=== PATIENT | male | born 1935 | race Caucasian/White ===

== ENCOUNTER 2018-05-11 07:59 | Day surgery (SDC) | payer MEDICARE, OTHER ==
[~2018-05-11 07:59] MED LIST: Lactated Ringers 1,000 ML IV SCH; Lidocaine 1%/Sod Bicarbonate in NS 8.4% 1 ML Syringe IDERM PRN; Propofol 200 MG/20 ML SDV ONE; Sodium Chloride 0.9% 10 ML Syringe FLUSH PRN
--- NOTE | 2018-05-11 08:25 | PCM.PREANE ---
Preanesthetic Assessment - Anesthesia/Transfusion/Family Hx Anesthesia History: Prior Anesthesia Without Reaction Family History of Anesthesia Reaction: No Transfusion History: No Prior Transfusion(s) - Review of Systems General: No Symptoms Pulmonary: No Symptoms Cardiovascular: No Symptoms Gastrointestinal: No Symptoms Neurological: No Symptoms Other: Reports: None - Physical Assessment NPO Status Date: 05/10/18 NPO Status Time: 00:00 Pulse: 88 O2 Sat by Pulse Oximetry: 97 Respiratory Rate: 18 Blood Pressure: 162/89 Temperature: 36.8 C Height: 1.68 m Weight: 85 kg ASA Class: 2 Mental Status: Alert & Oriented x3 Dentition: Reports: [place](s), Broken Tooth/Teeth Thyro-Mental Finger Breadths: 3 Mouth Opening Finger Breadths: 3 ROM/Head Extension: Limited/Partial Lungs: Clear to Auscultation, Normal Respiratory Effort Cardiovascular: Regular Rate, Regular Rhythm - Allergies Allergies/Adverse Reactions: Allergies Allergy/AdvReac Type Severity Reaction Status Date / Time No Known Allergies Allergy Verified 05/10/18 11:25 - Blood Blood Available: No Product(s) Available: None - Anesthesia Plan Pre-Op Medication Ordered: Beta Samra Beta Samra: Metoprolol Med Last Dose Date: 05/11/18 Med Last Dose Time: 08:40 - Acknowledgements Anesthesia Type Planned: MAC Pt an Appropriate Candidate for the Planned Anesthesia: Yes Alternatives and Risks of Anesthesia Discussed w Pt/Guardian: Yes Pt/Guardian Understands and Agrees with Anesthesia Plan: Yes PreAnesthesia Questionnaire HEENT History: Reports: Cataract, Glaucoma, Hard of Hearing, Impaired Vision, Other (See Below) Other HEENT History: cerumen impaction, wears glasses Cardiovascular History: Reports: CAD, Heart Failure, High Cholesterol, Hypertension Respiratory History: Reports: Asthma Gastrointestinal History: Reports: Celiac Disease, GERD Genitourinary History: Reports: None 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: 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: None Musculoskeletal History: Reports: None Neurological History: Reports: None Psychiatric History: Reports: None Endocrine/Metabolic History: Reports: None Hematologic History: Reports: None Immunologic History: Reports: None Oncologic (Cancer) History: Reports: None - Past Surgical History HEENT Surgical History: Reports: Cataract Surgery Cardiovascular Surgical History: Reports: Coronary Artery Bypass, Valve Replacement Respiratory Surgical History: Reports: None GI Surgical History: Reports: Colonoscopy Female Surgical History: Reports: None Male Surgical History: Reports: None Endocrine Surgical History: Reports: None Neurological Surgical History: Reports: None Musculoskeletal Surgical History: Reports: None Oncologic Surgical History: Reports: None Dermatological Surgical History: Reports: None - SUBSTANCE USE Smoking Status *Q: Former Smoker Tobacco Use Within Last Twelve Months: No Second Hand Smoke Exposure: No Days Per Week of Alcohol Use: 1 Number of Drinks Per Day: 7 Total Drinks Per Week: 7 Recreational Drug Use History: No - HOME MEDS Home Medications: Home Meds Aspirin [Ecotrin] 81 mg PO DAILY 05/10/18 [History] Betamethasone Valerate [Valisone 0.1% Crm] 1 dose TOP TID PRN 05/10/18 [History] Carbamide Peroxide [Debrox 6.5% Otic Soln] 1 dose EARBOTH ASDIRECTED PRN [History] Furosemide [Lasix] 20 mg PO DAILY 05/10/18 [History] Iron 18 mg PO DAILY 05/10/18 [History] Isosorbide Mononitrate [Imdur] 30 mg PO DAILY 05/10/18 [History] Metoprolol Tartrate 50 mg PO BID 05/10/18 [History] Multivitamin [Poly-Vitamin] 1 tab PO DAILY 05/10/18 [History] Mupirocin Oint [Bactroban Oint] 1 dose TOP BID PRN 05/10/18 [History] Omeprazole 20 mg PO DAILY 05/10/18 [History] Potassium Chloride 20 meq PO DAILY 05/10/18 [History] Ubidecarenone [Coq-10] 100 mg PO DAILY 05/10/18 [History] atorvaSTATin [Lipitor] 10 mg PO BEDTIME 05/10/18 [History] guaiFENesin [Mucinex] 600 mg PO BID PRN 05/10/18 [History] - CURRENT (IN HOUSE) MEDS Current Meds: Current Medications Lactated Ringer's (Ringers, Lactated) 1,000 mls @ 125 mls/hr IV ASDIRECTED KENDALL Stop: 05/11/18 23:00 Lidocaine/Sodium Bicarbonate (Buffered Lidocaine 1% In Ns 8.4%) 0.25 ml IDERM ONETIME PRN PRN Reason: Prior to IV Start Stop: 05/11/18 18:00 Sodium Chloride (Saline Flush) 10 ml FLUSH ASDIRECTED PRN PRN Reason: Keep Vein Open Stop: 02/28/19 18:00 Discontinued Medications Lactated Ringer's (Ringers, Lactated) 1,000 mls @ 125 mls/hr IV ASDIRECTED KENDALL Stop: 05/01/18 23:00 Lidocaine/Sodium Bicarbonate (Buffered Lidocaine 1% In Ns 8.4%) 0.25 ml IDERM ONETIME PRN PRN Reason: Prior to IV Start Stop: 05/01/18 18:00 Propofol (Diprivan 20 Ml) Confirm Administered Dose 200 mg .ROUTE .STK-MED ONE Stop: 05/11/18 07:46 Sodium Chloride (Saline Flush) 10 ml FLUSH ASDIRECTED PRN PRN Reason: Keep Vein Open Stop: 05/01/18 18:00
[2018-05-11] MEDS ORDERED: Propofol 200 MG/20 ML SDV ONE (09:21)
--- NOTE | 2018-05-11 09:42 | PCM.OPNOTE ---
- General Post-Op/Procedure Note Date of Surgery/Procedure: 05/11/18 Operative Procedure(s): EGD with bx and polypectomy Pre Op Diagnosis: HUONG anemia with positive celiac panel Post-Op Diagnosis: Same Anesthesia Technique: MAC Primary Surgeon: Cheko Luis EBL in mLs: 0 Complications: None Condition: Good
--- NOTE | 2018-05-12 07:37 | OR ---
DATE OF OPERATION: 05/11/2018 SURGEON: Cheko Luis MD PREOPERATIVE DIAGNOSIS: Iron deficiency anemia with positive celiac panel. 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 OPERATION PERFORMED: Esophagogastroduodenoscopy with biopsy of the 3rd portion of the duodenum, removal of a small subcentimeter polyp in the body of the stomach with retrieval of the polyp and securing the surgical site with clips, and biopsy of the GE junction. FINDINGS: Duodenum, 2nd portion of the duodenum, duodenal bulb, and pyloric channel were unremarkable. Antrum was unremarkable. A small polyp was noted in the body and this was first biopsied and then removed with cautery snare and retrieved and the surgical site secured with clips. A large hiatal hernia was noted with GE junction at about 32 cm and some irregularity in the Z-line, which led to a biopsy of the GE junction. Rest of the esophagus was unremarkable. ANESTHESIA: Procedure done under IV sedation. DESCRIPTION OF PROCEDURE: The patient was taken to the treatment room, placed in supine position, connected to monitoring equipment, given IV sedation, placed in the left lateral position. Bite block was inserted and video Olympus gastroscope was placed in the posterior oropharynx. Under direct vision, this was threaded past the cricopharyngeus, down the esophagus, into the stomach. The stomach was insufflated. Then, the scope passed through the pylorus and the 2nd portion of the duodenum. It was then advanced into the 3rd portion of the duodenum and a duodenal biopsy was performed. Slowly withdrawn showing normal anatomy in the duodenum, duodenal bulb, and pyloric channel. Antrum was unremarkable. A polyp was noted at the body of the stomach, which appeared irritated. This was biopsied and then cautery snare placed around the polyp. It was removed and retrieved and sent to pathology. Two clips were used to secure the surgical site. J-maneuver showed an incompetent hiatus with a large hiatal hernia and the GE junction was located at 32 cm, some irregularity and this was biopsied. The rest of the esophagus was viewed as the scope withdrawn and normal. The patient tolerated the procedure and sent to recovery room in a stable condition, will be followed up in the clinic. ESTIMATED BLOOD LOSS: MMODAL /[id number]
== END 2018-05-11 10:17 | disposition home or self-care (01) ==
LOC: JD.SDS 07:59
PROVIDERS: ATTEND Surgery
DX: D50.9 Iron deficiency anemia, unspecified (principal); R76.8 Other specified abnormal immunological findings in serum; K31.7 Polyp of stomach and duodenum; K44.9 Diaphragmatic hernia without obstruction or gangrene; J45.909 Unspecified asthma, uncomplicated; I25.10 Atherosclerotic heart disease of native coronary artery without angina pectoris; I11.0 Hypertensive heart disease with heart failure; I50.9 Heart failure, unspecified; E78.00 Pure hypercholesterolemia, unspecified; Z79.82 Long term (current) use of aspirin; Z79.899 Other long term (current) drug therapy; Z87.891 Personal history of nicotine dependence
CPT/HCPCS: 36415; 43239; 80048; J2704; J7120; 00731

== ENCOUNTER 2020-01-14 10:18 | Inpatient (IN) | payer MEDICARE, OTHER ==
[2020-01-14] MEDS ORDERED: Sodium Chloride 0.9% 1,000 ML IV SCH (10:30)
--- NOTE | 2020-01-14 11:24 | EDM.PDOC ---
ED HPI GENERAL MEDICAL PROBLEM - General Chief Complaint: General Stated Complaint: [facility] Time Seen by Provider: 01/14/20 10:22 Source of Information: Reports: Patient, EMS History Limitations: Reports: No Limitations - History of Present Illness INITIAL COMMENTS - FREE TEXT/NARRATIVE: The patient presets by [facility] for generalized weakness. He said thi s all started last Tuesday. He normally can walk without assistance but on Tuesday his legs would not work. He can walk with a walker. He has no headache, fever, chills, cough, congestion, runny nose, chest pain, shortness of breath, abdominal pain, nausea, vomiting or diarrhea. He said he did have some lower and upper back pain but that was mild and nothing now. He did fall today because of the weakness but he has no injuries. He has no medical problems other then a heart valve replaced years ago. Onset: Gradual Duration: Day(s): (6) Location: Reports: Back Quality: Reports: Ache Severity: Mild Improves with: Reports: None Worsens with: Reports: None Associated Symptoms: Reports: No Other Symptoms - Related Data Allergies Allergy/AdvReac Type Severity Reaction Status Date / Time No Known Allergies Allergy Verified 01/14/20 10:32 Home Meds: Home Meds Aspirin [Ecotrin EC] 81 mg PO DAILY 05/10/18 [History] Betamethasone Valerate [Valisone 0.1% Crm] 1 dose TOP TID PRN 05/10/18 [History] Carbamide Peroxide [Debrox 6.5% Otic Soln] 1 dose EARBOTH ASDIRECTED PRN 05/10/18 [History] Furosemide [Lasix] 20 mg PO DAILY 05/10/18 [History] Iron 18 mg PO DAILY 05/10/18 [History] Isosorbide Mononitrate [Imdur] 30 mg PO DAILY 05/10/18 [History] Metoprolol Tartrate 50 mg PO BID 05/10/18 [History] Multivitamin [Poly-Vitamin] 1 tab PO DAILY 05/10/18 [History] Mupirocin Oint [Bactroban Oint] 1 dose TOP BID PRN 05/10/18 [History] Omeprazole 20 mg PO DAILY 05/10/18 [History] Potassium Chloride 20 meq PO DAILY 05/10/18 [History] Ubidecarenone [Coq-10] 100 mg PO DAILY 05/10/18 [History] atorvaSTATin [Lipitor] 10 mg PO BEDTIME 05/10/18 [History] guaiFENesin [Mucinex] 600 mg PO BID PRN 05/10/18 [History] Past Medical History HEENT History: Reports: Cataract, Glaucoma, Hard of Hearing, Impaired Vision, Other (See Below) Other HEENT History: cerumen impaction, wears glasses Cardiovascular History: Reports: CAD, Heart Failure, High Cholesterol, Hypertension Respiratory History: Reports: Asthma Gastrointestinal History: Reports: Celiac Disease, GERD Genitourinary History: Reports: None 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: 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: None Musculoskeletal History: Reports: None Neurological History: Reports: None Psychiatric History: Reports: None Endocrine/Metabolic History: Reports: None Hematologic History: Reports: None Immunologic History: Reports: None Oncologic (Cancer) History: Reports: None - Past Surgical History HEENT Surgical History: Reports: Cataract Surgery Cardiovascular Surgical History: Reports: Coronary Artery Bypass, Valve Replacement Respiratory Surgical History: Reports: None GI Surgical History: Reports: Colonoscopy Female Surgical History: Reports: None Male Surgical History: Reports: None Endocrine Surgical History: Reports: None Neurological Surgical History: Reports: None Musculoskeletal Surgical History: Reports: None Oncologic Surgical History: Reports: None Dermatological Surgical History: Reports: None Social & Family History - Caffeine Use Caffeine Use: Reports: Coffee ED ROS GENERAL - Review of Systems Review Of Systems: See Below Constitutional: Reports: No Symptoms HEENT: Reports: No Symptoms Respiratory: Reports: No Symptoms Cardiovascular: Reports: No Symptoms Endocrine: Reports: No Symptoms GI/Abdominal: Reports: No Symptoms : Reports: No Symptoms Musculoskeletal: Reports: Back Pain (Mild back pain) Neurological: Reports: Weakness (bilateral leg weakness) ED EXAM, GENERAL - Physical Exam Exam: See Below Exam Limited By: No Limitations General Appearance: Alert, No Apparent Distress Ears: Normal External Exam Nose: Normal Inspection Head: Atraumatic, Normocephalic Neck: Normal Inspection Respiratory/Chest: No Respiratory Distress, Lungs Clear, Normal Breath Sounds Cardiovascular: Regular Rate, Rhythm, No Edema, No Murmur GI/Abdominal: Soft, Non-Tender, No Organomegaly, No Mass Back Exam: Normal Inspection Extremities: Normal Inspection Neurological: Alert, Oriented, Other (Bilateral leg weakness) #1 Interpretation EKG Date: 01/14/20 Time: 10:45 Rhythm: NSR Rate (Beats/Min): 98 [place]: LAD-Left [place] Deviation P-Wave: Present QRS: Normal ST-T: Normal QT: Normal EKG Interpretation Comments: Q waves in the inferior and anterior leads Course - Vital Signs Last Recorded V/S: Last Vital Signs Temp 96.9 F 01/14/20 10:25 Pulse 96 01/14/20 10:25 Resp 18 01/14/20 10:25 BP 116/81 01/14/20 10:25 Pulse Ox 96 01/14/20 10:25 - Orders/Labs/Meds Orders: Active Orders 24 hr Category Date Time Status Cardiac Monitoring [RC] . DIRECTED Care 01/14/20 10:29 Active EKG Documentation Completion [RC] STAT Care 01/14/20 10:30 Active Oxygen Therapy [RC] PRN Care 01/14/20 10:29 Active Peripheral IV Care [RC] . DIRECTED Care 01/14/20 10:30 Active LACTIC ACID [CHEM] Stat Lab 01/14/20 14:06 Received Sodium Chloride 0.9% [Normal Saline] 1,000 ml Med 01/14/20 10:30 Active IV ASDIRECTED Sodium Chloride 0.9% [Saline Flush] Med 01/14/20 10:29 Active 10 ml FLUSH ASDIRECTED PRN cefTRIAXone [Rocephin] 2 gm Med 01/14/20 12:15 Active Sodium Chloride 0.9% [Normal Saline] 100 ml IV Q24H Peripheral IV Insertion Adult [OM.PC] Stat Oth 01/14/20 10:29 Ordered Medication Orders Sodium Chloride (Normal Saline) 1,000 mls @ 125 mls/hr IV ASDIRECTED KENDALL Last Admin: 01/14/20 12:00 Dose: 999 mls/hr Documented by: JHOAN Ceftriaxone Sodium 2 gm/ (Sodium Chloride) 100 mls @ 200 mls/hr IV Q24H KENDALL Last Admin: 01/14/20 13:05 Dose: 200 mls/hr Documented by: JHOAN Sodium Chloride (Saline Flush) 10 ml FLUSH ASDIRECTED PRN PRN Reason: Keep Vein Open Last Admin: 01/14/20 13:07 Dose: 10 ml Documented by: JHOAN Labs: Laboratory Tests 01/14/20 01/14/20 01/14/20 Range/Units 11:00 11:00 11:00 WBC 9.28 H (4.23-9.07) K/mm3 RBC 5.22 (4.63-6.08) M/mm3 Hgb 15.7 D (13.7-17.5) gm/dl Hct 47.5 (40.1-51.0) % MCV 91.0 D (79.0-92.2) fl MCH 30.1 (25.7-32.2) pg MCHC 33.1 (32.2-35.5) g/dl RDW Std Deviation 51.2 H (35.1-43.9) fL Plt Count 488 H (163-337) K/mm3 MPV 9.5 (9.4-12.3) fl Neut % (Auto) 77.0 H (34.0-67.9) % Lymph % (Auto) 8.8 L (21.8-53.1) % [place]igs % (Auto) 12.9 H (5.3-12.2) % Eos % (Auto) 0.4 L (0.8-7.0) Baso % (Auto) 0.6 (0.1-1.2) % Neut # (Auto) 7.13 H (1.78-5.38) K/mm3 Lymph # (Auto) 0.82 L (1.32-3.57) K/mm3 [place] # (Auto) 1.20 H (0.30-0.82) K/mm3 Eos # (Auto) 0.04 (0.04-0.54) K/mm3 Baso # (Auto) 0.06 (0.01-0.08) K/mm3 Manual Slide Review Normal smear ESR (0-15) mm/hr D-Dimer, Quantitative 3.01 H (0.19-0.50) mg/L Sodium 138 (136-145) mEq/L Potassium 4.2 (3.5-5.1) mEq/L Chloride 100 (98-107) mEq/L Carbon Dioxide 26 (21-32) mEq/L Anion Gap 16.2 H (5-15) BUN 19 H (7-18) mg/dL Creatinine 1.7 H (0.7-1.3) mg/dL Est Cr Clr Drug Dosing 33.40 mL/min Estimated GFR (MDRD) 39 (>60) mL/min BUN/Creatinine Ratio 11.2 L (14-18) Glucose 120 H (83-115) mg/dL Lactic Acid (0.4-2.0) mmol/L Calcium 13.6 H* D (8.5-10.1) mg/dL Magnesium 1.7 L (1.8-2.4) mg/dl Ferritin (26-388) ng/ml Total Bilirubin 0.5 (0.2-1.0) mg/dL AST 62 H (15-37) U/L ALT 21 (16-63) U/L Alkaline Phosphatase 119 H (46-116) U/L Lactate Dehydrogenase 1422 H (85-227) U/L Troponin I < 0.017 (0.00-0.056) ng/mL C-Reactive Protein 6.3 H* (<1.0) mg/dL Total Protein 7.4 (6.4-8.2) g/dl Albumin 3.2 L (3.4-5.0) g/dl Globulin 4.2 gm/dL Albumin/Globulin Ratio 0.8 L (1-2) Urine Color (Yellow) Urine Appearance (Clear) Urine pH (5.0-8.0) Ur Specific Tyro (1.005-1.030) Urine Protein (Negative) Urine Glucose (UA) (Negative) Urine Ketones (Negative) Urine Occult Blood (Negative) Urine Nitrite (Negative) Urine Bilirubin (Negative) Urine Urobilinogen (0.2-1.0) Ur Leukocyte Esterase (Negative) Urine RBC (0-5) /hpf Urine WBC (0-5) /hpf Ur Squamous Epith Cells (0-5) /hpf Urine Bacteria (FEW) /hpf Urine Mucus (FEW) /hpf SARS-CoV-2 RNA (GRACE) (NEGATIVE) 01/14/20 01/14/20 01/14/20 Range/Units 11:00 11:00 11:00 WBC (4.23-9.07) K/mm3 RBC (4.63-6.08) M/mm3 Hgb (13.7-17.5) gm/dl Hct (40.1-51.0) % MCV (79.0-92.2) fl MCH (25.7-32.2) pg MCHC (32.2-35.5) g/dl RDW Std Deviation (35.1-43.9) fL Plt Count (163-337) K/mm3 MPV (9.4-12.3) fl Neut % (Auto) (34.0-67.9) % Lymph % (Auto) (21.8-53.1) % [place] % (Auto) (5.3-12.2) % Eos % (Auto) (0.8-7.0) Baso % (Auto) (0.1-1.2) % Neut # (Auto) (1.78-5.38) K/mm3 Lymph # (Auto) (1.32-3.57) K/mm3 [place] # (Auto) (0.30-0.82) K/mm3 Eos # (Auto) (0.04-0.54) K/mm3 Baso # (Auto) (0.01-0.08) K/mm3 Manual Slide Review ESR 8 (0-15) mm/hr D-Dimer, Quantitative (0.19-0.50) mg/L Sodium (136-145) mEq/L Potassium (3.5-5.1) mEq/L Chloride (98-107) mEq/L Carbon Dioxide (21-32) mEq/L Anion Gap (5-15) BUN (7-18) mg/dL Creatinine (0.7-1.3) mg/dL Est Cr Clr Drug Dosing mL/min Estimated GFR (MDRD) (>60) mL/min BUN/Creatinine Ratio (14-18) Glucose (83-115) mg/dL Lactic Acid 4.4 H* (0.4-2.0) mmol/L Calcium (8.5-10.1) mg/dL Magnesium (1.8-2.4) mg/dl Ferritin 129 (26-388) ng/ml Total Bilirubin (0.2-1.0) mg/dL AST (15-37) U/L ALT (16-63) U/L Alkaline Phosphatase (46-116) U/L Lactate Dehydrogenase (85-227) U/L Troponin I (0.00-0.056) ng/mL C-Reactive Protein (<1.0) mg/dL Total Protein (6.4-8.2) g/dl Albumin (3.4-5.0) g/dl Globulin gm/dL Albumin/Globulin Ratio (1-2) Urine Color (Yellow) Urine Appearance (Clear) Urine pH (5.0-8.0) Ur Specific Tyro (1.005-1.030) Urine Protein (Negative) Urine Glucose (UA) (Negative) Urine Ketones (Negative) Urine Occult Blood (Negative) Urine Nitrite (Negative) Urine Bilirubin (Negative) Urine Urobilinogen (0.2-1.0) Ur Leukocyte Esterase (Negative) Urine RBC (0-5) /hpf Urine WBC (0-5) /hpf Ur Squamous Epith Cells (0-5) /hpf Urine Bacteria (FEW) /hpf Urine Mucus (FEW) /hpf SARS-CoV-2 RNA (GRACE) (NEGATIVE) 01/14/20 01/14/20 Range/Units 12:02 12:02 WBC (4.23-9.07) K/mm3 RBC (4.63-6.08) M/mm3 Hgb (13.7-17.5) gm/dl Hct (40.1-51.0) % MCV (79.0-92.2) fl MCH (25.7-32.2) pg MCHC (32.2-35.5) g/dl RDW Std Deviation (35.1-43.9) fL Plt Count (163-337) K/mm3 MPV (9.4-12.3) fl Neut % (Auto) (34.0-67.9) % Lymph % (Auto) (21.8-53.1) % [place]igs % (Auto) (5.3-12.2) % Eos % (Auto) (0.8-7.0) Baso % (Auto) (0.1-1.2) % Neut # (Auto) (1.78-5.38) K/mm3 Lymph # (Auto) (1.32-3.57) K/mm3 [place] # (Auto) (0.30-0.82) K/mm3 Eos # (Auto) (0.04-0.54) K/mm3 Baso # (Auto) (0.01-0.08) K/mm3 Manual Slide Review ESR (0-15) mm/hr D-Dimer, Quantitative (0.19-0.50) mg/L Sodium (136-145) mEq/L Potassium (3.5-5.1) mEq/L Chloride (98-107) mEq/L Carbon Dioxide (21-32) mEq/L Anion Gap (5-15) BUN (7-18) mg/dL Creatinine (0.7-1.3) mg/dL Est Cr Clr Drug Dosing mL/min Estimated GFR (MDRD) (>60) mL/min BUN/Creatinine Ratio (14-18) Glucose (83-115) mg/dL Lactic Acid (0.4-2.0) mmol/L Calcium (8.5-10.1) mg/dL Magnesium (1.8-2.4) mg/dl Ferritin (26-388) ng/ml Total Bilirubin (0.2-1.0) mg/dL AST (15-37) U/L ALT (16-63) U/L Alkaline Phosphatase (46-116) U/L Lactate Dehydrogenase (85-227) U/L Troponin I (0.00-0.056) ng/mL C-Reactive Protein (<1.0) mg/dL Total Protein (6.4-8.2) g/dl Albumin (3.4-5.0) g/dl Globulin gm/dL Albumin/Globulin Ratio (1-2) Urine Color Yellow (Yellow) Urine Appearance Clear (Clear) Urine pH 5.5 (5.0-8.0) Ur Specific Tyro > or = 1.030 (1.005-1.030) Urine Protein 1+ H (Negative) Urine Glucose (UA) Negative (Negative) Urine Ketones Negative (Negative) Urine Occult Blood Negative (Negative) Urine Nitrite Negative (Negative) Urine Bilirubin 1+ H (Negative) Urine Urobilinogen 0.2 (0.2-1.0) Ur Leukocyte Esterase Negative (Negative) Urine RBC Not seen (0-5) /hpf Urine WBC 0-5 (0-5) /hpf Ur Squamous Epith Cells 0-5 (0-5) /hpf Urine Bacteria Not seen (FEW) /hpf Urine Mucus Few (FEW) /hpf SARS-CoV-2 RNA (GRACE) Negative (NEGATIVE) Meds: Medications Generic Name Dose Route Start Last Admin Trade Name Freq PRN Reason Stop Dose Admin Sodium Chloride 1,000 mls @ 125 mls/hr 01/14/20 10:30 11/02/20 12:00 Normal Saline IV 999 mls/hr ASDIRECTED KENDALL Administration Ceftriaxone Sodium 2 gm/ 100 mls @ 200 mls/hr 01/14/20 12:15 01/14/20 13:05 Sodium Chloride IV 200 mls/hr Q24H KENDALL Administration Sodium Chloride 10 ml 01/14/20 10:29 01/14/20 13:07 Saline Flush FLUSH 10 ml ASDIRECTED PRN Administration Keep Vein Open Discontinued Medications Generic Name Dose Route Start Last Admin Trade Name Ozzie PRN Reason Stop Dose Admin Lactated Ringer's 1,000 mls @ 1,000 mls/hr 01/14/20 11:48 01/14/20 13:37 Ringers, Lactated IV 01/14/20 12:47 1,000 mls/hr .BOLUS ONE Administration - Re-Assessments/Exams Free Text/Narrative Re-Assessment/Exam: 01/14/20 11:28 I ordered an IV saline lock, CT of his head, EKG, CXR, labs, UA, lactic acid and COVID 19 test. 01/14/20 14:[address] of his head shows no evidence of acute intracranial abnormality. No evidence of acute infarction, hemorrhage, or mass. Atrophy and microvascular di sease. His EKG shows a NSR with no acute changes. His CXR shows basilar pulmonary opacities and probable small pleural effusions. His WBC was elevated at 9.28. His D-dimer was elevated at 3.01. His anion gap was elevated at 16.2. His creatinine was elevated at 1.7. His glucose is elevated at 120. his lactic acid is elevated at 4.4. I ordered 2,430mls of fluid for a 30ml/kg bolus. His calcium was elevated at 13.6. His magnesium was a little low at 1.7. His AST was elevated at 62. His Alk Phos is elevated at 119. His LDH was elevated at 1422. His troponin is negative. His CRP is elevated at 6.3. His UA shows no UTI. I did get blood cultures and started rocephin. He has pneumonia and sepsis. He is COVID [address] Scott and he agreed to the admission. Departure - Departure Time of Disposition: 14:25 Disposition: Admitted As Inpatient 66 Condition: Serious Clinical Impression: Renal insufficiency, Generalized weakness Pneumonia Qualifiers: Pneumonia type: due to unspecified organism Laterality: bilateral Lung location: lower lobe of lung Qualified Code(s): J18.9 - Pneumonia, unspecified organism Sepsis Qualifiers: Sepsis type: sepsis due to unspecified organism Sepsis acute organ dysfunction status: unspecified Qualified Code(s): A41.9 - Sepsis, unspecified organism - Discharge Information Referrals: PCP,None [Ordering Only Provider] - Forms: ED Department Discharge Sepsis Event Note (ED) - Evaluation Sepsis Screening Result: No Definite Risk - Focused Exam Vital Signs: Vital Signs Temp Pulse Resp BP Pulse Ox 01/14/20 10:25 96.9 F 96 18 116/81 96 - My Orders Last 24 Hours: My Active Orders 01/14/20 10:29 Cardiac Monitoring [RC] . DIRECTED Oxygen Therapy [RC] PRN Sodium Chloride 0.9% [Saline Flush] 10 ml FLUSH ASDIRECTED PRN Peripheral IV Insertion Adult [OM.PC] Stat 01/14/20 10:30 EKG Documentation Completion [RC] STAT Peripheral IV Care [RC] . DIRECTED Sodium Chloride 0.9% [Normal Saline] 1,000 ml IV ASDIRECTED 01/14/20 12:15 cefTRIAXone [Rocephin] 2 gm Sodium Chloride 0.9% [Normal Saline] 100 ml IV Q24H 01/14/20 14:06 LACTIC ACID [CHEM] Stat - Assessment/Plan Last 24 Hours: My Active Orders 01/14/20 10:29 Cardiac Monitoring [RC] . DIRECTED Oxygen Therapy [RC] PRN Sodium Chloride 0.9% [Saline Flush] 10 ml FLUSH ASDIRECTED PRN Peripheral IV Insertion Adult [OM.PC] Stat 01/14/20 10:30 EKG Documentation Completion [RC] STAT Peripheral IV Care [RC] . DIRECTED Sodium Chloride 0.9% [Normal Saline] 1,000 ml IV ASDIRECTED 01/14/20 12:15 cefTRIAXone [Rocephin] 2 gm Sodium Chloride 0.9% [Normal Saline] 100 ml IV Q24H 01/14/20 14:06 LACTIC ACID [CHEM] Stat
[2020-01-14] MEDS ORDERED: Lactated Ringers 1,000 ML IV ONE (11:48)
[2020-01-14] MEDS ORDERED: cefTRIAXone 2 GM in Sodium Chloride 0.9% 100 ML IV SCH (12:15)
[2020-01-14] MEDS: Sodium Chloride 0.9% 10 ML Syringe FLUSH PRN (13:07)
--- NOTE | 2020-01-14 13:58 | CT ---
"PROCEDURE INFORMATION: Exam: CT Head Without Contrast Exam date and time: 01/14/2020 11:36 AM Age: 84 years old Clinical indication: Weakness, extremity; Bilateral; Additional info: Generalized weakness; Worse in both legs TECHNIQUE: Imaging protocol: Computed tomography of the head without contrast. Radiation optimization: All CT scans at this facility use at least one of these dose optimization techniques: automated exposure control; mA and/or kV adjustment per patient size (includes targeted exams where dose is matched to clinical indication); or iterative reconstruction. COMPARISON: No relevant prior studies available. FINDINGS: Brain: There is small chronic lacunar infarct along lateral aspect of body of right lateral ventricle. There is no acute intracranial hemorrhage. There is lucency in the cerebral white matter, likely microvascular disease although non-specific. Reeves white differentiation is intact. There are no extraaxial fluid collections. No evidence of mass. There is no mass effect or midline shift. Cerebral ventricles: The ventricles and sulci are enlarged, consistent with volume loss / atrophy. No hydrocephalus. Bones/joints: No acute skull fracture. Approximately 5 mm nonspecific rounded lucency in left parietal skull. Paranasal sinuses: There is minimal mucosal thickening scattered in maxillary, ethmoid, and frontal sinuses. Mastoid air cells: No significant mastoid effusion. Orbital cavity: There have been bilateral intraocular lens replacements likely related to cataract surgery. Vasculature: There is vascular calcification. Soft tissues: Unremarkable as visualized. IMPRESSION: [facility] | Final Radiology Report CONFIDENTIALITY STATEMENT This report is intended only for use by the referring physician, and only in accordance with law. If you received this in error, call [phone]. Page 2 of 2 1. No evidence of acute intracranial abnormality. No evidence of acute infarction, hemorrhage, or mass. 2. Atrophy and microvascular disease. Thank you for allowing us to participate in the care of your patient. Dictated and Authenticated by: Rose Mary Mayo MD 01/14/2020 12:48 PM Central Time ([place] & [place]) [facility]"
--- NOTE | 2020-01-14 14:00 | CR ---
PROCEDURE INFORMATION: Exam: XR Chest, 1 View Exam date and time: 01/14/2020 11:13 AM Age: 84 years old Clinical indication: Chest pain; Type not specified; Additional info: Generalized weakness; Worse in both legs TECHNIQUE: Imaging protocol: XR of the chest Views: 1 view. COMPARISON: No relevant prior studies available. FINDINGS: Lungs: Rounded opacity retrocardiac region could be a hiatal hernia but is nonspecific without localizing with lateral view. There are mild basilar airspace opacities which could be pneumonia and/or edema. Costophrenic angles appear slightly blunted suggesting small pleural effusions. Pleural space: See "Lungs" finding. No pneumothorax. Heart/Mediastinum: No significant cardiomegaly. Bones/joints: There is prior median sternotomy. Old right posterior 4th and 5th rib fractures. IMPRESSION: Basilar pulmonary opacities and probable small pleural effusions. Thank you for allowing us to participate in the care of your patient. Dictated and Authenticated by: Rose Mary Mayo MD 01/14/2020 12:50 PM Central Time ([place] & [place]) [facility]
[2020-01-14] MEDS ORDERED: LACTATED RINGERS IV ONE (14:37)
[2020-01-14] MEDS ORDERED: Lactated Ringers 1,000 ML ONE (14:54)
[2020-01-14] MEDS ORDERED: Bisacodyl 5 MG Tab PO PRN (15:08)
[2020-01-14] MEDS ORDERED: Sodium Chloride 0.9% 10 ML Syringe FLUSH PRN (15:08)
[2020-01-14] MEDS ORDERED: Ondansetron 4 MG/2 ML SDV IV PRN (15:08)
[2020-01-14] MEDS ORDERED: Magnesium Sulfate/Water 2 GM/50 ML BAG IV ONE (15:56)
--- NOTE | 2020-01-14 15:56 | PCM.HP.2 ---
H&P History of Present Illness - General Date of Service: 01/14/20 Admit Problem/Dx: Admission Diagnosis/Problem Admission Diagnosis/Problem Sepsis due to pneumonia Source of Information: Provider, RN History Limitations: Reports: Other (Patient is confused. Oriented to person and place however he thinks the year is 1819.) - History of Present Illness Initial Comments - Free Text/Narative: The patient presets by [facility] for generalized weakness. He said this all started last Tuesday. He normally can walk without assistance but on Tuesday his legs would not work. He can walk with a walker. He has no headache, fever, chills, cough, congestion, runny nose, chest pain, shortness of breath, abdominal pain, nausea, vomiting or diarrhea. He said he did have some lower and upper back pain but that was mild and nothing now. He did fall today because of the weakness but he has no injuries. He has no medical problems other then a heart valve replaced years ago. - Related Data Allergies/Adverse Reactions: Allergies Allergy/AdvReac Type Severity Reaction Status Date / Time No Known Allergies Allergy Verified 01/14/20 17:25 Home Medications: Home Meds Furosemide [Lasix] 20 mg PO DAILY 05/10/18 [History] Metoprolol Tartrate 50 mg PO BID 05/10/18 [History] Multivitamin [Poly-Vitamin] 1 tab PO DAILY 05/10/18 [History] Omeprazole 20 mg PO DAILY 05/10/18 [History] Potassium Chloride 20 meq PO DAILY 05/10/18 [History] atorvaSTATin [Lipitor] 10 mg PO BEDTIME 05/10/18 [History] Aspirin [Halfprin] 81 mg PO DAILY 01/14/20 [History] Past Medical History HEENT History: Reports: Cataract, Glaucoma, Hard of Hearing, Impaired Vision, Other (See Below) Other HEENT History: cerumen impaction, wears glasses Cardiovascular History: Reports: CAD, Heart Failure, High Cholesterol, Hypert ension Respiratory History: Reports: Asthma Gastrointestinal History: Reports: Celiac Disease, GERD Genitourinary History: Reports: None NURSE CHEMICAL DEPENDENCY History: Reports: None Musculoskeletal History: Reports: None Neurological History: Reports: None Psychiatric History: Reports: None Endocrine/Metabolic History: Reports: None Hematologic History: Reports: None Immunologic History: Reports: None Oncologic (Cancer) History: Reports: None - Past Surgical History HEENT Surgical History: Reports: Cataract Surgery Cardiovascular Surgical History: Reports: Coronary Artery Bypass, Valve Replacement Respiratory Surgical History: Reports: None GI Surgical History: Reports: Colonoscopy Female Surgical History: Reports: None Male Surgical History: Reports: None Endocrine Surgical History: Reports: None Neurological Surgical History: Reports: None Musculoskeletal Surgical History: Reports: None Oncologic Surgical History: Reports: None Dermatological Surgical History: Reports: None Social & Family History - Caffeine Use Caffeine Use: Reports: Coffee H&P Review of Systems - Review of Systems: Review Of Systems: See Below General: Reports: Weakness HEENT: Reports: Glasses Pulmonary: Reports: No Symptoms Cardiovascular: Reports: No Symptoms Gastrointestinal: Reports: No Symptoms Genitourinary: Reports: No Symptoms Musculoskeletal: Reports: No Symptoms Skin: Reports: No Symptoms Psychiatric: Reports: Confusion Neurological: Reports: Confusion Hematologic/Lymphatic: Reports: No Symptoms Immunologic: Reports: No Symptoms Exam - Exam Exam: See Below - Vital Signs Vital Signs: Last Vital Signs Temp 96.9 F 01/14/20 10:25 Pulse 96 01/14/20 10:25 Resp 18 01/14/20 10:25 BP 116/81 01/14/20 10:25 Pulse Ox 96 01/14/20 10:25 Weight: 180 lb - Exam Quality Assessment: DVT Prophylaxis (Lovenox). No: Supplemental Oxygen General: Alert, Cooperative, Other (Confused he believes that it is 1820.) HEENT: Conjunctiva Clear, EACs Clear, Pupils Equal, Pupils Reactive. No: Hearing Intact (Hard of hearing), Mucosa Moist & [place] (Dry) Neck: Supple, Trachea Midline. No: Lymphadenopathy Lungs: Clear to Auscultation, Normal Respiratory Effort Cardiovascular: Regular Rate, Regular Rhythm, Systolic Murmur GI/Abdominal Exam: Normal Bowel Sounds, Soft, Non-Tender, No Distention (Male) Exam: Deferred Rectal (Males) Exam: Deferred Back Exam: Normal Inspection, Full Range of Motion Extremities: Normal Inspection, Normal Range of Motion, Non-Tender, No Pedal Ed jazzy, Normal Capillary Refill Peripheral Pulses: 2+: Radial (L), Radial (R), Dorsalis Pedis (L), Dorsalis Pedis (R) Skin: Warm, Dry, Intact Neuro Extensive - Mental Status: Alert, Normal Mood/Affect, Normal Cognition, Disorientation to Time Psychiatric: Alert, Normal Affect, Normal Mood - Patient Data Lab Results Last 24 hrs: Laboratory Results - last 24 hr 01/14/20 01/14/20 01/14/20 Range/Units 11:00 11:00 11:00 WBC 9.28 H (4.23-9.07) K/mm3 RBC 5.22 (4.63-6.08) M/mm3 Hgb 15.7 D (13.7-17.5) gm/dl Hct 47.5 (40.1-51.0) % MCV 91.0 D (79.0-92.2) fl MCH 30.1 (25.7-32.2) pg MCHC 33.1 (32.2-35.5) g/dl RDW Std Deviation 51.2 H (35.1-43.9) fL Plt Count 488 H (163-337) K/mm3 MPV 9.5 (9.4-12.3) fl Neut % (Auto) 77.0 H (34.0-67.9) % Lymph % (Auto) 8.8 L (21.8-53.1) % [place] % (Auto) 12.9 H (5.3-12.2) % Eos % (Auto) 0.4 L (0.8-7.0) Baso % (Auto) 0.6 (0.1-1.2) % Neut # (Auto) 7.13 H (1.78-5.38) K/mm3 Lymph # (Auto) 0.82 L (1.32-3.57) K/mm3 [place] # (Auto) 1.20 H (0.30-0.82) K/mm3 Eos # (Auto) 0.04 (0.04-0.54) K/mm3 Baso # (Auto) 0.06 (0.01-0.08) K/mm3 Manual Slide Review Normal smear ESR (0-15) mm/hr D-Dimer, Quantitative 3.01 H (0.19-0.50) mg/L Sodium 138 (136-145) mEq/L Potassium 4.2 (3.5-5.1) mEq/L Chloride 100 (98-107) mEq/L Carbon Dioxide 26 (21-32) mEq/L Anion Gap 16.2 H (5-15) BUN 19 H (7-18) mg/dL Creatinine 1.7 H (0.7-1.3) mg/dL Est Cr Clr Drug Dosing 33.40 mL/min Estimated GFR (MDRD) 39 (>60) mL/min BUN/Creatinine Ratio 11.2 L (14-18) Glucose 120 H (83-115) mg/dL Lactic Acid (0.4-2.0) mmol/L Calcium 13.6 H* D (8.5-10.1) mg/dL Magnesium 1.7 L (1.8-2.4) mg/dl Ferritin (26-388) ng/ml Total Bilirubin 0.5 (0.2-1.0) mg/dL AST 62 H (15-37) U/L ALT 21 (16-63) U/L Alkaline Phosphatase 119 H (46-116) U/L Lactate Dehydrogenase 1422 H (85-227) U/L Troponin I < 0.017 (0.00-0.056) ng/mL C-Reactive Protein 6.3 H* (<1.0) mg/dL Total Protein 7.4 (6.4-8.2) g/dl Albumin 3.2 L (3.4-5.0) g/dl Globulin 4.2 gm/dL Albumin/Globulin Ratio 0.8 L (1-2) Urine Color (Yellow) Urine Appearance (Clear) Urine pH (5.0-8.0) Ur Specific [place] (1.005-1.030) Urine Protein (Negative) Urine Glucose (UA) (Negative) Urine Ketones (Negative) Urine Occult Blood (Negative) Urine Nitrite (Negative) Urine Bilirubin (Negative) Urine Urobilinogen (0.2-1.0) Ur Leukocyte Esterase (Negative) Urine RBC (0-5) /hpf Urine WBC (0-5) /hpf Ur Squamous Epith Cells (0-5) /hpf Urine Bacteria (FEW) /hpf Urine Mucus (FEW) /hpf SARS-CoV-2 RNA (GRACE) (NEGATIVE) 01/14/20 01/14/20 01/14/20 Range/Units 11:00 11:00 11:00 WBC (4.23-9.07) K/mm3 RBC (4.63-6.08) M/mm3 Hgb (13.7-17.5) gm/dl Hct (40.1-51.0) % MCV (79.0-92.2) fl MCH (25.7-32.2) pg MCHC (32.2-35.5) g/dl RDW Std Deviation (35.1-43.9) fL Plt Count (163-337) K/mm3 MPV (9.4-12.3) fl Neut % (Auto) (34.0-67.9) % Lymph % (Auto) (21.8-53.1) % [place] % (Auto) (5.3-12.2) % Eos % (Auto) (0.8-7.0) Baso % (Auto) (0.1-1.2) % Neut # (Auto) (1.78-5.38) K/mm3 Lymph # (Auto) (1.32-3.57) K/mm3 [place] # (Auto) (0.30-0.82) K/mm3 Eos # (Auto) (0.04-0.54) K/mm3 Baso # (Auto) (0.01-0.08) K/mm3 Manual Slide Review ESR 8 (0-15) mm/hr D-Dimer, Quantitative (0.19-0.50) mg/L Sodium (136-145) mEq/L Potassium (3.5-5.1) mEq/L Chloride (98-107) mEq/L Carbon Dioxide (21-32) mEq/L Anion Gap (5-15) BUN (7-18) mg/dL Creatinine (0.7-1.3) mg/dL Est Cr Clr Drug Dosing mL/min Estimated GFR (MDRD) (>60) mL/min BUN/Creatinine Ratio (14-18) Glucose (83-115) mg/dL Lactic Acid 4.4 H* (0.4-2.0) mmol/L Calcium (8.5-10.1) mg/dL Magnesium (1.8-2.4) mg/dl Ferritin 129 (26-388) ng/ml Total Bilirubin (0.2-1.0) mg/dL AST (15-37) U/L ALT (16-63) U/L Alkaline Phosphatase (46-116) U/L Lactate Dehydrogenase (85-227) U/L Troponin I (0.00-0.056) ng/mL C-Reactive Protein (<1.0) mg/dL Total Protein (6.4-8.2) g/dl Albumin (3.4-5.0) g/dl Globulin gm/dL Albumin/Globulin Ratio (1-2) Urine Color (Yellow) Urine Appearance (Clear) Urine pH (5.0-8.0) Ur Specific [place] (1.005-1.030) Urine Protein (Negative) Urine Glucose (UA) (Negative) Urine Ketones (Negative) Urine Occult Blood (Negative) Urine Nitrite (Negative) Urine Bilirubin (Negative) Urine Urobilinogen (0.2-1.0) Ur Leukocyte Esterase (Negative) Urine RBC (0-5) /hpf Urine WBC (0-5) /hpf Ur Squamous Epith Cells (0-5) /hpf Urine Bacteria (FEW) /hpf Urine Mucus (FEW) /hpf SARS-CoV-2 RNA (GRACE) (NEGATIVE) 01/14/20 01/14/20 01/14/20 Range/Units 12:02 12:02 14:06 WBC (4.23-9.07) K/mm3 RBC (4.63-6.08) M/mm3 Hgb (13.7-17.5) gm/dl Hct (40.1-51.0) % MCV (79.0-92.2) fl MCH (25.7-32.2) pg MCHC (32.2-35.5) g/dl RDW Std Deviation (35.1-43.9) fL Plt Count (163-337) K/mm3 MPV (9.4-12.3) fl Neut % (Auto) (34.0-67.9) % Lymph % (Auto) (21.8-53.1) % [place] % (Auto) (5.3-12.2) % Eos % (Auto) (0.8-7.0) Baso % (Auto) (0.1-1.2) % Neut # (Auto) (1.78-5.38) K/mm3 Lymph # (Auto) (1.32-3.57) K/mm3 [place] # (Auto) (0.30-0.82) K/mm3 Eos # (Auto) (0.04-0.54) K/mm3 Baso # (Auto) (0.01-0.08) K/mm3 Manual Slide Review ESR (0-15) mm/hr D-Dimer, Quantitative (0.19-0.50) mg/L Sodium (136-145) mEq/L Potassium (3.5-5.1) mEq/L Chloride (98-107) mEq/L Carbon Dioxide (21-32) mEq/L Anion Gap (5-15) BUN (7-18) mg/dL Creatinine (0.7-1.3) mg/dL Est Cr Clr Drug Dosing mL/min Estimated GFR (MDRD) (>60) mL/min BUN/Creatinine Ratio (14-18) Glucose (83-115) mg/dL Lactic Acid 2.8 H* (0.4-2.0) mmol/L Calcium (8.5-10.1) mg/dL Magnesium (1.8-2.4) mg/dl Ferritin (26-388) ng/ml Total Bilirubin (0.2-1.0) mg/dL AST (15-37) U/L ALT (16-63) U/L Alkaline Phosphatase (46-116) U/L Lactate Dehydrogenase (85-227) U/L Troponin I (0.00-0.056) ng/mL C-Reactive Protein (<1.0) mg/dL Total Protein (6.4-8.2) g/dl Albumin (3.4-5.0) g/dl Globulin gm/dL Albumin/Globulin Ratio (1-2) Urine Color Yellow (Yellow) Urine Appearance Clear (Clear) Urine pH 5.5 (5.0-8.0) Ur Specific [place] > or = 1.030 (1.005-1.030) Urine Protein 1+ H (Negative) Urine Glucose (UA) Negative (Negative) Urine Ketones Negative (Negative) Urine Occult Blood Negative (Negative) Urine Nitrite Negative (Negative) Urine Bilirubin 1+ H (Negative) Urine Urobilinogen 0.2 (0.2-1.0) Ur Leukocyte Esterase Negative (Negative) Urine RBC Not seen (0-5) /hpf Urine WBC 0-5 (0-5) /hpf Ur Squamous Epith Cells 0-5 (0-5) /hpf Urine Bacteria Not seen (FEW) /hpf Urine Mucus Few (FEW) /hpf SARS-CoV-2 RNA (GRACE) Negative (NEGATIVE) Result Diagrams: 01/14/20 11:00 01/14/20 11:00 Sepsis Event Note - Evaluation Sepsis Screening Result: No Definite Risk - Focused Exam Vital Signs: Vital Signs Temp Pulse Resp BP Pulse Ox 01/14/20 10:25 96.9 F 96 18 116/81 96 - Problem List (1) Pneumonia SNOMED Code(s): 538947648 ICD Code: J18.9 - PNEUMONIA, UNSPECIFIED ORGANISM Status: Acute Priority: High Current Visit: Yes Qualifiers: Pneumonia type: due to unspecified organism Laterality: bilateral Lung location: lower lobe of lung Qualified Code(s): J18.9 - Pneumonia, unspecified organism (2) Renal insufficiency SNOMED Code(s): 306809568, 611569646 ICD Code: N28.9 - DISORDER OF KIDNEY AND URETER, UNSPECIFIED Status: Acute Priority: High Current Visit: Yes (3) Sepsis SNOMED Code(s): 05025117 ICD Code: A41.9 - SEPSIS, UNSPECIFIED ORGANISM Status: Acute Priority: High Current Visit: Yes Qualifiers: Sepsis type: sepsis due to unspecified organism Sepsis acute organ dysfunction status: unspecified Qualified Code(s): A41.9 - Sepsis, unspecified organism (4) Generalized weakness SNOMED Code(s): 59154478 ICD Code: R53.1 - WEAKNESS Status: Acute Priority: High Current Visit: Yes (5) Sepsis due to pneumonia SNOMED Code(s): 19411874 ICD Code: J18.9 - PNEUMONIA, UNSPECIFIED ORGANISM; A41.9 - SEPSIS, UNSPECIFIED ORGANISM Status: Acute Priority: High Current Visit: Yes Problem List Initiated/Reviewed/Updated: Yes Orders Last 24hrs: Active Orders 24 hr Category Date Time Status Patient Status [ADT] Routine ADT 01/14/20 15:08 Active Cardiac Monitoring [RC] . DIRECTED Care 01/14/20 10:29 Active EKG Documentation Completion [RC] STAT Care 01/14/20 10:30 Active Height and Weight [RC] DAILY Care 01/14/20 15:08 Active Intake and Output [RC] QSHIFT Care 01/14/20 15:10 Active Oxygen Therapy [RC] PRN Care 01/14/20 10:29 Active Oxygen Therapy [RC] PRN Care 01/14/20 15:08 Active Peripheral IV Care [RC] . DIRECTED Care 01/14/20 10:30 Active VTE/DVT Education [RC] PER UNIT ROUTINE Care 01/14/20 15:08 Active Vital Signs [RC] Q4H Care 01/14/20 15:08 Active Consult to Case Management/Linotype Mechanic [CONS] Cons 01/14/20 15:08 Active Routine Consult to Instructional Technology Teacher [CONS] Routine Cons 01/14/20 15:08 Active Consult to Spiritual Care [CONS] Routine Cons 01/14/20 15:08 Active OT Evaluation and Treatment [CONS] Routine Cons 01/14/20 15:08 Active PT Evaluation and Treatment [CONS] Routine Cons 01/14/20 15:08 Active Regular Diet [DIET] Diet 01/14/20 Dinner Active CBC WITH AUTO DIFF [HEME] DAILY Lab 01/15/20 05:11 Ordered CBC WITH AUTO DIFF [HEME] DAILY Lab 01/16/20 05:11 Ordered CBC WITH AUTO DIFF [HEME] DAILY Lab 01/17/20 05:11 Ordered CBC WITH AUTO DIFF [HEME] DAILY Lab 01/18/20 05:11 Ordered CBC WITH AUTO DIFF [HEME] DAILY Lab 01/19/20 05:11 Ordered COMPREHENSIVE METABOLIC PN,CMP [CHEM] DAILY Lab 01/15/20 05:11 Ordered COMPREHENSIVE METABOLIC PN,CMP [CHEM] DAILY Lab 01/16/20 05:11 Ordered COMPREHENSIVE METABOLIC PN,CMP [CHEM] DAILY Lab 01/17/20 05:11 Ordered COMPREHENSIVE METABOLIC PN,CMP [CHEM] DAILY Lab 01/18/20 05:11 Ordered COMPREHENSIVE METABOLIC PN,CMP [CHEM] DAILY Lab 01/19/20 05:11 Ordered CULTURE BLOOD [BC] Stat Lab 01/14/20 15:32 Ordered CULTURE BLOOD [BC] Stat Lab 01/14/20 15:32 Ordered LACTIC ACID W/ REFLEX [LACTATE SEPSIS W/ REFLEX] [CHEM] Lab 01/14/20 17:00 Ordered Routine LACTIC ACID [CHEM] DAILY Lab 01/15/20 05:11 Ordered LACTIC ACID [CHEM] DAILY Lab 01/16/20 05:11 Ordered LACTIC ACID [CHEM] DAILY Lab 01/17/20 05:11 Ordered MAGNESIUM [CHEM] DAILY Lab 01/15/20 05:11 Ordered MAGNESIUM [CHEM] DAILY Lab 01/16/20 05:11 Ordered MAGNESIUM [CHEM] DAILY Lab 01/17/20 05:11 Ordered MAGNESIUM [CHEM] DAILY Lab 01/18/20 05:11 Ordered MAGNESIUM [CHEM] DAILY Lab 01/19/20 05:11 Ordered PHOSPHORUS [CHEM] DAILY Lab 01/15/20 05:11 Ordered PHOSPHORUS [CHEM] DAILY Lab 01/16/20 05:11 Ordered PHOSPHORUS [CHEM] DAILY Lab 01/17/20 05:11 Ordered PHOSPHORUS [CHEM] DAILY Lab 01/18/20 05:11 Ordered PHOSPHORUS [CHEM] DAILY Lab 01/19/20 05:11 Ordered Acetaminophen [TylenoL] Med 01/14/20 15:08 Active 650 mg PO Q4H PRN Docusate Sodium [Colace] Med 01/14/20 15:08 Active 100 mg PO BID PRN Docusate Sodium/Sennosides [Senna Plus] Med 01/14/20 15:08 Active 1 tab PO BID PRN Enoxaparin [Lovenox] Med 01/14/20 15:30 Active 40 mg SUBCUT Q24H Ondansetron [Zofran] Med 01/14/20 15:08 Active 4 mg IV Q4H PRN Sodium Chloride 0.9% [Normal Saline] 1,000 ml Med 01/14/20 10:30 Active IV ASDIRECTED Sodium Chloride 0.9% [Saline Flush] Med 01/14/20 10:29 Active 10 ml FLUSH ASDIRECTED PRN Sodium Chloride 0.9% [Saline Flush] Med 01/14/20 15:08 Active 10 ml FLUSH ASDIRECTED PRN bisacodyL [Dulcolax] Med 01/14/20 15:08 Active 5 mg PO DAILY PRN cefTRIAXone [Rocephin] 2 gm Med 01/14/20 12:15 Active Sodium Chloride 0.9% [Normal Saline] 100 ml IV Q24H cefTRIAXone [Rocephin] 2 gm Med 01/14/20 15:15 Active Sodium Chloride 0.9% [Normal Saline] 100 ml IV Q24H Blood Culture x2 Reflex Set [OM.PC] Stat Oth 01/14/20 15:32 Ordered Peripheral IV Insertion Adult [OM.PC] Stat Oth 01/14/20 10:29 Ordered Saline Lock Insert [OM.PC] Routine Oth 01/14/20 15:08 Ordered Resuscitation Status Routine Resus Stat 01/14/20 15:08 Ordered Medication Orders Acetaminophen (Tylenol) 650 mg PO Q4H PRN PRN Reason: Pain (Mild 1-3)/fever Bisacodyl (Dulcolax) 5 mg PO DAILY PRN PRN Reason: Constipation Docusate Sodium (Colace) 100 mg PO BID PRN PRN Reason: Constipation Enoxaparin Sodium (Lovenox) 40 mg SUBCUT Q24H [place] Sodium Chloride (Normal Saline) 1,000 mls @ 125 mls/hr IV ASDIRECTED [place] Last Admin: 01/14/20 12:00 Dose: 999 mls/hr Documented by: JHOAN Ceftriaxone Sodium 2 gm/ (Sodium Chloride) 100 mls @ 200 mls/hr IV Q24H [facility] Last Admin: 01/14/20 13:05 Dose: 200 mls/hr Documented by: JHOAN Ceftriaxone Sodium 2 gm/ (Sodium Chloride) 100 mls @ 200 mls/hr IV Q24H [facility] Ondansetron HCl (Zofran) 4 mg IV Q4H PRN PRN Reason: Nausea/Vomiting Senna/Docusate Sodium (Senna Plus) 1 tab PO BID PRN PRN Reason: Constipation Sodium Chloride (Saline Flush) 10 ml FLUSH ASDIRECTED PRN PRN Reason: Keep Vein Open Last Admin: 01/14/20 13:07 Dose: 10 ml Documented by: JHOAN Sodium Chloride (Saline Flush) 10 ml FLUSH ASDIRECTED PRN PRN Reason: Keep Vein Open Assessment/Plan Comment:: 01/14/20 * 84-year-old male with a 5-day history of increased weakness and fatigue. * With symptoms gradually worsening. * Chest x-ray obtained in the ER reports basilar pulmonary opacities and pro bable small pleural effusions. * CT of the head obtained in the ER reports no evidence of acute intracranial abnormality. No evidence of acute infarction, hemorrhage or mass. Atrophy and microvascular disease. * Lab work reveals WBC 9.28, hemoglobin 15.7, hematocrit 47.5, platelet count 488, neutrophil count 7.13 without bands, D-dimer 3.01, BUN 19, creatinine 1.7, GFR 39, calcium 13.6, magnesium 1.7, LDH 1422, troponin less than 0.017, C-reactive protein 6.3, lactic acid 4.4 repeat lactic acid was 2.8, urinalysis was negative for infection * Sepsis protocol was implemented in the emergency department. * Patient was started on 2 g of Rocephin IV. * Patient was given 2400 mL of IV fluids per sepsis protocol. * Initial vital signs in the emergency department are temp 96.9, heart rate 96, respiratory rate 18, blood pressure 116/81, and pulse oximeter is 96% on room air. * CT angiogram was not performed in the ER due to the patient being in renal failure. PLAN: * Await blood culture report * Rocephin 2 g IV daily * We will not give further IV fluids at this point due to patient having a history of congestive heart failure and we do not want to overload him. * Obtain most recent echocardiogram. * Vital signs every 4 hours. * Intake and output every 8 hours with weights daily. * Will recheck labs in the morning and correct any electrolyte abnormalities. * Give magnesium 2 g IV * PT/OT to eval and treat * medical services coordinator for discharge planning * Lovenox for DVT prophylaxis * Renally dose all medications. * Dietitian to consult * Spiritual care * Patient is a DNR/DNI Patient will likely be here 3 to 4 days due to the treatment of septic pneumonia. medical services coordinator and case management to assist with discharge planning. - Mortality Measure Prognosis:: Good
[2020-01-14] MEDS: cefTRIAXone 2 GM in Sodium Chloride 0.9% 100 ML IV SCH (18:00)
[2020-01-14] MEDS: Enoxaparin 40 MG/0.4 ML Syringe SUBCUT SCH (19:16)
[2020-01-14] MEDS: Metoprolol Tartrate 50 MG Tab PO SCH (20:46)
[2020-01-14] MEDS: Simvastatin 10 MG Tab PO SCH (20:48)
[2020-01-15] MEDS: Pantoprazole 40 MG Tab.CR PO SCH ×2 (05:42→06:02)
[2020-01-15] MEDS: Aspirin 81 MG Tab.EC PO SCH (09:17)
[2020-01-15] MEDS: Furosemide 20 MG Tab PO SCH (09:17)
[2020-01-15] MEDS: Potassium Chloride 20 MEQ Tab.ER PO SCH (09:17)
[2020-01-15] MEDS: Metoprolol Tartrate 50 MG Tab PO SCH ×2 (09:18→20:11)
[2020-01-15] MEDS: Multivitamins,Therapeutic Tab PO SCH (09:18)
--- NOTE | 2020-01-15 13:34 | PCM.PN ---
- General Info Date of Service: 01/15/20 Admission Dx/Problem (Free Text): Admission Diagnosis/Problem Admission Diagnosis/Problem Sepsis due to pneumonia Subjective Update: Doing about the same today. Remains confused, he thought the year was 1686. Continues to be on room air. Functional Status: Reports: Pain Controlled, Tolerating Diet, Ambulating, Urinating - Review of Systems General: Reports: Weakness, Fatigue HEENT: Reports: No Symptoms Pulmonary: Reports: No Symptoms Cardiovascular: Reports: No Symptoms Gastrointestinal: Reports: No Symptoms Genitourinary: Reports: No Symptoms Musculoskeletal: Reports: No Symptoms Skin: Reports: No Symptoms Neurological: Reports: No Symptoms Psychiatric: Reports: No Symptoms - Patient Data Vitals - Most Recent: Last Vital Signs Temp 96.4 F L 01/15/20 11:41 Pulse 97 01/15/20 11:41 Resp 26 H 01/15/20 11:41 BP 131/87 01/15/20 11:41 Pulse Ox 95 01/15/20 11:41 Weight - Most Recent: 180 lb I&O - Last 24 Hours: Intake & Output 01/14/20 01/15/20 01/15/20 22:59 06:59 14:59 Intake Total 300 348 240 Output Total 350 Balance 300 -2 240 Lab Results Last 24 Hours: Laboratory Results - last 24 hr 01/14/20 01/14/20 01/14/20 Range/Units 11:00 12:02 12:02 WBC (4.23-9.07) K/mm3 RBC (4.63-6.08) M/mm3 Hgb (13.7-17.5) gm/dl Hct (40.1-51.0) % MCV (79.0-92.2) fl MCH (25.7-32.2) pg MCHC (32.2-35.5) g/dl RDW Std Deviation (35.1-43.9) fL Plt Count (163-337) K/mm3 MPV (9.4-12.3) fl Neut % (Auto) (34.0-67.9) % Lymph % (Auto) (21.8-53.1) % [place] % (Auto) (5.3-12.2) % Eos % (Auto) (0.8-7.0) Baso % (Auto) (0.1-1.2) % Neut # (Auto) (1.78-5.38) K/mm3 Lymph # (Auto) (1.32-3.57) K/mm3 [place] # (Auto) (0.30-0.82) K/mm3 Eos # (Auto) (0.04-0.54) K/mm3 Baso # (Auto) (0.01-0.08) K/mm3 Manual Slide Review ESR 8 (0-15) mm/hr Sodium (136-145) mEq/L Potassium (3.5-5.1) mEq/L Chloride (98-107) mEq/L Carbon Dioxide (21-32) mEq/L Anion Gap (5-15) BUN (7-18) mg/dL Creatinine (0.7-1.3) mg/dL Est Cr Clr Drug Dosing mL/min Estimated GFR (MDRD) (>60) mL/min BUN/Creatinine Ratio (14-18) Glucose (83-115) mg/dL Lactic Acid (0.4-2.0) mmol/L Calcium (8.5-10.1) mg/dL Phosphorus (2.6-4.7) mg/dL Magnesium (1.8-2.4) mg/dl Total Bilirubin (0.2-1.0) mg/dL AST (15-37) U/L ALT (16-63) U/L Alkaline Phosphatase (46-116) U/L Total Protein (6.4-8.2) g/dl Albumin (3.4-5.0) g/dl Globulin gm/dL Albumin/Globulin Ratio (1-2) Urine Color Yellow (Yellow) Urine Appearance Clear (Clear) Urine pH 5.5 (5.0-8.0) Ur Specific [place] > or = 1.030 (1.005-1.030) Urine Protein 1+ H (Negative) Urine Glucose (UA) Negative (Negative) Urine Ketones Negative (Negative) Urine Occult Blood Negative (Negative) Urine Nitrite Negative (Negative) Urine Bilirubin 1+ H (Negative) Urine Urobilinogen 0.2 (0.2-1.0) Ur Leukocyte Esterase Negative (Negative) Urine RBC Not seen (0-5) /hpf Urine WBC 0-5 (0-5) /hpf Ur Squamous Epith Cells 0-5 (0-5) /hpf Urine Bacteria Not seen (FEW) /hpf Urine Mucus Few (FEW) /hpf SARS-CoV-2 RNA (GRACE) Negative (NEGATIVE) 01/14/20 01/14/20 01/15/20 Range/Units 14:06 17:02 06:57 WBC 8.85 (4.23-9.07) K/mm3 RBC 4.73 (4.63-6.08) M/mm3 Hgb 14.3 (13.7-17.5) gm/dl Hct 43.1 (40.1-51.0) % MCV 91.1 (79.0-92.2) fl MCH 30.2 (25.7-32.2) pg MCHC 33.2 (32.2-35.5) g/dl RDW Std Deviation 51.1 H (35.1-43.9) fL Plt Count 451 H (163-337) K/mm3 MPV 9.7 (9.4-12.3) fl Neut % (Auto) 71.1 H (34.0-67.9) % Lymph % (Auto) 10.3 L (21.8-53.1) % [place] % (Auto) 16.7 H (5.3-12.2) % Eos % (Auto) 1.0 (0.8-7.0) Baso % (Auto) 0.7 (0.1-1.2) % Neut # (Auto) 6.29 H (1.78-5.38) K/mm3 Lymph # (Auto) 0.91 L (1.32-3.57) K/mm3 [place] # (Auto) 1.48 H (0.30-0.82) K/mm3 Eos # (Auto) 0.09 (0.04-0.54) K/mm3 Baso # (Auto) 0.06 (0.01-0.08) K/mm3 Manual Slide Review Abnormal smear ESR (0-15) mm/hr Sodium (136-145) mEq/L Potassium (3.5-5.1) mEq/L Chloride (98-107) mEq/L Carbon Dioxide (21-32) mEq/L Anion Gap (5-15) BUN (7-18) mg/dL Creatinine (0.7-1.3) mg/dL Est Cr Clr Drug Dosing mL/min Estimated GFR (MDRD) (>60) mL/min BUN/Creatinine Ratio (14-18) Glucose (83-115) mg/dL Lactic Acid 2.8 H* 2.0 (0.4-2.0) mmol/L Calcium (8.5-10.1) mg/dL Phosphorus (2.6-4.7) mg/dL Magnesium (1.8-2.4) mg/dl Total Bilirubin (0.2-1.0) mg/dL AST (15-37) U/L ALT (16-63) U/L Alkaline Phosphatase (46-116) U/L Total Protein (6.4-8.2) g/dl Albumin (3.4-5.0) g/dl Globulin gm/dL Albumin/Globulin Ratio (1-2) Urine Color (Yellow) Urine Appearance (Clear) Urine pH (5.0-8.0) Ur Specific [place] (1.005-1.030) Urine Protein (Negative) Urine Glucose (UA) (Negative) Urine Ketones (Negative) Urine Occult Blood (Negative) Urine Nitrite (Negative) Urine Bilirubin (Negative) Urine Urobilinogen (0.2-1.0) Ur Leukocyte Esterase (Negative) Urine RBC (0-5) /hpf Urine WBC (0-5) /hpf Ur Squamous Epith Cells (0-5) /hpf Urine Bacteria (FEW) /hpf Urine Mucus (FEW) /hpf SARS-CoV-2 RNA (GRACE) (NEGATIVE) 01/15/20 01/15/20 Range/Units 06:57 06:57 WBC (4.23-9.07) K/mm3 RBC (4.63-6.08) M/mm3 Hgb (13.7-17.5) gm/dl Hct (40.1-51.0) % MCV (79.0-92.2) fl MCH (25.7-32.2) pg MCHC (32.2-35.5) g/dl RDW Std Deviation (35.1-43.9) fL Plt Count (163-337) K/mm3 MPV (9.4-12.3) fl Neut % (Auto) (34.0-67.9) % Lymph % (Auto) (21.8-53.1) % [place] % (Auto) (5.3-12.2) % Eos % (Auto) (0.8-7.0) Baso % (Auto) (0.1-1.2) % Neut # (Auto) (1.78-5.38) K/mm3 Lymph # (Auto) (1.32-3.57) K/mm3 [place] # (Auto) (0.30-0.82) K/mm3 Eos # (Auto) (0.04-0.54) K/mm3 Baso # (Auto) (0.01-0.08) K/mm3 Manual Slide Review ESR (0-15) mm/hr Sodium 139 (136-145) mEq/L Potassium 4.3 (3.5-5.1) mEq/L Chloride 104 (98-107) mEq/L Carbon Dioxide 29 (21-32) mEq/L Anion Gap 10.3 (5-15) BUN 14 (7-18) mg/dL Creatinine 1.3 (0.7-1.3) mg/dL Est Cr Clr Drug Dosing 43.68 mL/min Estimated GFR (MDRD) 53 (>60) mL/min BUN/Creatinine Ratio 10.8 L (14-18) Glucose 103 (83-115) mg/dL Lactic Acid 2.0 (0.4-2.0) mmol/L Calcium 12.5 H (8.5-10.1) mg/dL Phosphorus 3.0 (2.6-4.7) mg/dL Magnesium 1.7 L (1.8-2.4) mg/dl Total Bilirubin 0.4 (0.2-1.0) mg/dL AST 55 H (15-37) U/L ALT 27 (16-63) U/L Alkaline Phosphatase 98 (46-116) U/L Total Protein 6.1 L (6.4-8.2) g/dl Albumin 2.6 L (3.4-5.0) g/dl Globulin 3.5 gm/dL Albumin/Globulin Ratio 0.7 L (1-2) Urine Color (Yellow) Urine Appearance (Clear) Urine pH (5.0-8.0) Ur Specific [place] (1.005-1.030) Urine Protein (Negative) Urine Glucose (UA) (Negative) Urine Ketones (Negative) Urine Occult Blood (Negative) Urine Nitrite (Negative) Urine Bilirubin (Negative) Urine Urobilinogen (0.2-1.0) Ur Leukocyte Esterase (Negative) Urine RBC (0-5) /hpf Urine WBC (0-5) /hpf Ur Squamous Epith Cells (0-5) /hpf Urine Bacteria (FEW) /hpf Urine Mucus (FEW) /hpf SARS-CoV-2 RNA (GRACE) (NEGATIVE) Med Orders - Current: Current Medications Acetaminophen (Tylenol) 650 mg PO Q4H PRN PRN Reason: Pain (Mild 1-3)/fever Aspirin (Halfprin) 81 mg PO DAILY [facility] Last Admin: 01/15/20 09:17 Dose: 81 mg Documented by: Bisacodyl (Dulcolax) 5 mg PO DAILY PRN PRN Reason: Constipation Docusate Sodium (Colace) 100 mg PO BID PRN PRN Reason: Constipation Enoxaparin Sodium (Lovenox) 40 mg SUBCUT Q24H [facility] Last Admin: 01/14/20 19:16 Dose: 40 mg Documented by: Furosemide (Lasix) 20 mg PO DAILY [facility] Last Admin: 01/15/20 09:17 Dose: 20 mg Documented by: Ceftriaxone Sodium 2 gm/ (Sodium Chloride) 100 mls @ 200 mls/hr IV Q24H [facility] Last Admin: 01/14/20 18:00 Dose: Not Given Documented by: Metoprolol Tartrate (Lopressor) 50 mg PO BID [facility] Last Admin: 01/15/20 09:18 Dose: 50 mg Documented by: Multivitamins (Thera) 1 each PO DAILY [facility] Last Admin: 01/15/20 09:18 Dose: 1 each Documented by: Ondansetron HCl (Zofran) 4 mg IV Q4H PRN PRN Reason: Nausea/Vomiting Pantoprazole Sodium (Protonix) 40 mg PO DAILY@0700 [facility] Last Admin: 01/15/20 06:02 Dose: Not Given Documented by: Potassium Chloride (Klor-Con M20) 20 meq PO DAILY [facility] Last Admin: 01/15/20 09:17 Dose: 20 meq Documented by: Senna/Docusate Sodium (Senna Plus) 1 tab PO BID PRN PRN Reason: Constipation Simvastatin (Zocor) 10 mg PO BEDTIME [facility] Last Admin: 01/14/20 20:48 Dose: 10 mg Documented by: Sodium Chloride (Saline Flush) 10 ml FLUSH ASDIRECTED PRN PRN Reason: Keep Vein Open Last Admin: 01/14/20 13:07 Dose: 10 ml Documented by: Sodium Chloride (Saline Flush) 10 ml FLUSH ASDIRECTED PRN PRN Reason: Keep Vein Open Discontinued Medications Sodium Chloride (Normal Saline) 1,000 mls @ 125 mls/hr IV ASDIRECTED [facility] Last Admin: 01/14/20 12:00 Dose: 999 mls/hr Documented by: Lactated Ringer's (Ringers, Lactated) 1,000 mls @ 1,000 mls/hr IV .BOLUS ONE Stop: 01/14/20 12:47 Last Admin: 01/14/20 13:37 Dose: 1,000 mls/hr Documented by: Ceftriaxone Sodium 2 gm/ (Sodium Chloride) 100 mls @ 200 mls/hr IV Q24H [facility] Last Admin: 01/14/20 13:05 Dose: 200 mls/hr Documented by: Lactated Ringer's (Ringers, Lactated) Confirm Administered Dose 1,000 mls @ as directed .ROUTE .STK-MED ONE Stop: 01/14/20 14:55 Last Admin: 01/14/20 17:59 Dose: Not Given Documented by: Magnesium Sulfate (Magnesium Sulfate In Water Premix) 2 gm in 50 mls @ 25 mls/hr IV ONETIME ONE Stop: 01/14/20 17:55 Last Admin: 01/14/20 18:39 Dose: 25 mls/hr Documented by: Lactated Ringer's (Ringers, Lactated) 430 mls @ 999 mls/hr IV .BOLUS ONE Stop: 01/14/20 15:02 Last Admin: 01/14/20 14:37 Dose: 999 mls/hr Documented by: - Exam Quality Assessment: DVT Prophylaxis (Lovenox). No: Supplemental Oxygen General: Alert, Cooperative, No Acute Distress HEENT: Pupils Equal, Pupils Reactive, Mucous Membr. Moist/[place] Neck: Supple, Trachea Midline. No: Lymphadenopathy Lungs: Clear to Auscultation, Normal Respiratory Effort Cardiovascular: Regular Rate, Regular Rhythm, Murmurs GI/Abdominal Exam: Normal Bowel Sounds, Soft, Non-Tender, No Distention (Male) Exam: Deferred Back Exam: Normal Inspection, Full Range of Motion Extremities: Normal Inspection, Normal Range of Motion, Non-Tender, No Pedal Edema, Normal Capillary Refill Peripheral Pulses: 2+: Radial (L), Radial (R), Dorsalis Pedis (L), Dorsalis Pedis (R) Skin: Warm, Dry, Intact Neurological: No New Focal Deficit Psy/Mental Status: Alert, Normal Affect, Normal Mood Sepsis Event Note - Evaluation Sepsis Screening Result: Sepsis Risk - Focused Exam Vital Signs: Vital Signs Temp Pulse Resp BP Pulse Ox 01/15/20 11:41 96.4 F L 97 26 H 131/87 95 01/15/20 09:18 104 H 123/80 01/15/20 08:32 104 H 22 H 123/80 93 L 01/15/20 07:27 97.5 F 100 18 115/69 93 L 01/15/20 03:40 97.5 F 102 H 20 126/93 H 92 L - Problem List & Annotations (1) Pneumonia SNOMED Code(s): 099925666 Code(s): J18.9 - PNEUMONIA, UNSPECIFIED ORGANISM Status: Acute Priority: High Current Visit: Yes Qualifiers: Pneumonia type: due to unspecified organism Laterality: bilateral Lung location: lower lobe of lung Qualified Code(s): J18.9 - Pneumonia, unspecified organism (2) Renal insufficiency SNOMED Code(s): 263533111, 246490089 Code(s): N28.9 - DISORDER OF KIDNEY AND URETER, UNSPECIFIED Status: Acute Priority: High Current Visit: Yes (3) Sepsis SNOMED Code(s): 61588608 Code(s): A41.9 - SEPSIS, UNSPECIFIED ORGANISM Status: Acute Priority: High Current Visit: Yes Qualifiers: Sepsis type: sepsis due to unspecified organism Sepsis acute organ dysfunction status: unspecified Qualified Code(s): A41.9 - Sepsis, unspecified organism (4) Generalized weakness SNOMED Code(s): 56960916 Code(s): R53.1 - WEAKNESS Status: Acute Priority: High Current Visit: Yes (5) Sepsis due to pneumonia SNOMED Code(s): 85000785 Code(s): J18.9 - PNEUMONIA, UNSPECIFIED ORGANISM; A41.9 - SEPSIS, UNSPECIFIED ORGANISM Status: Acute Priority: High Current Visit: Yes - Problem List Review Problem List Initiated/Reviewed/Updated: Yes - My Orders Last 24 Hours: My Active Orders 01/14/20 15:08 Patient Status [ADT] Routine Height and Weight [RC] 04 Oxygen Therapy [RC] PRN VTE/DVT Education [RC] PER UNIT ROUTINE Vital Signs [RC] Q4HR Consult to Case Management/Commercial Loan Coordinator [CONS] Routine Consult to Well Puller [CONS] Routine Consult to Spiritual Care [CONS] Routine OT Evaluation and Treatment [CONS] Routine PT Evaluation and Treatment [CONS] Routine Acetaminophen [TylenoL] 650 mg PO Q4H PRN Docusate Sodium [Colace] 100 mg PO BID PRN Docusate Sodium/Sennosides [Senna Plus] 1 tab PO BID PRN Ondansetron [Zofran] 4 mg IV Q4H PRN Sodium Chloride 0.9% [Saline Flush] 10 ml FLUSH ASDIRECTED PRN bisacodyL [Dulcolax] 5 mg PO DAILY PRN Saline Lock Insert [OM.PC] Routine Resuscitation Status Routine 01/14/20 15:10 Intake and Output [RC] 04,16 01/14/20 15:15 cefTRIAXone [Rocephin] 2 gm Sodium Chloride 0.9% [Normal Saline] 100 ml IV Q24H 01/14/20 15:30 Enoxaparin [Lovenox] 40 mg SUBCUT Q24H 01/14/20 15:32 Blood Culture x2 Reflex Set [OM.PC] Stat 01/14/20 16:02 CULTURE BLOOD [BC] Stat 01/14/20 16:07 CULTURE BLOOD [BC] Stat 01/14/20 Dinner Regular Diet [DIET] 01/15/20 09:00 Aspirin [Halfprin] 81 mg PO DAILY Furosemide [Lasix] 20 mg PO DAILY Multivitamins,Therapeutic [Thera] 1 each PO DAILY Potassium Chloride [Klor-Con M20] 20 meq PO DAILY 01/15/20 13:23 CALCIUM, IONIZED, SERUM [REF] Stat PTH, INTACT [REF] Stat 01/16/20 05:11 CBC WITH AUTO DIFF [HEME] DAILY COMPREHENSIVE METABOLIC PN,CMP [CHEM] DAILY LACTIC ACID [CHEM] DAILY MAGNESIUM [CHEM] DAILY PHOSPHORUS [CHEM] DAILY 01/17/20 05:11 CBC WITH AUTO DIFF [HEME] DAILY COMPREHENSIVE METABOLIC PN,CMP [CHEM] DAILY LACTIC ACID [CHEM] DAILY MAGNESIUM [CHEM] DAILY PHOSPHORUS [CHEM] DAILY 01/18/20 05:11 CBC WITH AUTO DIFF [HEME] DAILY COMPREHENSIVE METABOLIC PN,CMP [CHEM] DAILY MAGNESIUM [CHEM] DAILY PHOSPHORUS [CHEM] DAILY 01/19/20 05:11 CBC WITH AUTO DIFF [HEME] DAILY COMPREHENSIVE METABOLIC PN,CMP [CHEM] DAILY MAGNESIUM [CHEM] DAILY PHOSPHORUS [CHEM] DAILY - Assessment Assessment:: 01/15/20 * Remains on room air. * Day 2 of Rocephin IV. * Waiting for blood culture report. * PT OT to eval and treat. * Vital signs remained stable. And patient has been afebrile. * Lab work reveals: BUN 14, creatinine 1.3, GFR 53, lactic acid 2.0, magnesium 1.7, calcium 12.5 down from 13.6. * Lovenox for DVT prophylaxis. * Echocardiogram from 10/05/2016: #1 left ventricular ejection fraction, by visual estimation, is 55 to 60%. #2 normal right ventricular systolic function. #3 mitral valve regurgitation. #4 mild tricuspid valve regurgitation. #5 abnormal septal motion consistent with postoperative status. #6 no regional wall motion abnormalities. 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 MG 16 mmHg, no AI. #8 findings similar to 318 of 16. - Plan Plan:: 01/14/20 * 84-year-old male with a 5-day history of increased weakness and fatigue. * With symptoms gradually worsening. * Chest x-ray obtained in the ER reports basilar pulmonary opacities and probable small pleural effusions. * CT of the head obtained in the ER reports no evidence of acute intracranial abnormality. No evidence of acute infarction, hemorrhage or mass. Atrophy and microvascular disease. * Lab work reveals WBC 9.28, hemoglobin 15.7, hematocrit 47.5, platelet count 488, neutrophil count 7.13 without bands, D-dimer 3.01, BUN 19, creatinine 1.7, GFR 39, calcium 13.6, magnesium 1.7, LDH 1422, troponin less than 0.017, C-reactive protein 6.3, lactic acid 4.4 repeat lactic acid was 2.8, urinalysis was negative for infection * Sepsis protocol was implemented in the emergency department. * Patient was started on 2 g of Rocephin IV. * Patient was given 2400 mL of IV fluids per sepsis protocol. * Initial vital signs in the emergency department are temp 96.9, heart rate 96, respiratory rate 18, blood pressure 116/81, and pulse oximeter is 96% on room air. * CT angiogram was not performed in the ER due to the patient being in renal failure. PLAN: * Await blood culture report * Rocephin 2 g IV daily * We will not give further IV fluids at this point due to patient having a history of congestive heart failure and we do not want to overload him. * Obtain most recent echocardiogram. * Vital signs every 4 hours. * Intake and output every 8 hours with weights daily. * Will recheck labs in the morning and correct any electrolyte abnormalities. * Give magnesium 2 g IV * PT/OT to eval and treat * hotel services sales representative for discharge planning * Lovenox for DVT prophylaxis * Renally dose all medications. * Dietitian to consult * Spiritual care * Patient is a DNR/DNI Patient will likely be here 3 to 4 days due to the treatment of septic pneumonia. hotel services sales representative and case management to assist with discharge planning. 01/15/20 * Waiting for blood culture report. * Continue Rocephin 2 g IV daily * Vital signs every 4 hours * Intake and output every 8 hours. * Will add a parathyroid hormone and ionized calcium onto today's lab work * Repeat labs in the a.m. * hotel services sales representative for discharge planning * Renally dose all medications * Continue Lovenox for DVT prophylaxis.
[2020-01-15] MEDS: cefTRIAXone 2 GM in Sodium Chloride 0.9% 100 ML IV SCH (15:52)
[2020-01-15] MEDS: Enoxaparin 40 MG/0.4 ML Syringe SUBCUT SCH (15:53)
[2020-01-15] MEDS: Simvastatin 10 MG Tab PO SCH (20:11)
[2020-01-15] MEDS: Acetaminophen 325 MG Tab PO PRN (20:18)
[2020-01-16] MEDS: Pantoprazole 40 MG Tab.CR PO SCH (06:14)
[2020-01-16] MEDS: Potassium Chloride 20 MEQ Tab.ER PO SCH (08:13)
[2020-01-16] MEDS: Aspirin 81 MG Tab.EC PO SCH (08:14)
[2020-01-16] MEDS: Multivitamins,Therapeutic Tab PO SCH (08:14)
[2020-01-16] MEDS: Docusate Sodium 100 MG Cap PO PRN (08:14)
[2020-01-16] MEDS: Furosemide 20 MG Tab PO SCH (08:14)
[2020-01-16] MEDS: Metoprolol Tartrate 50 MG Tab PO SCH ×2 (08:14→21:30)
[2020-01-16] MEDS ORDERED: Bisacodyl 10 MG Supp RECTAL PRN (09:43)
--- NOTE | 2020-01-16 12:51 | PCM.PN ---
<TyeFco M - Last Filed: 01/16/20 12:59> - General Info Date of Service: 01/16/20 Admission Dx/Problem (Free Text): Admission Diagnosis/Problem Admission Diagnosis/Problem Sepsis due to pneumonia Subjective Update: Patient is doing well. He is very confused today. Oriented to himself only. His is at the bedside and does state that he is just slightly confused compared to his normal at home. I did address whether or not she has safety concerns with him at home regarding his confusion and she denied having any concerns. Functional Status: Reports: Pain Controlled, Tolerating Diet, Ambulating, Ur inating - Review of Systems General: Reports: No Symptoms HEENT: Reports: No Symptoms Pulmonary: Denies: Shortness of Breath, Pleuritic Chest Pain, Cough, Wheezing Cardiovascular: Reports: No Symptoms. Denies: Chest Pain, Edema Gastrointestinal: Reports: No Symptoms Genitourinary: Reports: No Symptoms Musculoskeletal: Reports: No Symptoms Skin: Reports: No Symptoms Neurological: Reports: Confusion (Oriented to name only) Psychiatric: Reports: Confusion - Patient Data Vitals - Most Recent: Last Vital Signs Temp 97.0 F 01/16/20 11:44 Pulse 97 01/16/20 11:44 Resp 18 01/16/20 11:44 BP 122/74 01/16/20 11:44 Pulse Ox 94 L 01/16/20 11:44 Weight - Most Recent: 79.424 kg I&O - Last 24 Hours: Intake & Output 01/15/20 01/16/20 01/16/20 22:59 06:59 14:59 Intake Total 1000 775 Balance 1000 775 Lab Results Last 24 Hours: Laboratory Results - last 24 hr 01/16/20 01/16/20 01/16/20 Range/Units 06:19 06:19 06:19 WBC 8.44 (4.23-9.07) K/mm3 RBC 4.64 (4.63-6.08) M/mm3 Hgb 14.0 (13.7-17.5) gm/dl Hct 42.1 (40.1-51.0) % MCV 90.7 (79.0-92.2) fl MCH 30.2 (25.7-32.2) pg MCHC 33.3 (32.2-35.5) g/dl RDW Std Deviation 50.1 H (35.1-43.9) fL Plt Count 439 H (163-337) K/mm3 MPV 9.5 (9.4-12.3) fl Neut % (Auto) 69.4 H (34.0-67.9) % Lymph % (Auto) 13.4 L (21.8-53.1) % [place] % (Auto) 14.1 H (5.3-12.2) % Eos % (Auto) 2.4 (0.8-7.0) Baso % (Auto) 0.5 (0.1-1.2) % Neut # (Auto) 5.86 H (1.78-5.38) K/mm3 Lymph # (Auto) 1.13 L (1.32-3.57) K/mm3 [place] # (Auto) 1.19 H (0.30-0.82) K/mm3 Eos # (Auto) 0.20 (0.04-0.54) K/mm3 Baso # (Auto) 0.04 (0.01-0.08) K/mm3 Sodium 138 (136-145) mEq/L Potassium 3.8 (3.5-5.1) mEq/L Chloride 102 (98-107) mEq/L Carbon Dioxide 29 (21-32) mEq/L Anion Gap 10.8 (5-15) BUN 17 (7-18) mg/dL Creatinine 1.3 (0.7-1.3) mg/dL Est Cr Clr Drug Dosing 43.78 mL/min Estimated GFR (MDRD) 53 (>60) mL/min BUN/Creatinine Ratio 13.1 L (14-18) Glucose 90 (83-115) mg/dL Lactic Acid 2.0 (0.4-2.0) mmol/L Calcium 12.1 H (8.5-10.1) mg/dL Phosphorus 3.5 (2.6-4.7) mg/dL Magnesium 1.5 L (1.8-2.4) mg/dl Total Bilirubin 0.4 (0.2-1.0) mg/dL AST 57 H (15-37) U/L ALT 30 (16-63) U/L Alkaline Phosphatase 89 (46-116) U/L Total Protein 6.1 L (6.4-8.2) g/dl Albumin 2.5 L (3.4-5.0) g/dl Globulin 3.6 gm/dL Albumin/Globulin Ratio 0.7 L (1-2) Henry Results Last 24 Hours: Microbiology 01/14/20 16:07 Aerobic Blood Culture - Preliminary Blood - Venous - Lab Draw NO GROWTH AFTER 1 DAY Anaerobic Blood Culture - Preliminary NO GROWTH AFTER 1 DAY 01/14/20 16:02 Aerobic Blood Culture - Preliminary Blood - Venous NO GROWTH AFTER 1 DAY Anaerobic Blood Culture - Preliminary NO GROWTH AFTER 1 DAY Med Orders - Current: Current Medications Acetaminophen (Tylenol) 650 mg PO Q4H PRN PRN Reason: Pain (Mild 1-3)/fever Last Admin: 01/15/20 20:18 Dose: 650 mg Documented by: Aspirin (Halfprin) 81 mg PO DAILY [facility] Last Admin: 01/16/20 08:14 Dose: 81 mg Documented by: Bisacodyl (Dulcolax) 5 mg PO DAILY PRN PRN Reason: Constipation Bisacodyl (Dulcolax) 10 mg RECTAL DAILY PRN PRN Reason: Constipation Docusate Sodium (Colace) 100 mg PO BID PRN PRN Reason: Constipation Last Admin: 01/16/20 08:14 Dose: 100 mg Documented by: Enoxaparin Sodium (Lovenox) 40 mg SUBCUT Q24H [facility] Last Admin: 01/15/20 15:53 Dose: 40 mg Documented by: Furosemide (Lasix) 20 mg PO DAILY [facility] Last Admin: 01/16/20 08:14 Dose: 20 mg Documented by: Ceftriaxone Sodium 2 gm/ (Sodium Chloride) 100 mls @ 200 mls/hr IV Q24H [facility] Last Admin: 01/15/20 15:52 Dose: 200 mls/hr Documented by: Metoprolol Tartrate (Lopressor) 50 mg PO BID [facility] Last Admin: 01/16/20 08:14 Dose: 50 mg Documented by: Multivitamins (Thera) 1 each PO DAILY [facility] Last Admin: 01/16/20 08:14 Dose: 1 each Documented by: Ondansetron HCl (Zofran) 4 mg IV Q4H PRN PRN Reason: Nausea/Vomiting Pantoprazole Sodium (Protonix) 40 mg PO DAILY@0700 [facility] Last Admin: 01/16/20 06:14 Dose: 40 mg Documented by: Potassium Chloride (Klor-Con M20) 20 meq PO DAILY [facility] Last Admin: 01/16/20 08:13 Dose: 20 meq Documented by: Senna/Docusate Sodium (Senna Plus) 1 tab PO BID PRN PRN Reason: Constipation Last Admin: 01/16/20 06:14 Dose: 1 tab Documented by: Simvastatin (Zocor) 10 mg PO BEDTIME [facility] Last Admin: 01/15/20 20:11 Dose: 10 mg Documented by: Sodium Chloride (Saline Flush) 10 ml FLUSH ASDIRECTED PRN PRN Reason: Keep Vein Open Last Admin: 01/14/20 13:07 Dose: 10 ml Documented by: Sodium Chloride (Saline Flush) 10 ml FLUSH ASDIRECTED PRN PRN Reason: Keep Vein Open Discontinued Medications Sodium Chloride (Normal Saline) 1,000 mls @ 125 mls/hr IV ASDIRECTED [facility] Last Admin: 01/14/20 12:00 Dose: 999 mls/hr Documented by: Lactated Ringer's (Ringers, Lactated) 1,000 mls @ 1,000 mls/hr IV .BOLUS ONE Stop: 01/14/20 12:47 Last Admin: 01/14/20 13:37 Dose: 1,000 mls/hr Documented by: Ceftriaxone Sodium 2 gm/ (Sodium Chloride) 100 mls @ 200 mls/hr IV Q24H [facility] Last Admin: 01/14/20 13:05 Dose: 200 mls/hr Documented by: Lactated Ringer's (Ringers, Lactated) Confirm Administered Dose 1,000 mls @ as directed .ROUTE .STK-MED ONE Stop: 01/14/20 14:55 Last Admin: 01/14/20 17:59 Dose: Not Given Documented by: Magnesium Sulfate (Magnesium Sulfate In Water Premix) 2 gm in 50 mls @ 25 mls/hr IV ONETIME ONE Stop: 01/14/20 17:55 Last Admin: 01/14/20 18:39 Dose: 25 mls/hr Documented by: Lactated Ringer's (Ringers, Lactated) 430 mls @ 999 mls/hr IV .BOLUS ONE Stop: 01/14/20 15:02 Last Admin: 01/14/20 14:37 Dose: 999 mls/hr Documented by: - Exam Quality Assessment: DVT Prophylaxis (Lovenox). No: Supplemental Oxygen General: Alert, Cooperative, No Acute Distress. No: Oriented (Oriented to self only) HEENT: Pupils Equal, Pupils Reactive, Mucous Membr. Moist/[place] Neck: Supple, Trachea Midline. No: Lymphadenopathy Lungs: Clear to Auscultation, Normal Respiratory Effort Cardiovascular: Regular Rate, Regular Rhythm, No Murmurs GI/Abdominal Exam: Normal Bowel Sounds, Soft, Non-Tender, No Distention (Male) Exam: Deferred Back Exam: Normal Inspection, Full Range of Motion Extremities: Normal Inspection, Normal Range of Motion, Non-Tender, No Pedal Edema, Normal Capillary Refill Peripheral Pulses: 2+: Radial (L), Radial (R), Dorsalis Pedis (L), Dorsalis Pedis (R) Skin: Warm, Dry, Intact Neurological: No New Focal Deficit Psy/Mental Status: Alert, Normal Affect, Normal Mood Sepsis Event Note - Evaluation Sepsis Screening Result: No Definite Risk - Focused Exam Vital Signs: Vital Signs Temp Pulse Resp BP Pulse Ox 01/16/20 11:44 97.0 F 97 18 122/74 94 L 01/16/20 08:14 114 H 130/85 01/16/20 07:42 97.2 F 114 H 16 130/85 93 L 01/16/20 03:12 97.2 F 99 24 H 132/74 95 - Problem List & Annotations (1) Pneumonia SNOMED Code(s): 589616688 Code(s): J18.9 - PNEUMONIA, UNSPECIFIED ORGANISM Status: Acute Priority: High Current Visit: Yes Qualifiers: Pneumonia type: due to unspecified organism Laterality: bilateral Lung location: lower lobe of lung Qualified Code(s): J18.9 - Pneumonia, unspecified organism (2) Renal insufficiency SNOMED Code(s): 025837799, 527882093 Code(s): N28.9 - DISORDER OF KIDNEY AND URETER, UNSPECIFIED Status: Acute Priority: High Current Visit: Yes (3) Sepsis SNOMED Code(s): 84492585 Code(s): A41.9 - SEPSIS, UNSPECIFIED ORGANISM Status: Acute Priority: High Current Visit: Yes Qualifiers: Sepsis type: sepsis due to unspecified organism Sepsis acute organ dysfunction status: unspecified Qualified Code(s): A41.9 - Sepsis, unspecified organism (4) Generalized weakness SNOMED Code(s): 80435416 Code(s): R53.1 - WEAKNESS Status: Acute Priority: High Current Visit: Yes (5) Sepsis due to pneumonia SNOMED Code(s): 75269650 Code(s): J18.9 - PNEUMONIA, UNSPECIFIED ORGANISM; A41.9 - SEPSIS, UNSPECIFIED ORGANISM Status: Acute Priority: High Current Visit: Yes (6) Hypercalcemia SNOMED Code(s): 53331102 Code(s): E83.52 - HYPERCALCEMIA Status: Acute Priority: High Current Visit: Yes - Problem List Review Problem List Initiated/Reviewed/Updated: Yes - My Orders Last 24 Hours: My Active Orders 01/16/20 09:43 bisacodyL [Dulcolax] 10 mg RECTAL DAILY PRN 01/17/20 05:11 CBC WITH AUTO DIFF [HEME] DAILY COMPREHENSIVE METABOLIC PN,CMP [CHEM] DAILY LACTIC ACID [CHEM] DAILY MAGNESIUM [CHEM] DAILY PHOSPHORUS [CHEM] DAILY 01/18/20 05:11 CBC WITH AUTO DIFF [HEME] DAILY COMPREHENSIVE METABOLIC PN,CMP [CHEM] DAILY MAGNESIUM [CHEM] DAILY PHOSPHORUS [CHEM] DAILY 01/19/20 05:11 CBC WITH AUTO DIFF [HEME] DAILY COMPREHENSIVE METABOLIC PN,CMP [CHEM] DAILY MAGNESIUM [CHEM] DAILY PHOSPHORUS [CHEM] DAILY - Assessment Assessment:: 01/15/20 * Remains on room air. * Day 2 of Rocephin IV. * Waiting for blood culture report. * PT OT to eval and treat. * Vital signs remained stable. And patient has been afebrile. * Lab work reveals: BUN 14, creatinine 1.3, GFR 53, lactic acid 2.0, magnesium 1.7, calcium 12.5 down from 13.6. * Lovenox for DVT prophylaxis. * Echocardiogram from 10/05/2016: #1 left ventricular ejection fraction, by visual estimation, is 55 to 60%. #2 normal right ventricular systolic function. #3 mitral valve regurgitation. #4 mild tricuspid valve regurgitation. #5 abnormal septal motion consistent with postoperative status. #6 no regional wall motion abnormalities. 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 MG 16 mmHg, no AI. #8 findings similar to 318 of 16. 01/16/20 * He is on room air * Day 3 of Rocephin IV * Blood cultures are showing no growth. * Vital signs have been stable and patient has been afebrile. * Discharge recommendations are for home health care/physical therapy/Occupational Therapy * WBC 8.44, BUN 17, creatinine 1.3, GFR 53, calcium 12.1, magnesium 1.5 * Calcium level is slowly coming down. The patient's reports that he does consume a significant amount of extra strength Tums at home. I am still awaiting the results of the PTH and ionized calcium levels to return however I do believe the reason for his elevated calcium is due to the Tums. * Lovenox for DVT prophylaxis. - Plan Plan:: 01/14/20 * 84-year-old male with a 5-day history of increased weakness and fatigue. * With symptoms gradually worsening. * Chest x-ray obtained in the ER reports basilar pulmonary opacities and probable small pleural effusions. * CT of the head obtained in the ER reports no evidence of acute intracranial abnormality. No evidence of acute infarction, hemorrhage or mass. Atrophy and microvascular disease. * Lab work reveals WBC 9.28, hemoglobin 15.7, hematocrit 47.5, platelet count 488, neutrophil count 7.13 without bands, D-dimer 3.01, BUN 19, creatinine 1.7, GFR 39, calcium 13.6, magnesium 1.7, LDH 1422, troponin less than 0.017, C-reactive protein 6.3, lactic acid 4.4 repeat lactic acid was 2.8, urinalysis was negative for infection * Sepsis protocol was implemented in the emergency department. * Patient was started on 2 g of Rocephin IV. * Patient was given 2400 mL of IV fluids per sepsis protocol. * Initial vital signs in the emergency department are temp 96.9, heart rate 96, respiratory rate 18, blood pressure 116/81, and pulse oximeter is 96% on room air. * CT angiogram was not performed in the ER due to the patient being in renal failure. PLAN: * Await blood culture report * Rocephin 2 g IV daily * We will not give further IV fluids at this point due to patient having a history of congestive heart failure and we do not want to overload him. * Obtain most recent echocardiogram. * Vital signs every 4 hours. * Intake and output every 8 hours with weights daily. * Will recheck labs in the morning and correct any electrolyte abnormalities. * Give magnesium 2 g IV * PT/OT to eval and treat * health services administrator for discharge planning * Lovenox for DVT prophylaxis * Renally dose all medications. * Dietitian to consult * Spiritual care * Patient is a DNR/DNI Patient will likely be here 3 to 4 days due to the treatment of septic pneumonia. health services administrator and case management to assist with discharge planning. 01/15/20 * Waiting for blood culture report. * Continue Rocephin 2 g IV daily * Vital signs every 4 hours * Intake and output every 8 hours. * Will add a parathyroid hormone and ionized calcium onto today's lab work * Repeat labs in the a.m. * health services administrator for discharge planning * Renally dose all medications * Continue Lovenox for DVT prophylaxis. 01/16/20 * Continue Rocephin 2 g IV daily * Magnesium 2 g IV today * Potassium 20 mEq p.o. today * Renally dose all medications * Continue Lovenox for DVT prophylaxis * Vital signs every 4 hours * Monitor intake and output every 8 hours. * Awaiting PTH and ionized calcium results. * health services administrator for discharge planning. * Repeat labs in the a.m. * Plan for discharge to home tomorrow. <Clementine Moe M - Last Filed: 01/17/20 16:04> - Patient Data Vitals - Most Recent: Last Vital Signs Temp 36.6 C 01/17/20 15:33 Pulse 102 H 01/17/20 15:33 Resp 24 H 01/17/20 15:33 BP 126/80 01/17/20 15:33 Pulse Ox 95 01/17/20 15:33 I&O - Last 24 Hours: Intake & Output 01/17/20 01/17/20 01/17/20 06:59 14:59 22:59 Intake Total 0 200 Output Total 500 650 Balance -500 0 -450 Lab Results Last 24 Hours: Laboratory Results - last 24 hr 01/17/20 01/17/20 01/17/20 Range/Units 06:35 06:35 06:35 WBC 8.42 (4.23-9.07) K/mm3 RBC 4.97 (4.63-6.08) M/mm3 Hgb 14.7 (13.7-17.5) gm/dl Hct 44.8 (40.1-51.0) % MCV 90.1 (79.0-92.2) fl MCH 29.6 (25.7-32.2) pg MCHC 32.8 (32.2-35.5) g/dl RDW Std Deviation 50.6 H (35.1-43.9) fL Plt Count 501 H (163-337) K/mm3 MPV 9.7 (9.4-12.3) fl Neut % (Auto) 65.2 (34.0-67.9) % Lymph % (Auto) 13.1 L (21.8-53.1) % [place] % (Auto) 18.6 H (5.3-12.2) % Eos % (Auto) 2.1 (0.8-7.0) Baso % (Auto) 0.8 (0.1-1.2) % Neut # (Auto) 5.48 H (1.78-5.38) K/mm3 Lymph # (Auto) 1.10 L (1.32-3.57) K/mm3 [place] # (Auto) 1.57 H (0.30-0.82) K/mm3 Eos # (Auto) 0.18 (0.04-0.54) K/mm3 Baso # (Auto) 0.07 (0.01-0.08) K/mm3 Manual Slide Review Abnormal smear Sodium 139 (136-145) mEq/L Potassium 4.7 (3.5-5.1) mEq/L Chloride 103 (98-107) mEq/L Carbon Dioxide 29 (21-32) mEq/L Anion Gap 11.7 (5-15) BUN 24 H (7-18) mg/dL Creatinine 1.4 H (0.7-1.3) mg/dL Est Cr Clr Drug Dosing 40.66 mL/min Estimated GFR (MDRD) 48 (>60) mL/min BUN/Creatinine Ratio 17.1 (14-18) Glucose 89 (83-115) mg/dL Lactic Acid 2.3 H* (0.4-2.0) mmol/L Calcium 13.3 H* (8.5-10.1) mg/dL Phosphorus 4.1 (2.6-4.7) mg/dL Magnesium 1.9 (1.8-2.4) mg/dl Total Bilirubin 0.5 (0.2-1.0) mg/dL AST 81 H (15-37) U/L ALT 40 (16-63) U/L Alkaline Phosphatase 106 (46-116) U/L Total Protein 6.1 L (6.4-8.2) g/dl Albumin 2.7 L (3.4-5.0) g/dl Globulin 3.4 gm/dL Albumin/Globulin Ratio 0.8 L (1-2) 01/17/20 01/17/20 Range/Units 09:45 12:50 WBC (4.23-9.07) K/mm3 RBC (4.63-6.08) M/mm3 Hgb (13.7-17.5) gm/dl Hct (40.1-51.0) % MCV (79.0-92.2) fl MCH (25.7-32.2) pg MCHC (32.2-35.5) g/dl RDW Std Deviation (35.1-43.9) fL Plt Count (163-337) K/mm3 MPV (9.4-12.3) fl Neut % (Auto) (34.0-67.9) % Lymph % (Auto) (21.8-53.1) % [place] % (Auto) (5.3-12.2) % Eos % (Auto) (0.8-7.0) Baso % (Auto) (0.1-1.2) % Neut # (Auto) (1.78-5.38) K/mm3 Lymph # (Auto) (1.32-3.57) K/mm3 [place] # (Auto) (0.30-0.82) K/mm3 Eos # (Auto) (0.04-0.54) K/mm3 Baso # (Auto) (0.01-0.08) K/mm3 Manual Slide Review Sodium (136-145) mEq/L Potassium (3.5-5.1) mEq/L Chloride (98-107) mEq/L Carbon Dioxide (21-32) mEq/L Anion Gap (5-15) BUN (7-18) mg/dL Creatinine (0.7-1.3) mg/dL Est Cr Clr Drug Dosing mL/min Estimated GFR (MDRD) (>60) mL/min BUN/Creatinine Ratio (14-18) Glucose (83-115) mg/dL Lactic Acid 3.1 H* 2.6 H* (0.4-2.0) mmol/L Calcium (8.5-10.1) mg/dL Phosphorus (2.6-4.7) mg/dL Magnesium (1.8-2.4) mg/dl Total Bilirubin (0.2-1.0) mg/dL AST (15-37) U/L ALT (16-63) U/L Alkaline Phosphatase (46-116) U/L Total Protein (6.4-8.2) g/dl Albumin (3.4-5.0) g/dl Globulin gm/dL Albumin/Globulin Ratio (1-2) Henry Results Last 24 Hours: Microbiology 01/14/20 16:07 Aerobic Blood Culture - Preliminary Blood - Venous - Lab Draw NO GROWTH AFTER 2 DAYS Anaerobic Blood Culture - Preliminary NO GROWTH AFTER 2 DAYS 01/14/20 16:02 Aerobic Blood Culture - Preliminary Blood - Venous NO GROWTH AFTER 2 DAYS Anaerobic Blood Culture - Preliminary NO GROWTH AFTER 2 DAYS Med Orders - Current: Current Medications Acetaminophen (Tylenol) 650 mg PO Q4H PRN PRN Reason: Pain (Mild 1-3)/fever Last Admin: 01/15/20 20:18 Dose: 650 mg Documented by: Aspirin (Halfprin) 81 mg PO DAILY [facility] Last Admin: 01/17/20 09:28 Dose: 81 mg Documented by: Bisacodyl (Dulcolax) 5 mg PO DAILY PRN PRN Reason: Constipation Bisacodyl (Dulcolax) 10 mg RECTAL DAILY PRN PRN Reason: Constipation Last Admin: 01/16/20 16:13 Dose: 10 mg Documented by: Docusate Sodium (Colace) 100 mg PO BID PRN PRN Reason: Constipation Last Admin: 01/16/20 08:14 Dose: 100 mg Documented by: Enoxaparin Sodium (Lovenox) 40 mg SUBCUT Q24H [facility] Last Admin: 01/16/20 15:15 Dose: 40 mg Documented by: Furosemide (Lasix) 20 mg PO DAILY [facility] Last Admin: 01/17/20 09:29 Dose: 20 mg Documented by: Levofloxacin/Dextrose 750 mg/ (Premix) 150 mls @ 100 mls/hr IV Q48H [facility] Last Admin: 01/17/20 09:29 Dose: 100 mls/hr Documented by: Sodium Chloride (Normal Saline) 394 mls @ 250 mls/hr IV .BOLUS ONE Stop: 01/17/20 17:49 Metoprolol Tartrate (Lopressor) 50 mg PO BID [facility] Last Admin: 01/17/20 09:29 Dose: 50 mg Documented by: Multivitamins (Thera) 1 each PO DAILY [facility] Last Admin: 01/17/20 09:28 Dose: 1 each Documented by: Ondansetron HCl (Zofran) 4 mg IV Q4H PRN PRN Reason: Nausea/Vomiting Pantoprazole Sodium (Protonix) 40 mg PO DAILY@0700 [facility] Last Admin: 01/17/20 09:28 Dose: 40 mg Documented by: Potassium Chloride (Klor-Con M20) 20 meq PO DAILY [facility] Last Admin: 01/17/20 09:29 Dose: 20 meq Documented by: Senna/Docusate Sodium (Senna Plus) 1 tab PO BID PRN PRN Reason: Constipation Last Admin: 01/16/20 06:14 Dose: 1 tab Documented by: Simvastatin (Zocor) 10 mg PO BEDTIME [facility] Last Admin: 01/16/20 21:33 Dose: 10 mg Documented by: Sodium Chloride (Saline Flush) 10 ml FLUSH ASDIRECTED PRN PRN Reason: Keep Vein Open Last Admin: 01/14/20 13:07 Dose: 10 ml Documented by: Sodium Chloride (Saline Flush) 10 ml FLUSH ASDIRECTED PRN PRN Reason: Keep Vein Open Discontinued Medications Sodium Chloride (Normal Saline) 1,000 mls @ 125 mls/hr IV ASDIRECTED [facility] Last Admin: 01/14/20 12:00 Dose: 999 mls/hr Documented by: Lactated Ringer's (Ringers, Lactated) 1,000 mls @ 1,000 mls/hr IV .BOLUS ONE Stop: 01/14/20 12:47 Last Admin: 01/14/20 13:37 Dose: 1,000 mls/hr Documented by: Ceftriaxone Sodium 2 gm/ (Sodium Chloride) 100 mls @ 200 mls/hr IV Q24H [facility] Last Admin: 01/14/20 13:05 Dose: 200 mls/hr Documented by: Lactated Ringer's (Ringers, Lactated) Confirm Administered Dose 1,000 mls @ as directed .ROUTE .STK-MED ONE Stop: 01/14/20 14:55 Last Admin: 01/14/20 17:59 Dose: Not Given Documented by: Ceftriaxone Sodium 2 gm/ (Sodium Chloride) 100 mls @ 200 mls/hr IV Q24H [facility] Last Admin: 01/16/20 15:14 Dose: 200 mls/hr Documented by: Magnesium Sulfate (Magnesium Sulfate In Water Premix) 2 gm in 50 mls @ 25 mls/hr IV ONETIME ONE Stop: 01/14/20 17:55 Last Admin: 01/14/20 18:39 Dose: 25 mls/hr Documented by: Lactated Ringer's (Ringers, Lactated) 430 mls @ 999 mls/hr IV .BOLUS ONE Stop: 01/14/20 15:02 Last Admin: 01/14/20 14:37 Dose: 999 mls/hr Documented by: Magnesium Sulfate (Magnesium Sulfate In Water Premix) 2 gm in 50 mls @ 25 mls/hr IV ONETIME ONE Stop: 01/16/20 15:59 Last Admin: 01/16/20 13:11 Dose: 25 mls/hr Documented by: Sodium Chloride (Normal Saline) 1,000 mls @ 250 mls/hr IV ONETIME ONE Stop: 01/17/20 12:14 Last Admin: 01/17/20 09:30 Dose: 250 mls/hr Documented by: Sodium Chloride (Normal Saline) 1,000 mls @ 250 mls/hr IV ONETIME ONE Stop: 01/17/20 12:29 Last Admin: 01/17/20 13:35 Dose: 250 mls/hr Documented by: Potassium Chloride (Klor-Con M20) 20 meq PO ONETIME ONE Stop: 01/16/20 14:01 Last Admin: 01/16/20 13:11 Dose: 20 meq Documented by: Sepsis Event Note - Focused Exam Vital Signs: Vital Signs Temp Pulse Resp BP Pulse Ox 01/17/20 15:33 36.6 C 102 H 24 H 126/80 95 01/17/20 12:03 36.4 C 100 26 H 115/76 93 L 01/17/20 09:29 109 H 107/59 L 01/17/20 08:38 36.6 C 109 H 30 H 107/59 L 92 L 01/17/20 06:01 36.7 C 107 H 24 H 128/80 93 L - My Orders Last 24 Hours: My Active Orders 01/17/20 15:50 LACTIC ACID W/ REFLEX [LACTATE SEPSIS W/ REFLEX] [CHEM] Stat - Plan Plan:: Agree with assessment and plan except as amended.
[2020-01-16] MEDS ORDERED: Magnesium Sulfate/Water 2 GM/50 ML BAG IV ONE (14:00)
[2020-01-16] MEDS ORDERED: Potassium Chloride 20 MEQ Tab.ER PO ONE (14:00)
[2020-01-16] MEDS: cefTRIAXone 2 GM in Sodium Chloride 0.9% 100 ML IV SCH (15:14)
[2020-01-16] MEDS: Enoxaparin 40 MG/0.4 ML Syringe SUBCUT SCH (15:15)
[2020-01-16] MEDS: Simvastatin 10 MG Tab PO SCH (21:33)
[2020-01-17] MEDS ORDERED: Sodium Chloride 0.9% 1,000 ML IV ONE ×3 (08:15→12:15)
[2020-01-17] MEDS: Pantoprazole 40 MG Tab.CR PO SCH (09:28)
[2020-01-17] MEDS: Multivitamins,Therapeutic Tab PO SCH (09:28)
[2020-01-17] MEDS: Aspirin 81 MG Tab.EC PO SCH (09:28)
[2020-01-17] MEDS: Levofloxacin/Dextrose 5%-Water 750 MG in Premix Bag 1 BAG IV SCH (09:29)
[2020-01-17] MEDS: Furosemide 20 MG Tab PO SCH (09:29)
[2020-01-17] MEDS: Metoprolol Tartrate 50 MG Tab PO SCH ×2 (09:29→20:42)
[2020-01-17] MEDS: Potassium Chloride 20 MEQ Tab.ER PO SCH (09:29)
--- NOTE | 2020-01-17 12:02 | PCM.PN ---
<Gamble,DeAnn M - Last Filed: 01/17/20 12:18> - General Info Date of Service: 01/17/20 Admission Dx/Problem (Free Text): Admission Diagnosis/Problem Admission Diagnosis/Problem Sepsis due to pneumonia Subjective Update: Patient remains confused as he is oriented to self only. Lactic acid came back at 2.3 so he will be worked up for sepsis today. Functional Status: Reports: Pain Controlled, Tolerating Diet, Ambulating, Urinating - Review of Systems General: Denies: Appetite (Appetite is fair) HEENT: Reports: No Symptoms Pulmonary: Reports: No Symptoms. Denies: Cough, Sputum Cardiovascular: Reports: No Symptoms Gastrointestinal: Reports: No Symptoms Genitourinary: Reports: No Symptoms, Incontinence Musculoskeletal: Reports: No Symptoms Skin: Reports: No Symptoms Neurological: Reports: Confusion Psychiatric: Reports: Confusion - Patient Data Vitals - Most Recent: Last Vital Signs Temp 97.9 F 01/17/20 08:38 Pulse 109 H 01/17/20 09:29 Resp 30 H 01/17/20 08:38 BP 107/59 L 01/17/20 09:29 Pulse Ox 92 L 01/17/20 08:38 Weight - Most Recent: 79.787 kg I&O - Last 24 Hours: Intake & Output 01/16/20 01/17/20 01/17/20 22:59 06:59 14:59 Intake Total 750 Output Total 600 500 Balance 150 -500 Lab Results Last 24 Hours: Laboratory Results - last 24 hr 01/17/20 01/17/20 01/17/20 Range/Units 06:35 06:35 06:35 WBC 8.42 (4.23-9.07) K/mm3 RBC 4.97 (4.63-6.08) M/mm3 Hgb 14.7 (13.7-17.5) gm/dl Hct 44.8 (40.1-51.0) % MCV 90.1 (79.0-92.2) fl MCH 29.6 (25.7-32.2) pg MCHC 32.8 (32.2-35.5) g/dl RDW Std Deviation 50.6 H (35.1-43.9) fL Plt Count 501 H (163-337) K/mm3 MPV 9.7 (9.4-12.3) fl Neut % (Auto) 65.2 (34.0-67.9) % Lymph % (Auto) 13.1 L (21.8-53.1) % [place] % (Auto) 18.6 H (5.3-12.2) % Eos % (Auto) 2.1 (0.8-7.0) Baso % (Auto) 0.8 (0.1-1.2) % Neut # (Auto) 5.48 H (1.78-5.38) K/mm3 Lymph # (Auto) 1.10 L (1.32-3.57) K/mm3 [place] # (Auto) 1.57 H (0.30-0.82) K/mm3 Eos # (Auto) 0.18 (0.04-0.54) K/mm3 Baso # (Auto) 0.07 (0.01-0.08) K/mm3 Manual Slide Review Abnormal smear Sodium 139 (136-145) mEq/L Potassium 4.7 (3.5-5.1) mEq/L Chloride 103 (98-107) mEq/L Carbon Dioxide 29 (21-32) mEq/L Anion Gap 11.7 (5-15) BUN 24 H (7-18) mg/dL Creatinine 1.4 H (0.7-1.3) mg/dL Est Cr Clr Drug Dosing 40.66 mL/min Estimated GFR (MDRD) 48 (>60) mL/min BUN/Creatinine Ratio 17.1 (14-18) Glucose 89 (83-115) mg/dL Lactic Acid 2.3 H* (0.4-2.0) mmol/L Calcium 13.3 H* (8.5-10.1) mg/dL Phosphorus 4.1 (2.6-4.7) mg/dL Magnesium 1.9 (1.8-2.4) mg/dl Total Bilirubin 0.5 (0.2-1.0) mg/dL AST 81 H (15-37) U/L ALT 40 (16-63) U/L Alkaline Phosphatase 106 (46-116) U/L Total Protein 6.1 L (6.4-8.2) g/dl Albumin 2.7 L (3.4-5.0) g/dl Globulin 3.4 gm/dL Albumin/Globulin Ratio 0.8 L (1-2) 01/17/20 Range/Units 09:45 WBC (4.23-9.07) K/mm3 RBC (4.63-6.08) M/mm3 Hgb (13.7-17.5) gm/dl Hct (40.1-51.0) % MCV (79.0-92.2) fl MCH (25.7-32.2) pg MCHC (32.2-35.5) g/dl RDW Std Deviation (35.1-43.9) fL Plt Count (163-337) K/mm3 MPV (9.4-12.3) fl Neut % (Auto) (34.0-67.9) % Lymph % (Auto) (21.8-53.1) % [place] % (Auto) (5.3-12.2) % Eos % (Auto) (0.8-7.0) Baso % (Auto) (0.1-1.2) % Neut # (Auto) (1.78-5.38) K/mm3 Lymph # (Auto) (1.32-3.57) K/mm3 [place] # (Auto) (0.30-0.82) K/mm3 Eos # (Auto) (0.04-0.54) K/mm3 Baso # (Auto) (0.01-0.08) K/mm3 Manual Slide Review Sodium (136-145) mEq/L Potassium (3.5-5.1) mEq/L Chloride (98-107) mEq/L Carbon Dioxide (21-32) mEq/L Anion Gap (5-15) BUN (7-18) mg/dL Creatinine (0.7-1.3) mg/dL Est Cr Clr Drug Dosing mL/min Estimated GFR (MDRD) (>60) mL/min BUN/Creatinine Ratio (14-18) Glucose (83-115) mg/dL Lactic Acid 3.1 H* (0.4-2.0) mmol/L Calcium (8.5-10.1) mg/dL Phosphorus (2.6-4.7) mg/dL Magnesium (1.8-2.4) mg/dl Total Bilirubin (0.2-1.0) mg/dL AST (15-37) U/L ALT (16-63) U/L Alkaline Phosphatase (46-116) U/L Total Protein (6.4-8.2) g/dl Albumin (3.4-5.0) g/dl Globulin gm/dL Albumin/Globulin Ratio (1-2) Henry Results Last 24 Hours: Microbiology 01/14/20 16:07 Aerobic Blood Culture - Preliminary Blood - Venous - Lab Draw NO GROWTH AFTER 2 DAYS Anaerobic Blood Culture - Preliminary NO GROWTH AFTER 2 DAYS 01/14/20 16:02 Aerobic Blood Culture - Preliminary Blood - Venous NO GROWTH AFTER 2 DAYS Anaerobic Blood Culture - Preliminary NO GROWTH AFTER 2 DAYS Med Orders - Current: Current Medications Acetaminophen (Tylenol) 650 mg PO Q4H PRN PRN Reason: Pain (Mild 1-3)/fever Last Admin: 01/15/20 20:18 Dose: 650 mg Documented by: Aspirin (Halfprin) 81 mg PO DAILY [facility] Last Admin: 01/17/20 09:28 Dose: 81 mg Documented by: Bisacodyl (Dulcolax) 5 mg PO DAILY PRN PRN Reason: Constipation Bisacodyl (Dulcolax) 10 mg RECTAL DAILY PRN PRN Reason: Constipation Last Admin: 01/16/20 16:13 Dose: 10 mg Documented by: Docusate Sodium (Colace) 100 mg PO BID PRN PRN Reason: Constipation Last Admin: 01/16/20 08:14 Dose: 100 mg Documented by: Enoxaparin Sodium (Lovenox) 40 mg SUBCUT Q24H [facility] Last Admin: 01/16/20 15:15 Dose: 40 mg Documented by: Furosemide (Lasix) 20 mg PO DAILY [facility] Last Admin: 01/17/20 09:29 Dose: 20 mg Documented by: Levofloxacin/Dextrose 750 mg/ (Premix) 150 mls @ 100 mls/hr IV Q48H [facility] Last Admin: 01/17/20 09:29 Dose: 100 mls/hr Documented by: Sodium Chloride (Normal Saline) 1,000 mls @ 250 mls/hr IV ONETIME ONE Stop: 01/17/20 12:14 Last Admin: 01/17/20 09:30 Dose: 250 mls/hr Documented by: Sodium Chloride (Normal Saline) 394 mls @ 250 mls/hr IV .BOLUS ONE Stop: 01/17/20 17:49 Sodium Chloride (Normal Saline) 1,000 mls @ 250 mls/hr IV ONETIME ONE Stop: 01/17/20 12:29 Metoprolol Tartrate (Lopressor) 50 mg PO BID [facility] Last Admin: 01/17/20 09:29 Dose: 50 mg Documented by: Multivitamins (Thera) 1 each PO DAILY [facility] Last Admin: 01/17/20 09:28 Dose: 1 each Documented by: Ondansetron HCl (Zofran) 4 mg IV Q4H PRN PRN Reason: Nausea/Vomiting Pantoprazole Sodium (Protonix) 40 mg PO DAILY@0700 [facility] Last Admin: 01/17/20 09:28 Dose: 40 mg Documented by: Potassium Chloride (Klor-Con M20) 20 meq PO DAILY [facility] Last Admin: 01/17/20 09:29 Dose: 20 meq Documented by: Senna/Docusate Sodium (Senna Plus) 1 tab PO BID PRN PRN Reason: Constipation Last Admin: 01/16/20 06:14 Dose: 1 tab Documented by: Simvastatin (Zocor) 10 mg PO BEDTIME [facility] Last Admin: 01/16/20 21:33 Dose: 10 mg Documented by: Sodium Chloride (Saline Flush) 10 ml FLUSH ASDIRECTED PRN PRN Reason: Keep Vein Open Last Admin: 01/14/20 13:07 Dose: 10 ml Documented by: Sodium Chloride (Saline Flush) 10 ml FLUSH ASDIRECTED PRN PRN Reason: Keep Vein Open Discontinued Medications Sodium Chloride (Normal Saline) 1,000 mls @ 125 mls/hr IV ASDIRECTED [facility] Last Admin: 01/14/20 12:00 Dose: 999 mls/hr Documented by: Lactated Ringer's (Ringers, Lactated) 1,000 mls @ 1,000 mls/hr IV .BOLUS ONE Stop: 01/14/20 12:47 Last Admin: 01/14/20 13:37 Dose: 1,000 mls/hr Documented by: Ceftriaxone Sodium 2 gm/ (Sodium Chloride) 100 mls @ 200 mls/hr IV Q24H [facility] Last Admin: 01/14/20 13:05 Dose: 200 mls/hr Documented by: Lactated Ringer's (Ringers, Lactated) Confirm Administered Dose 1,000 mls @ as directed .ROUTE .STK-MED ONE Stop: 01/14/20 14:55 Last Admin: 01/14/20 17:59 Dose: Not Given Documented by: Ceftriaxone Sodium 2 gm/ (Sodium Chloride) 100 mls @ 200 mls/hr IV Q24H [facility] Last Admin: 01/16/20 15:14 Dose: 200 mls/hr Documented by: Magnesium Sulfate (Magnesium Sulfate In Water Premix) 2 gm in 50 mls @ 25 mls/hr IV ONETIME ONE Stop: 01/14/20 17:55 Last Admin: 01/14/20 18:39 Dose: 25 mls/hr Documented by: Lactated Ringer's (Ringers, Lactated) 430 mls @ 999 mls/hr IV .BOLUS ONE Stop: 01/14/20 15:02 Last Admin: 01/14/20 14:37 Dose: 999 mls/hr Documented by: Magnesium Sulfate (Magnesium Sulfate In Water Premix) 2 gm in 50 mls @ 25 mls/hr IV ONETIME ONE Stop: 01/16/20 15:59 Last Admin: 01/16/20 13:11 Dose: 25 mls/hr Documented by: Potassium Chloride (Klor-Con M20) 20 meq PO ONETIME ONE Stop: 01/16/20 14:01 Last Admin: 01/16/20 13:11 Dose: 20 meq Documented by: - Exam Quality Assessment: DVT Prophylaxis (Lovenox). No: Supplemental Oxygen General: Alert, Cooperative, No Acute Distress. No: Oriented (Oriented to self only.) HEENT: Pupils Equal, Pupils Reactive, Mucous Membr. Moist/[place] Neck: Supple, Trachea Midline. No: Lymphadenopathy Lungs: Clear to Auscultation, Normal Respiratory Effort Cardiovascular: Regular Rate, Regular Rhythm. No: No Murmurs GI/Abdominal Exam: Normal Bowel Sounds, Soft, Non-Tender, No Distention (Male) Exam: Deferred Back Exam: Normal Inspection, Full Range of Motion Extremities: Normal Inspection, Normal Range of Motion, Non-Tender, No Pedal Edema, Normal Capillary Refill Peripheral Pulses: 2+: Radial (L), Radial (R), Dorsalis Pedis (L), Dorsalis Pedis (R) Skin: Warm, Dry, Intact Neurological: No New Focal Deficit Psy/Mental Status: Alert, Normal Affect, Normal Mood (Patient is pleasantly confused. He is oriented to name only. He thought the year was 2024.) Sepsis Event Note - Evaluation Sepsis Screening Result: Severe Sepsis Risk - Focused Exam Vital Signs: Vital Signs Temp Pulse Resp BP Pulse Ox 01/17/20 09:29 109 H 107/59 L 01/17/20 08:38 97.9 F 109 H 30 H 107/59 L 92 L 01/17/20 06:01 98.1 F 107 H 24 H 128/80 93 L 01/17/20 00:19 98.8 F 102 H 20 113/67 93 L - Problem List & Annotations (1) Pneumonia SNOMED Code(s): 234141250 Code(s): J18.9 - PNEUMONIA, UNSPECIFIED ORGANISM Status: Acute Priority: High Current Visit: Yes Qualifiers: Pneumonia type: due to unspecified organism Laterality: bilateral Lung location: lower lobe of lung Qualified Code(s): J18.9 - Pneumonia, unspecified organism (2) Renal insufficiency SNOMED Code(s): 890000453, 562194894 Code(s): N28.9 - DISORDER OF KIDNEY AND URETER, UNSPECIFIED Status: Acute Priority: High Current Visit: Yes (3) Sepsis SNOMED Code(s): 48668599 Code(s): A41.9 - SEPSIS, UNSPECIFIED ORGANISM Status: Acute Priority: High Current Visit: Yes Qualifiers: Sepsis type: sepsis due to unspecified organism Sepsis acute organ dysfunction status: unspecified Qualified Code(s): A41.9 - Sepsis, unspecified organism (4) Generalized weakness SNOMED Code(s): 28071398 Code(s): R53.1 - WEAKNESS Status: Acute Priority: High Current Visit: Yes (5) Sepsis due to pneumonia SNOMED Code(s): 68804471 Code(s): J18.9 - PNEUMONIA, UNSPECIFIED ORGANISM; A41.9 - SEPSIS, UNSPECIFIED ORGANISM Status: Acute Priority: High Current Visit: Yes (6) Hypercalcemia SNOMED Code(s): 47597809 Code(s): E83.52 - HYPERCALCEMIA Status: Acute Priority: High Current Visit: Yes - Problem List Review Problem List Initiated/Reviewed/Updated: Yes - My Orders Last 24 Hours: My Active Orders 01/17/20 08:08 Blood Culture x2 Reflex Set [OM.PC] Stat 01/17/20 08:15 Sodium Chloride 0.9% [Normal Saline] 1,000 ml IV ONETIME 01/17/20 08:30 Sodium Chloride 0.9% [Normal Saline] 1,000 ml IV ONETIME 01/17/20 08:35 Chest 1V Frontal [CR] Stat 01/17/20 08:40 CULTURE BLOOD [BC] Stat 01/17/20 08:55 CULTURE BLOOD [BC] Stat 01/17/20 09:00 Levofloxacin/Dextrose 5%-Water [Levaquin in D5W 750 MG/150 ML] 750 mg Premix Bag 1 bag IV Q48H 01/17/20 10:20 Consult to Speech Language Pathology [HOME THEATER SPECIALIST Evaluation and Treatment] [CONS] Routine 01/17/20 10:26 REFLEX LACTIC ACID YES OR NO [CHEM] Routine 01/17/20 16:15 Sodium Chloride 0.9% [Normal Saline] 394 ml IV .BOLUS 01/18/20 05:11 CBC WITH AUTO DIFF [HEME] DAILY COMPREHENSIVE METABOLIC PN,CMP [CHEM] DAILY MAGNESIUM [CHEM] DAILY PHOSPHORUS [CHEM] DAILY 01/19/20 05:11 CBC WITH AUTO DIFF [HEME] DAILY COMPREHENSIVE METABOLIC PN,CMP [CHEM] DAILY MAGNESIUM [CHEM] DAILY PHOSPHORUS [CHEM] DAILY - Assessment Assessment:: 01/15/20 * Remains on room air. * Day 2 of Rocephin IV. * Waiting for blood culture report. * PT OT to eval and treat. * Vital signs remained stable. And patient has been afebrile. * Lab work reveals: BUN 14, creatinine 1.3, GFR 53, lactic acid 2.0, magnesium 1.7, calcium 12.5 down from 13.6. * Lovenox for DVT prophylaxis. * Echocardiogram from 10/05/2016: #1 left ventricular ejection fraction, by visual estimation, is 55 to 60%. #2 normal right ventricular systolic f unction. #3 mitral valve regurgitation. #4 mild tricuspid valve regurgitation. #5 abnormal septal motion consistent with postoperative status. #6 no regional wall motion abnormalities. 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 MG 16 mmHg, no AI. #8 findings similar to 318 of 16. 01/16/20 * He is on room air * Day 3 of Rocephin IV * Blood cultures are showing no growth. * Vital signs have been stable and patient has been afebrile. * Discharge recommendations are for home health care/physical therapy/Occupational Therapy * WBC 8.44, BUN 17, creatinine 1.3, GFR 53, calcium 12.1, magnesium 1.5 * Calcium level is slowly coming down. The patient's reports that he does consume a significant amount of extra strength Tums at home. I am still awaiting the results of the PTH and ionized calcium levels to return however I do believe the reason for his elevated calcium is due to the Tums. * Lovenox for DVT prophylaxis. 01/17/20 * Patient remains on room air * He is on day 4 of Rocephin * Blood cultures continue to show no growth. * Potassium 4.7, BUN 24, creatinine 1.4, GFR 48, lactic acid 2.3, calcium level 13.3. * The patient has been afebrile however he has been tachycardic in the low 100s despite receiving metoprolol 50 mg twice daily. Nursing staff also reports that the patient is tachypneic. Which makes him qualify for adults severe sepsis protocol. * PT/OT working with the patient. - Plan Plan:: 01/14/20 * 84-year-old male with a 5-day history of increased weakness and fatigue. * With symptoms gradually worsening. * Chest x-ray obtained in the ER reports basilar pulmonary opacities and probable small pleural effusions. * CT of the head obtained in the ER reports no evidence of acute intracranial abnormality. No evidence of acute infarction, hemorrhage or mass. Atrophy and microvascular disease. * Lab work reveals WBC 9.28, hemoglobin 15.7, hematocrit 47.5, platelet count 488, neutrophil count 7.13 without bands, D-dimer 3.01, BUN 19, creatinine 1.7, GFR 39, calcium 13.6, magnesium 1.7, LDH 1422, troponin less than 0.017, C-reactive protein 6.3, lactic acid 4.4 repeat lactic acid was 2.8, urinalysis was negative for infection * Sepsis protocol was implemented in the emergency department. * Patient was started on 2 g of Rocephin IV. * Patient was given 2400 mL of IV fluids per sepsis protocol. * Initial vital signs in the emergency department are temp 96.9, heart rate 96, respiratory rate 18, blood pressure 116/81, and pulse oximeter is 96% on room air. * CT angiogram was not performed in the ER due to the patient being in renal failure. PLAN: * Await blood culture report * Rocephin 2 g IV daily * We will not give further IV fluids at this point due to patient having a history of congestive heart failure and we do not want to overload him. * Obtain most recent echocardiogram. * Vital signs every 4 hours. * Intake and output every 8 hours with weights daily. * Will recheck labs in the morning and correct any electrolyte abnormalities. * Give magnesium 2 g IV * PT/OT to eval and treat * supervisor gate services for discharge planning * Lovenox for DVT prophylaxis * Renally dose all medications. * Dietitian to consult * Spiritual care * Patient is a DNR/DNI Patient will likely be here 3 to 4 days due to the treatment of septic pneumonia. supervisor gate services and case management to assist with discharge planning. 01/15/20 * Waiting for blood culture report. * Continue Rocephin 2 g IV daily * Vital signs every 4 hours * Intake and output every 8 hours. * Will add a parathyroid hormone and ionized calcium onto today's lab work * Repeat labs in the a.m. * supervisor gate services for discharge planning * Renally dose all medications * Continue Lovenox for DVT prophylaxis. 01/16/20 * Continue Rocephin 2 g IV daily * Magnesium 2 g IV today * Potassium 20 mEq p.o. today * Renally dose all medications * Continue Lovenox for DVT prophylaxis * Vital signs every 4 hours * Monitor intake and output every 8 hours. * Awaiting PTH and ionized calcium results. * supervisor gate services for discharge planning. * Repeat labs in the a.m. * Plan for discharge to home tomorrow. 01/17/20 * Discontinue Rocephin. * Blood cultures x2. * Start Levaquin 750 mg IV daily once blood cultures have been collected * Repeat lactic acid level was at 3.1. * Start normal saline at a rate of 250 mL's per hour for a total volume of 2394 mL, per sepsis protocol. * Will trend lactic acid levels. * Nursing staff reports that patient coughs frequently when swallowing water or eating his meal trays. Will order a swallowing eval. * At this time I will not correct the hypercalcemia until I have the PTH and ionized calcium levels back, unless the patient becomes severely symptomatic. * Continue Lovenox for DVT prophylaxis. * Vital signs every 4 hours. * Monitor intake and output every 8 hours. And daily weights * Repeat labs in the a.m. * Patient will likely be here another 3 to 4 days for follow-up of sepsis. <AbhiClementine M - Last Filed: 01/17/20 16:03> - Patient Data Vitals - Most Recent: Last Vital Signs Temp 36.6 C 01/17/20 15:33 Pulse 102 H 01/17/20 15:33 Resp 24 H 01/17/20 15:33 BP 126/80 01/17/20 15:33 Pulse Ox 95 01/17/20 15:33 I&O - Last 24 Hours: Intake & Output 01/17/20 01/17/20 01/17/20 06:59 14:59 22:59 Intake Total 0 200 Output Total 500 650 Balance -500 0 -450 Lab Results Last 24 Hours: Laboratory Results - last 24 hr 01/17/20 01/17/20 01/17/20 Range/Units 06:35 06:35 06:35 WBC 8.42 (4.23-9.07) K/mm3 RBC 4.97 (4.63-6.08) M/mm3 Hgb 14.7 (13.7-17.5) gm/dl Hct 44.8 (40.1-51.0) % MCV 90.1 (79.0-92.2) fl MCH 29.6 (25.7-32.2) pg MCHC 32.8 (32.2-35.5) g/dl RDW Std Deviation 50.6 H (35.1-43.9) fL Plt Count 501 H (163-337) K/mm3 MPV 9.7 (9.4-12.3) fl Neut % (Auto) 65.2 (34.0-67.9) % Lymph % (Auto) 13.1 L (21.8-53.1) % [place] % (Auto) 18.6 H (5.3-12.2) % Eos % (Auto) 2.1 (0.8-7.0) Baso % (Auto) 0.8 (0.1-1.2) % Neut # (Auto) 5.48 H (1.78-5.38) K/mm3 Lymph # (Auto) 1.10 L (1.32-3.57) K/mm3 [place] # (Auto) 1.57 H (0.30-0.82) K/mm3 Eos # (Auto) 0.18 (0.04-0.54) K/mm3 Baso # (Auto) 0.07 (0.01-0.08) K/mm3 Manual Slide Review Abnormal smear Sodium 139 (136-145) mEq/L Potassium 4.7 (3.5-5.1) mEq/L Chloride 103 (98-107) mEq/L Carbon Dioxide 29 (21-32) mEq/L Anion Gap 11.7 (5-15) BUN 24 H (7-18) mg/dL Creatinine 1.4 H (0.7-1.3) mg/dL Est Cr Clr Drug Dosing 40.66 mL/min Estimated GFR (MDRD) 48 (>60) mL/min BUN/Creatinine Ratio 17.1 (14-18) Glucose 89 (83-115) mg/dL Lactic Acid 2.3 H* (0.4-2.0) mmol/L Calcium 13.3 H* (8.5-10.1) mg/dL Phosphorus 4.1 (2.6-4.7) mg/dL Magnesium 1.9 (1.8-2.4) mg/dl Total Bilirubin 0.5 (0.2-1.0) mg/dL AST 81 H (15-37) U/L ALT 40 (16-63) U/L Alkaline Phosphatase 106 (46-116) U/L Total Protein 6.1 L (6.4-8.2) g/dl Albumin 2.7 L (3.4-5.0) g/dl Globulin 3.4 gm/dL Albumin/Globulin Ratio 0.8 L (1-2) 01/17/20 01/17/20 Range/Units 09:45 12:50 WBC (4.23-9.07) K/mm3 RBC (4.63-6.08) M/mm3 Hgb (13.7-17.5) gm/dl Hct (40.1-51.0) % MCV (79.0-92.2) fl MCH (25.7-32.2) pg MCHC (32.2-35.5) g/dl RDW Std Deviation (35.1-43.9) fL Plt Count (163-337) K/mm3 MPV (9.4-12.3) fl Neut % (Auto) (34.0-67.9) % Lymph % (Auto) (21.8-53.1) % [place] % (Auto) (5.3-12.2) % Eos % (Auto) (0.8-7.0) Baso % (Auto) (0.1-1.2) % Neut # (Auto) (1.78-5.38) K/mm3 Lymph # (Auto) (1.32-3.57) K/mm3 [place] # (Auto) (0.30-0.82) K/mm3 Eos # (Auto) (0.04-0.54) K/mm3 Baso # (Auto) (0.01-0.08) K/mm3 Manual Slide Review Sodium (136-145) mEq/L Potassium (3.5-5.1) mEq/L Chloride (98-107) mEq/L Carbon Dioxide (21-32) mEq/L Anion Gap (5-15) BUN (7-18) mg/dL Creatinine (0.7-1.3) mg/dL Est Cr Clr Drug Dosing mL/min Estimated GFR (MDRD) (>60) mL/min BUN/Creatinine Ratio (14-18) Glucose (83-115) mg/dL Lactic Acid 3.1 H* 2.6 H* (0.4-2.0) mmol/L Calcium (8.5-10.1) mg/dL Phosphorus (2.6-4.7) mg/dL Magnesium (1.8-2.4) mg/dl Total Bilirubin (0.2-1.0) mg/dL AST (15-37) U/L ALT (16-63) U/L Alkaline Phosphatase (46-116) U/L Total Protein (6.4-8.2) g/dl Albumin (3.4-5.0) g/dl Globulin gm/dL Albumin/Globulin Ratio (1-2) [facility] Results Last 24 Hours: Microbiology 01/14/20 16:07 Aerobic Blood Culture - Preliminary Blood - Venous - Lab Draw NO GROWTH AFTER 2 DAYS Anaerobic Blood Culture - Preliminary NO GROWTH AFTER 2 DAYS 01/14/20 16:02 Aerobic Blood Culture - Preliminary Blood - Venous NO GROWTH AFTER 2 DAYS Anaerobic Blood Culture - Preliminary NO GROWTH AFTER 2 DAYS Med Orders - Current: Current Medications Acetaminophen (Tylenol) 650 mg PO Q4H PRN PRN Reason: Pain (Mild 1-3)/fever Last Admin: 01/15/20 20:18 Dose: 650 mg Documented by: Aspirin (Halfprin) 81 mg PO DAILY [facility] Last Admin: 01/17/20 09:28 Dose: 81 mg Documented by: Bisacodyl (Dulcolax) 5 mg PO DAILY PRN PRN Reason: Constipation Bisacodyl (Dulcolax) 10 mg RECTAL DAILY PRN PRN Reason: Constipation Last Admin: 01/16/20 16:13 Dose: 10 mg Documented by: Docusate Sodium (Colace) 100 mg PO BID PRN PRN Reason: Constipation Last Admin: 01/16/20 08:14 Dose: 100 mg Documented by: Enoxaparin Sodium (Lovenox) 40 mg SUBCUT Q24H [facility] Last Admin: 01/16/20 15:15 Dose: 40 mg Documented by: Furosemide (Lasix) 20 mg PO DAILY [facility] Last Admin: 01/17/20 09:29 Dose: 20 mg Documented by: Levofloxacin/Dextrose 750 mg/ (Premix) 150 mls @ 100 mls/hr IV Q48H [facility] Last Admin: 01/17/20 09:29 Dose: 100 mls/hr Documented by: Sodium Chloride (Normal Saline) 394 mls @ 250 mls/hr IV .BOLUS ONE Stop: 01/17/20 17:49 Metoprolol Tartrate (Lopressor) 50 mg PO BID [facility] Last Admin: 01/17/20 09:29 Dose: 50 mg Documented by: Multivitamins (Thera) 1 each PO DAILY [facility] Last Admin: 01/17/20 09:28 Dose: 1 each Documented by: Ondansetron HCl (Zofran) 4 mg IV Q4H PRN PRN Reason: Nausea/Vomiting Pantoprazole Sodium (Protonix) 40 mg PO DAILY@0700 [facility] Last Admin: 01/17/20 09:28 Dose: 40 mg Documented by: Potassium Chloride (Klor-Con M20) 20 meq PO DAILY [facility] Last Admin: 01/17/20 09:29 Dose: 20 meq Documented by: Senna/Docusate Sodium (Senna Plus) 1 tab PO BID PRN PRN Reason: Constipation Last Admin: 01/16/20 06:14 Dose: 1 tab Documented by: Simvastatin (Zocor) 10 mg PO BEDTIME [facility] Last Admin: 01/16/20 21:33 Dose: 10 mg Documented by: Sodium Chloride (Saline Flush) 10 ml FLUSH ASDIRECTED PRN PRN Reason: Keep Vein Open Last Admin: 01/14/20 13:07 Dose: 10 ml Documented by: Sodium Chloride (Saline Flush) 10 ml FLUSH ASDIRECTED PRN PRN Reason: Keep Vein Open Discontinued Medications Sodium Chloride (Normal Saline) 1,000 mls @ 125 mls/hr IV ASDIRECTED [facility] Last Admin: 01/14/20 12:00 Dose: 999 mls/hr Documented by: Lactated Ringer's (Ringers, Lactated) 1,000 mls @ 1,000 mls/hr IV .BOLUS ONE Stop: 01/14/20 12:47 Last Admin: 01/14/20 13:37 Dose: 1,000 mls/hr Documented by: Ceftriaxone Sodium 2 gm/ (Sodium Chloride) 100 mls @ 200 mls/hr IV Q24H [facility] Last Admin: 01/14/20 13:05 Dose: 200 mls/hr Documented by: Lactated Ringer's (Ringers, Lactated) Confirm Administered Dose 1,000 mls @ as directed .ROUTE .STK-MED ONE Stop: 01/14/20 14:55 Last Admin: 01/14/20 17:59 Dose: Not Given Documented by: Ceftriaxone Sodium 2 gm/ (Sodium Chloride) 100 mls @ 200 mls/hr IV Q24H [facility] Last Admin: 01/16/20 15:14 Dose: 200 mls/hr Documented by: Magnesium Sulfate (Magnesium Sulfate In Water Premix) 2 gm in 50 mls @ 25 mls/hr IV ONETIME ONE Stop: 01/14/20 17:55 Last Admin: 01/14/20 18:39 Dose: 25 mls/hr Documented by: Lactated Ringer's (Ringers, Lactated) 430 mls @ 999 mls/hr IV .BOLUS ONE Stop: 01/14/20 15:02 Last Admin: 01/14/20 14:37 Dose: 999 mls/hr Documented by: Magnesium Sulfate (Magnesium Sulfate In Water Premix) 2 gm in 50 mls @ 25 mls/ hr IV ONETIME ONE Stop: 01/16/20 15:59 Last Admin: 01/16/20 13:11 Dose: 25 mls/hr Documented by: Sodium Chloride (Normal Saline) 1,000 mls @ 250 mls/hr IV ONETIME ONE Stop: 01/17/20 12:14 Last Admin: 01/17/20 09:30 Dose: 250 mls/hr Documented by: Sodium Chloride (Normal Saline) 1,000 mls @ 250 mls/hr IV ONETIME ONE Stop: 01/17/20 12:29 Last Admin: 01/17/20 13:35 Dose: 250 mls/hr Documented by: Potassium Chloride (Klor-Con M20) 20 meq PO ONETIME ONE Stop: 01/16/20 14:01 Last Admin: 01/16/20 13:11 Dose: 20 meq Documented by: Sepsis Event Note - Focused Exam Vital Signs: Vital Signs Temp Pulse Resp BP Pulse Ox 01/17/20 15:33 36.6 C 102 H 24 H 126/80 95 01/17/20 12:03 36.4 C 100 26 H 115/76 93 L 01/17/20 09:29 109 H 107/59 L 01/17/20 08:38 36.6 C 109 H 30 H 107/59 L 92 L 01/17/20 06:01 36.7 C 107 H 24 H 128/80 93 L - My Orders Last 24 Hours: My Active Orders 01/17/20 15:50 LACTIC ACID W/ REFLEX [LACTATE SEPSIS W/ REFLEX] [CHEM] Stat - Plan Plan:: Sepsis work up, lactic acid trend noted. Agree with assessment and plan except as amended.
--- NOTE | 2020-01-17 12:29 | CR ---
PROCEDURE INFORMATION: Exam: XR Chest, 1 View Exam date and time: 01/17/2020 8:49 AM Age: 84 years old Clinical indication: Condition or disease; Other: F/u sepsis protocol and pneumonia TECHNIQUE: Imaging protocol: XR of the chest Views: Frontal portable upright view of the chest. COMPARISON: CR Chest 1V Frontal 01/14/2020 11:13 AM FINDINGS: Tubes, catheters and devices: The patient is status post median sternotomy with intact sternal cerclage wires. EKG leads are present overlying the chest. Lungs: Stable bilateral lower lobe pulmonary partial atelectasis. The pulmonary vasculature is normal. Pleural space: No pleural effusion. No pneumothorax. Heart/Mediastinum: Stable borderline cardiomegaly. Mediastinum: Stable. A moderate-large hiatal hernia is present above the level of the diaphragm. Vasculature: Moderate aortic arch atherosclerotic calcification without ectasia. Bones/joints: Chronic healed right posterior 4th through 6th rib fractures. IMPRESSION: 1. Stable bilateral lower lobe pulmonary partial atelectasis. 2. Hiatal hernia. Thank you for allowing us to participate in the care of your patient. Dictated and Authenticated by: Stefan Her MD 01/17/2020 10:36 AM Central Time ([place] & [place]) M[place]
[2020-01-17] MEDS: Enoxaparin 40 MG/0.4 ML Syringe SUBCUT SCH (17:38)
[2020-01-17] MEDS: Simvastatin 10 MG Tab PO SCH (20:43)
[2020-01-18] MEDS ORDERED: Magnesium Sulfate/Water 2 GM/50 ML BAG IV ONE (07:29)
[2020-01-18] MEDS ORDERED: Sodium Chloride 0.9% 1,000 ML IV SCH (08:30)
[2020-01-18] MEDS: Metoprolol Tartrate 50 MG Tab PO SCH ×2 (08:55→21:59)
[2020-01-18] MEDS: Furosemide 20 MG Tab PO SCH (08:55)
[2020-01-18] MEDS: Pantoprazole 40 MG Tab.CR PO SCH (08:56)
[2020-01-18] MEDS: Potassium Chloride 20 MEQ Tab.ER PO SCH (08:56)
[2020-01-18] MEDS: Multivitamins,Therapeutic Tab PO SCH (08:56)
[2020-01-18] MEDS: Aspirin 81 MG Tab.EC PO SCH (08:56)
--- NOTE | 2020-01-18 09:09 | CR ---
PROCEDURE INFORMATION: Exam: XR Chest, 1 View Exam date and time: 01/18/2020 7:25 AM Age: 84 years old Clinical indication: Shortness of breath TECHNIQUE: Imaging protocol: XR of the chest Views: 1 view. COMPARISON: CR Chest 1V Frontal 01/17/2020 8:49 AM FINDINGS: Lungs: The lungs are emphysematous. Increased atelectasis at both lung bases. Pleural space: Mild new bilateral costophrenic angle blunting. Heart/Mediastinum: Normal cardiomediastinal dimensions. Hiatal hernia. Vasculature: The vessels have normal caliber. Tortuous aorta. 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 IMPRESSION: Increased bilateral lower lobe atelectasis and now with new mild bilateral costophrenic angle blunting, atelectasis versus small effusions. Negative for evidence of acute pulmonary edema. Thank you for allowing us to participate in the care of your patient. Dictated and Authenticated by: Christopher Cooley MD 01/18/2020 9:02 AM Central Time ([place] & [place]) [place]
--- NOTE | 2020-01-18 14:03 | PCM.PN ---
<Fco Gamble M - Last Filed: 01/18/20 14:03> - General Info Date of Service: 01/18/20 Admission Dx/Problem (Free Text): Admission Diagnosis/Problem Admission Diagnosis/Problem Sepsis due to pneumonia Subjective Update: Patient is doing about the same today. Remains confused. Coughing noted when patient eating his breakfast cereal. Functional Status: Reports: Pain Controlled, Tolerating Diet, Ambulating (With physical therapy), Urinating (Incontinent at times), Incentive Spirometry - Review of Systems General: Reports: No Symptoms HEENT: Reports: Glasses Pulmonary: Reports: No Symptoms Cardiovascular: Reports: No Symptoms Gastrointestinal: Reports: No Symptoms Genitourinary: Reports: Incontinence Musculoskeletal: Reports: No Symptoms Skin: Reports: No Symptoms Neurological: Reports: Confusion Psychiatric: Reports: Confusion - Patient Data Vitals - Most Recent: Last Vital Signs Temp 97.6 F 01/18/20 12:00 Pulse 100 01/18/20 12:00 Resp 26 H 01/18/20 12:00 BP 108/67 01/18/20 12:00 Pulse Ox 92 L 01/18/20 12:00 Weight - Most Recent: 79.923 kg I&O - Last 24 Hours: Intake & Output 01/17/20 01/18/20 01/18/20 22:59 06:59 14:59 Intake Total 2590 794 Output Total 650 900 Balance 1940 -106 Lab Results Last 24 Hours: Laboratory Results - last 24 hr 01/15/20 01/17/20 01/18/20 Range/Units 06:57 16:15 05:45 WBC 8.78 (4.23-9.07) K/mm3 RBC 4.66 (4.63-6.08) M/mm3 Hgb 14.0 (13.7-17.5) gm/dl Hct 42.5 (40.1-51.0) % MCV 91.2 (79.0-92.2) fl MCH 30.0 (25.7-32.2) pg MCHC 32.9 (32.2-35.5) g/dl RDW Std Deviation 50.4 H (35.1-43.9) fL Plt Count 518 H (163-337) K/mm3 MPV 9.7 (9.4-12.3) fl Neut % (Auto) 67.8 (34.0-67.9) % Lymph % (Auto) 13.2 L (21.8-53.1) % Kle[place] % (Auto) 16.9 H (5.3-12.2) % Eos % (Auto) 1.4 (0.8-7.0) Baso % (Auto) 0.5 (0.1-1.2) % Neut # (Auto) 5.96 H (1.78-5.38) K/mm3 Lymph # (Auto) 1.16 L (1.32-3.57) K/mm3 [place] # (Auto) 1.48 H (0.30-0.82) K/mm3 Eos # (Auto) 0.12 (0.04-0.54) K/mm3 Baso # (Auto) 0.04 (0.01-0.08) K/mm3 Manual Slide Review Abnormal smear Sodium (136-145) mEq/L Potassium (3.5-5.1) mEq/L Chloride (98-107) mEq/L Carbon Dioxide (21-32) mEq/L Anion Gap (5-15) BUN (7-18) mg/dL Creatinine (0.7-1.3) mg/dL Est Cr Clr Drug Dosing mL/min Estimated GFR (MDRD) (>60) mL/min BUN/Creatinine Ratio (14-18) Glucose (83-115) mg/dL Lactic Acid 2.2 H* (0.4-2.0) mmol/L Calcium (8.5-10.1) mg/dL Phosphorus (2.6-4.7) mg/dL Magnesium (1.8-2.4) mg/dl Total Bilirubin (0.2-1.0) mg/dL AST (15-37) U/L ALT (16-63) U/L Alkaline Phosphatase (46-116) U/L Total Protein (6.4-8.2) g/dl Albumin (3.4-5.0) g/dl Globulin gm/dL Albumin/Globulin Ratio (1-2) PTH Intact 9 L (15-65) pg/mL 01/18/20 01/18/20 Range/Units 05:45 05:45 WBC (4.23-9.07) K/mm3 RBC (4.63-6.08) M/mm3 Hgb (13.7-17.5) gm/dl Hct (40.1-51.0) % MCV (79.0-92.2) fl MCH (25.7-32.2) pg MCHC (32.2-35.5) g/dl RDW Std Deviation (35.1-43.9) fL Plt Count (163-337) K/mm3 MPV (9.4-12.3) fl Neut % (Auto) (34.0-67.9) % Lymph % (Auto) (21.8-53.1) % [place] % (Auto) (5.3-12.2) % Eos % (Auto) (0.8-7.0) Baso % (Auto) (0.1-1.2) % Neut # (Auto) (1.78-5.38) K/mm3 Lymph # (Auto) (1.32-3.57) K/mm3 [place] # (Auto) (0.30-0.82) K/mm3 Eos # (Auto) (0.04-0.54) K/mm3 Baso # (Auto) (0.01-0.08) K/mm3 Manual Slide Review Sodium 140 (136-145) mEq/L Potassium 3.9 (3.5-5.1) mEq/L Chloride 103 (98-107) mEq/L Carbon Dioxide 27 (21-32) mEq/L Anion Gap 13.9 (5-15) BUN 25 H (7-18) mg/dL Creatinine 1.7 H (0.7-1.3) mg/dL Est Cr Clr Drug Dosing 33.48 mL/min Estimated GFR (MDRD) 39 (>60) mL/min BUN/Creatinine Ratio 14.7 (14-18) Glucose 90 (83-115) mg/dL Lactic Acid 1.8 (0.4-2.0) mmol/L Calcium 13.2 H* (8.5-10.1) mg/dL Phosphorus 3.4 (2.6-4.7) mg/dL Magnesium 1.6 L (1.8-2.4) mg/dl Total Bilirubin 0.4 (0.2-1.0) mg/dL AST 73 H (15-37) U/L ALT 42 (16-63) U/L Alkaline Phosphatase 102 (46-116) U/L Total Protein 6.1 L (6.4-8.2) g/dl Albumin 2.6 L (3.4-5.0) g/dl Globulin 3.5 gm/dL Albumin/Globulin Ratio 0.7 L (1-2) PTH Intact (15-65) pg/mL Henry Results Last 24 Hours: Microbiology 01/17/20 08:40 Aerobic Blood Culture - Preliminary Blood - Venous - Lab Draw NO GROWTH AFTER 1 DAY Anaerobic Blood Culture - Preliminary NO GROWTH AFTER 1 DAY 01/17/20 08:55 Aerobic Blood Culture - Preliminary Blood - Venous NO GROWTH AFTER 1 DAY Anaerobic Blood Culture - Preliminary NO GROWTH AFTER 1 DAY 01/14/20 16:07 Aerobic Blood Culture - Preliminary Blood - Venous - Lab Draw NO GROWTH AFTER 3 DAYS Anaerobic Blood Culture - Preliminary NO GROWTH AFTER 3 DAYS 01/14/20 16:02 Aerobic Blood Culture - Preliminary Blood - Venous NO GROWTH AFTER 3 DAYS Anaerobic Blood Culture - Preliminary NO GROWTH AFTER 3 DAYS Med Orders - Current: Current Medications Acetaminophen (Tylenol) 650 mg PO Q4H PRN PRN Reason: Pain (Mild 1-3)/fever Last Admin: 01/15/20 20:18 Dose: 650 mg Documented by: Aspirin (Halfprin) 81 mg PO DAILY [facility] Last Admin: 01/18/20 08:56 Dose: 81 mg Documented by: Bisacodyl (Dulcolax) 5 mg PO DAILY PRN PRN Reason: Constipation Bisacodyl (Dulcolax) 10 mg RECTAL DAILY PRN PRN Reason: Constipation Last Admin: 01/16/20 16:13 Dose: 10 mg Documented by: Docusate Sodium (Colace) 100 mg PO BID PRN PRN Reason: Constipation Last Admin: 01/16/20 08:14 Dose: 100 mg Documented by: Enoxaparin Sodium (Lovenox) 40 mg SUBCUT Q24H [facility] Last Admin: 01/17/20 17:38 Dose: 40 mg Documented by: Furosemide (Lasix) 20 mg PO DAILY [facility] Last Admin: 01/18/20 08:55 Dose: 20 mg Documented by: Levofloxacin/Dextrose 750 mg/ (Premix) 150 mls @ 100 mls/hr IV Q48H [facility] Last Admin: 01/17/20 09:29 Dose: 100 mls/hr Documented by: Sodium Chloride (Normal Saline) 1,000 mls @ 75 mls/hr IV ASDIRECTED [facility] Stop: 01/18/20 22:00 Last Admin: 01/18/20 10:34 Dose: 75 mls/hr Documented by: Metoprolol Tartrate (Lopressor) 50 mg PO BID [facility] Last Admin: 01/18/20 08:55 Dose: 50 mg Documented by: Multivitamins (Thera) 1 each PO DAILY [facility] Last Admin: 01/18/20 08:56 Dose: 1 each Documented by: Ondansetron HCl (Zofran) 4 mg IV Q4H PRN PRN Reason: Nausea/Vomiting Pantoprazole Sodium (Protonix) 40 mg PO DAILY@0700 [facility] Last Admin: 01/18/20 08:56 Dose: 40 mg Documented by: Potassium Chloride (Klor-Con M20) 20 meq PO DAILY [facility] Last Admin: 01/18/20 08:56 Dose: 20 meq Documented by: Senna/Docusate Sodium (Senna Plus) 1 tab PO BID PRN PRN Reason: Constipation Last Admin: 01/16/20 06:14 Dose: 1 tab Documented by: Simvastatin (Zocor) 10 mg PO BEDTIME [facility] Last Admin: 01/17/20 20:43 Dose: 10 mg Documented by: Sodium Chloride (Saline Flush) 10 ml FLUSH ASDIRECTED PRN PRN Reason: Keep Vein Open Last Admin: 01/14/20 13:07 Dose: 10 ml Documented by: Sodium Chloride (Saline Flush) 10 ml FLUSH ASDIRECTED PRN PRN Reason: Keep Vein Open Discontinued Medications Sodium Chloride (Normal Saline) 1,000 mls @ 125 mls/hr IV ASDIRECTED [facility] Last Admin: 01/14/20 12:00 Dose: 999 mls/hr Documented by: Lactated Ringer's (Ringers, Lactated) 1,000 mls @ 1,000 mls/hr IV .BOLUS ONE Stop: 01/14/20 12:47 Last Admin: 01/14/20 13:37 Dose: 1,000 mls/hr Documented by: Ceftriaxone Sodium 2 gm/ (Sodium Chloride) 100 mls @ 200 mls/hr IV Q24H [facility] Last Admin: 01/14/20 13:05 Dose: 200 mls/hr Documented by: Lactated Ringer's (Ringers, Lactated) Confirm Administered Dose 1,000 mls @ as directed .ROUTE .STK-MED ONE Stop: 01/14/20 14:55 Last Admin: 01/14/20 17:59 Dose: Not Given Documented by: Ceftriaxone Sodium 2 gm/ (Sodium Chloride) 100 mls @ 200 mls/hr IV Q24H [facility] Last Admin: 01/16/20 15:14 Dose: 200 mls/hr Documented by: Magnesium Sulfate (Magnesium Sulfate In Water Premix) 2 gm in 50 mls @ 25 mls/hr IV ONETIME ONE Stop: 01/14/20 17:55 Last Admin: 01/14/20 18:39 Dose: 25 mls/hr Documented by: Lactated Ringer's (Ringers, Lactated) 430 mls @ 999 mls/hr IV .BOLUS ONE Stop: 01/14/20 15:02 Last Admin: 01/14/20 14:37 Dose: 999 mls/hr Documented by: Magnesium Sulfate (Magnesium Sulfate In Water Premix) 2 gm in 50 mls @ 25 mls/hr IV ONETIME ONE Stop: 01/16/20 15:59 Last Admin: 01/16/20 13:11 Dose: 25 mls/hr Documented by: Sodium Chloride (Normal Saline) 1,000 mls @ 250 mls/hr IV ONETIME ONE Stop: 01/17/20 12:14 Last Admin: 01/17/20 09:30 Dose: 250 mls/hr Documented by: Sodium Chloride (Normal Saline) 394 mls @ 250 mls/hr IV .BOLUS ONE Stop: 01/17/20 17:49 Last Admin: 01/17/20 17:58 Dose: 250 mls/hr Documented by: Sodium Chloride (Normal Saline) 1,000 mls @ 250 mls/hr IV ONETIME ONE Stop: 01/17/20 12:29 Last Admin: 01/17/20 13:35 Dose: 250 mls/hr Documented by: Magnesium Sulfate (Magnesium Sulfate In Water Premix) 2 gm in 50 mls @ 25 mls/hr IV ONETIME ONE Stop: 01/18/20 09:28 Last Admin: 01/18/20 08:56 Dose: 25 mls/hr Documented by: Potassium Chloride (Klor-Con M20) 20 meq PO ONETIME ONE Stop: 01/16/20 14:01 Last Admin: 01/16/20 13:11 Dose: 20 meq Documented by: - Exam Quality Assessment: DVT Prophylaxis (Lovenox). No: Supplemental Oxygen General: Alert, Cooperative, No Acute Distress. No: Oriented (Oriented to person only.) HEENT: Pupils Equal, Pupils Reactive, Mucous Membr. Moist/[place] Neck: Supple, Trachea Midline. No: Lymphadenopathy Lungs: Decreased Breath Sounds Cardiovascular: Irregular Rhythm, Murmurs (Grade 1 systolic murmur noted) GI/Abdominal Exam: Normal Bowel Sounds, Soft, Non-Tender, No Distention (Male) Exam: Deferred Back Exam: Normal Inspection, Full Range of Motion Extremities: Normal Inspection, Normal Range of Motion, Non-Tender, No Pedal Edema, Normal Capillary Refill Peripheral Pulses: 2+: Brachial (L), Brachial (R), Dorsalis Pedis (L), Dorsalis Pedis (R) Skin: Warm, Dry, Intact Neurological: No New Focal Deficit Psy/Mental Status: Alert, Normal Affect, Normal Mood Sepsis Event Note - Evaluation Sepsis Screening Result: Sepsis Risk - Focused Exam Vital Signs: Vital Signs Temp Temp Pulse Pulse Resp BP BP 01/18/20 12:00 97.6 F 100 26 H 108/67 01/18/20 08:55 91 115/93 H 01/18/20 07:57 97.5 F 113 H 28 H 115/83 01/18/20 04:00 97.9 F 112 H 28 H 137/86 Pulse Ox 01/18/20 12:00 92 L 01/18/20 08:55 01/18/20 07:57 91 L 01/18/20 04:00 93 L - Problem List & Annotations (1) Pneumonia SNOMED Code(s): 850901254 Code(s): J18.9 - PNEUMONIA, UNSPECIFIED ORGANISM Status: Acute Priority: High Current Visit: Yes Qualifiers: Pneumonia type: due to unspecified organism Laterality: bilateral Lung location: lower lobe of lung Qualified Code(s): J18.9 - Pneumonia, unspecified organism (2) Renal insufficiency SNOMED Code(s): 710243485, 724311405 Code(s): N28.9 - DISORDER OF KIDNEY AND URETER, UNSPECIFIED Status: Acute Priority: High Current Visit: Yes (3) Sepsis SNOMED Code(s): 23549708 Code(s): A41.9 - SEPSIS, UNSPECIFIED ORGANISM Status: Acute Priority: High Current Visit: Yes Qualifiers: Sepsis type: sepsis due to unspecified organism Sepsis acute organ dysfunction status: unspecified Qualified Code(s): A41.9 - Sepsis, unspecified organism (4) Generalized weakness SNOMED Code(s): 33318559 Code(s): R53.1 - WEAKNESS Status: Acute Priority: High Current Visit: Yes (5) Sepsis due to pneumonia SNOMED Code(s): 36265881 Code(s): J18.9 - PNEUMONIA, UNSPECIFIED ORGANISM; A41.9 - SEPSIS, UNSPECIFIED ORGANISM Status: Acute Priority: High Current Visit: Yes (6) Hypercalcemia SNOMED Code(s): 73673778 Code(s): E83.52 - HYPERCALCEMIA Status: Acute Priority: High Current Visit: Yes - Problem List Review Problem List Initiated/Reviewed/Updated: Yes - My Orders Last 24 Hours: My Active Orders 01/17/20 14:18 Incentive Breathing [RT Incentive Spirometry] [RC] Q1HWA 01/19/20 05:11 CBC WITH AUTO DIFF [HEME] DAILY COMPREHENSIVE METABOLIC PN,CMP [CHEM] DAILY MAGNESIUM [CHEM] DAILY PHOSPHORUS [CHEM] DAILY - Assessment Assessment:: 01/15/20 * Remains on room air. * Day 2 of Rocephin IV. * Waiting for blood culture report. * PT OT to eval and treat. * Vital signs remained stable. And patient has been afebrile. * Lab work reveals: BUN 14, creatinine 1.3, GFR 53, lactic acid 2.0, magnesium 1.7, calcium 12.5 down from 13.6. * Lovenox for DVT prophylaxis. * Echocardiogram from 10/05/2016: #1 left ventricular ejection fraction, by visual estimation, is 55 to 60%. #2 normal right ventricular systolic function. #3 mitral valve regurgitation. #4 mild tricuspid valve regurgitation. #5 abnormal septal motion consistent with postoperative status. #6 no regional wall motion abnormalities. 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 MG 16 mmHg, no AI. #8 findings similar to 318 of 16. 01/16/20 * He is on room air * Day 3 of Rocephin IV * Blood cultures are showing no growth. * Vital signs have been stable and patient has been afebrile. * Discharge recommendations are for home health care/physical therapy/Occupational Therapy * WBC 8.44, BUN 17, creatinine 1.3, GFR 53, calcium 12.1, magnesium 1.5 * Calcium level is slowly coming down. The patient's reports that he does consume a significant amount of extra strength Tums at home. I am still awaiting the results of the PTH and ionized calcium levels to return however I do believe the reason for his elevated calcium is due to the Tums. * Lovenox for DVT prophylaxis. 01/17/20 * Patient remains on room air * He is on day 4 of Rocephin * Blood cultures continue to show no growth. * Potassium 4.7, BUN 24, creatinine 1.4, GFR 48, lactic acid 2.3, calcium level 13.3. * The patient has been afebrile however he has been tachycardic in the low 100s despite receiving metoprolol 50 mg twice daily. Nursing staff also reports that the patient is tachypneic. Which makes him qualify for adults severe sepsis protocol. * PT/OT working with the patient. 01/18/20 * Patient remains confused oriented to name only. * He is on room air * He is on day 2 of Levaquin 750 mg which was changed yesterday when patient met septic criteria. * Patient remains tachycardic in the low 100s, blood pressures range from 114-137/44-86, respiratory rate 22-30, and he is 91 to 95% on room air. * Patient has had 1550 mL of urine out in the past 24 hours and he remains +1954 mL. * Lab work reveals platelet 518, potassium 3.9, magnesium 1.6, BUN 25, creatinine 1.7, GFR 39, lactic acid 1.8, calcium 13.2, parathyroid hormone level came back at 9. - Plan Plan:: Agree with assessment and plan except as amended. 01/18/20 * Continue Levaquin 750 mg IV daily. * Will contact Dr. Garay's office and notify her that upon discharge the patient will need to see her for a cancer work-up due to hypercalcemia. * Magnesium 2 g IV today * Normal saline at 75 mL's per hour to run until 2200 hrs. tonight * Lovenox for DVT prophylaxis * Nursing to assist patient with incentive spirometer * Repeat labs in the morning * Continue to monitor vital signs and intake and output. * Patient will be here greater than 96 hours due to the work-up and treatment for sepsis. <Clementine Moe - Last Filed: 01/18/20 14:50> - Patient Data Vitals - Most Recent: Last Vital Signs Temp 36.4 C 01/18/20 12:00 Pulse 100 01/18/20 12:00 Resp 26 H 01/18/20 12:00 BP 108/67 01/18/20 12:00 Pulse Ox 92 L 01/18/20 12:00 I&O - Last 24 Hours: Intake & Output 01/17/20 01/18/20 01/18/20 22:59 06:59 14:59 Intake Total 2590 794 Output Total 650 900 650 Balance 2750 106 -609 Lab Results Last 24 Hours: Laboratory Results - last 24 hr 01/15/20 01/17/20 01/18/20 Range/Units 06:57 16:15 05:45 WBC 8.78 (4.23-9.07) K/mm3 RBC 4.66 (4.63-6.08) M/mm3 Hgb 14.0 (13.7-17.5) gm/dl Hct 42.5 (40.1-51.0) % MCV 91.2 (79.0-92.2) fl MCH 30.0 (25.7-32.2) pg MCHC 32.9 (32.2-35.5) g/dl RDW Std Deviation 50.4 H (35.1-43.9) fL Plt Count 518 H (163-337) K/mm3 MPV 9.7 (9.4-12.3) fl Neut % (Auto) 67.8 (34.0-67.9) % Lymph % (Auto) 13.2 L (21.8-53.1) % [place] % (Auto) 16.9 H (5.3-12.2) % Eos % (Auto) 1.4 (0.8-7.0) Baso % (Auto) 0.5 (0.1-1.2) % Neut # (Auto) 5.96 H (1.78-5.38) K/mm3 Lymph # (Auto) 1.16 L (1.32-3.57) K/mm3 [place] # (Auto) 1.48 H (0.30-0.82) K/mm3 Eos # (Auto) 0.12 (0.04-0.54) K/mm3 Baso # (Auto) 0.04 (0.01-0.08) K/mm3 Manual Slide Review Abnormal smear Sodium (136-145) mEq/L Potassium (3.5-5.1) mEq/L Chloride (98-107) mEq/L Carbon Dioxide (21-32) mEq/L Anion Gap (5-15) BUN (7-18) mg/dL Creatinine (0.7-1.3) mg/dL Est Cr Clr Drug Dosing mL/min Estimated GFR (MDRD) (>60) mL/min BUN/Creatinine Ratio (14-18) Glucose (83-115) mg/dL Lactic Acid 2.2 H* (0.4-2.0) mmol/L Calcium (8.5-10.1) mg/dL Phosphorus (2.6-4.7) mg/dL Magnesium (1.8-2.4) mg/dl Total Bilirubin (0.2-1.0) mg/dL AST (15-37) U/L ALT (16-63) U/L Alkaline Phosphatase (46-116) U/L Total Protein (6.4-8.2) g/dl Albumin (3.4-5.0) g/dl Globulin gm/dL Albumin/Globulin Ratio (1-2) PTH Intact 9 L (15-65) pg/mL 01/18/20 01/18/20 Range/Units 05:45 05:45 WBC (4.23-9.07) K/mm3 RBC (4.63-6.08) M/mm3 Hgb (13.7-17.5) gm/dl Hct (40.1-51.0) % MCV (79.0-92.2) fl MCH (25.7-32.2) pg MCHC (32.2-35.5) g/dl RDW Std Deviation (35.1-43.9) fL Plt Count (163-337) K/mm3 MPV (9.4-12.3) fl Neut % (Auto) (34.0-67.9) % Lymph % (Auto) (21.8-53.1) % [place] % (Auto) (5.3-12.2) % Eos % (Auto) (0.8-7.0) Baso % (Auto) (0.1-1.2) % Neut # (Auto) (1.78-5.38) K/mm3 Lymph # (Auto) (1.32-3.57) K/mm3 [place] # (Auto) (0.30-0.82) K/mm3 Eos # (Auto) (0.04-0.54) K/mm3 Baso # (Auto) (0.01-0.08) K/mm3 Manual Slide Review Sodium 140 (136-145) mEq/L Potassium 3.9 (3.5-5.1) mEq/L Chloride 103 (98-107) mEq/L Carbon Dioxide 27 (21-32) mEq/L Anion Gap 13.9 (5-15) BUN 25 H (7-18) mg/dL Creatinine 1.7 H (0.7-1.3) mg/dL Est Cr Clr Drug Dosing 33.48 mL/min Estimated GFR (MDRD) 39 (>60) mL/min BUN/Creatinine Ratio 14.7 (14-18) Glucose 90 (83-115) mg/dL Lactic Acid 1.8 (0.4-2.0) mmol/L Calcium 13.2 H* (8.5-10.1) mg/dL Phosphorus 3.4 (2.6-4.7) mg/dL Magnesium 1.6 L (1.8-2.4) mg/dl Total Bilirubin 0.4 (0.2-1.0) mg/dL AST 73 H (15-37) U/L ALT 42 (16-63) U/L Alkaline Phosphatase 102 (46-116) U/L Total Protein 6.1 L (6.4-8.2) g/dl Albumin 2.6 L (3.4-5.0) g/dl Globulin 3.5 gm/dL Albumin/Globulin Ratio 0.7 L (1-2) PTH Intact (15-65) pg/mL Henry Results Last 24 Hours: Microbiology 01/17/20 08:40 Aerobic Blood Culture - Preliminary Blood - Venous - Lab Draw NO GROWTH AFTER 1 DAY Anaerobic Blood Culture - Preliminary NO GROWTH AFTER 1 DAY 01/17/20 08:55 Aerobic Blood Culture - Preliminary Blood - Venous NO GROWTH AFTER 1 DAY Anaerobic Blood Culture - Preliminary NO GROWTH AFTER 1 DAY 01/14/20 16:07 Aerobic Blood Culture - Preliminary Blood - Venous - Lab Draw NO GROWTH AFTER 3 DAYS Anaerobic Blood Culture - Preliminary NO GROWTH AFTER 3 DAYS 01/14/20 16:02 Aerobic Blood Culture - Preliminary Blood - Venous NO GROWTH AFTER 3 DAYS Anaerobic Blood Culture - Preliminary NO GROWTH AFTER 3 DAYS Med Orders - Current: Current Medications Acetaminophen (Tylenol) 650 mg PO Q4H PRN PRN Reason: Pain (Mild 1-3)/fever Last Admin: 01/15/20 20:18 Dose: 650 mg Documented by: Aspirin (Halfprin) 81 mg PO DAILY [facility] Last Admin: 01/18/20 08:56 Dose: 81 mg Documented by: Bisacodyl (Dulcolax) 5 mg PO DAILY PRN PRN Reason: Constipation Bisacodyl (Dulcolax) 10 mg RECTAL DAILY PRN PRN Reason: Constipation Last Admin: 01/16/20 16:13 Dose: 10 mg Documented by: Docusate Sodium (Colace) 100 mg PO BID PRN PRN Reason: Constipation Last Admin: 01/16/20 08:14 Dose: 100 mg Documented by: Enoxaparin Sodium (Lovenox) 40 mg SUBCUT Q24H [facility] Last Admin: 01/17/20 17:38 Dose: 40 mg Documented by: Furosemide (Lasix) 20 mg PO DAILY [facility] Last Admin: 01/18/20 08:55 Dose: 20 mg Documented by: Levofloxacin/Dextrose 750 mg/ (Premix) 150 mls @ 100 mls/hr IV Q48H [facility] Last Admin: 01/17/20 09:29 Dose: 100 mls/hr Documented by: Sodium Chloride (Normal Saline) 1,000 mls @ 75 mls/hr IV ASDIRECTED [facility] Stop: 01/18/20 22:00 Last Admin: 01/18/20 10:34 Dose: 75 mls/hr Documented by: Metoprolol Tartrate (Lopressor) 50 mg PO BID [facility] Last Admin: 01/18/20 08:55 Dose: 50 mg Documented by: Multivitamins (Thera) 1 each PO DAILY [facility] Last Admin: 01/18/20 08:56 Dose: 1 each Documented by: Ondansetron HCl (Zofran) 4 mg IV Q4H PRN PRN Reason: Nausea/Vomiting Pantoprazole Sodium (Protonix) 40 mg PO DAILY@0700 [facility] Last Admin: 01/18/20 08:56 Dose: 40 mg Documented by: Potassium Chloride (Klor-Con M20) 20 meq PO DAILY [facility] Last Admin: 01/18/20 08:56 Dose: 20 meq Documented by: Senna/Docusate Sodium (Senna Plus) 1 tab PO BID PRN PRN Reason: Constipation Last Admin: 01/16/20 06:14 Dose: 1 tab Documented by: Simvastatin (Zocor) 10 mg PO BEDTIME [facility] Last Admin: 01/17/20 20:43 Dose: 10 mg Documented by: Sodium Chloride (Saline Flush) 10 ml FLUSH ASDIRECTED PRN PRN Reason: Keep Vein Open Last Admin: 01/14/20 13:07 Dose: 10 ml Documented by: Sodium Chloride (Saline Flush) 10 ml FLUSH ASDIRECTED PRN PRN Reason: Keep Vein Open Discontinued Medications Sodium Chloride (Normal Saline) 1,000 mls @ 125 mls/hr IV ASDIRECTED [facility] Last Admin: 01/14/20 12:00 Dose: 999 mls/hr Documented by: Lactated Ringer's (Ringers, Lactated) 1,000 mls @ 1,000 mls/hr IV .BOLUS ONE Stop: 01/14/20 12:47 Last Admin: 01/14/20 13:37 Dose: 1,000 mls/hr Documented by: Ceftriaxone Sodium 2 gm/ (Sodium Chloride) 100 mls @ 200 mls/hr IV Q24H [facility] Last Admin: 01/14/20 13:05 Dose: 200 mls/hr Documented by: Lactated Ringer's (Ringers, Lactated) Confirm Administered Dose 1,000 mls @ as directed .ROUTE .STK-MED ONE Stop: 01/14/20 14:55 Last Admin: 01/14/20 17:59 Dose: Not Given Documented by: Ceftriaxone Sodium 2 gm/ (Sodium Chloride) 100 mls @ 200 mls/hr IV Q24H [facility] Last Admin: 01/16/20 15:14 Dose: 200 mls/hr Documented by: Magnesium Sulfate (Magnesium Sulfate In Water Premix) 2 gm in 50 mls @ 25 mls/hr IV ONETIME ONE Stop: 01/14/20 17:55 Last Admin: 01/14/20 18:39 Dose: 25 mls/hr Documented by: Lactated Ringer's (Ringers, Lactated) 430 mls @ 999 mls/hr IV .BOLUS ONE Stop: 01/14/20 15:02 Last Admin: 01/14/20 14:37 Dose: 999 mls/hr Documented by: Magnesium Sulfate (Magnesium Sulfate In Water Premix) 2 gm in 50 mls @ 25 mls/hr IV ONETIME ONE Stop: 01/16/20 15:59 Last Admin: 01/16/20 13:11 Dose: 25 mls/hr Documented by: Sodium Chloride (Normal Saline) 1,000 mls @ 250 mls/hr IV ONETIME ONE Stop: 01/17/20 12:14 Last Admin: 01/17/20 09:30 Dose: 250 mls/hr Documented by: Sodium Chloride (Normal Saline) 394 mls @ 250 mls/hr IV .BOLUS ONE Stop: 01/17/20 17:49 Last Admin: 01/17/20 17:58 Dose: 250 mls/hr Documented by: Sodium Chloride (Normal Saline) 1,000 mls @ 250 mls/hr IV ONETIME ONE Stop: 01/17/20 12:29 Last Admin: 01/17/20 13:35 Dose: 250 mls/hr Documented by: Magnesium Sulfate (Magnesium Sulfate In Water Premix) 2 gm in 50 mls @ 25 mls/hr IV ONETIME ONE Stop: 01/18/20 09:28 Last Admin: 01/18/20 08:56 Dose: 25 mls/hr Documented by: Potassium Chloride (Klor-Con M20) 20 meq PO ONETIME ONE Stop: 01/16/20 14:01 Last Admin: 01/16/20 13:11 Dose: 20 meq Documented by: Sepsis Event Note - Focused Exam Vital Signs: Vital Signs Temp Temp Pulse Pulse Resp BP BP 01/18/20 12:00 36.4 C 100 26 H 108/67 01/18/20 08:55 91 115/93 H 01/18/20 07:57 36.4 C 113 H 28 H 115/83 01/18/20 04:00 36.6 C 112 H 28 H 137/86 Pulse Ox 11/06/20 12:00 92 L 01/18/20 08:55 01/18/20 07:57 91 L 01/18/20 04:00 93 L - My Orders Last 24 Hours: My Active Orders 01/18/20 08:30 Sodium Chloride 0.9% [Normal Saline] 1,000 ml IV ASDIRECTED - Plan Plan:: Patient will be continued on the current regimen. Will need close follow up by PCP as mentioned above. Likely DC, Mon or Tues pending response to therapy.
[2020-01-18] MEDS: Enoxaparin 40 MG/0.4 ML Syringe SUBCUT SCH (15:05)
[2020-01-18] MEDS: Simvastatin 10 MG Tab PO SCH (21:58)
[2020-01-19] MEDS: Pantoprazole 40 MG Tab.CR PO SCH (07:22)
[2020-01-19] MEDS: Multivitamins,Therapeutic Tab PO SCH (08:36)
[2020-01-19] MEDS: Furosemide 20 MG Tab PO SCH (08:36)
[2020-01-19] MEDS: Aspirin 81 MG Tab.EC PO SCH (08:36)
[2020-01-19] MEDS: Metoprolol Tartrate 50 MG Tab PO SCH ×2 (08:36→20:29)
[2020-01-19] MEDS: Levofloxacin/Dextrose 5%-Water 750 MG in Premix Bag 1 BAG IV SCH (08:38)
[2020-01-19] MEDS: Potassium Chloride 20 MEQ Tab.ER PO SCH (08:48)
[2020-01-19] MEDS ORDERED: Sodium Chloride 0.9% 1,000 ML IV SCH ×2 (09:30→16:00)
[2020-01-19] MEDS ORDERED: Zoledronic Acid 4 MG in Sodium Chloride 0.9% 100 ML IV ONE (12:00)
--- NOTE | 2020-01-19 12:08 | PCM.PN ---
- General Info Date of Service: 01/19/20 Functional Status: Reports: Pain Controlled, Urinating - Review of Systems General: Reports: No Symptoms HEENT: Reports: No Symptoms Pulmonary: Reports: No Symptoms Cardiovascular: Reports: No Symptoms Gastrointestinal: Reports: No Symptoms Genitourinary: Reports: No Symptoms Musculoskeletal: Reports: No Symptoms Skin: Reports: No Symptoms Neurological: Reports: No Symptoms Psychiatric: Reports: No Symptoms - Patient Data Vitals - Most Recent: Last Vital Signs Temp 36.2 C 01/19/20 08:29 Pulse 104 H 01/19/20 08:36 Resp 22 H 01/19/20 08:29 BP 130/84 01/19/20 08:36 Pulse Ox 91 L 01/19/20 08:30 Weight - Most Recent: 77 kg I&O - Last 24 Hours: Intake & Output 01/18/20 01/19/20 01/19/20 22:59 06:59 14:59 Intake Total 945 550 120 Output Total 400 500 Balance 545 50 120 Lab Results Last 24 Hours: Laboratory Results - last 24 hr 01/15/20 01/19/20 01/19/20 Range/Units 06:57 08:00 08:00 WBC 9.07 (4.23-9.07) K/mm3 RBC 4.77 (4.63-6.08) M/mm3 Hgb 14.5 (13.7-17.5) gm/dl Hct 43.7 (40.1-51.0) % MCV 91.6 (79.0-92.2) fl MCH 30.4 (25.7-32.2) pg MCHC 33.2 (32.2-35.5) g/dl RDW Std Deviation 50.1 H (35.1-43.9) fL Plt Count 526 H (163-337) K/mm3 MPV 9.4 (9.4-12.3) fl Neut % (Auto) 69.4 H (34.0-67.9) % Lymph % (Auto) 13.0 L (21.8-53.1) % Dent % (Auto) 14.6 H (5.3-12.2) % Eos % (Auto) 2.0 (0.8-7.0) Baso % (Auto) 0.8 (0.1-1.2) % Neut # (Auto) 6.30 H (1.78-5.38) K/mm3 Lymph # (Auto) 1.18 L (1.32-3.57) K/mm3 Dent # (Auto) 1.32 H (0.30-0.82) K/mm3 Eos # (Auto) 0.18 (0.04-0.54) K/mm3 Baso # (Auto) 0.07 (0.01-0.08) K/mm3 Sodium 141 (136-145) mEq/L Potassium 3.9 (3.5-5.1) mEq/L Chloride 103 (98-107) mEq/L Carbon Dioxide 30 (21-32) mEq/L Anion Gap 11.9 (5-15) BUN 27 H (7-18) mg/dL Creatinine 2.0 H (0.7-1.3) mg/dL Est Cr Clr Drug Dosing 28.46 mL/min Estimated GFR (MDRD) 32 (>60) mL/min BUN/Creatinine Ratio 13.5 L (14-18) Glucose 84 (83-115) mg/dL Calcium 14.4 H* (8.5-10.1) mg/dL Phosphorus 3.7 (2.6-4.7) mg/dL Magnesium 1.8 (1.8-2.4) mg/dl Total Bilirubin 0.5 (0.2-1.0) mg/dL AST 78 H (15-37) U/L ALT 39 (16-63) U/L Alkaline Phosphatase 104 (46-116) U/L Total Protein 6.3 L (6.4-8.2) g/dl Albumin 2.7 L (3.4-5.0) g/dl Globulin 3.6 gm/dL Albumin/Globulin Ratio 0.8 L (1-2) PTH Intact 9 L (15-65) pg/mL [facility] Results Last 24 Hours: Microbiology 01/17/20 08:40 Aerobic Blood Culture - Preliminary Blood - Venous - Lab Draw NO GROWTH AFTER 2 DAYS Anaerobic Blood Culture - Preliminary NO GROWTH AFTER 2 DAYS 01/17/20 08:55 Aerobic Blood Culture - Preliminary Blood - Venous NO GROWTH AFTER 2 DAYS Anaerobic Blood Culture - Preliminary NO GROWTH AFTER 2 DAYS 01/14/20 16:07 Aerobic Blood Culture - Preliminary Blood - Venous - Lab Draw NO GROWTH AFTER 4 DAYS Anaerobic Blood Culture - Preliminary NO GROWTH AFTER 4 DAYS 01/14/20 16:02 Aerobic Blood Culture - Preliminary Blood - Venous NO GROWTH AFTER 4 DAYS Anaerobic Blood Culture - Preliminary NO GROWTH AFTER 4 DAYS Med Orders - Current: Current Medications Acetaminophen (Tylenol) 650 mg PO Q4H PRN PRN Reason: Pain (Mild 1-3)/fever Last Admin: 01/15/20 20:18 Dose: 650 mg Documented by: Aspirin (Halfprin) 81 mg PO DAILY [facility] Last Admin: 01/19/20 08:36 Dose: 81 mg Documented by: Bisacodyl (Dulcolax) 5 mg PO DAILY PRN PRN Reason: Constipation Bisacodyl (Dulcolax) 10 mg RECTAL DAILY PRN PRN Reason: Constipation Last Admin: 01/16/20 16:13 Dose: 10 mg Documented by: Docusate Sodium (Colace) 100 mg PO BID PRN PRN Reason: Constipation Last Admin: 01/16/20 08:14 Dose: 100 mg Documented by: Enoxaparin Sodium (Lovenox) 40 mg SUBCUT Q24H [facility] Last Admin: 01/18/20 15:05 Dose: 40 mg Documented by: Furosemide (Lasix) 20 mg PO DAILY [facility] Last Admin: 01/19/20 08:36 Dose: 20 mg Documented by: Levofloxacin/Dextrose 750 mg/ (Premix) 150 mls @ 100 mls/hr IV Q48H [facility] Last Admin: 01/19/20 08:38 Dose: 100 mls/hr Documented by: Sodium Chloride (Normal Saline) 1,000 mls @ 75 mls/hr IV ASDIRECTED [facility] Stop: 01/19/20 15:31 Sodium Chloride (Normal Saline) 1,000 mls @ 50 mls/hr IV ASDIRECTED [facility] Zoledronic Acid 4 mg/ Sodium (Chloride) 105 mls @ 420 mls/hr IV ONETIME ONE Stop: 01/19/20 12:14 Metoprolol Tartrate (Lopressor) 50 mg PO BID [facility] Last Admin: 01/19/20 08:36 Dose: 50 mg Documented by: Multivitamins (Thera) 1 each PO DAILY [facility] Last Admin: 01/19/20 08:36 Dose: 1 each Documented by: Ondansetron HCl (Zofran) 4 mg IV Q4H PRN PRN Reason: Nausea/Vomiting Pantoprazole Sodium (Protonix) 40 mg PO DAILY@0700 [facility] Last Admin: 01/19/20 07:22 Dose: 40 mg Documented by: Potassium Chloride (Klor-Con M20) 20 meq PO DAILY [facility] Last Admin: 01/19/20 08:48 Dose: 20 meq Documented by: Senna/Docusate Sodium (Senna Plus) 1 tab PO BID PRN PRN Reason: Constipation Last Admin: 01/16/20 06:14 Dose: 1 tab Documented by: Simvastatin (Zocor) 10 mg PO BEDTIME [facility] Last Admin: 01/18/20 21:58 Dose: 10 mg Documented by: Sodium Chloride (Saline Flush) 10 ml FLUSH ASDIRECTED PRN PRN Reason: Keep Vein Open Last Admin: 01/14/20 13:07 Dose: 10 ml Documented by: Sodium Chloride (Saline Flush) 10 ml FLUSH ASDIRECTED PRN PRN Reason: Keep Vein Open Discontinued Medications Sodium Chloride (Normal Saline) 1,000 mls @ 125 mls/hr IV ASDIRECTED [facility] Last Admin: 01/14/20 12:00 Dose: 999 mls/hr Documented by: Lactated Ringer's (Ringers, Lactated) 1,000 mls @ 1,000 mls/hr IV .BOLUS ONE Stop: 01/14/20 12:47 Last Admin: 01/14/20 13:37 Dose: 1,000 mls/hr Documented by: Ceftriaxone Sodium 2 gm/ (Sodium Chloride) 100 mls @ 200 mls/hr IV Q24H [facility] Last Admin: 01/14/20 13:05 Dose: 200 mls/hr Documented by: Lactated Ringer's (Ringers, Lactated) Confirm Administered Dose 1,000 mls @ as directed .ROUTE .[facility]-MED ONE Stop: 01/14/20 14:55 Last Admin: 01/14/20 17:59 Dose: Not Given Documented by: Ceftriaxone Sodium 2 gm/ (Sodium Chloride) 100 mls @ 200 mls/hr IV Q24H [facility] Last Admin: 01/16/20 15:14 Dose: 200 mls/hr Documented by: Magnesium Sulfate (Magnesium Sulfate In Water Premix) 2 gm in 50 mls @ 25 mls/hr IV ONETIME ONE Stop: 01/14/20 17:55 Last Admin: 01/14/20 18:39 Dose: 25 mls/hr Documented by: Lactated Ringer's (Ringers, Lactated) 430 mls @ 999 mls/hr IV .BOLUS ONE Stop: 01/14/20 15:02 Last Admin: 01/14/20 14:37 Dose: 999 mls/hr Documented by: Magnesium Sulfate (Magnesium Sulfate In Water Premix) 2 gm in 50 mls @ 25 mls/hr IV ONETIME ONE Stop: 01/16/20 15:59 Last Admin: 01/16/20 13:11 Dose: 25 mls/hr Documented by: Sodium Chloride (Normal Saline) 1,000 mls @ 250 mls/hr IV ONETIME ONE Stop: 01/17/20 12:14 Last Admin: 01/17/20 09:30 Dose: 250 mls/hr Documented by: Sodium Chloride (Normal Saline) 394 mls @ 250 mls/hr IV .BOLUS ONE Stop: 01/17/20 17:49 Last Admin: 01/17/20 17:58 Dose: 250 mls/hr Documented by: Sodium Chloride (Normal Saline) 1,000 mls @ 250 mls/hr IV ONETIME ONE Stop: 01/17/20 12:29 Last Admin: 01/17/20 13:35 Dose: 250 mls/hr Documented by: Magnesium Sulfate (Magnesium Sulfate In Water Premix) 2 gm in 50 mls @ 25 mls/hr IV ONETIME ONE Stop: 01/18/20 09:28 Last Admin: 01/18/20 08:56 Dose: 25 mls/hr Documented by: Sodium Chloride (Normal Saline) 1,000 mls @ 75 mls/hr IV ASDIRECTED [facility] Stop: 01/18/20 22:00 Last Admin: 01/18/20 10:34 Dose: 75 mls/hr Documented by: Potassium Chloride (Klor-Con M20) 20 meq PO ONETIME ONE Stop: 01/16/20 14:01 Last Admin: 01/16/20 13:11 Dose: 20 meq Documented by: - Exam Quality Assessment: Supplemental Oxygen, DVT Prophylaxis General: Alert, Oriented, Cooperative, No Acute Distress HEENT: Pupils Equal, Pupils Reactive, EOMI Neck: Trachea Midline, No JVD Lungs: Normal Respiratory Effort, Decreased Breath Sounds Cardiovascular: Regular Rate, Regular Rhythm GI/Abdominal Exam: Normal Bowel Sounds, Soft, Non-Tender, No Organomegaly, No Distention (Male) Exam: Deferred Back Exam: Normal Inspection Extremities: Normal Inspection, Normal Capillary Refill Skin: Warm Neurological: No New Focal Deficit Psy/Mental Status: Alert Sepsis Event Note - Evaluation Sepsis Screening Result: Sepsis Risk - Focused Exam Vital Signs: Vital Signs Temp Pulse Resp BP Pulse Ox 01/19/20 08:36 104 H 130/84 01/19/20 08:30 105 H 91 L 01/19/20 08:29 36.2 C 104 H 22 H 130/84 91 L 01/19/20 06:28 95 93 L 01/19/20 04:28 36.6 C 102 H 20 122/68 90 L 01/19/20 03:05 36.9 C 93 22 H 139/84 90 L - Problem List Review Problem List Initiated/Reviewed/Updated: Yes - My Orders Last 24 Hours: My Active Orders 01/19/20 09:30 Sodium Chloride 0.9% [Normal Saline] 1,000 ml IV ASDIRECTED 01/19/20 Lunch Thickened Liquids [DIET] 01/19/20 12:00 Zoledronic Acid [Zometa] 4 mg Sodium Chloride 0.9% [Normal Saline] 100 ml IV ONETIME 01/19/20 16:00 Sodium Chloride 0.9% [Normal Saline] 1,000 ml IV ASDIRECTED - Assessment Assessment:: 01/15/20 * Remains on room air. * Day 2 of Rocephin IV. * Waiting for blood culture report. * PT OT to eval and treat. * Vital signs remained stable. And patient has been afebrile. * Lab work reveals: BUN 14, creatinine 1.3, GFR 53, lactic acid 2.0, magnesium 1.7, calcium 12.5 down from 13.6. * Lovenox for DVT prophylaxis. * Echocardiogram from 10/05/2016: #1 left ventricular ejection fraction, by visual estimation, is 55 to 60%. #2 normal right ventricular systolic function. #3 mitral valve regurgitation. #4 mild tricuspid valve regurgitation. #5 abnormal septal motion consistent with postoperative status. #6 no regional wall motion abnormalities. 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 MG 16 mmHg, no AI. #8 findings similar to 318 of 16. 01/16/20 * He is on room air * Day 3 of Rocephin IV * Blood cultures are showing no growth. * Vital signs have been stable and patient has been afebrile. * Discharge recommendations are for home health care/physical therapy/Occupational Therapy * WBC 8.44, BUN 17, creatinine 1.3, GFR 53, calcium 12.1, magnesium 1.5 * Calcium level is slowly coming down. The patient's reports that he does consume a significant amount of extra strength Tums at home. I am still aw aiting the results of the PTH and ionized calcium levels to return however I do believe the reason for his elevated calcium is due to the Tums. * Lovenox for DVT prophylaxis. 01/17/20 * Patient remains on room air * He is on day 4 of Rocephin * Blood cultures continue to show no growth. * Potassium 4.7, BUN 24, creatinine 1.4, GFR 48, lactic acid 2.3, calcium level 13.3. * The patient has been afebrile however he has been tachycardic in the low 100s despite receiving metoprolol 50 mg twice daily. Nursing staff also reports that the patient is tachypneic. Which makes him qualify for adults severe sepsis protocol. * PT/OT working with the patient. 01/19/20 Impression/Plan: Hypercalcemia with low iPTH PNA Bilateral PNA FERNANDA * Patient remains confused oriented to name only. * He is on room air * Levaquin 750 mg which was changed yesterday when patient met septic criteria. * Hemodynamics have improved * labs are noted.. * IVF as needed * Labs re: iCa, iPTH
[2020-01-19] MEDS: Enoxaparin 40 MG/0.4 ML Syringe SUBCUT SCH (16:17)
[2020-01-19] MEDS: Simvastatin 10 MG Tab PO SCH (20:27)
[2020-01-20] MEDS: Pantoprazole 40 MG Tab.CR PO SCH (07:38)
[2020-01-20] MEDS: Furosemide 20 MG Tab PO SCH (09:02)
[2020-01-20] MEDS: Potassium Chloride 20 MEQ Tab.ER PO SCH (09:02)
[2020-01-20] MEDS: Metoprolol Tartrate 50 MG Tab PO SCH ×2 (09:02→21:04)
[2020-01-20] MEDS: Aspirin 81 MG Tab.EC PO SCH (09:04)
[2020-01-20] MEDS: Multivitamins,Therapeutic Tab PO SCH (09:04)
[2020-01-20] MEDS: Docusate Sodium 100 MG Cap PO PRN (09:15)
[2020-01-20] MEDS ORDERED: Magnesium Sulfate/Water 4 GM in Premix Bag 1 BAG IV ONE (14:57)
[2020-01-20] MEDS: Magnesium Sulfate/Water 2 GM/50 ML BAG IV SCH ×2 (15:33→17:03)
[2020-01-20] MEDS: Enoxaparin 40 MG/0.4 ML Syringe SUBCUT SCH (15:35)
--- NOTE | 2020-01-20 16:18 | PCM.PN ---
- General Info Date of Service: 01/20/20 Subjective Update: No change; will order PTHrP, 25 hydroxyvitamin D; 1, 25 dihydroxyvitamin D does not appear to be available here. Functional Status: Reports: Urinating - Review of Systems General: Reports: No Symptoms HEENT: Reports: No Symptoms Pulmonary: Reports: No Symptoms Cardiovascular: Reports: No Symptoms Gastrointestinal: Reports: No Symptoms Genitourinary: Reports: No Symptoms Musculoskeletal: Reports: No Symptoms Skin: Reports: No Symptoms Neurological: Reports: No Symptoms Psychiatric: Reports: No Symptoms - Patient Data Vitals - Most Recent: Last Vital Signs Temp 36.8 C 01/20/20 12:13 Pulse 95 01/20/20 12:13 Resp 22 H 01/20/20 12:13 BP 134/77 01/20/20 12:13 Pulse Ox 91 L 01/20/20 12:13 Weight - Most Recent: 77 kg I&O - Last 24 Hours: Intake & Output 01/20/20 01/20/20 01/20/20 06:59 14:59 22:59 Intake Total 540 80 Output Total 150 Balance 540 -70 [facility] Results Last 24 Hours: Microbiology 01/17/20 08:40 Aerobic Blood Culture - Preliminary Blood - Venous - Lab Draw NO GROWTH AFTER 3 DAYS Anaerobic Blood Culture - Preliminary NO GROWTH AFTER 3 DAYS 01/17/20 08:55 Aerobic Blood Culture - Preliminary Blood - Venous NO GROWTH AFTER 3 DAYS Anaerobic Blood Culture - Preliminary NO GROWTH AFTER 3 DAYS 01/14/20 16:07 Aerobic Blood Culture - Preliminary Blood - Venous - Lab Draw NO GROWTH AFTER 5 DAYS Anaerobic Blood Culture - Preliminary NO GROWTH AFTER 5 DAYS 01/14/20 16:02 Aerobic Blood Culture - Preliminary Blood - Venous NO GROWTH AFTER 5 DAYS Anaerobic Blood Culture - Preliminary NO GROWTH AFTER 5 DAYS Med Orders - Current: Current Medications Acetaminophen (Tylenol) 650 mg PO Q4H PRN PRN Reason: Pain (Mild 1-3)/fever Last Admin: 01/15/20 20:18 Dose: 650 mg Documented by: Aspirin (Halfprin) 81 mg PO DAILY [facility] Last Admin: 01/20/20 09:04 Dose: 81 mg Documented by: Bisacodyl (Dulcolax) 5 mg PO DAILY PRN PRN Reason: Constipation Bisacodyl (Dulcolax) 10 mg RECTAL DAILY PRN PRN Reason: Constipation Last Admin: 01/16/20 16:13 Dose: 10 mg Documented by: Docusate Sodium (Colace) 100 mg PO BID PRN PRN Reason: Constipation Last Admin: 01/20/20 09:15 Dose: 100 mg Documented by: Enoxaparin Sodium (Lovenox) 40 mg SUBCUT Q24H [facility] Last Admin: 01/20/20 15:35 Dose: 40 mg Documented by: Furosemide (Lasix) 20 mg PO DAILY [facility] Last Admin: 01/20/20 09:02 Dose: 20 mg Documented by: Levofloxacin/Dextrose 750 mg/ (Premix) 150 mls @ 100 mls/hr IV Q48H [facility] [place] Last Admin: 01/19/20 08:38 Dose: 100 mls/hr Documented by: Sodium Chloride (Normal Saline) 1,000 mls @ 50 mls/hr IV ASDIRECTED [facility] [place] Magnesium Sulfate (Magnesium Sulfate In Water Premix) 2 gm in 50 mls @ 25 mls/hr IV Q2H [facility] [place] Stop: 01/20/20 19:14 Last Admin: 01/20/20 15:33 Dose: 25 mls/hr Documented by: Metoprolol Tartrate (Lopressor) 50 mg PO BID [facility] [place] Last Admin: 01/20/20 09:02 Dose: 50 mg Documented by: Multivitamins (Thera) 1 each PO DAILY [facility] [place] Last Admin: 01/20/20 09:04 Dose: 1 each Documented by: Ondansetron HCl (Zofran) 4 mg IV Q4H PRN PRN Reason: Nausea/Vomiting Pantoprazole Sodium (Protonix) 40 mg PO DAILY@0700 [facility] [place] Last Admin: 01/20/20 07:38 Dose: 40 mg Documented by: Potassium Chloride (Klor-Con M20) 20 meq PO DAILY [facility] [place] Last Admin: 01/20/20 09:02 Dose: 20 meq Documented by: Senna/Docusate Sodium (Senna Plus) 1 tab PO BID PRN PRN Reason: Constipation Last Admin: 01/16/20 06:14 Dose: 1 tab Documented by: Simvastatin (Zocor) 10 mg PO BEDTIME [facility] [place] Last Admin: 01/19/20 20:27 Dose: 10 mg Documented by: Sodium Chloride (Saline Flush) 10 ml FLUSH ASDIRECTED PRN PRN Reason: Keep Vein Open Last Admin: 01/14/20 13:07 Dose: 10 ml Documented by: Sodium Chloride (Saline Flush) 10 ml FLUSH ASDIRECTED PRN PRN Reason: Keep Vein Open Last Admin: 01/20/20 08:21 Dose: 10 ml Documented by: Discontinued Medications Sodium Chloride (Normal Saline) 1,000 mls @ 125 mls/hr IV ASDIRECTED [facility] Last Admin: 01/14/20 12:00 Dose: 999 mls/hr Documented by: Lactated Ringer's (Ringers, Lactated) 1,000 mls @ 1,000 mls/hr IV .BOLUS ONE Stop: 01/14/20 12:47 Last Admin: 01/14/20 13:37 Dose: 1,000 mls/hr Documented by: Ceftriaxone Sodium 2 gm/ (Sodium Chloride) 100 mls @ 200 mls/hr IV Q24H [facility] [place] Last Admin: 01/14/20 13:05 Dose: 200 mls/hr Documented by: Lactated Ringer's (Ringers, Lactated) Confirm Administered Dose 1,000 mls @ as directed .ROUTE .[facility]-MED ONE Stop: 01/14/20 14:55 Last Admin: 01/14/20 17:59 Dose: Not Given Documented by: Ceftriaxone Sodium 2 gm/ (Sodium Chloride) 100 mls @ 200 mls/hr IV Q24H [facility] [place] Last Admin: 01/16/20 15:14 Dose: 200 mls/hr Documented by: Magnesium Sulfate (Magnesium Sulfate In Water Premix) 2 gm in 50 mls @ 25 mls/hr IV ONETIME ONE Stop: 01/14/20 17:55 Last Admin: 01/14/20 18:39 Dose: 25 mls/hr Documented by: Lactated Ringer's (Ringers, Lactated) 430 mls @ 999 mls/hr IV .BOLUS ONE Stop: 01/14/20 15:02 Last Admin: 01/14/20 14:37 Dose: 999 mls/hr Documented by: Magnesium Sulfate (Magnesium Sulfate In Water Premix) 2 gm in 50 mls @ 25 mls/hr IV ONETIME ONE Stop: 01/16/20 15:59 Last Admin: 01/16/20 13:11 Dose: 25 mls/hr Documented by: Sodium Chloride (Normal Saline) 1,000 mls @ 250 mls/hr IV ONETIME ONE Stop: 01/17/20 12:14 Last Admin: 01/17/20 09:30 Dose: 250 mls/hr Documented by: Sodium Chloride (Normal Saline) 394 mls @ 250 mls/hr IV .BOLUS ONE Stop: 01/17/20 17:49 Last Admin: 01/17/20 17:58 Dose: 250 mls/hr Documented by: Sodium Chloride (Normal Saline) 1,000 mls @ 250 mls/hr IV ONETIME ONE Stop: 01/17/20 12:29 Last Admin: 01/17/20 13:35 Dose: 250 mls/hr Documented by: Magnesium Sulfate (Magnesium Sulfate In Water Premix) 2 gm in 50 mls @ 25 mls/hr IV ONETIME ONE Stop: 01/18/20 09:28 Last Admin: 01/18/20 08:56 Dose: 25 mls/hr Documented by: Sodium Chloride (Normal Saline) 1,000 mls @ 75 mls/hr IV ASDIRECTED [facility] Stop: 01/18/20 22:00 Last Admin: 01/18/20 10:34 Dose: 75 mls/hr Documented by: Sodium Chloride (Normal Saline) 1,000 mls @ 75 mls/hr IV ASDIRECTED [facility] Stop: 01/19/20 15:31 Last Infusion: 01/19/20 19:48 Dose: 50 mls/hr Documented by: Zoledronic Acid 4 mg/ Sodium (Chloride) 105 mls @ 420 mls/hr IV ONETIME ONE Stop: 01/19/20 12:14 Last Admin: 01/19/20 12:11 Dose: 420 mls/hr Documented by: Magnesium Sulfate 4 gm/ Premix 50 mls @ 12.5 mls/hr IV ONETIME ONE Stop: 01/20/20 18:56 Potassium Chloride (Klor-Con M20) 20 meq PO ONETIME ONE Stop: 01/16/20 14:01 Last Admin: 01/16/20 13:11 Dose: 20 meq Documented by: - Exam Quality Assessment: DVT Prophylaxis General: Alert, Oriented, Cooperative, No Acute Distress HEENT: Pupils Equal, Pupils Reactive, EOMI Neck: Trachea Midline, No JVD Lungs: Normal Respiratory Effort Cardiovascular: Regular Rate, Regular Rhythm GI/Abdominal Exam: Normal Bowel Sounds, Soft, Non-Tender, No Organomegaly, No Distention (Male) Exam: Deferred Back Exam: Normal Inspection Extremities: Normal Inspection, Normal Capillary Refill Skin: Warm Neurological: No New Focal Deficit Psy/Mental Status: Alert Sepsis Event Note - Evaluation Sepsis Screening Result: Sepsis Risk - Focused Exam Vital Signs: Vital Signs Temp Pulse Resp BP Pulse Ox 01/20/20 12:13 36.8 C 95 22 H 134/77 91 L 01/20/20 09:02 105 H 133/86 01/20/20 07:34 36.4 C 106 H 20 133/86 89 L - Problem List Review Problem List Initiated/Reviewed/Updated: Yes - My Orders Last 24 Hours: My Active Orders 01/19/20 16:00 Sodium Chloride 0.9% [Normal Saline] 1,000 ml IV ASDIRECTED 01/20/20 18:00 BASIC METABOLIC PANEL,BMP [CHEM] Routine CBC WITH AUTO DIFF [HEME] Routine PTHRP (PTH-RELATED PEPTIDE) [REF] Routine VITAMIN D,25-HYDROXY [CHEM] Routine 01/21/20 06:00 BASIC METABOLIC PANEL,BMP [CHEM] Routine CBC WITH AUTO DIFF [HEME] Routine CRP [C-REACTIVE PROTEIN] [CHEM] Routine MAGNESIUM [CHEM] Routine - Assessment Assessment:: 01/15/20 * Remains on room air. * Day 2 of Rocephin IV. * Waiting for blood culture report. * PT OT to eval and treat. * Vital signs remained stable. And patient has been afebrile. * Lab work reveals: BUN 14, creatinine 1.3, GFR 53, lactic acid 2.0, magnesium 1.7, calcium 12.5 down from 13.6. * Lovenox for DVT prophylaxis. * Echocardiogram from 10/05/2016: #1 left ventricular ejection fraction, by visual estimation, is 55 to 60%. #2 normal right ventricular systolic function. #3 mitral valve regurgitation. #4 mild tricuspid valve regurgitation. #5 abnormal septal motion consistent with postoperative status. #6 no regional wall motion abnormalities. 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 MG 16 mmHg, no AI. #8 findings similar to 318 of 16. 01/16/20 * He is on room air * Day 3 of Rocephin IV * Blood cultures are showing no growth. * Vital signs have been stable and patient has been afebrile. * Discharge recommendations are for home health care/physical therapy/Occupational Therapy * WBC 8.44, BUN 17, creatinine 1.3, GFR 53, calcium 12.1, magnesium 1.5 * Calcium level is slowly coming down. The patient's reports that he does consume a significant amount of extra strength Tums at home. I am still awaiting the results of the PTH and ionized calcium levels to return however I do believe the reason for his elevated calcium is due to the Tums. * Lovenox for DVT prophylaxis. 01/17/20 * Patient remains on room air * He is on day 4 of Rocephin * Blood cultures continue to show no growth. * Potassium 4.7, BUN 24, creatinine 1.4, GFR 48, lactic acid 2.3, calcium level 13.3. * The patient has been afebrile however he has been tachycardic in the low 100s despite receiving metoprolol 50 mg twice daily. Nursing staff also reports that the patient is tachypneic. Which makes him qualify for adults severe sepsis protocol. * PT/OT working with the patient. 01/19/20 Impression/Plan: Hypercalcemia with low iPTH Sepsis d/t PNA Bilateral PNA FERNANDA * Patient remains confused oriented to name only. * He is on room air * Sepsis criteria. * Hemodynamics have improved. * IVF as needed * Labs re: iCa, iPTH--ordered; (If PTHrP elevated-check for malignancy cf elevated PTHrP with elevated 1, 25 dihydroxyvitamin D usually lymphoma or granulomatous disease). * DC planning - Plan Plan:: Patient will be continued on the current regimen. Will need close follow up by PCP as mentioned above. Likely DC, Mon or Tu pending response to therapy.
[2020-01-20 19:02] LABS: VITAMIN D,25-HYDROXY 43.9 ng/ml (30.0-100.0)
[2020-01-20] MEDS: Sodium Chloride 0.9% 10 ML Syringe FLUSH PRN (19:14)
[2020-01-20] MEDS: Simvastatin 10 MG Tab PO SCH (21:04)
[2020-01-20] MEDS: Acetaminophen 325 MG Tab PO PRN (21:05)
[2020-01-21] MEDS: Pantoprazole 40 MG Tab.CR PO SCH (06:28)
[2020-01-21] MEDS ORDERED: Magnesium Hydroxide 400 MG/5 ML Susp 30 ML Cup PO ONE (07:00)
[2020-01-21] MEDS: Aspirin 81 MG Tab.EC PO SCH (08:45)
[2020-01-21] MEDS: Furosemide 20 MG Tab PO SCH (08:45)
[2020-01-21] MEDS: Potassium Chloride 20 MEQ Tab.ER PO SCH (08:45)
[2020-01-21] MEDS: Multivitamins,Therapeutic Tab PO SCH (08:45)
[2020-01-21] MEDS: Metoprolol Tartrate 50 MG Tab PO SCH ×2 (08:47→20:51)
[2020-01-21] MEDS: Levofloxacin/Dextrose 5%-Water 750 MG in Premix Bag 1 BAG IV SCH (09:27)
--- NOTE | 2020-01-21 11:00 | CR ---
PROCEDURE INFORMATION: Exam: XR Chest, 1 View Exam date and time: 01/21/2020 9:03 AM Age: 84 years old Clinical indication: Other: Low o2 sats TECHNIQUE: Imaging protocol: XR of the chest Views: 1 view. COMPARISON: CR Chest 1V Frontal 01/18/2020 7:25 AM FINDINGS: Lungs: Improved inflation with decreased opacification right lung base. The upper lungs are mildly hyperlucent. No focal lung opacities. Pleural space: Unchanged mild bilateral costophrenic angle blunting. Heart/Mediastinum: Normal heart dimensions. No vascular pedicle widening. Vasculature: Normal pulmonary vessel caliber. Normal aorta. 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 Healed posterior right rib fractures. IMPRESSION: Unchanged small bilateral pleural effusions. Mildly decreased atelectasis. No acute pulmonary edema. Thank you for allowing us to participate in the care of your patient. Dictated and Authenticated by: Chirstopher Cooley MD 01/21/2020 10:55 AM Central Time ([place] & [place]) MTDD
--- NOTE | 2020-01-21 12:33 | PCM.PN ---
- General Info Date of Service: 01/21/20 Admission Dx/Problem (Free Text): Admission Diagnosis/Problem Admission Diagnosis/Problem Sepsis due to pneumonia Subjective Update: Patient sitting up in the chair eating breakfast. He does however remain confused. Functional Status: Reports: Pain Controlled, Tolerating Diet, Ambulating, Urinating (Incontinent at times) - Review of Systems General: Reports: No Symptoms HEENT: Reports: No Symptoms Pulmonary: Reports: No Symptoms Cardiovascular: Reports: No Symptoms Gastrointestinal: Reports: No Symptoms Genitourinary: Reports: Incontinence Musculoskeletal: Reports: No Symptoms Skin: Reports: No Symptoms Neurological: Reports: Confusion Psychiatric: Reports: Confusion - Patient Data Vitals - Most Recent: Last Vital Signs Temp 97.5 F 01/21/20 08:34 Pulse 88 01/21/20 11:04 Resp 24 H 01/21/20 08:34 BP 116/75 01/21/20 08:47 Pulse Ox 92 L 01/21/20 11:04 Weight - Most Recent: 174 lb 8 oz I&O - Last 24 Hours: Intake & Output 01/20/20 01/21/20 01/21/20 22:59 06:59 14:59 Intake Total 940 200 0 Output Total 300 Balance 940 -100 0 Lab Results Last 24 Hours: Laboratory Results - last 24 hr 01/20/20 01/20/20 01/21/20 Range/Units 18:10 18:10 06:30 WBC 9.18 H 11.44 H (4.23-9.07) K/mm3 RBC 5.06 4.72 (4.63-6.08) M/mm3 Hgb 15.1 14.1 (13.7-17.5) gm/dl Hct 46.3 42.9 (40.1-51.0) % MCV 91.5 90.9 (79.0-92.2) fl MCH 29.8 29.9 (25.7-32.2) pg MCHC 32.6 32.9 (32.2-35.5) g/dl RDW Std Deviation 50.7 H 50.4 H (35.1-43.9) fL Plt Count 542 H 554 H (163-337) K/mm3 MPV 9.4 10.0 (9.4-12.3) fl Neut % (Auto) 73.4 H 78.0 H (34.0-67.9) % Lymph % (Auto) 13.1 L 8.4 L (21.8-53.1) % [place] % (Auto) 11.4 12.2 (5.3-12.2) % Eos % (Auto) 0.9 0.7 L (0.8-7.0) Baso % (Auto) 1.0 0.4 (0.1-1.2) % Neut # (Auto) 6.74 H 8.93 H (1.78-5.38) K/mm3 Lymph # (Auto) 1.20 L 0.96 L (1.32-3.57) K/mm3 [place] # (Auto) 1.05 H 1.39 H (0.30-0.82) K/mm3 Eos # (Auto) 0.08 0.08 (0.04-0.54) K/mm3 Baso # (Auto) 0.09 H 0.05 (0.01-0.08) K/mm3 Manual Slide Review Abnormal smear Sodium 141 (136-145) mEq/L Potassium 3.6 (3.5-5.1) mEq/L Chloride 104 (98-107) mEq/L Carbon Dioxide 28 (21-32) mEq/L Anion Gap 12.6 (5-15) BUN 34 H (7-18) mg/dL Creatinine 2.5 H (0.7-1.3) mg/dL Est Cr Clr Drug Dosing 22.77 mL/min Estimated GFR (MDRD) 25 (>60) mL/min BUN/Creatinine Ratio 13.6 L (14-18) Glucose 116 H (83-115) mg/dL Calcium 14.4 H* (8.5-10.1) mg/dL Magnesium (1.8-2.4) mg/dl C-Reactive Protein (<1.0) mg/dL Vitamin D 25-Hydroxy 43.9 (30.0-100.0) ng/ml 01/21/20 Range/Units 06:30 WBC (4.23-9.07) K/mm3 RBC (4.63-6.08) M/mm3 Hgb (13.7-17.5) gm/dl Hct (40.1-51.0) % MCV (79.0-92.2) fl MCH (25.7-32.2) pg MCHC (32.2-35.5) g/dl RDW Std Deviation (35.1-43.9) fL Plt Count (163-337) K/mm3 MPV (9.4-12.3) fl Neut % (Auto) (34.0-67.9) % Lymph % (Auto) (21.8-53.1) % [place] % (Auto) (5.3-12.2) % Eos % (Auto) (0.8-7.0) Baso % (Auto) (0.1-1.2) % Neut # (Auto) (1.78-5.38) K/mm3 Lymph # (Auto) (1.32-3.57) K/mm3 [place] # (Auto) (0.30-0.82) K/mm3 Eos # (Auto) (0.04-0.54) K/mm3 Baso # (Auto) (0.01-0.08) K/mm3 Manual Slide Review Sodium 143 (136-145) mEq/L Potassium 3.5 (3.5-5.1) mEq/L Chloride 106 (98-107) mEq/L Carbon Dioxide 27 (21-32) mEq/L Anion Gap 13.5 (5-15) BUN 36 H (7-18) mg/dL Creatinine 2.7 H (0.7-1.3) mg/dL Est Cr Clr Drug Dosing 21.08 mL/min Estimated GFR (MDRD) 23 (>60) mL/min BUN/Creatinine Ratio 13.3 L (14-18) Glucose 105 (83-115) mg/dL Calcium 12.4 H D (8.5-10.1) mg/dL Magnesium 2.5 H (1.8-2.4) mg/dl C-Reactive Protein 8.6 H* (<1.0) mg/dL Vitamin D 25-Hydroxy (30.0-100.0) ng/ml [place] Results Last 24 Hours: Microbiology 01/17/20 08:40 Aerobic Blood Culture - Preliminary Blood - Venous - Lab Draw NO GROWTH AFTER 4 DAYS Anaerobic Blood Culture - Preliminary NO GROWTH AFTER 4 DAYS 01/17/20 08:55 Aerobic Blood Culture - Preliminary Blood - Venous NO GROWTH AFTER 4 DAYS Anaerobic Blood Culture - Preliminary NO GROWTH AFTER 4 DAYS 01/14/20 16:07 Aerobic Blood Culture - Preliminary Blood - Venous - Lab Draw NO GROWTH AFTER 6 DAYS Anaerobic Blood Culture - Preliminary NO GROWTH AFTER 6 DAYS 01/14/20 16:02 Aerobic Blood Culture - Preliminary Blood - Venous NO GROWTH AFTER 6 DAYS Anaerobic Blood Culture - Preliminary NO GROWTH AFTER 6 DAYS Med Orders - Current: Current Medications Acetaminophen (Tylenol) 650 mg PO Q4H PRN PRN Reason: Pain (Mild 1-3)/fever Last Admin: 01/20/20 21:05 Dose: 650 mg Documented by: Aspirin (Halfprin) 81 mg PO DAILY [facility] Last Admin: 01/21/20 08:45 Dose: 81 mg Documented by: Bisacodyl (Dulcolax) 5 mg PO DAILY PRN PRN Reason: Constipation Bisacodyl (Dulcolax) 10 mg RECTAL DAILY PRN PRN Reason: Constipation Last Admin: 01/16/20 16:13 Dose: 10 mg Documented by: Docusate Sodium (Colace) 100 mg PO BID PRN PRN Reason: Constipation Last Admin: 01/20/20 09:15 Dose: 100 mg Documented by: Enoxaparin Sodium (Lovenox) 30 mg SUBCUT Q24H [facility] Furosemide (Lasix) 20 mg PO DAILY [facility] Last Admin: 01/21/20 08:45 Dose: 20 mg Documented by: Levofloxacin/Dextrose 750 mg/ (Premix) 150 mls @ 100 mls/hr IV Q48H [facility] Last Admin: 01/21/20 09:27 Dose: 100 mls/hr Documented by: Sodium Chloride (Normal Saline) 1,000 mls @ 75 mls/hr IV ASDIRECTED [facility] Metoprolol Tartrate (Lopressor) 50 mg PO BID [facility] Last Admin: 01/21/20 08:47 Dose: 50 mg Documented by: Multivitamins (Thera) 1 each PO DAILY [facility] Last Admin: 01/21/20 08:45 Dose: 1 each Documented by: Ondansetron HCl (Zofran) 4 mg IV Q4H PRN PRN Reason: Nausea/Vomiting Pantoprazole Sodium (Protonix) 40 mg PO DAILY@0700 [facility] Last Admin: 01/21/20 06:28 Dose: 40 mg Documented by: Potassium Chloride (Klor-Con M20) 20 meq PO DAILY [facility] Last Admin: 01/21/20 08:45 Dose: 20 meq Documented by: Potassium Chloride (Klor-Con M20) 40 meq PO ONETIME ONE Stop: 01/21/20 12:30 Senna/Docusate Sodium (Senna Plus) 1 tab PO BID PRN PRN Reason: Constipation Last Admin: 01/16/20 06:14 Dose: 1 tab Documented by: Simvastatin (Zocor) 10 mg PO BEDTIME [facility] Last Admin: 01/20/20 21:04 Dose: 10 mg Documented by: Sodium Chloride (Saline Flush) 10 ml FLUSH ASDIRECTED PRN PRN Reason: Keep Vein Open Last Admin: 01/20/20 19:14 Dose: 10 ml Documented by: Sodium Chloride (Saline Flush) 10 ml FLUSH ASDIRECTED PRN PRN Reason: Keep Vein Open Last Admin: 01/20/20 08:21 Dose: 10 ml Documented by: Discontinued Medications Enoxaparin Sodium (Lovenox) 40 mg SUBCUT Q24H [facility] Last Admin: 01/20/20 15:35 Dose: 40 mg Documented by: Sodium Chloride (Normal Saline) 1,000 mls @ 125 mls/hr IV ASDIRECTED [facility] Last Admin: 01/14/20 12:00 Dose: 999 mls/hr Documented by: Lactated Ringer's (Ringers, Lactated) 1,000 mls @ 1,000 mls/hr IV .BOLUS ONE Stop: 01/14/20 12:47 Last Admin: 01/14/20 13:37 Dose: 1,000 mls/hr Documented by: Ceftriaxone Sodium 2 gm/ (Sodium Chloride) 100 mls @ 200 mls/hr IV Q24H [facility] Last Admin: 01/14/20 13:05 Dose: 200 mls/hr Documented by: Lactated Ringer's (Ringers, Lactated) Confirm Administered Dose 1,000 mls @ as directed .ROUTE .STK-MED ONE Stop: 01/14/20 14:55 Last Admin: 01/14/20 17:59 Dose: Not Given Documented by: Ceftriaxone Sodium 2 gm/ (Sodium Chloride) 100 mls @ 200 mls/hr IV Q24H [facility] Last Admin: 01/16/20 15:14 Dose: 200 mls/hr Documented by: Magnesium Sulfate (Magnesium Sulfate In Water Premix) 2 gm in 50 mls @ 25 mls/hr IV ONETIME ONE Stop: 01/14/20 17:55 Last Admin: 01/14/20 18:39 Dose: 25 mls/hr Documented by: Lactated Ringer's (Ringers, Lactated) 430 mls @ 999 mls/hr IV .BOLUS ONE Stop: 01/14/20 15:02 Last Admin: 01/14/20 14:37 Dose: 999 mls/hr Documented by: Magnesium Sulfate (Magnesium Sulfate In Water Premix) 2 gm in 50 mls @ 25 mls/hr IV ONETIME ONE Stop: 01/16/20 15:59 Last Admin: 01/16/20 13:11 Dose: 25 mls/hr Documented by: Sodium Chloride (Normal Saline) 1,000 mls @ 250 mls/hr IV ONETIME ONE Stop: 01/17/20 12:14 Last Admin: 01/17/20 09:30 Dose: 250 mls/hr Documented by: Sodium Chloride (Normal Saline) 394 mls @ 250 mls/hr IV .BOLUS ONE Stop: 01/17/20 17:49 Last Admin: 01/17/20 17:58 Dose: 250 mls/hr Documented by: Sodium Chloride (Normal Saline) 1,000 mls @ 250 mls/hr IV ONETIME ONE Stop: 01/17/20 12:29 Last Admin: 01/17/20 13:35 Dose: 250 mls/hr Documented by: Magnesium Sulfate (Magnesium Sulfate In Water Premix) 2 gm in 50 mls @ 25 mls/hr IV ONETIME ONE Stop: 01/18/20 09:28 Last Admin: 01/18/20 08:56 Dose: 25 mls/hr Documented by: Sodium Chloride (Normal Saline) 1,000 mls @ 75 mls/hr IV ASDIRECTED [place] Stop: 01/18/20 22:00 Last Admin: 01/18/20 10:34 Dose: 75 mls/hr Documented by: Sodium Chloride (Normal Saline) 1,000 mls @ 75 mls/hr IV ASDIRECTED [place] Stop: 01/19/20 15:31 Last Infusion: 01/19/20 19:48 Dose: 50 mls/hr Documented by: Sodium Chloride (Normal Saline) 1,000 mls @ 50 mls/hr IV ASDIRECTED [facility] Zoledronic Acid 4 mg/ Sodium (Chloride) 105 mls @ 420 mls/hr IV ONETIME ONE Stop: 01/19/20 12:14 Last Admin: 01/19/20 12:11 Dose: 420 mls/hr Documented by: Magnesium Sulfate 4 gm/ Premix 50 mls @ 12.5 mls/hr IV ONETIME ONE Stop: 01/20/20 18:56 Last Admin: 01/20/20 18:36 Dose: Not Given Documented by: Magnesium Sulfate (Magnesium Sulfate In Water Premix) 2 gm in 50 mls @ 25 mls/hr IV Q2H [facility] Stop: 01/20/20 19:14 Last Admin: 01/20/20 17:03 Dose: 25 mls/hr Documented by: Magnesium Hydroxide (Milk Of Magnesia) 30 ml PO ONETIME ONE Stop: 01/21/20 07:01 Last Admin: 01/21/20 06:28 Dose: 30 ml Documented by: Potassium Chloride (Klor-Con M20) 20 meq PO ONETIME ONE Stop: 01/16/20 14:01 Last Admin: 01/16/20 13:11 Dose: 20 meq Documented by: - Exam Quality Assessment: Supplemental Oxygen (1 L per nasal cannula), DVT Prophylaxis General: Alert, Cooperative, No Acute Distress. No: Oriented (Oriented to name only.) HEENT: Pupils Equal, Pupils Reactive, Mucous Membr. Moist/[place] Neck: Supple, Trachea Midline. No: Lymphadenopathy Lungs: Clear to Auscultation, Normal Respiratory Effort Cardiovascular: Regular Rate, Regular Rhythm, Murmurs GI/Abdominal Exam: Normal Bowel Sounds, Soft, Non-Tender, No Distention (Male) Exam: Deferred Back Exam: Normal Inspection, Full Range of Motion Extremities: Normal Inspection, Normal Range of Motion, Non-Tender, No Pedal Edema, Normal Capillary Refill Peripheral Pulses: 2+: Radial (L), Radial (R), Dorsalis Pedis (L), Dorsalis Pedis (R) Skin: Warm, Dry, Intact Neurological: No New Focal Deficit Psy/Mental Status: Alert, Normal Affect, Normal Mood (Pleasantly confused) Sepsis Event Note - Evaluation Sepsis Screening Result: Severe Sepsis Risk - Focused Exam Vital Signs: Vital Signs Temp Pulse Resp BP Pulse Ox 01/21/20 11:04 88 92 L 01/21/20 11:00 92 L 11/09/20 08:47 86 116/75 01/21/20 08:34 97.5 F 86 24 H 116/79 88 L 01/21/20 03:28 97.3 F 104 H 22 H 135/79 90 L - Problem List & Annotations (1) Pneumonia SNOMED Code(s): 951665668 Code(s): J18.9 - PNEUMONIA, UNSPECIFIED ORGANISM Status: Acute Priority: High Current Visit: Yes Qualifiers: Pneumonia type: due to unspecified organism Laterality: bilateral Lung location: lower lobe of lung Qualified Code(s): J18.9 - Pneumonia, unspecified organism (2) Renal insufficiency SNOMED Code(s): 806302948, 242466243 Code(s): N28.9 - DISORDER OF KIDNEY AND URETER, UNSPECIFIED Status: Acute Priority: High Current Visit: Yes (3) Sepsis SNOMED Code(s): 86976814 Code(s): A41.9 - SEPSIS, UNSPECIFIED ORGANISM Status: Acute Priority: High Current Visit: Yes Qualifiers: Sepsis type: sepsis due to unspecified organism Sepsis acute organ dysfunction status: unspecified Qualified Code(s): A41.9 - Sepsis, unspecified organism (4) Generalized weakness SNOMED Code(s): 93706906 Code(s): R53.1 - WEAKNESS Status: Acute Priority: High Current Visit: Yes (5) Sepsis due to pneumonia SNOMED Code(s): 82466618 Code(s): J18.9 - PNEUMONIA, UNSPECIFIED ORGANISM; A41.9 - SEPSIS, UNSPECIFIED ORGANISM Status: Acute Priority: High Current Visit: Yes (6) Hypercalcemia SNOMED Code(s): 47472557 Code(s): E83.52 - HYPERCALCEMIA Status: Acute Priority: High Current Visit: Yes - Problem List Review Problem List Initiated/Reviewed/Updated: Yes - My Orders Last 24 Hours: My Active Orders 01/21/20 10:00 Sodium Chloride 0.9% [Normal Saline] 1,000 ml IV ASDIRECTED 01/21/20 12:29 Potassium Chloride [Klor-Con M20] 40 meq PO ONETIME ONE 01/21/20 15:00 Enoxaparin [Lovenox] 30 mg SUBCUT Q24H 01/22/20 05:11 CBC WITH AUTO DIFF [HEME] AM COMPREHENSIVE METABOLIC PN,CMP [CHEM] AM MAGNESIUM [CHEM] AM - Assessment Assessment:: 01/15/20 * Remains on room air. * Day 2 of Rocephin IV. * Waiting for blood culture report. * PT OT to eval and treat. * Vital signs remained stable. And patient has been afebrile. * Lab work reveals: BUN 14, creatinine 1.3, GFR 53, lactic acid 2.0, magnesium 1.7, calcium 12.5 down from 13.6. * Lovenox for DVT prophylaxis. * Echocardiogram from 10/05/2016: #1 left ventricular ejection fraction, by visual estimation, is 55 to 60%. #2 normal right ventricular systolic function. #3 mitral valve regurgitation. #4 mild tricuspid valve regurgitation. #5 abnormal septal motion consistent with postoperative status. #6 no regional wall motion abnormalities. 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 MG 16 mmHg, no AI. #8 findings similar to 318 of 16. 01/16/20 * He is on room air * Day 3 of Rocephin IV * Blood cultures are showing no growth. * Vital signs have been stable and patient has been afebrile. * Discharge recommendations are for home health care/physical therapy/Occupational Therapy * WBC 8.44, BUN 17, creatinine 1.3, GFR 53, calcium 12.1, magnesium 1.5 * Calcium level is slowly coming down. The patient's reports that he does consume a significant amount of extra strength Tums at home. I am still awaiting the results of the PTH and ionized calcium levels to return however I do believe the reason for his elevated calcium is due to the Tums. * Lovenox for DVT prophylaxis. 01/17/20 * Patient remains on room air * He is on day 4 of Rocephin * Blood cultures continue to show no growth. * Potassium 4.7, BUN 24, creatinine 1.4, GFR 48, lactic acid 2.3, calcium level 13.3. * The patient has been afebrile however he has been tachycardic in the low 100s despite receiving metoprolol 50 mg twice daily. Nursing staff also reports that the patient is tachypneic. Which makes him qualify for adults severe sepsis protocol. * PT/OT working with the patient. 01/19/20 Impression/Plan: Hypercalcemia with low iPTH Sepsis d/t PNA Bilateral PNA FERNANDA * Patient remains confused oriented to name only. * He is on room air * Sepsis criteria. * Hemodynamics have improved. * IVF as needed * Labs re: iCa, iPTH--ordered; (If PTHrP elevated-check for malignancy cf elevated PTHrP with elevated 1, 25 dihydroxyvitamin D usually lymphoma or granulomatous disease). * DC planning 01/21/20 * O2 saturations dropped to 87% on room air today. Patient was placed on oxygen at 1 L per nasal cannula * Chest x-ray completed this morning shows unchanged small bilateral pleural effusions. Mildly decreased atelectasis. No acute pulmonary edema. * Lab work reveals: WBC 11.44 up from 9.18, platelet count 554 up from 542, BUN 36, creatinine 2.7, calcium 12.4 down from 14.4, vitamin D level 43.9, awaiting repeat PTH level. * Suspect renal function decreased due to Zometa that was given yesterday as the patient is not on any other medications that would cause him renal injury. * PT OT to eval and treat. - Plan Plan:: Patient will be continued on the current regimen. Will need close follow up by PCP as mentioned above. Likely DC, Mon or pending response to therapy. 01/21/20 * Continue Levaquin IV * Repeat labs in the a.m. * Renally dose all medications * Normal saline at 75 mL's per hour * Nursing and respiratory care to titrate oxygen * Continue incentive spirometer * Follow speech therapy recommendations for swallowing * manager support services are working with family regarding skilled nursing placement * Continue Lovenox for DVT prophylaxis as pharmacist states this is still recommended * Continue to monitor vital signs * Continue to monitor intake and output.
[2020-01-21] MEDS ORDERED: Potassium Chloride 20 MEQ Tab.ER PO ONE (13:00)
[2020-01-21] MEDS: Sodium Chloride 0.9% 1,000 ML IV SCH (13:07)
[2020-01-21] MEDS ORDERED: LORazepam 2 MG/ML SDV IVPUSH ONE (14:37)
[2020-01-21] MEDS ORDERED: Enoxaparin 30 MG/0.3 ML Syringe SUBCUT SCH (15:00)
[2020-01-21] MEDS: Acetaminophen 325 MG Tab PO PRN (20:52)
[2020-01-21] MEDS: Simvastatin 10 MG Tab PO SCH (20:52)
[2020-01-22] MEDS: Sodium Chloride 0.9% 1,000 ML IV SCH (03:42)
[2020-01-22] MEDS ORDERED: Bisacodyl 10 MG Supp RECTAL ONE (05:03)
[2020-01-22] MEDS: Pantoprazole 40 MG Tab.CR PO SCH (06:01)
[2020-01-22] MEDS ORDERED: Furosemide 20 MG/2 ML VIAL IVPUSH ONE (08:30)
[2020-01-22] MEDS: Multivitamins,Therapeutic Tab PO SCH (09:23)
[2020-01-22] MEDS: Potassium Chloride 20 MEQ Tab.ER PO SCH (09:24)
[2020-01-22] MEDS: Furosemide 20 MG Tab PO SCH (09:24)
[2020-01-22] MEDS: Metoprolol Tartrate 50 MG Tab PO SCH ×2 (09:24→20:14)
[2020-01-22] MEDS: Aspirin 81 MG Tab.EC PO SCH (09:26)
--- NOTE | 2020-01-22 09:47 | MR ---
PROCEDURE INFORMATION: Exam: MR Head Without Contrast Exam date and time: 01/21/2020 4:02 PM Age: 84 years old Clinical indication: Patient HX: Increased confusion, question maligancy TECHNIQUE: Imaging protocol: MR of the head without contrast. COMPARISON: CT Head wo Cont 01/14/2020 11:36 AM FINDINGS: Limitations: Some of the images are limited by motion artifact. Brain: Good quality diffusion-weighted images show no evidence of acute ischemia. There is no acute edema, mass effect or shift of the normally midline structures. No vascular territorial infarcts are identified. 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 The mccarthy-white matter differentiation is preserved. There are no extra-axial fluid collections. The vascular flow voids appear preserved. Cerebral ventricles: The ventricles and sulci are diffusely dilated in keeping with age related atrophy of the brain. Sella: The pituitary gland, optic chiasm and thalamus appear normal. Bones/joints: The calvarium is intact. There is a benign hemangioma in the left parietal bone corresponding to the nonspecific lucency seen on the patient's recent head CT. Paranasal sinuses: There is a tiny mucous retention cyst or polyp in the right maxillary sinus. The paranasal sinuses are otherwise normally aerated. Mastoid air cells: The mastoid air cells and middle ear cavities are normally aerated. Soft tissues: Within normal limits. IMPRESSION: 1. No evidence of acute ischemia, mass or hydrocephalus. Note that unenhanced imaging is less sensitive than enhanced imaging for detection of malignancy. 2. Typical senescent changes with diffuse atrophy of the brain. 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 Thank you for allowing us to participate in the care of your patient. Dictated and Authenticated by: Marilou Ca MD 01/21/2020 6:07 PM Central Time ([place] & [place]) MOR
--- NOTE | 2020-01-22 09:48 | CR ---
PROCEDURE INFORMATION: Exam: XR Chest, 1 View Exam date and time: 01/22/2020 7:20 AM Age: 84 years old Clinical indication: Shortness of breath TECHNIQUE: Imaging protocol: XR of the chest Views: 1 view. COMPARISON: CR Chest 1V Frontal 01/21/2020 9:03 AM FINDINGS: Lungs: Mid inspiratory effort with resultant low lung volumes. There is mild perihilar interstitial prominence consistent with volume overload or early congestive heart failure. Pleural space: There are bilateral small pleural effusions blunting the costophrenic angles. Heart/Mediastinum: Unremarkable. No cardiomegaly. Bones/joints: There is evidence of a previous sternotomy. Old right-sided rib fractures. IMPRESSION: There is mild perihilar interstitial prominence consistent with volume overload or early congestive heart failure. These findings have worsened since previous study. Thank you for allowing us to participate in the care of your patient. Dictated and Authenticated by: Claudio Cobos MD 01/22/2020 8:58 AM Central Time ([place] & [place]) MTDD
--- NOTE | 2020-01-22 13:15 | PCM.PN ---
<TyeFco M - Last Filed: 01/22/20 15:22> - General Info Date of Service: 01/22/20 Admission Dx/Problem (Free Text): Admission Diagnosis/Problem Admission Diagnosis/Problem Sepsis due to pneumonia Subjective Update: Patient remains confused, and appears much more groggy today. Continues to be a one-on-one. Mass noted to right groin. Functional Status: Reports: Pain Controlled, Tolerating Diet, Urinating ( Incontinent), Incentive Spirometry (With assistance from nursing staff) - Review of Systems General: Reports: Weakness, Fatigue. Denies: Fever HEENT: Reports: No Symptoms Pulmonary: Reports: No Symptoms. Denies: Pleuritic Chest Pain, Cough, Sputum, Wheezing Cardiovascular: Reports: No Symptoms Gastrointestinal: Reports: No Symptoms Genitourinary: Reports: Incontinence Musculoskeletal: Reports: No Symptoms Skin: Reports: No Symptoms, Other (Mass noted to right groin area is erythematous but is not tender) Neurological: Reports: Confusion Psychiatric: Reports: Confusion - Patient Data Vitals - Most Recent: Last Vital Signs Temp 97.5 F 01/22/20 11:39 Pulse 92 01/22/20 11:39 Resp 22 H 01/22/20 11:39 BP 119/72 01/22/20 11:39 Pulse Ox 91 L 01/22/20 11:39 Weight - Most Recent: 78.834 kg I&O - Last 24 Hours: Intake & Output 01/21/20 01/22/20 01/22/20 22:59 06:59 14:59 Intake Total 1081 1062 Balance 1081 1062 Lab Results Last 24 Hours: Laboratory Results - last 24 hr 01/22/20 01/22/20 Range/Units 05:58 05:58 WBC 12.32 H (4.23-9.07) K/mm3 RBC 4.87 (4.63-6.08) M/mm3 Hgb 14.4 (13.7-17.5) gm/dl Hct 44.9 (40.1-51.0) % MCV 92.2 (79.0-92.2) fl MCH 29.6 (25.7-32.2) pg MCHC 32.1 L (32.2-35.5) g/dl RDW Std Deviation 52.1 H (35.1-43.9) fL Plt Count 540 H (163-337) K/mm3 MPV 10.0 (9.4-12.3) fl Neut % (Auto) 75.0 H (34.0-67.9) % Lymph % (Auto) 11.4 L (21.8-53.1) % Story % (Auto) 11.2 (5.3-12.2) % Eos % (Auto) 1.4 (0.8-7.0) Baso % (Auto) 0.6 (0.1-1.2) % Neut # (Auto) 9.23 H (1.78-5.38) K/mm3 Lymph # (Auto) 1.41 (1.32-3.57) K/mm3 Story # (Auto) 1.38 H (0.30-0.82) K/mm3 Eos # (Auto) 0.17 (0.04-0.54) K/mm3 Baso # (Auto) 0.08 (0.01-0.08) K/mm3 Sodium 146 H (136-145) mEq/L Potassium 3.9 (3.5-5.1) mEq/L Chloride 110 H (98-107) mEq/L Carbon Dioxide 26 (21-32) mEq/L Anion Gap 13.9 (5-15) BUN 43 H (7-18) mg/dL Creatinine 3.1 H (0.7-1.3) mg/dL Est Cr Clr Drug Dosing 18.36 mL/min Estimated GFR (MDRD) 19 (>60) mL/min BUN/Creatinine Ratio 13.9 L (14-18) Glucose 91 (83-115) mg/dL Calcium 12.3 H (8.5-10.1) mg/dL Magnesium 2.6 H (1.8-2.4) mg/dl Total Bilirubin 0.4 (0.2-1.0) mg/dL AST 75 H (15-37) U/L ALT 31 (16-63) U/L Alkaline Phosphatase 97 (46-116) U/L Total Protein 6.1 L (6.4-8.2) g/dl Albumin 2.5 L (3.4-5.0) g/dl Globulin 3.6 gm/dL Albumin/Globulin Ratio 0.7 L (1-2) Henry Results Last 24 Hours: Microbiology 11/05/20 08:40 Aerobic Blood Culture - Preliminary Blood - Venous - Lab Draw NO GROWTH AFTER 5 DAYS Anaerobic Blood Culture - Preliminary NO GROWTH AFTER 5 DAYS 01/17/20 08:55 Aerobic Blood Culture - Preliminary Blood - Venous NO GROWTH AFTER 5 DAYS Anaerobic Blood Culture - Preliminary NO GROWTH AFTER 5 DAYS 01/14/20 16:07 Aerobic Blood Culture - Final Blood - Venous - Lab Draw NO GROWTH AFTER 7 DAYS Anaerobic Blood Culture - Final NO GROWTH AFTER 7 DAYS 01/14/20 16:02 Aerobic Blood Culture - Final Blood - Venous NO GROWTH AFTER 7 DAYS Anaerobic Blood Culture - Final NO GROWTH AFTER 7 DAYS Med Orders - Current: Current Medications Acetaminophen (Tylenol) 650 mg PO Q4H PRN PRN Reason: Pain (Mild 1-3)/fever Last Admin: 01/21/20 20:52 Dose: 650 mg Documented by: Aspirin (Halfprin) 81 mg PO DAILY [facility] Last Admin: 01/22/20 09:26 Dose: 81 mg Documented by: Bisacodyl (Dulcolax) 5 mg PO DAILY PRN PRN Reason: Constipation Bisacodyl (Dulcolax) 10 mg RECTAL DAILY PRN PRN Reason: Constipation Last Admin: 01/16/20 16:13 Dose: 10 mg Documented by: Docusate Sodium (Colace) 100 mg PO BID PRN PRN Reason: Constipation Last Admin: 01/20/20 09:15 Dose: 100 mg Documented by: Enoxaparin Sodium (Lovenox) 30 mg SUBCUT Q24H [facility] Last Admin: 01/21/20 14:44 Dose: 30 mg Documented by: Furosemide (Lasix) 20 mg PO DAILY [facility] Last Admin: 01/22/20 09:24 Dose: 20 mg Documented by: Levofloxacin/Dextrose 500 mg/ (Premix) 100 mls @ 66.667 mls/hr IV Q48H [facility] Metoprolol Tartrate (Lopressor) 50 mg PO BID [facility] Last Admin: 01/22/20 09:24 Dose: 50 mg Documented by: Multivitamins (Thera) 1 each PO DAILY [facility] Last Admin: 01/22/20 09:23 Dose: 1 each Documented by: Ondansetron HCl (Zofran) 4 mg IV Q4H PRN PRN Reason: Nausea/Vomiting Pantoprazole Sodium (Protonix) 40 mg PO DAILY@0700 [facility] Last Admin: 01/22/20 06:01 Dose: 40 mg Documented by: Potassium Chloride (Klor-Con M20) 20 meq PO DAILY [facility] Last Admin: 01/22/20 09:24 Dose: 20 meq Documented by: Senna/Docusate Sodium (Senna Plus) 1 tab PO BID PRN PRN Reason: Constipation Last Admin: 01/16/20 06:14 Dose: 1 tab Documented by: Simvastatin (Zocor) 10 mg PO BEDTIME [facility] Last Admin: 01/21/20 20:52 Dose: 10 mg Documented by: Sodium Chloride (Saline Flush) 10 ml FLUSH ASDIRECTED PRN PRN Reason: Keep Vein Open Last Admin: 01/20/20 19:14 Dose: 10 ml Documented by: Sodium Chloride (Saline Flush) 10 ml FLUSH ASDIRECTED PRN PRN Reason: Keep Vein Open Last Admin: 01/20/20 08:21 Dose: 10 ml Documented by: Discontinued Medications Bisacodyl (Dulcolax) 10 mg RECTAL ONETIME ONE Stop: 01/22/20 05:04 Last Admin: 01/22/20 05:53 Dose: 10 mg Documented by: Enoxaparin Sodium (Lovenox) 40 mg SUBCUT Q24H [facility] Last Admin: 01/20/20 15:35 Dose: 40 mg Documented by: Furosemide (Lasix) 20 mg IVPUSH NOW ONE Stop: 01/22/20 08:31 Last Admin: 01/22/20 09:23 Dose: 20 mg Documented by: Sodium Chloride (Normal Saline) 1,000 mls @ 125 mls/hr IV ASDIRECTED [facility] Last Admin: 01/14/20 12:00 Dose: 999 mls/hr Documented by: Lactated Ringer's (Ringers, Lactated) 1,000 mls @ 1,000 mls/hr IV .BOLUS ONE Stop: 01/14/20 12:47 Last Admin: 01/14/20 13:37 Dose: 1,000 mls/hr Documented by: Ceftriaxone Sodium 2 gm/ (Sodium Chloride) 100 mls @ 200 mls/hr IV Q24H [facility] Last Admin: 01/14/20 13:05 Dose: 200 mls/hr Documented by: Lactated Ringer's (Ringers, Lactated) Confirm Administered Dose 1,000 mls @ as directed .ROUTE .STK-MED ONE Stop: 01/14/20 14:55 Last Admin: 01/14/20 17:59 Dose: Not Given Documented by: Ceftriaxone Sodium 2 gm/ (Sodium Chloride) 100 mls @ 200 mls/hr IV Q24H [facility] Last Admin: 01/16/20 15:14 Dose: 200 mls/hr Documented by: Magnesium Sulfate (Magnesium Sulfate In Water Premix) 2 gm in 50 mls @ 25 mls/hr IV ONETIME ONE Stop: 01/14/20 17:55 Last Admin: 01/14/20 18:39 Dose: 25 mls/hr Documented by: Lactated Ringer's (Ringers, Lactated) 430 mls @ 999 mls/hr IV .BOLUS ONE Stop: 01/14/20 15:02 Last Admin: 01/14/20 14:37 Dose: 999 mls/hr Documented by: Magnesium Sulfate (Magnesium Sulfate In Water Premix) 2 gm in 50 mls @ 25 mls/hr IV ONETIME ONE Stop: 01/16/20 15:59 Last Admin: 01/16/20 13:11 Dose: 25 mls/hr Documented by: Levofloxacin/Dextrose 750 mg/ (Premix) 150 mls @ 100 mls/hr IV Q48H [facility] Last Admin: 01/21/20 09:27 Dose: 100 mls/hr Documented by: Sodium Chloride (Normal Saline) 1,000 mls @ 250 mls/hr IV ONETIME ONE Stop: 01/17/20 12:14 Last Admin: 01/17/20 09:30 Dose: 250 mls/hr Documented by: Sodium Chloride (Normal Saline) 394 mls @ 250 mls/hr IV .BOLUS ONE Stop: 01/17/20 17:49 Last Admin: 01/17/20 17:58 Dose: 250 mls/hr Documented by: Sodium Chloride (Normal Saline) 1,000 mls @ 250 mls/hr IV ONETIME ONE Stop: 01/17/20 12:29 Last Admin: 01/17/20 13:35 Dose: 250 mls/hr Documented by: Magnesium Sulfate (Magnesium Sulfate In Water Premix) 2 gm in 50 mls @ 25 mls/hr IV ONETIME ONE Stop: 01/18/20 09:28 Last Admin: 01/18/20 08:56 Dose: 25 mls/hr Documented by: Sodium Chloride (Normal Saline) 1,000 mls @ 75 mls/hr IV ASDIRECTED [facility] Stop: 01/18/20 22:00 Last Admin: 01/18/20 10:34 Dose: 75 mls/hr Documented by: Sodium Chloride (Normal Saline) 1,000 mls @ 75 mls/hr IV ASDIRECTED [facility] Stop: 01/19/20 15:31 Last Infusion: 01/19/20 19:48 Dose: 50 mls/hr Documented by: Sodium Chloride (Normal Saline) 1,000 mls @ 50 mls/hr IV ASDIRECTED [facility] Zoledronic Acid 4 mg/ Sodium (Chloride) 105 mls @ 420 mls/hr IV ONETIME ONE Stop: 01/19/20 12:14 Last Admin: 01/19/20 12:11 Dose: 420 mls/hr Documented by: Magnesium Sulfate 4 gm/ Premix 50 mls @ 12.5 mls/hr IV ONETIME ONE Stop: 01/20/20 18:56 Last Admin: 01/20/20 18:36 Dose: Not Given Documented by: Magnesium Sulfate (Magnesium Sulfate In Water Premix) 2 gm in 50 mls @ 25 mls/hr IV Q2H [facility] Stop: 01/20/20 19:14 Last Admin: 01/20/20 17:03 Dose: 25 mls/hr Documented by: Sodium Chloride (Normal Saline) 1,000 mls @ 75 mls/hr IV ASDIRECTED [facility] Last Admin: 01/22/20 03:42 Dose: 75 mls/hr Documented by: Lorazepam (Ativan) 0.5 mg IVPUSH ONETIME ONE Stop: 01/21/20 14:38 Last Admin: 01/21/20 15:33 Dose: 0.5 mg Documented by: Magnesium Hydroxide (Milk Of Magnesia) 30 ml PO ONETIME ONE Stop: 01/21/20 07:01 Last Admin: 01/21/20 06:28 Dose: 30 ml Documented by: Potassium Chloride (Klor-Con M20) 20 meq PO ONETIME ONE Stop: 01/16/20 14:01 Last Admin: 01/16/20 13:11 Dose: 20 meq Documented by: Potassium Chloride (Klor-Con M20) 40 meq PO ONETIME ONE Stop: 01/21/20 13:01 Last Admin: 01/21/20 13:07 Dose: 40 meq Documented by: - Exam Quality Assessment: Supplemental Oxygen (1-1/2 L per nasal cannula), DVT Prophylaxis (Lovenox discontinued. Heparin started) General: Alert, Cooperative, Mild Distress, Lethargic HEENT: Pupils Equal, Pupils Reactive, Mucous Membr. Moist/Poneto Neck: Supple, Trachea Midline, Lymphadenopathy (Left groin) Lungs: Decreased Breath Sounds, Crackles Cardiovascular: Regular Rate, Regular Rhythm, Murmurs (Systolic) GI/Abdominal Exam: Normal Bowel Sounds, Soft, Non-Tender, No Distention (Male) Exam: Inguinal Lymphadenopathy (Right significantly greater than left) Back Exam: Normal Inspection, Full Range of Motion Extremities: Normal Inspection, Normal Range of Motion, Non-Tender, No Pedal Edema, Normal Capillary Refill Peripheral Pulses: 1+: Dorsalis Pedis (L), Dorsalis Pedis (R), 2+: Radial (L), Radial (R) Skin: Warm, Dry, Intact Neurological: No New Focal Deficit Psy/Mental Status: Alert, Normal Affect, Normal Mood Sepsis Event Note - Evaluation Sepsis Screening Result: Severe Sepsis Risk - Focused Exam Vital Signs: Vital Signs Temp Pulse Resp BP Pulse Ox Pulse Ox 01/22/20 11:39 97.5 F 92 22 H 119/72 91 L 01/22/20 09:24 104 H 105/68 01/22/20 08:02 98.1 F 105 H 16 101/76 91 L 01/22/20 04:52 92 L 01/22/20 04:48 97.5 F 100 22 H 133/84 92 L 01/22/20 01:18 97.2 F 98 22 H 126/92 H 91 L - Problem List & Annotations (1) Pneumonia SNOMED Code(s): 950144636 Code(s): J18.9 - PNEUMONIA, UNSPECIFIED ORGANISM Status: Acute Priority: High Current Visit: Yes Qualifiers: Pneumonia type: due to unspecified organism Laterality: bilateral Lung location: lower lobe of lung Qualified Code(s): J18.9 - Pneumonia, unspecified organism (2) Renal insufficiency SNOMED Code(s): 449031907, 595590744 Code(s): N28.9 - DISORDER OF KIDNEY AND URETER, UNSPECIFIED Status: Acute Priority: High Current Visit: Yes (3) Sepsis SNOMED Code(s): 34626014 Code(s): A41.9 - SEPSIS, UNSPECIFIED ORGANISM Status: Acute Priority: High Current Visit: Yes Qualifiers: Sepsis type: sepsis due to unspecified organism Sepsis acute organ dysfunction status: unspecified Qualified Code(s): A41.9 - Sepsis, unspecified organism (4) Generalized weakness SNOMED Code(s): 38644065 Code(s): R53.1 - WEAKNESS Status: Acute Priority: High Current Visit: Yes (5) Sepsis due to pneumonia SNOMED Code(s): 12219581 Code(s): J18.9 - PNEUMONIA, UNSPECIFIED ORGANISM; A41.9 - SEPSIS, UNSPECIFIED ORGANISM Status: Acute Priority: High Current Visit: Yes (6) Hypercalcemia SNOMED Code(s): 03918237 Code(s): E83.52 - HYPERCALCEMIA Status: Acute Priority: High Current Visit: Yes - Problem List Review Problem List Initiated/Reviewed/Updated: Yes - My Orders Last 24 Hours: My Active Orders 01/21/20 15:00 Enoxaparin [Lovenox] 30 mg SUBCUT Q24H 01/22/20 05:58 PROCALCITONIN [REF] Stat 01/22/20 07:28 UA RFX HENRY AND CULT IF INDIC [URIN] Stat 01/22/20 09:57 Extremity Non Vascular Rt [US] Routine 01/22/20 12:26 Abdomen Pelvis wo Cont [CT] Routine 01/23/20 09:00 Levofloxacin/Dextrose 5%-Water [Levaquin in D5W 500 MG/100 ML] 500 mg Premix Bag 1 bag IV Q48H - Assessment Assessment:: 01/15/20 * Remains on room air. * Day 2 of Rocephin IV. * Waiting for blood culture report. * PT OT to eval and treat. * Vital signs remained stable. And patient has been afebrile. * Lab work reveals: BUN 14, creatinine 1.3, GFR 53, lactic acid 2.0, magnesium 1.7, calcium 12.5 down from 13.6. * Lovenox for DVT prophylaxis. * Echocardiogram from 10/05/2016: #1 left ventricular ejection fraction, by visual estimation, is 55 to 60%. #2 normal right ventricular systolic function. #3 mitral valve regurgitation. #4 mild tricuspid valve regurgitation. #5 abnormal septal motion consistent with postoperative status. #6 no regional wall motion abnormalities. 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 MG 16 mmHg, no AI. #8 findings similar to 318 of 16. 01/16/20 * He is on room air * Day 3 of Rocephin IV * Blood cultures are showing no growth. * Vital signs have been stable and patient has been afebrile. * Discharge recommendations are for home health care/physical therapy/Occupational Therapy * WBC 8.44, BUN 17, creatinine 1.3, GFR 53, calcium 12.1, magnesium 1.5 * Calcium level is slowly coming down. The patient's reports that he does consume a significant amount of extra strength Tums at home. I am still awaiting the results of the PTH and ionized calcium levels to return however I do believe the reason for his elevated calcium is due to the Tums. * Lovenox for DVT prophylaxis. 01/17/20 * Patient remains on room air * He is on day 4 of Rocephin * Blood cultures continue to show no growth. * Potassium 4.7, BUN 24, creatinine 1.4, GFR 48, lactic acid 2.3, calcium level 13.3. * The patient has been afebrile however he has been tachycardic in the low 100s despite receiving metoprolol 50 mg twice daily. Nursing staff also reports th at the patient is tachypneic. Which makes him qualify for adults severe sepsis protocol. * PT/OT working with the patient. 01/19/20 Impression/Plan: Hypercalcemia with low iPTH Sepsis d/t PNA Bilateral PNA FERNANDA * Patient remains confused oriented to name only. * He is on room air * Sepsis criteria. * Hemodynamics have improved. * IVF as needed * Labs re: iCa, iPTH--ordered; (If PTHrP elevated-check for malignancy cf elevated PTHrP with elevated 1, 25 dihydroxyvitamin D usually lymphoma or granulomatous disease). * DC planning 01/21/20 * O2 saturations dropped to 87% on room air today. Patient was placed on oxygen at 1 L per nasal cannula * Chest x-ray completed this morning shows unchanged small bilateral pleural effusions. Mildly decreased atelectasis. No acute pulmonary edema. * Lab work reveals: WBC 11.44 up from 9.18, platelet count 554 up from 542, BUN 36, creatinine 2.7, calcium 12.4 down from 14.4, vitamin D level 43.9, awaiting repeat PTH level. * Suspect renal function decreased due to Zometa that was given yesterday as the patient is not on any other medications that would cause him renal injury. * PT OT to eval and treat. 01/22/20 * Chest x-ray from 01/22/2020: There is mild perihilar interstitial prominence consistent with volume overload or early congestive heart failure. These findings have worsened since previous study. * Patient remains on 1.5 L of oxygen per nasal cannula. * Patient is still confused, but he appears more groggy today. He does arouse to verbal command. * Lab work reveals WBC 12.32 which is up from 11.44, sodium 146, magnesium 2.6, BUN 43 up from 36, creatinine 3.1 up from 2.7, calcium 12.3 down from 12.4, blood cultures continue to show no growth. * Nursing staff reports that patient has a mass to his right groin. Ultrasound of right groin reveals: In the area of swelling there is a mass. This is heterogeneous with a small amount of area of increased flow within it. This could be a large heterogeneous inflamed or infected or neoplastic lymph node versus a complicated abscess or hematoma. Consider CT scan for further visual ization versus pathologic sampling as clinically indicated. * Levaquin decreased to 500 mg IV every 48 hours per pharmacy for renal dosing. * MRI of head without contrast obtained 01/21/2020: 1. No evidence of acute ischemia, mass or hydrocephalus. Note that unenhanced imaging is less sensitive than enhanced imaging for detection of malignancy. 2. Typical senescent changes with diffuse atrophy of the brain. 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 - Plan Plan:: Patient will be continued on the current regimen. Will need close follow up by PCP as mentioned above. Likely DC, Mon or Tues pending response to therapy. 01/21/20 * Continue Levaquin IV * Repeat labs in the a.m. * Renally dose all medications * Normal saline at 75 mL's per hour * Nursing and respiratory care to titrate oxygen * Continue incentive spirometer * Follow speech therapy recommendations for swallowing * office services representative are working with family regarding usp placement * Continue Lovenox for DVT prophylaxis as pharmacist states this is still recommended * Continue to monitor vital signs * Continue to monitor intake and output. 01/22/20 * Continue Levaquin IV. * Repeat labs in the a.m. * Renally dose all medications. * Suspect patient's elevation in BUN/creatinine are due to zoledronic acid. Suspect that these values may continue to rise before they decrease again as seen with acute on chronic renal failure. * IV fluids discontinued at this point due to the patient developing some fluid overload. * Lasix 20 mg x 1 dose today. * Awaiting results of CT scan of abdomen and pelvis without contrast. Unable to use contrast with scanning due to patient's renal failure. * Suspect that patient does have some form of cancerous process due to elevated calcium levels, elevated absolute monocyte count, and swelling to lymph nodes in groin. Of note, nursing staff now reports that patient has swelling in left groin as well. There is a small mass noted that is approximately 2 cm x 2 cm. Mass is spongy. Mass is slightly mobile and it is not tender to palpation. * Lovenox discontinued. Heparin 5000 units subcu every 12 hours started. * Patient continues to work with physical therapy. * CT of the abdomen and pelvis without contrast from 01/22/2020 impression: 1. Diffuse adenopathy in the upper abdomen as well as within the groins and possibly the right iliac chain. 2. Fluid collection noted in the upper left quadrant possibly involving the spleen. This could be adenopathy versus a pseudocyst or other pancreas lesion. 3. Cholelithiasis. 4. Possible gastric mass. 5. Bilateral pleural effusions. 6. Artifact from motion of the patient's arms. 7. Consider contrast scanning for further and better evaluation. 8. Multiple fractures within the spine. Stomach and bowel: There may be a mass arising from the stomach measuring 56 x 49 mm on image 2 of 12. There is a large mass noted in the left upper quadrant measuring 106 x 104 mm. This has a house in field units of the 3 and could represent a pancreatic pseudocyst or phlegmon. * Shortly after receiving the radiologist report for CT of the abdomen, the patient's and his son came to visit the patient. I discussed the results of the CT scan and the grim prognosis related to this. Marta, social media specialist was also in the conference room with me discussing the patient's status. At this time we will continue current treatments. Family is going to go home and discuss options with the rest of the patient's children and they will give us an answer in the next day or 2 as to the next step in the patient's plan of care. Comfort measures and hospice were discussed with the patient's family. Patient remains a DNR DNI. <Clementine Moe M - Last Filed: 01/22/20 15:40> - Patient Data Vitals - Most Recent: Last Vital Signs Temp 36.4 C 01/22/20 15:11 Pulse 98 01/22/20 15:11 Resp 25 H 01/22/20 15:11 BP 115/67 01/22/20 15:11 Pulse Ox 92 L 01/22/20 15:11 I&O - Last 24 Hours: Intake & Output 01/22/20 01/22/20 01/22/20 06:59 14:59 22:59 Intake Total 1062 363 120 Output Total 100 Balance 1062 263 120 Lab Results Last 24 Hours: Laboratory Results - last 24 hr 01/22/20 01/22/20 Range/Units 05:58 05:58 WBC 12.32 H (4.23-9.07) K/mm3 RBC 4.87 (4.63-6.08) M/mm3 Hgb 14.4 (13.7-17.5) gm/dl Hct 44.9 (40.1-51.0) % MCV 92.2 (79.0-92.2) fl MCH 29.6 (25.7-32.2) pg MCHC 32.1 L (32.2-35.5) g/dl RDW Std Deviation 52.1 H (35.1-43.9) fL Plt Count 540 H (163-337) K/mm3 MPV 10.0 (9.4-12.3) fl Neut % (Auto) 75.0 H (34.0-67.9) % Lymph % (Auto) 11.4 L (21.8-53.1) % Story % (Auto) 11.2 (5.3-12.2) % Eos % (Auto) 1.4 (0.8-7.0) Baso % (Auto) 0.6 (0.1-1.2) % Neut # (Auto) 9.23 H (1.78-5.38) K/mm3 Lymph # (Auto) 1.41 (1.32-3.57) K/mm3 Story # (Auto) 1.38 H (0.30-0.82) K/mm3 Eos # (Auto) 0.17 (0.04-0.54) K/mm3 Baso # (Auto) 0.08 (0.01-0.08) K/mm3 Sodium 146 H (136-145) mEq/L Potassium 3.9 (3.5-5.1) mEq/L Chloride 110 H (98-107) mEq/L Carbon Dioxide 26 (21-32) mEq/L Anion Gap 13.9 (5-15) BUN 43 H (7-18) mg/dL Creatinine 3.1 H (0.7-1.3) mg/dL Est Cr Clr Drug Dosing 18.36 mL/min Estimated GFR (MDRD) 19 (>60) mL/min BUN/Creatinine Ratio 13.9 L (14-18) Glucose 91 (83-115) mg/dL Calcium 12.3 H (8.5-10.1) mg/dL Magnesium 2.6 H (1.8-2.4) mg/dl Total Bilirubin 0.4 (0.2-1.0) mg/dL AST 75 H (15-37) U/L ALT 31 (16-63) U/L Alkaline Phosphatase 97 (46-116) U/L Total Protein 6.1 L (6.4-8.2) g/dl Albumin 2.5 L (3.4-5.0) g/dl Globulin 3.6 gm/dL Albumin/Globulin Ratio 0.7 L (1-2) [facility] Results Last 24 Hours: Microbiology 01/17/20 08:40 Aerobic Blood Culture - Preliminary Blood - Venous - Lab Draw NO GROWTH AFTER 5 DAYS Anaerobic Blood Culture - Preliminary NO GROWTH AFTER 5 DAYS 01/17/20 08:55 Aerobic Blood Culture - Preliminary Blood - Venous NO GROWTH AFTER 5 DAYS Anaerobic Blood Culture - Preliminary NO GROWTH AFTER 5 DAYS 01/14/20 16:07 Aerobic Blood Culture - Final Blood - Venous - Lab Draw NO GROWTH AFTER 7 DAYS Anaerobic Blood Culture - Final NO GROWTH AFTER 7 DAYS 01/14/20 16:02 Aerobic Blood Culture - Final Blood - Venous NO GROWTH AFTER 7 DAYS Anaerobic Blood Culture - Final NO GROWTH AFTER 7 DAYS Med Orders - Current: Current Medications Acetaminophen (Tylenol) 650 mg PO Q4H PRN PRN Reason: Pain (Mild 1-3)/fever Last Admin: 01/21/20 20:52 Dose: 650 mg Documented by: Aspirin (Halfprin) 81 mg PO DAILY [facility] Last Admin: 01/22/20 09:26 Dose: 81 mg Documented by: Bisacodyl (Dulcolax) 5 mg PO DAILY PRN PRN Reason: Constipation Bisacodyl (Dulcolax) 10 mg RECTAL DAILY PRN PRN Reason: Constipation Last Admin: 01/16/20 16:13 Dose: 10 mg Documented by: Docusate Sodium (Colace) 100 mg PO BID PRN PRN Reason: Constipation Last Admin: 01/20/20 09:15 Dose: 100 mg Documented by: Furosemide (Lasix) 20 mg PO DAILY [facility] Last Admin: 01/22/20 09:24 Dose: 20 mg Documented by: Heparin Sodium (Porcine) (Heparin Sodium) 5,000 units SUBCUT Q12H [facility] Last Admin: 01/22/20 14:15 Dose: 5,000 units Documented by: Levofloxacin/Dextrose 500 mg/ (Premix) 100 mls @ 66.667 mls/hr IV Q48H [facility] Metoprolol Tartrate (Lopressor) 50 mg PO BID [facility] Last Admin: 01/22/20 09:24 Dose: 50 mg Documented by: Multivitamins (Thera) 1 each PO DAILY [facility] Last Admin: 01/22/20 09:23 Dose: 1 each Documented by: Ondansetron HCl (Zofran) 4 mg IV Q4H PRN PRN Reason: Nausea/Vomiting Pantoprazole Sodium (Protonix) 40 mg PO DAILY@0700 [facility] Last Admin: 01/22/20 06:01 Dose: 40 mg Documented by: Potassium Chloride (Klor-Con M20) 20 meq PO DAILY [facility] Last Admin: 01/22/20 09:24 Dose: 20 meq Documented by: Senna/Docusate Sodium (Senna Plus) 1 tab PO BID PRN PRN Reason: Constipation Last Admin: 01/16/20 06:14 Dose: 1 tab Documented by: Simvastatin (Zocor) 10 mg PO BEDTIME [facility] Last Admin: 01/21/20 20:52 Dose: 10 mg Documented by: Sodium Chloride (Saline Flush) 10 ml FLUSH ASDIRECTED PRN PRN Reason: Keep Vein Open Last Admin: 01/20/20 19:14 Dose: 10 ml Documented by: Sodium Chloride (Saline Flush) 10 ml FLUSH ASDIRECTED PRN PRN Reason: Keep Vein Open Last Admin: 01/20/20 08:21 Dose: 10 ml Documented by: Discontinued Medications Bisacodyl (Dulcolax) 10 mg RECTAL ONETIME ONE Stop: 01/22/20 05:04 Last Admin: 01/22/20 05:53 Dose: 10 mg Documented by: Enoxaparin Sodium (Lovenox) 40 mg SUBCUT Q24H [facility] Last Admin: 01/20/20 15:35 Dose: 40 mg Documented by: Enoxaparin Sodium (Lovenox) 30 mg SUBCUT Q24H [facility] Last Admin: 01/21/20 14:44 Dose: 30 mg Documented by: Furosemide (Lasix) 20 mg IVPUSH NOW ONE Stop: 01/22/20 08:31 Last Admin: 01/22/20 09:23 Dose: 20 mg Documented by: Sodium Chloride (Normal Saline) 1,000 mls @ 125 mls/hr IV ASDIRECTED [facility] Last Admin: 01/14/20 12:00 Dose: 999 mls/hr Documented by: Lactated Ringer's (Ringers, Lactated) 1,000 mls @ 1,000 mls/hr IV .BOLUS ONE Stop: 01/14/20 12:47 Last Admin: 01/14/20 13:37 Dose: 1,000 mls/hr Documented by: Ceftriaxone Sodium 2 gm/ (Sodium Chloride) 100 mls @ 200 mls/hr IV Q24H [facility] Last Admin: 01/14/20 13:05 Dose: 200 mls/hr Documented by: Lactated Ringer's (Ringers, Lactated) Confirm Administered Dose 1,000 mls @ as directed .ROUTE .STK-MED ONE Stop: 01/14/20 14:55 Last Admin: 01/14/20 17:59 Dose: Not Given Documented by: Ceftriaxone Sodium 2 gm/ (Sodium Chloride) 100 mls @ 200 mls/hr IV Q24H [facility] Last Admin: 01/16/20 15:14 Dose: 200 mls/hr Documented by: Magnesium Sulfate (Magnesium Sulfate In Water Premix) 2 gm in 50 mls @ 25 mls/hr IV ONETIME ONE Stop: 01/14/20 17:55 Last Admin: 01/14/20 18:39 Dose: 25 mls/hr Documented by: Lactated Ringer's (Ringers, Lactated) 430 mls @ 999 mls/hr IV .BOLUS ONE Stop: 01/14/20 15:02 Last Admin: 01/14/20 14:37 Dose: 999 mls/hr Documented by: Magnesium Sulfate (Magnesium Sulfate In Water Premix) 2 gm in 50 mls @ 25 mls/hr IV ONETIME ONE Stop: 01/16/20 15:59 Last Admin: 01/16/20 13:11 Dose: 25 mls/hr Documented by: Levofloxacin/Dextrose 750 mg/ (Premix) 150 mls @ 100 mls/hr IV Q48H [facility] Last Admin: 01/21/20 09:27 Dose: 100 mls/hr Documented by: Sodium Chloride (Normal Saline) 1,000 mls @ 250 mls/hr IV ONETIME ONE Stop: 01/17/20 12:14 Last Admin: 01/17/20 09:30 Dose: 250 mls/hr Documented by: Sodium Chloride (Normal Saline) 394 mls @ 250 mls/hr IV .BOLUS ONE Stop: 01/17/20 17:49 Last Admin: 01/17/20 17:58 Dose: 250 mls/hr Documented by: Sodium Chloride (Normal Saline) 1,000 mls @ 250 mls/hr IV ONETIME ONE Stop: 01/17/20 12:29 Last Admin: 01/17/20 13:35 Dose: 250 mls/hr Documented by: Magnesium Sulfate (Magnesium Sulfate In Water Premix) 2 gm in 50 mls @ 25 mls/hr IV ONETIME ONE Stop: 01/18/20 09:28 Last Admin: 01/18/20 08:56 Dose: 25 mls/hr Documented by: Sodium Chloride (Normal Saline) 1,000 mls @ 75 mls/hr IV ASDIRECTED [facility] Stop: 01/18/20 22:00 Last Admin: 01/18/20 10:34 Dose: 75 mls/hr Documented by: Sodium Chloride (Normal Saline) 1,000 mls @ 75 mls/hr IV ASDIRECTED [facility] Stop: 01/19/20 15:31 Last Infusion: 01/19/20 19:48 Dose: 50 mls/hr Documented by: Sodium Chloride (Normal Saline) 1,000 mls @ 50 mls/hr IV ASDIRECTED [facility] Zoledronic Acid 4 mg/ Sodium (Chloride) 105 mls @ 420 mls/hr IV ONETIME ONE Stop: 01/19/20 12:14 Last Admin: 01/19/20 12:11 Dose: 420 mls/hr Documented by: Magnesium Sulfate 4 gm/ Premix 50 mls @ 12.5 mls/hr IV ONETIME ONE Stop: 01/20/20 18:56 Last Admin: 01/20/20 18:36 Dose: Not Given Documented by: Magnesium Sulfate (Magnesium Sulfate In Water Premix) 2 gm in 50 mls @ 25 mls/hr IV Q2H [facility] Stop: 01/20/20 19:14 Last Admin: 01/20/20 17:03 Dose: 25 mls/hr Documented by: Sodium Chloride (Normal Saline) 1,000 mls @ 75 mls/hr IV ASDIRECTED [facility] Last Admin: 01/22/20 03:42 Dose: 75 mls/hr Documented by: Lorazepam (Ativan) 0.5 mg IVPUSH ONETIME ONE Stop: 01/21/20 14:38 Last Admin: 01/21/20 15:33 Dose: 0.5 mg Documented by: Magnesium Hydroxide (Milk Of Magnesia) 30 ml PO ONETIME ONE Stop: 01/21/20 07:01 Last Admin: 01/21/20 06:28 Dose: 30 ml Documented by: Potassium Chloride (Klor-Con M20) 20 meq PO ONETIME ONE Stop: 01/16/20 14:01 Last Admin: 01/16/20 13:11 Dose: 20 meq Documented by: Potassium Chloride (Klor-Con M20) 40 meq PO ONETIME ONE Stop: 01/21/20 13:01 Last Admin: 01/21/20 13:07 Dose: 40 meq Documented by: Sepsis Event Note - Focused Exam Vital Signs: Vital Signs Temp Pulse Resp BP Pulse Ox Pulse Ox 01/22/20 15:11 36.4 C 98 25 H 115/67 92 L 01/22/20 11:39 36.4 C 92 22 H 119/72 91 L 01/22/20 09:24 104 H 105/68 01/22/20 08:02 36.7 C 105 H 16 101/76 91 L 01/22/20 04:52 92 L 01/22/20 04:48 36.4 C 100 22 H 133/84 92 L - My Orders Last 24 Hours: My Active Orders 01/22/20 11:12 Notify Provider Consults [RC] ASDIRECTED Consult to Physician [CONS] Routine
--- NOTE | 2020-01-22 13:39 | US ---
PROCEDURE INFORMATION: Exam: US Right Non-Vascular Joint or Other Extremity Structure, Limited Lower Extremity Exam date and time: 01/22/2020 10:30 AM Age: 84 years old Clinical indication: Swelling; Upper leg; Right; Additional info: Area of focus is patients right groin and upper pubic area TECHNIQUE: Imaging protocol: Right US joint or other nonvascular extremity structure or structures. Real-time ultrasound with image documentation. Limited study. Exam focused on the lower extremity in the region of clinical interest. COMPARISON: No relevant prior studies available. FINDINGS: Soft tissues: Scanning was performed in the right groin into the upper pubis area. Lymph nodes: There are 2-3 masses noted within the right groin heterogeneous not standard appearing lymph nodes. The more superior aspect of this area measures 3.8 x 2.7 cm. Inferior aspect measures 2.2 x 2.6 cm in the middle area measures 2.9 x 2.2 mm. There is a small amount of internal vascularity. This could be a complicated abscess versus a soft tissue mass. IMPRESSION: In the area of swelling there is a mass. This is heterogeneous with a small amount of areas of increased flow within it. This could be a large heterogeneous inflamed or infected or neoplastic lymph node versus a complicated abscess or hematoma. Consider CT scanning for further visualization versus pathologic sampling as clinically indicated. Thank you for allowing us to participate in the care of your patient. Dictated and Authenticated by: Angel Felipe MD 01/22/2020 12:29 PM Central Time ([place] & [place]) [facility]
[2020-01-22] MEDS: Heparin Sodium 5,000 Units/ML Vial SUBCUT SCH (14:15)
--- NOTE | 2020-01-22 14:49 | CT ---
"PROCEDURE INFORMATION: Exam: CT Abdomen And Pelvis Without Contrast Exam date and time: 01/22/2020 2:00 PM Age: 84 years old Clinical indication: Condition or disease; Other: Swollen lymph n odes vs lymphoma; Patient HX: Swollen lymph nodes vs lymphoma TECHNIQUE: Imaging protocol: Computed tomography of the abdomen and pelvis without contrast. Radiation optimization: All CT scans at this facility use at least one of these dose optimization techniques: automated exposure control; mA and/or kV adjustment per patient size (includes targeted exams where dose is matched to clinical indication); or iterative reconstruction. COMPARISON: No relevant prior studies available. FINDINGS: Pleural space: There are bilateral moderate pleural effusions incompletely visualized with coexistent atelectasis. Liver: Normal. No mass. Gallbladder and bile ducts: There is motion and suspected gallstones. Pancreas: The tail the pancreas is poorly delineated. Spleen: There is no visible spleen. Tissue is seen extending inferiorly from the fluid collection which could be part of the spleen. Adrenal glands: Normal. No mass. Kidneys and ureters: Normal. No hydronephrosis. Stomach and bowel: There may be a mass arising from the stomach measuring 56 x 49 mm on image 2/12. Appendix: No evidence of appendicitis. Intraperitoneal space: There is a large mass noted in the left upper quadrant measuring 106 x 104 mm. Unfortunately the patient's arms give rise to artifact over this area. This has Hounsfield units of 3 and could represent a pancreatic pseudocyst or phlegmon. [facility] | Final Radiology Report CONFIDENTIALITY STATEMENT This report is intended only for use by the referring physician, and only in accordance with law. If you received this in error, call [phone]. Page 2 of 2 Vasculature: Unremarkable. No abdominal aortic aneurysm. Lymph nodes: There is large masses noted in each groin. Largest is on the right measuring 54 x 63 mm. These suggestive of adenopathy. There may be left small iliac with larger right iliac lymph nodes. On the right these may measure up to 23 mm. There is a mass of matted tissues noted near the GE junction possibly celiac axis adenopathy measuring up to 78 x 44 mm. There appears to be retrocrural adenopathy measuring up 29 mm. 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 Urinary bladder: Unremarkable as visualized. Reproductive: Unremarkable as visualized. Bones/joints: There is diffuse osteopenia. There is a superior endplate compression fracture of L3. There is inferior compression fracture T12. Superior endplate compression for deformities seen of T11. There is superior and inferior compression fractures of L2. Soft tissues: Unremarkable. Other findings: There is fluid in the pericolic gutters. IMPRESSION: 1. Diffuse adenopathy in the upper abdomen as well as within the groins and possibly the right iliac chain. 2. Fluid collection noted in the left upper quadrant possibly involving the spleen. This could be adenopathy versus a pseudocyst or other pancreas lesion. 3. Cholelithiasis. 4. Possible gastric mass. 5. Bilateral pleural effusions. 6. Artifact from motion the patient's arms. 7. Consider contrast scanning for further and better evaluation. 8. Multiple fractures within the spine. Thank you for allowing us to participate in the care of your patient. Dictated and Authenticated by: Angel Felipe MD 01/22/2020 3:29 PM Central Time ([place] & [place]) [facility]"
[2020-01-22] MEDS: Simvastatin 10 MG Tab PO SCH (20:15)
[2020-01-22] MEDS: QUEtiapine 25 MG Tab PO SCH (20:17)
[2020-01-23] MEDS ORDERED: Levofloxacin/Dextrose 5%-Water 500 MG in Premix Bag 1 BAG IV SCH (09:00)
[2020-01-23] MEDS: Metoprolol Tartrate 50 MG Tab PO SCH ×2 (09:05→21:48)
[2020-01-23] MEDS: Pantoprazole 40 MG Tab.CR PO SCH (09:05)
[2020-01-23] MEDS: Multivitamins,Therapeutic Tab PO SCH (09:05)
[2020-01-23] MEDS: Aspirin 81 MG Tab.EC PO SCH (09:05)
[2020-01-23] MEDS: Potassium Chloride 20 MEQ Tab.ER PO SCH (09:05)
[2020-01-23] MEDS: Furosemide 20 MG Tab PO SCH (09:06)
[2020-01-23] MEDS: Heparin Sodium 5,000 Units/ML Vial SUBCUT SCH ×3 (10:31→21:49)
--- NOTE | 2020-01-23 12:12 | CR ---
PROCEDURE INFORMATION: Exam: XR Chest, 1 View Exam date and time: 01/23/2020 10:20 AM Age: 84 years old Clinical indication: Condition or disease; Other: Pulmonary edema; Additional info: Follow up TECHNIQUE: Imaging protocol: XR of the chest Views: 1 view. COMPARISON: CR Chest 1V Frontal 01/22/2020 7:20 AM FINDINGS: Lungs: Mid inspiratory effort with resultant low lung volumes. There is mild perihilar interstitial prominence consistent with volume overload or early congestive heart failure. Retrocardiac increased opacity most likely represents a combination of consolidation, atelectasis, and/or pleural effusion. Pleural space: There are bilateral small pleural effusions blunting the costophrenic angles. Heart/Mediastinum: The heart is enlarged. Bones/joints: There is evidence of a previous sternotomy. Old right-sided rib fractures IMPRESSION: 1. There is mild perihilar interstitial prominence consistent with volume overload or early congestive heart failure. 2. Retrocardiac increased opacity most likely represents a combination of consolidation, atelectasis, and/or pleural effusion. These findings have worsened since previous study. Thank you for allowing us to participate in the care of your patient. Dictated and Authenticated by: Claudio Cobos MD 01/23/2020 12:35 PM Central Time ([place]) [facility]US[facility]
--- NOTE | 2020-01-23 13:06 | PCM.PN ---
- General Info Date of Service: 01/23/20 Admission Dx/Problem (Free Text): Admission Diagnosis/Problem Admission Diagnosis/Problem Sepsis due to pneumonia Subjective Update: Patient is more lethargic today. Will arouse to verbal command and answer questions, however he is confused. He is also much weaker today. Functional Status: Reports: Pain Controlled, Urinating (Incontinent). Denies: Tolerating Diet (Appetite is poor), Ambulating - Review of Systems General: Reports: Weakness HEENT: Reports: No Symptoms Pulmonary: Reports: No Symptoms Cardiovascular: Reports: No Symptoms Gastrointestinal: Reports: No Symptoms Genitourinary: Reports: Incontinence Musculoskeletal: Reports: No Symptoms Skin: Reports: No Symptoms Neurological: Reports: Confusion Psychiatric: Reports: Confusion - Patient Data Vitals - Most Recent: Last Vital Signs Temp 98.2 F 01/23/20 11:17 Pulse 101 H 01/23/20 11:17 Resp 23 H 01/23/20 11:17 BP 116/75 01/23/20 11:17 Pulse Ox 93 L 01/23/20 11:17 Weight - Most Recent: 173 lb 4.8 oz I&O - Last 24 Hours: Intake & Output 01/22/20 01/23/20 01/23/20 22:59 06:59 14:59 Intake Total 135 0 Balance 135 0 Lab Results Last 24 Hours: Laboratory Results - last 24 hr 01/22/20 01/23/20 01/23/20 Range/Units 05:58 07:49 07:49 WBC 11.07 H (4.23-9.07) K/mm3 RBC 4.85 (4.63-6.08) M/mm3 Hgb 14.6 (13.7-17.5) gm/dl Hct 44.7 (40.1-51.0) % MCV 92.2 (79.0-92.2) fl MCH 30.1 (25.7-32.2) pg MCHC 32.7 (32.2-35.5) g/dl RDW Std Deviation 52.1 H (35.1-43.9) fL Plt Count 567 H (163-337) K/mm3 MPV 9.4 (9.4-12.3) fl Neut % (Auto) 74.8 H (34.0-67.9) % Lymph % (Auto) 10.7 L (21.8-53.1) % [place] % (Auto) 11.7 (5.3-12.2) % Eos % (Auto) 1.8 (0.8-7.0) Baso % (Auto) 0.6 (0.1-1.2) % Neut # (Auto) 8.28 H (1.78-5.38) K/mm3 Lymph # (Auto) 1.18 L (1.32-3.57) K/mm3 [place] # (Auto) 1.30 H (0.30-0.82) K/mm3 Eos # (Auto) 0.20 (0.04-0.54) K/mm3 Baso # (Auto) 0.07 (0.01-0.08) K/mm3 Manual Slide Review Abnormal smear Sodium 148 H (136-145) mEq/L Potassium 3.7 (3.5-5.1) mEq/L Chloride 111 H (98-107) mEq/L Carbon Dioxide 29 (21-32) mEq/L Anion Gap 11.7 (5-15) BUN 51 H (7-18) mg/dL Creatinine 3.2 H (0.7-1.3) mg/dL Est Cr Clr Drug Dosing 17.74 mL/min Estimated GFR (MDRD) 19 (>60) mL/min BUN/Creatinine Ratio 15.9 (14-18) Glucose 95 (83-115) mg/dL Calcium 12.0 H (8.5-10.1) mg/dL Magnesium 2.6 H (1.8-2.4) mg/dl Total Bilirubin 0.4 (0.2-1.0) mg/dL AST 81 H (15-37) U/L ALT 28 (16-63) U/L Alkaline Phosphatase 100 (46-116) U/L Total Protein 6.2 L (6.4-8.2) g/dl Albumin 2.4 L (3.4-5.0) g/dl Globulin 3.8 gm/dL Albumin/Globulin Ratio 0.6 L (1-2) Procalcitonin 0.22 H (<0.10) ng/mL Henry Results Last 24 Hours: Microbiology 01/17/20 08:40 Aerobic Blood Culture - Preliminary Blood - Venous - Lab Draw NO GROWTH AFTER 6 DAYS Anaerobic Blood Culture - Preliminary NO GROWTH AFTER 6 DAYS 11/05/20 08:55 Aerobic Blood Culture - Preliminary Blood - Venous NO GROWTH AFTER 6 DAYS Anaerobic Blood Culture - Preliminary NO GROWTH AFTER 6 DAYS Med Orders - Current: Current Medications Acetaminophen (Tylenol) 650 mg PO Q4H PRN PRN Reason: Pain (Mild 1-3)/fever Last Admin: 01/21/20 20:52 Dose: 650 mg Documented by: Aspirin (Halfprin) 81 mg PO DAILY [facility] Last Admin: 01/23/20 09:05 Dose: 81 mg Documented by: Bisacodyl (Dulcolax) 5 mg PO DAILY PRN PRN Reason: Constipation Bisacodyl (Dulcolax) 10 mg RECTAL DAILY PRN PRN Reason: Constipation Last Admin: 01/16/20 16:13 Dose: 10 mg Documented by: Docusate Sodium (Colace) 100 mg PO BID PRN PRN Reason: Constipation Last Admin: 01/20/20 09:15 Dose: 100 mg Documented by: Furosemide (Lasix) 20 mg PO DAILY [facility] Last Admin: 01/23/20 09:06 Dose: 20 mg Documented by: Heparin Sodium (Porcine) (Heparin Sodium) 5,000 units SUBCUT Q12H [facility] Last Admin: 01/23/20 10:31 Dose: 5,000 units Documented by: Levofloxacin/Dextrose 500 mg/ (Premix) 100 mls @ 66.667 mls/hr IV Q48H [facility] Last Admin: 01/23/20 09:00 Dose: 66.667 mls/hr Documented by: Metoprolol Tartrate (Lopressor) 50 mg PO BID [facility] Last Admin: 01/23/20 09:05 Dose: 50 mg Documented by: Multivitamins (Thera) 1 each PO DAILY [facility] Last Admin: 01/23/20 09:05 Dose: 1 each Documented by: Ondansetron HCl (Zofran) 4 mg IV Q4H PRN PRN Reason: Nausea/Vomiting Pantoprazole Sodium (Protonix) 40 mg PO DAILY@0700 [facility] Last Admin: 01/23/20 09:05 Dose: 40 mg Documented by: Potassium Chloride (Klor-Con M20) 20 meq PO DAILY [facility] Last Admin: 01/23/20 09:05 Dose: 20 meq Documented by: Quetiapine Fumarate (Seroquel) 12.5 mg PO 1700 [facility] Last Admin: 01/22/20 20:17 Dose: 12.5 mg Documented by: Senna/Docusate Sodium (Senna Plus) 1 tab PO BID PRN PRN Reason: Constipation Last Admin: 01/16/20 06:14 Dose: 1 tab Documented by: Simvastatin (Zocor) 10 mg PO BEDTIME [facility] Last Admin: 01/22/20 20:15 Dose: 10 mg Documented by: Sodium Chloride (Saline Flush) 10 ml FLUSH ASDIRECTED PRN PRN Reason: Keep Vein Open Last Admin: 01/20/20 19:14 Dose: 10 ml Documented by: Sodium Chloride (Saline Flush) 10 ml FLUSH ASDIRECTED PRN PRN Reason: Keep Vein Open Last Admin: 01/20/20 08:21 Dose: 10 ml Documented by: Discontinued Medications Bisacodyl (Dulcolax) 10 mg RECTAL ONETIME ONE Stop: 01/22/20 05:04 Last Admin: 01/22/20 05:53 Dose: 10 mg Documented by: Enoxaparin Sodium (Lovenox) 40 mg SUBCUT Q24H [facility] Last Admin: 01/20/20 15:35 Dose: 40 mg Documented by: Enoxaparin Sodium (Lovenox) 30 mg SUBCUT Q24H [facility] Last Admin: 01/21/20 14:44 Dose: 30 mg Documented by: Furosemide (Lasix) 20 mg IVPUSH NOW ONE Stop: 01/22/20 08:31 Last Admin: 01/22/20 09:23 Dose: 20 mg Documented by: Heparin Sodium (Porcine) (Heparin Sodium) 5,000 units SUBCUT Q12H [facility] Last Admin: 01/22/20 14:15 Dose: 5,000 units Documented by: Sodium Chloride (Normal Saline) 1,000 mls @ 125 mls/hr IV ASDIRECTED [facility] Last Admin: 01/14/20 12:00 Dose: 999 mls/hr Documented by: Lactated Ringer's (Ringers, Lactated) 1,000 mls @ 1,000 mls/hr IV .BOLUS ONE Stop: 01/14/20 12:47 Last Admin: 01/14/20 13:37 Dose: 1,000 mls/hr Documented by: Ceftriaxone Sodium 2 gm/ (Sodium Chloride) 100 mls @ 200 mls/hr IV Q24H [facility] Last Admin: 01/14/20 13:05 Dose: 200 mls/hr Documented by: Lactated Ringer's (Ringers, Lactated) Confirm Administered Dose 1,000 mls @ as directed .ROUTE .STK-MED ONE Stop: 01/14/20 14:55 Last Admin: 01/14/20 17:59 Dose: Not Given Documented by: Ceftriaxone Sodium 2 gm/ (Sodium Chloride) 100 mls @ 200 mls/hr IV Q24H [facility] Last Admin: 01/16/20 15:14 Dose: 200 mls/hr Documented by: Magnesium Sulfate (Magnesium Sulfate In Water Premix) 2 gm in 50 mls @ 25 mls/hr IV ONETIME ONE Stop: 01/14/20 17:55 Last Admin: 01/14/20 18:39 Dose: 25 mls/hr Documented by: Lactated Ringer's (Ringers, Lactated) 430 mls @ 999 mls/hr IV .BOLUS ONE Stop: 01/14/20 15:02 Last Admin: 01/14/20 14:37 Dose: 999 mls/hr Documented by: Magnesium Sulfate (Magnesium Sulfate In Water Premix) 2 gm in 50 mls @ 25 mls/hr IV ONETIME ONE Stop: 01/16/20 15:59 Last Admin: 01/16/20 13:11 Dose: 25 mls/hr Documented by: Levofloxacin/Dextrose 750 mg/ (Premix) 150 mls @ 100 mls/hr IV Q48H [facility] Last Admin: 01/21/20 09:27 Dose: 100 mls/hr Documented by: Sodium Chloride (Normal Saline) 1,000 mls @ 250 mls/hr IV ONETIME ONE Stop: 01/17/20 12:14 Last Admin: 01/17/20 09:30 Dose: 250 mls/hr Documented by: Sodium Chloride (Normal Saline) 394 mls @ 250 mls/hr IV .BOLUS ONE Stop: 01/17/20 17:49 Last Admin: 01/17/20 17:58 Dose: 250 mls/hr Documented by: Sodium Chloride (Normal Saline) 1,000 mls @ 250 mls/hr IV ONETIME ONE Stop: 01/17/20 12:29 Last Admin: 01/17/20 13:35 Dose: 250 mls/hr Documented by: Magnesium Sulfate (Magnesium Sulfate In Water Premix) 2 gm in 50 mls @ 25 mls/hr IV ONETIME ONE Stop: 01/18/20 09:28 Last Admin: 01/18/20 08:56 Dose: 25 mls/hr Documented by: Sodium Chloride (Normal Saline) 1,000 mls @ 75 mls/hr IV ASDIRECTED [facility] Stop: 01/18/20 22:00 Last Admin: 01/18/20 10:34 Dose: 75 mls/hr Documented by: Sodium Chloride (Normal Saline) 1,000 mls @ 75 mls/hr IV ASDIRECTED [facility] Stop: 01/19/20 15:31 Last Infusion: 01/19/20 19:48 Dose: 50 mls/hr Documented by: Sodium Chloride (Normal Saline) 1,000 mls @ 50 mls/hr IV ASDIRECTED [facility] Zoledronic Acid 4 mg/ Sodium (Chloride) 105 mls @ 420 mls/hr IV ONETIME ONE Stop: 01/19/20 12:14 Last Admin: 01/19/20 12:11 Dose: 420 mls/hr Documented by: Magnesium Sulfate 4 gm/ Premix 50 mls @ 12.5 mls/hr IV ONETIME ONE Stop: 01/20/20 18:56 Last Admin: 01/20/20 18:36 Dose: Not Given Documented by: Magnesium Sulfate (Magnesium Sulfate In Water Premix) 2 gm in 50 mls @ 25 mls/hr IV Q2H [facility] Stop: 01/20/20 19:14 Last Admin: 01/20/20 17:03 Dose: 25 mls/hr Documented by: Sodium Chloride (Normal Saline) 1,000 mls @ 75 mls/hr IV ASDIRECTED [facility] Last Admin: 01/22/20 03:42 Dose: 75 mls/hr Documented by: Lorazepam (Ativan) 0.5 mg IVPUSH ONETIME ONE Stop: 01/21/20 14:38 Last Admin: 01/21/20 15:33 Dose: 0.5 mg Documented by: Magnesium Hydroxide (Milk Of Magnesia) 30 ml PO ONETIME ONE Stop: 01/21/20 07:01 Last Admin: 01/21/20 06:28 Dose: 30 ml Documented by: Potassium Chloride (Klor-Con M20) 20 meq PO ONETIME ONE Stop: 01/16/20 14:01 Last Admin: 01/16/20 13:11 Dose: 20 meq Documented by: Potassium Chloride (Klor-Con M20) 40 meq PO ONETIME ONE Stop: 01/21/20 13:01 Last Admin: 01/21/20 13:07 Dose: 40 meq Documented by: - Exam Quality Assessment: Supplemental Oxygen (1.5 L per nasal cannula), DVT Prophylaxis (Lovenox) General: Cooperative, Mild Distress, Lethargic HEENT: Pupils Equal, Pupils Reactive, Mucous Membr. Moist/[place]: No: Lymphadenopathy Lungs: Decreased Breath Sounds, Crackles (Bilateral bases) Cardiovascular: Regular Rate, Regular Rhythm, Murmurs (Systolic) GI/Abdominal Exam: Normal Bowel Sounds, Soft, Non-Tender, No Distention (Male) Exam: Deferred Back Exam: Normal Inspection, Full Range of Motion Extremities: Normal Inspection, Normal Range of Motion, Non-Tender, No Pedal Edema, Normal Capillary Refill Peripheral Pulses: 2+: Radial (L), Radial (R), Dorsalis Pedis (L), Dorsalis Pedis (R) Skin: Warm, Dry, Intact Neurological: No New Focal Deficit Psy/Mental Status: Other (Much more lethargic today.) Sepsis Event Note - Evaluation Sepsis Screening Result: Severe Sepsis Risk - Focused Exam Vital Signs: Vital Signs Temp Temp Pulse Pulse Resp BP BP 01/23/20 11:17 98.2 F 101 H 23 H 116/75 01/23/20 09:05 101 H 115/73 01/23/20 07:57 98.4 F 101 H 28 H 115/73 01/23/20 03:58 98.6 F 107 H 20 126/73 01/23/20 03:26 98.6 F 107 H 20 126/73 Pulse Ox 01/23/20 11:17 93 L 01/23/20 09:05 01/23/20 07:57 93 L 01/23/20 03:58 92 L 01/23/20 03:26 92 L - Problem List & Annotations (1) Pneumonia SNOMED Code(s): 037248060 Code(s): J18.9 - PNEUMONIA, UNSPECIFIED ORGANISM Status: Acute Priority: High Current Visit: Yes Qualifiers: Pneumonia type: due to unspecified organism Laterality: bilateral Lung location: lower lobe of lung Qualified Code(s): J18.9 - Pneumonia, unspecified organism (2) Renal insufficiency SNOMED Code(s): 955825572, 916259422 Code(s): N28.9 - DISORDER OF KIDNEY AND URETER, UNSPECIFIED Status: Acute Priority: High Current Visit: Yes (3) Sepsis SNOMED Code(s): 07899515 Code(s): A41.9 - SEPSIS, UNSPECIFIED ORGANISM Status: Acute Priority: High Current Visit: Yes Qualifiers: Sepsis type: sepsis due to unspecified organism Sepsis acute organ dysfunction status: unspecified Qualified Code(s): A41.9 - Sepsis, unspecified organism (4) Generalized weakness SNOMED Code(s): 82482209 Code(s): R53.1 - WEAKNESS Status: Acute Priority: High Current Visit: Yes (5) Sepsis due to pneumonia SNOMED Code(s): 70788971 Code(s): J18.9 - PNEUMONIA, UNSPECIFIED ORGANISM; A41.9 - SEPSIS, UNSPECIFIED ORGANISM Status: Acute Priority: High Current Visit: Yes (6) Hypercalcemia SNOMED Code(s): 16079942 Code(s): E83.52 - HYPERCALCEMIA Status: Acute Priority: High Current Visit: Yes - Problem List Review Problem List Initiated/Reviewed/Updated: Yes - My Orders Last 24 Hours: My Active Orders 01/23/20 09:00 Heparin Sodium 5,000 units SUBCUT Q12H Levofloxacin/Dextrose 5%-Water [Levaquin in D5W 500 MG/100 ML] 500 mg Premix Bag 1 bag IV Q48H 01/23/20 10:26 Admission Status [Patient Status] [ADT] Routine 01/24/20 07:00 CBC W/O DIFF,HEMOGRAM [HEME] MOTH@69901/28/20 07:00 CBC W/O DIFF,HEMOGRAM [HEME] MOTH@69901/31/20 07:00 CBC W/O DIFF,HEMOGRAM [HEME] MOTH@69902/04/20 07:00 CBC W/O DIFF,HEMOGRAM [HEME] MOTH@00 02/07/20 07:00 CBC W/O DIFF,HEMOGRAM [HEME] MOTH@00 02/11/20 07:00 CBC W/O DIFF,HEMOGRAM [HEME] MOTH@699 - Assessment Assessment:: 01/15/20 * Remains on room air. * Day 2 of Rocephin IV. * Waiting for blood culture report. * PT OT to eval and treat. * Vital signs remained stable. And patient has been afebrile. * Lab work reveals: BUN 14, creatinine 1.3, GFR 53, lactic acid 2.0, magnesium 1.7, calcium 12.5 down from 13.6. * Lovenox for DVT prophylaxis. * Echocardiogram from 10/05/2016: #1 left ventricular ejection fraction, by visual estimation, is 55 to 60%. #2 normal right ventricular systolic function. #3 mitral valve regurgitation. #4 mild tricuspid valve regurgitation. #5 abnormal septal motion consistent with postoperative status. #6 no regional wall motion abnormalities. 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 MG 16 mmHg, no AI. #8 findings similar to 318 of 16. 01/16/20 * He is on room air * Day 3 of Rocephin IV * Blood cultures are showing no growth. * Vital signs have been stable and patient has been afebrile. * Discharge recommendations are for home health care/physical therapy/Occupational Therapy * WBC 8.44, BUN 17, creatinine 1.3, GFR 53, calcium 12.1, magnesium 1.5 * Calcium level is slowly coming down. The patient's reports that he does consume a significant amount of extra strength Tums at home. I am still awaiting the results of the PTH and ionized calcium levels to return however I do believe the reason for his elevated calcium is due to the Tums. * Lovenox for DVT prophylaxis. 01/17/20 * Patient remains on room air * He is on day 4 of Rocephin * Blood cultures continue to show no growth. * Potassium 4.7, BUN 24, creatinine 1.4, GFR 48, lactic acid 2.3, calcium level 13.3. * The patient has been afebrile however he has been tachycardic in the low 100s despite receiving metoprolol 50 mg twice daily. Nursing staff also reports that the patient is tachypneic. Which makes him qualify for adults severe sepsis protocol. * PT/OT working with the patient. 01/19/20 Impression/Plan: Hypercalcemia with low iPTH Sepsis d/t PNA Bilateral PNA FERNANDA * Patient remains confused oriented to name only. * He is on room air * Sepsis criteria. * Hemodynamics have improved. * IVF as needed * Labs re: iCa, iPTH--ordered; (If PTHrP elevated-check for malignancy cf elevated PTHrP with elevated 1, 25 dihydroxyvitamin D usually lymphoma or granulomatous disease). * DC planning 01/21/20 * O2 saturations dropped to 87% on room air today. Patient was placed on oxygen at 1 L per nasal cannula * Chest x-ray completed this morning shows unchanged small bilateral pleural effusions. Mildly decreased atelectasis. No acute pulmonary edema. * Lab work reveals: WBC 11.44 up from 9.18, platelet count 554 up from 542, BUN 36, creatinine 2.7, calcium 12.4 down from 14.4, vitamin D level 43.9, awaiting repeat PTH level. * Suspect renal function decreased due to Zometa that was given yesterday as the patient is not on any other medications that would cause him renal injury. * PT OT to eval and treat. 01/22/20 * Chest x-ray from 01/22/2020: There is mild perihilar interstitial prominence consistent with volume overload or early congestive heart failure. These findings have worsened since previous study. * Patient remains on 1.5 L of oxygen per nasal cannula. * Patient is still confused, but he appears more groggy today. He does arouse to verbal command. * Lab work reveals WBC 12.32 which is up from 11.44, sodium 146, magnesium 2.6, BUN 43 up from 36, creatinine 3.1 up from 2.7, calcium 12.3 down from 12.4, blood cultures continue to show no growth. * Nursing staff reports that patient has a mass to his right groin. Ultrasound of right groin reveals: In the area of swelling there is a mass. This is heterogeneous with a small amount of area of increased flow within it. This could be a large heterogeneous inflamed or infected or neoplastic lymph node versus a complicated abscess or hematoma. Consider CT scan for further visualization versus pathologic sampling as clinically indicated. * Levaquin decreased to 500 mg IV every 48 hours per pharmacy for renal dosing. * MRI of head without contrast obtained 01/21/2020: 1. No evidence of acute ischemia, mass or hydrocephalus. Note that unenhanced imaging is less sensitive than enhanced imaging for detection of malignancy. 2. Typical senescent changes with diffuse atrophy of the brain. 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 01/23/20 * Patient is much more lethargic today however he does respond to verbal command and will converse. Remains confused. * Remains on 1.5 L of oxygen per nasal cannula. * Chest x-ray from 01/23/2020: 1. There is mild perihilar interstitial prominence consistent with volume overload or early congestive heart failure. 2. Retrocardiac increased opacity most likely represents a combination of consolidation, atelectasis, and or pleural effusion. These findings have worsened since previous study. * Patient has been mildly tachycardic 104-111, blood pressures remain in the 120s to 130s/70s and patient has been afebrile the past 24 hours. * WBC 11.07 which is down from 12.32, platelet count 567 which is up from 540, sodium 148, potassium 3.7, BUN 51, creatinine 3.2, GFR 19, calcium 12.0, magnesium 2.6, procalcitonin from yesterday 0.22 - Plan Plan:: Patient will be continued on the current regimen. Will need close follow up by PCP as mentioned above. Likely DC, Mon or pending response to therapy. 01/21/20 * Continue Levaquin IV * Repeat labs in the a.m. * Renally dose all medications * Normal saline at 75 mL's per hour * Nursing and respiratory care to titrate oxygen * Continue incentive spirometer * Follow speech therapy recommendations for swallowing * volunteer services specialist are working with family regarding senior care placement * Continue Lovenox for DVT prophylaxis as pharmacist states this is still recommended * Continue to monitor vital signs * Continue to monitor intake and output. 01/22/20 * Continue Levaquin IV. * Repeat labs in the a.m. * Renally dose all medications. * Suspect patient's elevation in BUN/creatinine are due to zoledronic acid. Suspect that these values may continue to rise before they decrease again as seen with acute on chronic renal failure. * IV fluids discontinued at this point due to the patient developing some fluid overload. * Lasix 20 mg x 1 dose today. * Awaiting results of CT scan of abdomen and pelvis without contrast. Unable to use contrast with scanning due to patient's renal failure. * Suspect that patient does have some form of cancerous process due to elevated calcium levels, elevated absolute monocyte count, and swelling to lymph nodes in groin. Of note, nursing staff now reports that patient has swelling in left groin as well. There is a small mass noted that is approximately 2 cm x 2 cm. Mass is spongy. Mass is slightly mobile and it is not tender to palpation. * Lovenox discontinued. Heparin 5000 units subcu every 12 hours started. * Patient continues to work with physical therapy. * CT of the abdomen and pelvis without contrast from 01/22/2020 impression: 1. Diffuse adenopathy in the upper abdomen as well as within the groins and possibly the right iliac chain. 2. Fluid collection noted in the upper left quadrant possibly involving the spleen. This could be adenopathy versus a pseudocyst or other pancreas lesion. 3. Cholelithiasis. 4. Possible gastric mass. 5. Bilateral pleural effusions. 6. Artifact from motion of the patient's arms. 7. Consider contrast scanning for further and better evaluation. 8. Multiple fractures within the spine. Stomach and bowel: There may be a mass arising from the stomach measuring 56 x 49 mm on image 2 of 12. There is a large mass noted in the left upper quadrant measuring 106 x 104 mm. This has a house in field units of the 3 and could represent a pancreatic pseudocyst or phlegmon. * Shortly after receiving the radiologist report for CT of the abdomen, the patient's and his son came to visit the patient. I discussed the results of the CT scan and the grim prognosis related to this. Marta certified social workers in health care was also in the conference room with me discussing the patient's status. At this time we will continue current treatments. Family is going to go home and discuss options with the rest of the patient's children and they will give us an answer in the next day or 2 as to the next step in the patient's plan of care. Comfort measures and hospice were discussed with the patient's family. Patient remains a DNR DNI. 01/23/20 * At this point we are waiting back to hear from the family in which direction they would like his care to go. Waiting for them to turn in senior care paperwork and to give us the word on whether or not they want patient to be comfort measures or hospice. * Continue current treatment regimen until we hear from them. * Will repeat labs in the a.m. * Heparin 5000 units subcu every 12 hours for DVT prophylaxis. * Will give 60 mg of IV Lasix x1 dose today.
[2020-01-23] MEDS ORDERED: Furosemide 40 MG/4 ML VIAL IVPUSH ONE (13:15)
[2020-01-23] MEDS: Acetaminophen 325 MG Tab PO PRN (17:42)
[2020-01-23] MEDS: QUEtiapine 25 MG Tab PO SCH (17:42)
[2020-01-23] MEDS: Simvastatin 10 MG Tab PO SCH (21:48)
[2020-01-24] MEDS: Pantoprazole 40 MG Tab.CR PO SCH (07:45)
[2020-01-24] MEDS: Furosemide 20 MG Tab PO SCH (08:38)
[2020-01-24] MEDS ORDERED: Furosemide 40 MG/4 ML VIAL IVPUSH ONE ×2 (09:00→12:00)
[2020-01-24] MEDS: Potassium Chloride 20 MEQ Tab.ER PO SCH (09:01)
[2020-01-24] MEDS: Aspirin 81 MG Tab.EC PO SCH (09:01)
[2020-01-24] MEDS: Multivitamins,Therapeutic Tab PO SCH (09:01)
[2020-01-24] MEDS: Heparin Sodium 5,000 Units/ML Vial SUBCUT SCH ×2 (09:01→21:21)
[2020-01-24] MEDS: Metoprolol Tartrate 50 MG Tab PO SCH ×2 (09:13→22:30)
--- NOTE | 2020-01-24 10:19 | PCM.PN ---
- General Info Date of Service: 01/24/20 Admission Dx/Problem (Free Text): Admission Diagnosis/Problem Admission Diagnosis/Problem Sepsis due to pneumonia Subjective Update: Patient is more alert today. He is sitting up in the chair. Family is in the room visiting Functional Status: Reports: Pain Controlled, Tolerating Diet, Urinating (Incontinent) - Review of Systems General: Reports: Weakness HEENT: Reports: No Symptoms Pulmonary: Reports: Shortness of Breath Cardiovascular: Reports: No Symptoms Gastrointestinal: Reports: No Symptoms Genitourinary: Reports: No Symptoms, Incontinence Musculoskeletal: Reports: No Symptoms Skin: Reports: No Symptoms Neurological: Reports: Confusion Psychiatric: Reports: Confusion - Patient Data Vitals - Most Recent: Last Vital Signs Temp 98.0 F 01/24/20 09:00 Pulse 122 H 01/24/20 09:13 Resp 20 01/24/20 09:00 BP 102/66 01/24/20 09:13 Pulse Ox 95 01/24/20 09:00 Weight - Most Recent: 173 lb 1.6 oz I&O - Last 24 Hours: Intake & Output 01/23/20 01/24/20 01/24/20 22:59 06:59 14:59 Intake Total 990 20 100 Output Total 150 100 Balance 990 -130 0 Lab Results Last 24 Hours: Laboratory Results - last 24 hr 01/24/20 01/24/20 Range/Units 07:15 07:15 WBC 10.31 H (4.23-9.07) K/mm3 RBC 4.99 (4.63-6.08) M/mm3 Hgb 14.8 (13.7-17.5) gm/dl Hct 46.0 (40.1-51.0) % MCV 92.2 (79.0-92.2) fl MCH 29.7 (25.7-32.2) pg MCHC 32.2 (32.2-35.5) g/dl RDW Std Deviation 53.0 H (35.1-43.9) fL Plt Count 568 H (163-337) K/mm3 MPV 9.8 (9.4-12.3) fl Neut % (Auto) 70.3 H (34.0-67.9) % Lymph % (Auto) 12.8 L (21.8-53.1) % [place] % (Auto) 12.4 H (5.3-12.2) % Eos % (Auto) 3.4 (0.8-7.0) Baso % (Auto) 0.9 (0.1-1.2) % Neut # (Auto) 7.25 H (1.78-5.38) K/mm3 Lymph # (Auto) 1.32 (1.32-3.57) K/mm3 [place] # (Auto) 1.28 H (0.30-0.82) K/mm3 Eos # (Auto) 0.35 (0.04-0.54) K/mm3 Baso # (Auto) 0.09 H (0.01-0.08) K/mm3 Sodium 150 H (136-145) mEq/L Potassium 3.9 (3.5-5.1) mEq/L Chloride 112 H (98-107) mEq/L Carbon Dioxide 28 (21-32) mEq/L Anion Gap 13.9 (5-15) BUN 59 H (7-18) mg/dL Creatinine 3.6 H (0.7-1.3) mg/dL Est Cr Clr Drug Dosing 15.77 mL/min Estimated GFR (MDRD) 16 (>60) mL/min BUN/Creatinine Ratio 16.4 (14-18) Glucose 95 (83-115) mg/dL Calcium 11.8 H (8.5-10.1) mg/dL Magnesium 2.6 H (1.8-2.4) mg/dl Total Bilirubin 0.4 (0.2-1.0) mg/dL AST 78 H (15-37) U/L ALT 28 (16-63) U/L Alkaline Phosphatase 99 (46-116) U/L Total Protein 6.1 L (6.4-8.2) g/dl Albumin 2.3 L (3.4-5.0) g/dl Globulin 3.8 gm/dL Albumin/Globulin Ratio 0.6 L (1-2) Henry Results Last 24 Hours: Microbiology 01/17/20 08:40 Aerobic Blood Culture - Final Blood - Venous - Lab Draw NO GROWTH AFTER 7 DAYS Anaerobic Blood Culture - Final NO GROWTH AFTER 7 DAYS 01/17/20 08:55 Aerobic Blood Culture - Final Blood - Venous NO GROWTH AFTER 7 DAYS Anaerobic Blood Culture - Final NO GROWTH AFTER 7 DAYS Med Orders - Current: Current Medications Acetaminophen (Tylenol) 650 mg PO Q4H PRN PRN Reason: Pain (Mild 1-3)/fever Last Admin: 01/23/20 17:42 Dose: 650 mg Documented by: Aspirin (Halfprin) 81 mg PO DAILY [facility] Last Admin: 01/24/20 09:01 Dose: 81 mg Documented by: Bisacodyl (Dulcolax) 5 mg PO DAILY PRN PRN Reason: Constipation Bisacodyl (Dulcolax) 10 mg RECTAL DAILY PRN PRN Reason: Constipation Last Admin: 01/16/20 16:13 Dose: 10 mg Documented by: Docusate Sodium (Colace) 100 mg PO BID PRN PRN Reason: Constipation Last Admin: 01/20/20 09:15 Dose: 100 mg Documented by: Furosemide (Lasix) 20 mg PO DAILY [facility] Last Admin: 01/24/20 08:38 Dose: Not Given Documented by: Furosemide (Lasix) 60 mg IVPUSH NOW ONE Stop: 01/24/20 12:01 Heparin Sodium (Porcine) (Heparin Sodium) 5,000 units SUBCUT Q12H [facility] Last Admin: 01/24/20 09:01 Dose: 5,000 units Documented by: Levofloxacin/Dextrose 500 mg/ (Premix) 100 mls @ 66.667 mls/hr IV Q48H [facility] Last Admin: 01/23/20 09:00 Dose: 66.667 mls/hr Documented by: Metoprolol Tartrate (Lopressor) 50 mg PO BID [facility] Last Admin: 01/24/20 09:13 Dose: 50 mg Documented by: Multivitamins (Thera) 1 each PO DAILY [facility] Last Admin: 01/24/20 09:01 Dose: 1 each Documented by: Ondansetron HCl (Zofran) 4 mg IV Q4H PRN PRN Reason: Nausea/Vomiting Pantoprazole Sodium (Protonix) 40 mg PO DAILY@0700 [facility] Last Admin: 01/24/20 07:45 Dose: 40 mg Documented by: Potassium Chloride (Klor-Con M20) 20 meq PO DAILY [facility] Last Admin: 01/24/20 09:01 Dose: 20 meq Documented by: Quetiapine Fumarate (Seroquel) 12.5 mg PO 1700 [facility] Last Admin: 01/23/20 17:42 Dose: 12.5 mg Documented by: Senna/Docusate Sodium (Senna Plus) 1 tab PO BID PRN PRN Reason: Constipation Last Admin: 01/16/20 06:14 Dose: 1 tab Documented by: Simvastatin (Zocor) 10 mg PO BEDTIME [facility] Last Admin: 01/23/20 21:48 Dose: 10 mg Documented by: Sodium Chloride (Saline Flush) 10 ml FLUSH ASDIRECTED PRN PRN Reason: Keep Vein Open Last Admin: 01/20/20 19:14 Dose: 10 ml Documented by: Sodium Chloride (Saline Flush) 10 ml FLUSH ASDIRECTED PRN PRN Reason: Keep Vein Open Last Admin: 01/20/20 08:21 Dose: 10 ml Documented by: Discontinued Medications Bisacodyl (Dulcolax) 10 mg RECTAL ONETIME ONE Stop: 01/22/20 05:04 Last Admin: 01/22/20 05:53 Dose: 10 mg Documented by: Enoxaparin Sodium (Lovenox) 40 mg SUBCUT Q24H [facility] Last Admin: 01/20/20 15:35 Dose: 40 mg Documented by: Enoxaparin Sodium (Lovenox) 30 mg SUBCUT Q24H [facility] Last Admin: 01/21/20 14:44 Dose: 30 mg Documented by: Furosemide (Lasix) 20 mg IVPUSH NOW ONE Stop: 01/22/20 08:31 Last Admin: 01/22/20 09:23 Dose: 20 mg Documented by: Furosemide (Lasix) 60 mg IVPUSH NOW ONE Stop: 01/23/20 13:16 Last Admin: 01/23/20 15:17 Dose: Not Given Documented by: Heparin Sodium (Porcine) (Heparin Sodium) 5,000 units SUBCUT Q12H [facility] Last Admin: 01/23/20 13:25 Dose: Not Given Documented by: Sodium Chloride (Normal Saline) 1,000 mls @ 125 mls/hr IV ASDIRECTED [facility] Last Admin: 01/14/20 12:00 Dose: 999 mls/hr Documented by: Lactated Ringer's (Ringers, Lactated) 1,000 mls @ 1,000 mls/hr IV .BOLUS ONE Stop: 01/14/20 12:47 Last Admin: 01/14/20 13:37 Dose: 1,000 mls/hr Documented by: Ceftriaxone Sodium 2 gm/ (Sodium Chloride) 100 mls @ 200 mls/hr IV Q24H [facility] Last Admin: 01/14/20 13:05 Dose: 200 mls/hr Documented by: Lactated Ringer's (Ringers, Lactated) Confirm Administered Dose 1,000 mls @ as directed .ROUTE .STK-MED ONE Stop: 01/14/20 14:55 Last Admin: 01/14/20 17:59 Dose: Not Given Documented by: Ceftriaxone Sodium 2 gm/ (Sodium Chloride) 100 mls @ 200 mls/hr IV Q24H [facility] Last Admin: 01/16/20 15:14 Dose: 200 mls/hr Documented by: Magnesium Sulfate (Magnesium Sulfate In Water Premix) 2 gm in 50 mls @ 25 mls/hr IV ONETIME ONE Stop: 01/14/20 17:55 Last Admin: 01/14/20 18:39 Dose: 25 mls/hr Documented by: Lactated Ringer's (Ringers, Lactated) 430 mls @ 999 mls/hr IV .BOLUS ONE Stop: 01/14/20 15:02 Last Admin: 01/14/20 14:37 Dose: 999 mls/hr Documented by: Magnesium Sulfate (Magnesium Sulfate In Water Premix) 2 gm in 50 mls @ 25 mls/hr IV ONETIME ONE Stop: 01/16/20 15:59 Last Admin: 01/16/20 13:11 Dose: 25 mls/hr Documented by: Levofloxacin/Dextrose 750 mg/ (Premix) 150 mls @ 100 mls/hr IV Q48H [facility] Last Admin: 01/21/20 09:27 Dose: 100 mls/hr Documented by: Sodium Chloride (Normal Saline) 1,000 mls @ 250 mls/hr IV ONETIME ONE Stop: 01/17/20 12:14 Last Admin: 01/17/20 09:30 Dose: 250 mls/hr Documented by: Sodium Chloride (Normal Saline) 394 mls @ 250 mls/hr IV .BOLUS ONE Stop: 01/17/20 17:49 Last Admin: 01/17/20 17:58 Dose: 250 mls/hr Documented by: Sodium Chloride (Normal Saline) 1,000 mls @ 250 mls/hr IV ONETIME ONE Stop: 01/17/20 12:29 Last Admin: 01/17/20 13:35 Dose: 250 mls/hr Documented by: Magnesium Sulfate (Magnesium Sulfate In Water Premix) 2 gm in 50 mls @ 25 mls/hr IV ONETIME ONE Stop: 01/18/20 09:28 Last Admin: 01/18/20 08:56 Dose: 25 mls/hr Documented by: Sodium Chloride (Normal Saline) 1,000 mls @ 75 mls/hr IV ASDIRECTED [place] Stop: 01/18/20 22:00 Last Admin: 01/18/20 10:34 Dose: 75 mls/hr Documented by: Sodium Chloride (Normal Saline) 1,000 mls @ 75 mls/hr IV ASDIRECTED [facility] Stop: 01/19/20 15:31 Last Infusion: 01/19/20 19:48 Dose: 50 mls/hr Documented by: Sodium Chloride (Normal Saline) 1,000 mls @ 50 mls/hr IV ASDIRECTED [facility] Zoledronic Acid 4 mg/ Sodium (Chloride) 105 mls @ 420 mls/hr IV ONETIME ONE Stop: 01/19/20 12:14 Last Admin: 01/19/20 12:11 Dose: 420 mls/hr Documented by: Magnesium Sulfate 4 gm/ Premix 50 mls @ 12.5 mls/hr IV ONETIME ONE Stop: 01/20/20 18:56 Last Admin: 01/20/20 18:36 Dose: Not Given Documented by: Magnesium Sulfate (Magnesium Sulfate In Water Premix) 2 gm in 50 mls @ 25 mls/hr IV Q2H [facility] Stop: 01/20/20 19:14 Last Admin: 01/20/20 17:03 Dose: 25 mls/hr Documented by: Sodium Chloride (Normal Saline) 1,000 mls @ 75 mls/hr IV ASDIRECTED [facility] Last Admin: 01/22/20 03:42 Dose: 75 mls/hr Documented by: Lorazepam (Ativan) 0.5 mg IVPUSH ONETIME ONE Stop: 01/21/20 14:38 Last Admin: 01/21/20 15:33 Dose: 0.5 mg Documented by: Magnesium Hydroxide (Milk Of Magnesia) 30 ml PO ONETIME ONE Stop: 01/21/20 07:01 Last Admin: 01/21/20 06:28 Dose: 30 ml Documented by: Potassium Chloride (Klor-Con M20) 20 meq PO ONETIME ONE Stop: 01/16/20 14:01 Last Admin: 01/16/20 13:11 Dose: 20 meq Documented by: Potassium Chloride (Klor-Con M20) 40 meq PO ONETIME ONE Stop: 01/21/20 13:01 Last Admin: 01/21/20 13:07 Dose: 40 meq Documented by: - Exam Quality Assessment: Supplemental Oxygen (1-1/2 L), DVT Prophylaxis (Heparin) General: Alert, Cooperative, Mild Distress. No: Oriented HEENT: Pupils Equal, Pupils Reactive, Mucous Membr. Moist/[place] Neck: Supple, Trachea Midline, Lymphadenopathy (Bilateral femoral lymph nodes) Lungs: Normal Respiratory Effort, Decreased Breath Sounds, Crackles (Bilateral bases) Cardiovascular: Regular Rate, Regular Rhythm, Murmurs (Grade 1 systolic murmur) GI/Abdominal Exam: Normal Bowel Sounds, Soft, Non-Tender, No Distention (Male) Exam: Deferred Back Exam: Normal Inspection, Full Range of Motion Extremities: Normal Inspection, Normal Range of Motion, Non-Tender, No Pedal Edema, Normal Capillary Refill Peripheral Pulses: 2+: Radial (L), Radial (R), Dorsalis Pedis (L), Dorsalis Pedis (R) Skin: Warm, Dry, Intact Neurological: No New Focal Deficit Psy/Mental Status: Alert, Normal Affect, Normal Mood Sepsis Event Note - Evaluation Sepsis Screening Result: Severe Sepsis Risk - Focused Exam Vital Signs: Vital Signs Temp Temp Pulse Resp BP BP Pulse Ox 01/24/20 09:13 122 H 102/66 01/24/20 09:00 98.0 F 20 102/66 95 01/24/20 03:32 98.2 F 110 H 24 H 133/96 H 92 L - Problem List & Annotations (1) Pneumonia SNOMED Code(s): 833987505 Code(s): J18.9 - PNEUMONIA, UNSPECIFIED ORGANISM Status: Acute Priority: High Current Visit: Yes Qualifiers: Pneumonia type: due to unspecified organism Laterality: bilateral Lung location: lower lobe of lung Qualified Code(s): J18.9 - Pneumonia, unspecified organism (2) Renal insufficiency SNOMED Code(s): 013360137, 711410108 Code(s): N28.9 - DISORDER OF KIDNEY AND URETER, UNSPECIFIED Status: Acute Priority: High Current Visit: Yes (3) Sepsis SNOMED Code(s): 69155564 Code(s): A41.9 - SEPSIS, UNSPECIFIED ORGANISM Status: Acute Priority: High Current Visit: Yes Qualifiers: Sepsis type: sepsis due to unspecified organism Sepsis acute organ dysfunction status: unspecified Qualified Code(s): A41.9 - Sepsis, unspecified organism (4) Generalized weakness SNOMED Code(s): 77928661 Code(s): R53.1 - WEAKNESS Status: Acute Priority: High Current Visit: Yes (5) Sepsis due to pneumonia SNOMED Code(s): 40536643 Code(s): J18.9 - PNEUMONIA, UNSPECIFIED ORGANISM; A41.9 - SEPSIS, UNSPECIFIED ORGANISM Status: Acute Priority: High Current Visit: Yes (6) Hypercalcemia SNOMED Code(s): 29110981 Code(s): E83.52 - HYPERCALCEMIA Status: Acute Priority: High Current Visit: Yes - Problem List Review Problem List Initiated/Reviewed/Updated: Yes - My Orders Last 24 Hours: My Active Orders 01/23/20 10:26 Admission Status [Patient Status] [ADT] Routine 01/24/20 09:00 Communication Order [RC] ASDIRECTED 01/24/20 12:00 Furosemide [Lasix] 60 mg IVPUSH NOW ONE 01/28/20 07:00 CBC W/O DIFF,HEMOGRAM [HEME] MOTH@0700 01/31/20 07:00 CBC W/O DIFF,HEMOGRAM [HEME] MOTH@0700 02/04/20 07:00 CBC W/O DIFF,HEMOGRAM [HEME] MOTH@0700 02/07/20 07:00 CBC W/O DIFF,HEMOGRAM [HEME] MOTH@0700 02/11/20 07:00 CBC W/O DIFF,HEMOGRAM [HEME] MOTH@0700 - Assessment Assessment:: 01/15/20 * Remains on room air. * Day 2 of Rocephin IV. * Waiting for blood culture report. * PT OT to eval and treat. * Vital signs remained stable. And patient has been afebrile. * Lab work reveals: BUN 14, creatinine 1.3, GFR 53, lactic acid 2.0, magnesium 1.7, calcium 12.5 down from 13.6. * Lovenox for DVT prophylaxis. * Echocardiogram from 10/05/2016: #1 left ventricular ejection fraction, by visual estimation, is 55 to 60%. #2 normal right ventricular systolic function. #3 mitral valve regurgitation. #4 mild tricuspid valve regurgitation. #5 abnormal septal motion consistent with postoperative status. #6 no regional wall motion abnormalities. 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 MG 16 mmHg, no AI. #8 findings similar to 318 of 16. 01/16/20 * He is on room air * Day 3 of Rocephin IV * Blood cultures are showing no growth. * Vital signs have been stable and patient has been afebrile. * Discharge recommendations are for home health care/physical therapy/Occupational Therapy * WBC 8.44, BUN 17, creatinine 1.3, GFR 53, calcium 12.1, magnesium 1.5 * Calcium level is slowly coming down. The patient's reports that he does consume a significant amount of extra strength Tums at home. I am still awaiting the results of the PTH and ionized calcium levels to return however I do believe the reason for his elevated calcium is due to the Tums. * Lovenox for DVT prophylaxis. 01/17/20 * Patient remains on room air * He is on day 4 of Rocephin * Blood cultures continue to show no growth. * Potassium 4.7, BUN 24, creatinine 1.4, GFR 48, lactic acid 2.3, calcium level 13.3. * The patient has been afebrile however he has been tachycardic in the low 100s despite receiving metoprolol 50 mg twice daily. Nursing staff also reports that the patient is tachypneic. Which makes him qualify for adults severe sepsis protocol. * PT/OT working with the patient. 01/19/20 Impression/Plan: Hypercalcemia with low iPTH Sepsis d/t PNA Bilateral PNA FERNANDA * Patient remains confused oriented to name only. * He is on room air * Sepsis criteria. * Hemodynamics have improved. * IVF as needed * Labs re: iCa, iPTH--ordered; (If PTHrP elevated-check for malignancy cf elevated PTHrP with elevated 1, 25 dihydroxyvitamin D usually lymphoma or granulomatous disease). * DC planning 01/21/20 * O2 saturations dropped to 87% on room air today. Patient was placed on oxygen at 1 L per nasal cannula * Chest x-ray completed this morning shows unchanged small bilateral pleural effusions. Mildly decreased atelectasis. No acute pulmonary edema. * Lab work reveals: WBC 11.44 up from 9.18, platelet count 554 up from 542, BUN 36, creatinine 2.7, calcium 12.4 down from 14.4, vitamin D level 43.9, awaiting repeat PTH level. * Suspect renal function decreased due to Zometa that was given yesterday as the patient is not on any other medications that would cause him renal injury. * PT OT to eval and treat. 01/22/20 * Chest x-ray from 01/22/2020: There is mild perihilar interstitial prominence consistent with volume overload or early congestive heart failure. These findings have worsened since previous study. * Patient remains on 1.5 L of oxygen per nasal cannula. * Patient is still confused, but he appears more groggy today. He does arouse to verbal command. * Lab work reveals WBC 12.32 which is up from 11.44, sodium 146, magnesium 2.6, BUN 43 up from 36, creatinine 3.1 up from 2.7, calcium 12.3 down from 12.4, blood cultures continue to show no growth. * Nursing staff reports that patient has a mass to his right groin. Ultrasound of right groin reveals: In the area of swelling there is a mass. This is heterogeneous with a small amount of area of increased flow within it. This could be a large heterogeneous inflamed or infected or neoplastic lymph node versus a complicated abscess or hematoma. Consider CT scan for further visualization versus pathologic sampling as clinically indicated. * Levaquin decreased to 500 mg IV every 48 hours per pharmacy for renal dosing. * MRI of head without contrast obtained 01/21/2020: 1. No evidence of acute ischemia, mass or hydrocephalus. Note that unenhanced imaging is less sensitive than enhanced imaging for detection of malignancy. 2. Typical senescent changes with diffuse atrophy of the brain. 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 01/23/20 * Patient is much more lethargic today however he does respond to verbal command and will converse. Remains confused. * Remains on 1.5 L of oxygen per nasal cannula. * Chest x-ray from 01/23/2020: 1. There is mild perihilar interstitial prominence consistent with volume overload or early congestive heart failure. 2. Retrocardiac increased opacity most likely represents a combination of consolidation, atelectasis, and or pleural effusion. These findings have worsened since previous study. * Patient has been mildly tachycardic 104-111, blood pressures remain in the 120s to 130s/70s and patient has been afebrile the past 24 hours. * WBC 11.07 which is down from 12.32, platelet count 567 which is up from 540, sodium 148, potassium 3.7, BUN 51, creatinine 3.2, GFR 19, calcium 12.0, magnesium 2.6, procalcitonin from yesterday 0.22 01/24/20 * Patient is much more alert today. He is sitting up in the chair visiting with family. Still remains confused. * Continues on 1-1/2 L of oxygen per nasal cannula. * I had ordered 60 mg of IV Lasix to be given yesterday however the patient's blood pressures were in the 90s systolic so nursing staff held the dose at that time. * Labs reveal WBC 10.31, sodium 150, BUN 59, creatinine 3.6, GFR 16, calcium 11.8. * Vital signs have been stable otherwise and patient remains afebrile. * After a visit with the family yesterday they requested that he be made comfort measures. - Plan Plan:: Patient will be continued on the current regimen. Will need close follow up by PCP as mentioned above. Likely DC, Mon or Tues pending response to therapy. 01/21/20 * Continue Levaquin IV * Repeat labs in the a.m. * Renally dose all medications * Normal saline at 75 mL's per hour * Nursing and respiratory care to titrate oxygen * Continue incentive spirometer * Follow speech therapy recommendations for swallowing * director of tax services are working with family regarding [facility]cf placement * Continue Lovenox for DVT prophylaxis as pharmacist states this is still recommended * Continue to monitor vital signs * Continue to monitor intake and output. 01/22/20 * Continue Levaquin IV. * Repeat labs in the a.m. * Renally dose all medications. * Suspect patient's elevation in BUN/creatinine are due to zoledronic acid. Suspect that these values may continue to rise before they decrease again as seen with acute on chronic renal failure. * IV fluids discontinued at this point due to the patient developing some fluid overload. * Lasix 20 mg x 1 dose today. * Awaiting results of CT scan of abdomen and pelvis without contrast. Unable to use contrast with scanning due to patient's renal failure. * Suspect that patient does have some form of cancerous process due to elevated calcium levels, elevated absolute monocyte count, and swelling to lymph nodes in groin. Of note, nursing staff now reports that patient has swelling in left groin as well. There is a small mass noted that is approximately 2 cm x 2 cm. Mass is spongy. Mass is slightly mobile and it is not tender to palpation. * Lovenox discontinued. Heparin 5000 units subcu every 12 hours started. * Patient continues to work with physical therapy. * CT of the abdomen and pelvis without contrast from 01/22/2020 impression: 1. Diffuse adenopathy in the upper abdomen as well as within the groins and possibly the right iliac chain. 2. Fluid collection noted in the upper left quadrant possibly involving the spleen. This could be adenopathy versus a pseudocyst or other pancreas lesion. 3. Cholelithiasis. 4. Possible gastric mass. 5. Bilateral pleural effusions. 6. Artifact from motion of the patient's arms. 7. Consider contrast scanning for further and better evaluation. 8. Multiple fractures within the spine. Stomach and bowel: There may be a mass arising from the stomach measuring 56 x 49 mm on image 2 of 12. There is a large mass noted in the left upper quadrant measuring 106 x 104 mm. This has a house in field units of the 3 and could represent a pancreatic pseudocyst or phlegmon. * Shortly after receiving the radiologist report for CT of the abdomen, the patient's and his son came to visit the patient. I discussed the results of the CT scan and the grim prognosis related to this. Marta social human services assistants was also in the conference room with me discussing the patient's status. At this time we will continue current treatments. Family is going to go home and discuss options with the rest of the patient's children and they will give us an answer in the next day or 2 as to the next step in the patient's plan of care. Comfort measures and hospice were discussed with the patient's family. Patient remains a DNR DNI. 01/23/20 * At this point we are waiting back to hear from the family in which direction they would like his care to go. Waiting for them to turn in chcf paperwork and to give us the word on whether or not they want patient to be comfort measures or hospice. * Continue current treatment regimen until we hear from them. * Will repeat labs in the a.m. * Heparin 5000 units subcu every 12 hours for DVT prophylaxis. * Will give 60 mg of IV Lasix x1 dose today. 01/24/20 * Patient is on comfort measures, at this point we are waiting for family to get in applications for ch[facility] placement. * Will reorder 60 mg of IV Lasix x1 dose today. * Vital signs once per shift. * director of tax services for discharge planning and chcf placement. * Heparin for DVT prophylaxis.
[2020-01-24] MEDS: QUEtiapine 25 MG Tab PO SCH (18:01)
[2020-01-24] MEDS: Simvastatin 10 MG Tab PO SCH (21:23)
[2020-01-25] MEDS: Pantoprazole 40 MG Tab.CR PO SCH (06:41)
[2020-01-25] MEDS: Aspirin 81 MG Tab.EC PO SCH (09:50)
[2020-01-25] MEDS: Metoprolol Tartrate 50 MG Tab PO SCH ×2 (09:51→23:33)
[2020-01-25] MEDS: Multivitamins,Therapeutic Tab PO SCH (09:52)
[2020-01-25] MEDS: Furosemide 20 MG Tab PO SCH (09:52)
[2020-01-25] MEDS: Potassium Chloride 20 MEQ Tab.ER PO SCH (09:52)
[2020-01-25] MEDS: Levofloxacin 500 MG Tab PO SCH (09:52)
[2020-01-25] MEDS: Heparin Sodium 5,000 Units/ML Vial SUBCUT SCH ×2 (09:53→23:33)
--- NOTE | 2020-01-25 11:49 | PCM.PN ---
- General Info Date of Service: 01/25/20 Admission Dx/Problem (Free Text): Admission Diagnosis/Problem Admission Diagnosis/Problem Sepsis due to pneumonia Subjective Update: Patient is doing about the same. Remains confused. Nursing staff reports that he did sleep well last night. Functional Status: Reports: Pain Controlled, Tolerating Diet, Urinating (Incontinent) - Review of Systems General: Reports: No Symptoms HEENT: Reports: No Symptoms Pulmonary: Reports: No Symptoms Cardiovascular: Reports: No Symptoms Gastrointestinal: Reports: No Symptoms Genitourinary: Reports: Incontinence Musculoskeletal: Reports: No Symptoms Skin: Reports: No Symptoms Neurological: Reports: Confusion Psychiatric: Reports: Confusion - Patient Data Vitals - Most Recent: Last Vital Signs Temp 98.4 F 01/25/20 07:29 Pulse 112 H 01/25/20 09:51 Resp 20 01/25/20 07:29 BP 118/89 01/25/20 09:51 Pulse Ox 93 L 01/25/20 07:29 Weight - Most Recent: 168 lb I&O - Last 24 Hours: Intake & Output 01/24/20 01/25/20 01/25/20 22:59 06:59 14:59 Intake Total 200 150 Output Total 250 300 Balance -50 -150 Lab Results Last 24 Hours: Laboratory Results - last 24 hr 01/24/20 Range/Units 22:05 Urine Color Yellow (Yellow) Urine Appearance Clear (Clear) Urine pH 5.5 (5.0-8.0) Ur Specific [place] 1.025 (1.005-1.030) Urine Protein 1+ H (Negative) Urine Glucose (UA) Negative (Negative) Urine Ketones Negative (Negative) Urine Occult Blood Negative (Negative) Urine Nitrite Negative (Negative) Urine Bilirubin Negative (Negative) Urine Urobilinogen 0.2 (0.2-1.0) Ur Leukocyte Esterase Negative (Negative) U Hyaline Cast (Auto) 0-5 (0-5) /lpf Urine RBC 0-5 (0-5) /hpf Urine WBC 0-5 (0-5) /hpf Ur Squamous Epith Cells 0-5 (0-5) /hpf Amorphous Sediment Few H (NOT SEEN) /hpf Urine Bacteria Few (FEW) /hpf Urine Mucus Few (FEW) /hpf Henry Results Last 24 Hours: Microbiology 01/17/20 08:40 Aerobic Blood Culture - Final Blood - Venous - Lab Draw NO GROWTH AFTER 7 DAYS Anaerobic Blood Culture - Final NO GROWTH AFTER 7 DAYS 01/17/20 08:55 Aerobic Blood Culture - Final Blood - Venous NO GROWTH AFTER 7 DAYS Anaerobic Blood Culture - Final NO GROWTH AFTER 7 DAYS Med Orders - Current: Current Medications Acetaminophen (Tylenol) 650 mg PO Q4H PRN PRN Reason: Pain (Mild 1-3)/fever Last Admin: 01/23/20 17:42 Dose: 650 mg Documented by: Aspirin (Halfprin) 81 mg PO DAILY [facility] Last Admin: 01/25/20 09:50 Dose: 81 mg Documented by: Bisacodyl (Dulcolax) 5 mg PO DAILY PRN PRN Reason: Constipation Bisacodyl (Dulcolax) 10 mg RECTAL DAILY PRN PRN Reason: Constipation Last Admin: 01/16/20 16:13 Dose: 10 mg Documented by: Docusate Sodium (Colace) 100 mg PO BID PRN PRN Reason: Constipation Last Admin: 01/20/20 09:15 Dose: 100 mg Documented by: Furosemide (Lasix) 20 mg PO DAILY [facility] Last Admin: 01/25/20 09:52 Dose: 20 mg Documented by: Heparin Sodium (Porcine) (Heparin Sodium) 5,000 units SUBCUT Q12H [facility] Last Admin: 01/25/20 09:53 Dose: 5,000 units Documented by: Levofloxacin (Levaquin) 500 mg PO Q48H [facility] Last Admin: 01/25/20 09:52 Dose: 500 mg Documented by: Metoprolol Tartrate (Lopressor) 50 mg PO BID [facility] Last Admin: 01/25/20 09:51 Dose: 50 mg Documented by: Ondansetron HCl (Zofran) 4 mg IV Q4H PRN PRN Reason: Nausea/Vomiting Pantoprazole Sodium (Protonix) 40 mg PO DAILY@0700 [facility] Last Admin: 01/25/20 06:41 Dose: 40 mg Documented by: Potassium Chloride (Klor-Con M20) 20 meq PO DAILY [facility] Last Admin: 01/25/20 09:52 Dose: 20 meq Documented by: Quetiapine Fumarate (Seroquel) 12.5 mg PO 1700 [facility] Last Admin: 01/24/20 18:01 Dose: 12.5 mg Documented by: Senna/Docusate Sodium (Senna Plus) 1 tab PO BID PRN PRN Reason: Constipation Last Admin: 01/16/20 06:14 Dose: 1 tab Documented by: Simvastatin (Zocor) 10 mg PO BEDTIME [facility] Last Admin: 01/24/20 21:23 Dose: 10 mg Documented by: Sodium Chloride (Saline Flush) 10 ml FLUSH ASDIRECTED PRN PRN Reason: Keep Vein Open Last Admin: 01/20/20 19:14 Dose: 10 ml Documented by: Sodium Chloride (Saline Flush) 10 ml FLUSH ASDIRECTED PRN PRN Reason: Keep Vein Open Last Admin: 01/20/20 08:21 Dose: 10 ml Documented by: Discontinued Medications Bisacodyl (Dulcolax) 10 mg RECTAL ONETIME ONE Stop: 01/22/20 05:04 Last Admin: 01/22/20 05:53 Dose: 10 mg Documented by: Enoxaparin Sodium (Lovenox) 40 mg SUBCUT Q24H [facility] Last Admin: 01/20/20 15:35 Dose: 40 mg Documented by: Enoxaparin Sodium (Lovenox) 30 mg SUBCUT Q24H [facility] Last Admin: 01/21/20 14:44 Dose: 30 mg Documented by: Furosemide (Lasix) 20 mg IVPUSH NOW ONE Stop: 01/22/20 08:31 Last Admin: 01/22/20 09:23 Dose: 20 mg Documented by: Furosemide (Lasix) 60 mg IVPUSH NOW ONE Stop: 01/23/20 13:16 Last Admin: 01/23/20 15:17 Dose: Not Given Documented by: Furosemide (Lasix) 60 mg IVPUSH NOW ONE Stop: 01/24/20 12:01 Last Admin: 01/24/20 11:13 Dose: 60 mg Documented by: Heparin Sodium (Porcine) (Heparin Sodium) 5,000 units SUBCUT Q12H [facility] Last Admin: 01/23/20 13:25 Dose: Not Given Documented by: Sodium Chloride (Normal Saline) 1,000 mls @ 125 mls/hr IV ASDIRECTED [facility] Last Admin: 01/14/20 12:00 Dose: 999 mls/hr Documented by: Lactated Ringer's (Ringers, Lactated) 1,000 mls @ 1,000 mls/hr IV .BOLUS ONE Stop: 01/14/20 12:47 Last Admin: 01/14/20 13:37 Dose: 1,000 mls/hr Documented by: Ceftriaxone Sodium 2 gm/ (Sodium Chloride) 100 mls @ 200 mls/hr IV Q24H [facility] Last Admin: 01/14/20 13:05 Dose: 200 mls/hr Documented by: Lactated Ringer's (Ringers, Lactated) Confirm Administered Dose 1,000 mls @ as directed .ROUTE .STK-MED ONE Stop: 01/14/20 14:55 Last Admin: 01/14/20 17:59 Dose: Not Given Documented by: Ceftriaxone Sodium 2 gm/ (Sodium Chloride) 100 mls @ 200 mls/hr IV Q24H [facility] Last Admin: 01/16/20 15:14 Dose: 200 mls/hr Documented by: Magnesium Sulfate (Magnesium Sulfate In Water Premix) 2 gm in 50 mls @ 25 mls/hr IV ONETIME ONE Stop: 01/14/20 17:55 Last Admin: 01/14/20 18:39 Dose: 25 mls/hr Documented by: Lactated Ringer's (Ringers, Lactated) 430 mls @ 999 mls/hr IV .BOLUS ONE Stop: 01/14/20 15:02 Last Admin: 01/14/20 14:37 Dose: 999 mls/hr Documented by: Magnesium Sulfate (Magnesium Sulfate In Water Premix) 2 gm in 50 mls @ 25 mls/hr IV ONETIME ONE Stop: 01/16/20 15:59 Last Admin: 01/16/20 13:11 Dose: 25 mls/hr Documented by: Levofloxacin/Dextrose 750 mg/ (Premix) 150 mls @ 100 mls/hr IV Q48H [facility] Last Admin: 01/21/20 09:27 Dose: 100 mls/hr Documented by: Sodium Chloride (Normal Saline) 1,000 mls @ 250 mls/hr IV ONETIME ONE Stop: 01/17/20 12:14 Last Admin: 01/17/20 09:30 Dose: 250 mls/hr Documented by: Sodium Chloride (Normal Saline) 394 mls @ 250 mls/hr IV .BOLUS ONE Stop: 01/17/20 17:49 Last Admin: 01/17/20 17:58 Dose: 250 mls/hr Documented by: Sodium Chloride (Normal Saline) 1,000 mls @ 250 mls/hr IV ONETIME ONE Stop: 01/17/20 12:29 Last Admin: 01/17/20 13:35 Dose: 250 mls/hr Documented by: Magnesium Sulfate (Magnesium Sulfate In Water Premix) 2 gm in 50 mls @ 25 mls/hr IV ONETIME ONE Stop: 01/18/20 09:28 Last Admin: 01/18/20 08:56 Dose: 25 mls/hr Documented by: Sodium Chloride (Normal Saline) 1,000 mls @ 75 mls/hr IV ASDIRECTED [facility] Stop: 01/18/20 22:00 Last Admin: 01/18/20 10:34 Dose: 75 mls/hr Documented by: Sodium Chloride (Normal Saline) 1,000 mls @ 75 mls/hr IV ASDIRECTED [facility] Stop: 01/19/20 15:31 Last Infusion: 01/19/20 19:48 Dose: 50 mls/hr Documented by: Sodium Chloride (Normal Saline) 1,000 mls @ 50 mls/hr IV ASDIRECTED [facility] Zoledronic Acid 4 mg/ Sodium (Chloride) 105 mls @ 420 mls/hr IV ONETIME ONE Stop: 01/19/20 12:14 Last Admin: 01/19/20 12:11 Dose: 420 mls/hr Documented by: Magnesium Sulfate 4 gm/ Premix 50 mls @ 12.5 mls/hr IV ONETIME ONE Stop: 01/20/20 18:56 Last Admin: 01/20/20 18:36 Dose: Not Given Documented by: Magnesium Sulfate (Magnesium Sulfate In Water Premix) 2 gm in 50 mls @ 25 mls/hr IV Q2H [facility] Stop: 01/20/20 19:14 Last Admin: 01/20/20 17:03 Dose: 25 mls/hr Documented by: Sodium Chloride (Normal Saline) 1,000 mls @ 75 mls/hr IV ASDIRECTED [facility] Last Admin: 01/22/20 03:42 Dose: 75 mls/hr Documented by: Levofloxacin/Dextrose 500 mg/ (Premix) 100 mls @ 66.667 mls/hr IV Q48H [facility] Last Admin: 01/23/20 09:00 Dose: 66.667 mls/hr Documented by: Lorazepam (Ativan) 0.5 mg IVPUSH ONETIME ONE Stop: 01/21/20 14:38 Last Admin: 01/21/20 15:33 Dose: 0.5 mg Documented by: Magnesium Hydroxide (Milk Of Magnesia) 30 ml PO ONETIME ONE Stop: 01/21/20 07:01 Last Admin: 01/21/20 06:28 Dose: 30 ml Documented by: Multivitamins (Thera) 1 each PO DAILY [facility] Last Admin: 01/25/20 09:52 Dose: 1 each Documented by: Potassium Chloride (Klor-Con M20) 20 meq PO ONETIME ONE Stop: 01/16/20 14:01 Last Admin: 01/16/20 13:11 Dose: 20 meq Documented by: Potassium Chloride (Klor-Con M20) 40 meq PO ONETIME ONE Stop: 01/21/20 13:01 Last Admin: 01/21/20 13:07 Dose: 40 meq Documented by: - Exam Quality Assessment: Supplemental Oxygen (2 L per nasal cannula), DVT Prophylaxis (Lovenox) General: Alert, No Acute Distress. No: Oriented (Oriented x0.) HEENT: Pupils Equal, Pupils Reactive, Mucous Membr. Moist/[place] Neck: Supple, Trachea Midline, Lymphadenopathy (Femoral bilaterally) Lungs: Clear to Auscultation, Normal Respiratory Effort Cardiovascular: Regular Rate, Regular Rhythm, Murmurs (Systolic) GI/Abdominal Exam: Normal Bowel Sounds, Soft, Non-Tender, No Distention (Male) Exam: Deferred Back Exam: Normal Inspection, Full Range of Motion Extremities: Normal Inspection, Normal Range of Motion, Non-Tender, No Pedal Edema, Normal Capillary Refill Peripheral Pulses: 2+: Radial (L), Radial (R), Dorsalis Pedis (L), Dorsalis Pedis (R) Skin: Warm, Dry, Intact Neurological: No New Focal Deficit Psy/Mental Status: Alert, Normal Affect, Normal Mood Sepsis Event Note - Evaluation Sepsis Screening Result: No Definite Risk - Focused Exam Vital Signs: Vital Signs Temp Pulse Resp BP Pulse Ox 01/25/20 09:51 112 H 118/89 01/25/20 07:29 98.4 F 125 H 20 115/71 93 L - Problem List & Annotations (1) Pneumonia SNOMED Code(s): 943851327 Code(s): J18.9 - PNEUMONIA, UNSPECIFIED ORGANISM Status: Acute Priority: High Current Visit: Yes Qualifiers: Pneumonia type: due to unspecified organism Laterality: bilateral Lung location: lower lobe of lung Qualified Code(s): J18.9 - Pneumonia, unspecified organism (2) Renal insufficiency SNOMED Code(s): 371664130, 346265300 Code(s): N28.9 - DISORDER OF KIDNEY AND URETER, UNSPECIFIED Status: Acute Priority: High Current Visit: Yes (3) Sepsis SNOMED Code(s): 79617831 Code(s): A41.9 - SEPSIS, UNSPECIFIED ORGANISM Status: Acute Priority: High Current Visit: Yes Qualifiers: Sepsis type: sepsis due to unspecified organism Sepsis acute organ dysfunction status: unspecified Qualified Code(s): A41.9 - Sepsis, unspecified organism (4) Generalized weakness SNOMED Code(s): 47172258 Code(s): R53.1 - WEAKNESS Status: Acute Priority: High Current Visit: Yes (5) Sepsis due to pneumonia SNOMED Code(s): 51822629 Code(s): J18.9 - PNEUMONIA, UNSPECIFIED ORGANISM; A41.9 - SEPSIS, UNSPECIFIED ORGANISM Status: Acute Priority: High Current Visit: Yes (6) Hypercalcemia SNOMED Code(s): 77986910 Code(s): E83.52 - HYPERCALCEMIA Status: Acute Priority: High Current Visit: Yes - Problem List Review Problem List Initiated/Reviewed/Updated: Yes - My Orders Last 24 Hours: My Active Orders 01/25/20 09:00 levoFLOXacin [Levaquin] 500 mg PO Q48H 01/28/20 07:00 CBC W/O DIFF,HEMOGRAM [HEME] MOTH@0700 01/31/20 07:00 CBC W/O DIFF,HEMOGRAM [HEME] MOTH@00 02/04/20 07:00 CBC W/O DIFF,HEMOGRAM [HEME] MOTH@00 02/07/20 07:00 CBC W/O DIFF,HEMOGRAM [HEME] MOTH@00 02/11/20 07:00 CBC W/O DIFF,HEMOGRAM [HEME] MOTH@07 - Assessment Assessment:: 01/15/20 * Remains on room air. * Day 2 of Rocephin IV. * Waiting for blood culture report. * PT OT to eval and treat. * Vital signs remained stable. And patient has been afebrile. * Lab work reveals: BUN 14, creatinine 1.3, GFR 53, lactic acid 2.0, magnesium 1.7, calcium 12.5 down from 13.6. * Lovenox for DVT prophylaxis. * Echocardiogram from 10/05/2016: #1 left ventricular ejection fraction, by visual estimation, is 55 to 60%. #2 normal right ventricular systolic function. #3 mitral valve regurgitation. #4 mild tricuspid valve regurgitation. #5 abnormal septal motion consistent with postoperative status. #6 no regional wall motion abnormalities. 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 MG 16 mmHg, no AI. #8 findings similar to 318 of 16. 01/16/20 * He is on room air * Day 3 of Rocephin IV * Blood cultures are showing no growth. * Vital signs have been stable and patient has been afebrile. * Discharge recommendations are for home health care/physical therapy/Occupational Therapy * WBC 8.44, BUN 17, creatinine 1.3, GFR 53, calcium 12.1, magnesium 1.5 * Calcium level is slowly coming down. The patient's reports that he does consume a significant amount of extra strength Tums at home. I am still awaiting the results of the PTH and ionized calcium levels to return however I do believe the reason for his elevated calcium is due to the Tums. * Lovenox for DVT prophylaxis. 01/17/20 * Patient remains on room air * He is on day 4 of Rocephin * Blood cultures continue to show no growth. * Potassium 4.7, BUN 24, creatinine 1.4, GFR 48, lactic acid 2.3, calcium level 13.3. * The patient has been afebrile however he has been tachycardic in the low 100s despite receiving metoprolol 50 mg twice daily. Nursing staff also reports that the patient is tachypneic. Which makes him qualify for adults severe sepsis protocol. * PT/OT working with the patient. 01/19/20 Impression/Plan: Hypercalcemia with low iPTH Sepsis d/t PNA Bilateral PNA FERNANDA * Patient remains confused oriented to name only. * He is on room air * Sepsis criteria. * Hemodynamics have improved. * IVF as needed * Labs re: iCa, iPTH--ordered; (If PTHrP elevated-check for malignancy cf elevated PTHrP with elevated 1, 25 dihydroxyvitamin D usually lymphoma or granulomatous disease). * DC planning 01/21/20 * O2 saturations dropped to 87% on room air today. Patient was placed on oxygen at 1 L per nasal cannula * Chest x-ray completed this morning shows unchanged small bilateral pleural effusions. Mildly decreased atelectasis. No acute pulmonary edema. * Lab work reveals: WBC 11.44 up from 9.18, platelet count 554 up from 542, BUN 36, creatinine 2.7, calcium 12.4 down from 14.4, vitamin D level 43.9, awaiting repeat PTH level. * Suspect renal function decreased due to Zometa that was given yesterday as the patient is not on any other medications that would cause him renal injury. * PT OT to eval and treat. 01/22/20 * Chest x-ray from 01/22/2020: There is mild perihilar interstitial prominence consistent with volume overload or early congestive heart failure. These findings have worsened since previous study. * Patient remains on 1.5 L of oxygen per nasal cannula. * Patient is still confused, but he appears more groggy today. He does arouse to verbal command. * Lab work reveals WBC 12.32 which is up from 11.44, sodium 146, magnesium 2.6, BUN 43 up from 36, creatinine 3.1 up from 2.7, calcium 12.3 down from 12.4, blood cultures continue to show no growth. * Nursing staff reports that patient has a mass to his right groin. Ultrasound of right groin reveals: In the area of swelling there is a mass. This is heterogeneous with a small amount of area of increased flow within it. This could be a large heterogeneous inflamed or infected or neoplastic lymph node versus a complicated abscess or hematoma. Consider CT scan for further visualization versus pathologic sampling as clinically indicated. * Levaquin decreased to 500 mg IV every 48 hours per pharmacy for renal dosing. * MRI of head without contrast obtained 01/21/2020: 1. No evidence of acute ischemia, mass or hydrocephalus. Note that unenhanced imaging is less sensitive than enhanced imaging for detection of malignancy. 2. Typical senescent changes with diffuse atrophy of the brain. 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 01/23/20 * Patient is much more lethargic today however he does respond to verbal command and will converse. Remains confused. * Remains on 1.5 L of oxygen per nasal cannula. * Chest x-ray from 01/23/2020: 1. There is mild perihilar interstitial prominence consistent with volume overload or early congestive heart failure. 2. Retrocardiac increased opacity most likely represents a combination of consolidation, atelectasis, and or pleural effusion. These findings have worsened since previous study. * Patient has been mildly tachycardic 104-111, blood pressures remain in the 120s to 130s/70s and patient has been afebrile the past 24 hours. * WBC 11.07 which is down from 12.32, platelet count 567 which is up from 540, sodium 148, potassium 3.7, BUN 51, creatinine 3.2, GFR 19, calcium 12.0, magnesium 2.6, procalcitonin from yesterday 0.22 01/24/20 * Patient is much more alert today. He is sitting up in the chair visiting with family. Still remains confused. * Continues on 1-1/2 L of oxygen per nasal cannula. * I had ordered 60 mg of IV Lasix to be given yesterday however the patient's blood pressures were in the 90s systolic so nursing staff held the dose at that time. * Labs reveal WBC 10.31, sodium 150, BUN 59, creatinine 3.6, GFR 16, calcium 11.8. * Vital signs have been stable otherwise and patient remains afebrile. * After a visit with the family yesterday they requested that he be made comfort measures. 01/25/20 * Nursing staff reports that patient was found on the floor sitting on his butt beside the bed this morning by the patient's family member. Assessment reveals no outward injuries. * Continues on 2 L of oxygen per nasal cannula * Lung sounds are clear this morning. * Patient did have a coughing fit when given his pills this morning by nursing staff. They report that they had crush them and put them in pudding. * Continues on comfort measures - Plan Plan:: Patient will be continued on the current regimen. Will need close follow up by PCP as mentioned above. Likely DC, Mon or Tues pending response to therapy. 01/21/20 * Continue Levaquin IV * Repeat labs in the a.m. * Renally dose all medications * Normal saline at 75 mL's per hour * Nursing and respiratory care to titrate oxygen * Continue incentive spirometer * Follow speech therapy recommendations for swallowing * office services coordinator are working with family regarding care home placement * Continue Lovenox for DVT prophylaxis as pharmacist states this is still recommended * Continue to monitor vital signs * Continue to monitor intake and output. 01/22/20 * Continue Levaquin IV. * Repeat labs in the a.m. * Renally dose all medications. * Suspect patient's elevation in BUN/creatinine are due to zoledronic acid. Suspect that these values may continue to rise before they decrease again as seen with acute on chronic renal failure. * IV fluids discontinued at this point due to the patient developing some fluid overload. * Lasix 20 mg x 1 dose today. * Awaiting results of CT scan of abdomen and pelvis without contrast. Unable to use contrast with scanning due to patient's renal failure. * Suspect that patient does have some form of cancerous process due to elevated calcium levels, elevated absolute monocyte count, and swelling to lymph nodes in groin. Of note, nursing staff now reports that patient has swelling in left groin as well. There is a small mass noted that is approximately 2 cm x 2 cm. Mass is spongy. Mass is slightly mobile and it is not tender to palpation. * Lovenox discontinued. Heparin 5000 units subcu every 12 hours started. * Patient continues to work with physical therapy. * CT of the abdomen and pelvis without contrast from 01/22/2020 impression: 1. Diffuse adenopathy in the upper abdomen as well as within the groins and possibly the right iliac chain. 2. Fluid collection noted in the upper left quadrant possibly involving the spleen. This could be adenopathy versus a pseudocyst or other pancreas lesion. 3. Cholelithiasis. 4. Possible gastric mass. 5. Bilateral pleural effusions. 6. Artifact from motion of the patient's arms. 7. Consider contrast scanning for further and better evaluation. 8. Multiple fractures within the spine. Stomach and bowel: There may be a mass arising from the stomach measuring 56 x 49 mm on image 2 of 12. There is a large mass noted in the left upper quadrant measuring 106 x 104 mm. This has a house in field units of the 3 and could represent a pancreatic pseudocyst or phlegmon. * Shortly after receiving the radiologist report for CT of the abdomen, the patient's and his son came to visit the patient. I discussed the results of the CT scan and the grim prognosis related to this. Marta socially responsible investment adviser was also in the conference room with me discussing the patient's status. At this time we will continue current treatments. Family is going to go home and discuss options with the rest of the patient's children and they will give us an answer in the next day or 2 as to the next step in the patient's plan of care. Comfort measures and hospice were discussed with the patient's family. Patient remains a DNR DNI. 01/23/20 * At this point we are waiting back to hear from the family in which direction they would like his care to go. Waiting for them to turn in care home paperwork and to give us the word on whether or not they want patient to be comfort measures or hospice. * Continue current treatment regimen until we hear from them. * Will repeat labs in the a.m. * Heparin 5000 units subcu every 12 hours for DVT prophylaxis. * Will give 60 mg of IV Lasix x1 dose today. 01/24/20 * Patient is on comfort measures, at this point we are waiting for family to get in applications for care home placement. * Will reorder 60 mg of IV Lasix x1 dose today. * Vital signs once per shift. * office services coordinator for discharge planning and care home placement. * Heparin for DVT prophylaxis. 01/25/20 * Comfort measures * office services coordinator for discharge planning and care home placement * It has been brought to our attention that the patient's had a stroke yesterday, so there may be a delay in getting the patient transferred to a care home. * Heparin for DVT prophylaxis
[2020-01-25] MEDS: QUEtiapine 25 MG Tab PO SCH (16:09)
[2020-01-25] MEDS: Simvastatin 10 MG Tab PO SCH (23:33)
[2020-01-26] MEDS: Pantoprazole 40 MG Tab.CR PO SCH (06:56)
[2020-01-26] MEDS: Aspirin 81 MG Tab.EC PO SCH (10:25)
[2020-01-26] MEDS: Potassium Chloride 20 MEQ Tab.ER PO SCH (10:25)
[2020-01-26] MEDS: Heparin Sodium 5,000 Units/ML Vial SUBCUT SCH (10:25)
[2020-01-26] MEDS: Metoprolol Tartrate 50 MG Tab PO SCH ×2 (10:26→22:22)
[2020-01-26] MEDS: Furosemide 20 MG Tab PO SCH (10:26)
--- NOTE | 2020-01-26 11:27 | PCM.PN ---
- General Info Date of Service: 01/26/20 Admission Dx/Problem (Free Text): Admission Diagnosis/Problem Admission Diagnosis/Problem Sepsis due to pneumonia Subjective Update: Patient is without acute distress but does have increased shortness of breath. Nursing reports he appears uncomfortable. He is confused. - Patient Data Vitals - Most Recent: Last Vital Signs Temp 98.2 F 01/26/20 07:24 Pulse 114 H 01/26/20 10:26 Resp 29 H 01/26/20 07:24 BP 110/73 01/26/20 10:26 Pulse Ox 90 L 01/26/20 07:24 Weight - Most Recent: 168 lb 8 oz I&O - Last 24 Hours: Intake & Output 01/25/20 01/26/20 01/26/20 22:59 06:59 14:59 Intake Total 200 100 100 Balance 200 100 100 Med Orders - Current: Current Medications Acetaminophen (Tylenol) 650 mg PO Q4H PRN PRN Reason: Pain (Mild 1-3)/fever Last Admin: 01/23/20 17:42 Dose: 650 mg Documented by: Aspirin (Halfprin) 81 mg PO DAILY [facility] Last Admin: 01/26/20 10:25 Dose: 81 mg Documented by: Bisacodyl (Dulcolax) 5 mg PO DAILY PRN PRN Reason: Constipation Last Admin: 01/25/20 17:05 Dose: 5 mg Documented by: Bisacodyl (Dulcolax) 10 mg RECTAL DAILY PRN PRN Reason: Constipation Last Admin: 01/16/20 16:13 Dose: 10 mg Documented by: Docusate Sodium (Colace) 100 mg PO BID PRN PRN Reason: Constipation Last Admin: 01/20/20 09:15 Dose: 100 mg Documented by: Furosemide (Lasix) 20 mg PO DAILY [facility] Last Admin: 01/26/20 10:26 Dose: 20 mg Documented by: Heparin Sodium (Porcine) (Heparin Sodium) 5,000 units SUBCUT Q12H [facility] Last Admin: 01/26/20 10:25 Dose: 5,000 units Documented by: Levofloxacin (Levaquin) 500 mg PO Q48H [facility] Last Admin: 01/25/20 09:52 Dose: 500 mg Documented by: Metoprolol Tartrate (Lopressor) 50 mg PO BID [facility] Last Admin: 01/26/20 10:26 Dose: 50 mg Documented by: Morphine Sulfate (Morphine 10 Mg/0.5 Ml Oral Syringe) 10 mg PO Q4H PRN PRN Reason: Pain Ondansetron HCl (Zofran) 4 mg IV Q4H PRN PRN Reason: Nausea/Vomiting Pantoprazole Sodium (Protonix) 40 mg PO DAILY@0700 [facility] Last Admin: 01/26/20 06:56 Dose: Not Given Documented by: Potassium Chloride (Klor-Con M20) 20 meq PO DAILY [facility] Last Admin: 01/26/20 10:25 Dose: 20 meq Documented by: Quetiapine Fumarate (Seroquel) 12.5 mg PO 1700 [facility] Last Admin: 01/25/20 16:09 Dose: 12.5 mg Documented by: Senna/Docusate Sodium (Senna Plus) 1 tab PO BID PRN PRN Reason: Constipation Last Admin: 01/16/20 06:14 Dose: 1 tab Documented by: Simvastatin (Zocor) 10 mg PO BEDTIME [facility] Last Admin: 01/25/20 23:33 Dose: Not Given Documented by: Sodium Chloride (Saline Flush) 10 ml FLUSH ASDIRECTED PRN PRN Reason: Keep Vein Open Last Admin: 01/20/20 19:14 Dose: 10 ml Documented by: Sodium Chloride (Saline Flush) 10 ml FLUSH ASDIRECTED PRN PRN Reason: Keep Vein Open Last Admin: 01/20/20 08:21 Dose: 10 ml Documented by: Discontinued Medications Bisacodyl (Dulcolax) 10 mg RECTAL ONETIME ONE Stop: 01/22/20 05:04 Last Admin: 01/22/20 05:53 Dose: 10 mg Documented by: Enoxaparin Sodium (Lovenox) 40 mg SUBCUT Q24H [facility] Last Admin: 01/20/20 15:35 Dose: 40 mg Documented by: Enoxaparin Sodium (Lovenox) 30 mg SUBCUT Q24H [facility] Last Admin: 01/21/20 14:44 Dose: 30 mg Documented by: Furosemide (Lasix) 20 mg IVPUSH NOW ONE Stop: 01/22/20 08:31 Last Admin: 01/22/20 09:23 Dose: 20 mg Documented by: Furosemide (Lasix) 60 mg IVPUSH NOW ONE Stop: 01/23/20 13:16 Last Admin: 01/23/20 15:17 Dose: Not Given Documented by: Furosemide (Lasix) 60 mg IVPUSH NOW ONE Stop: 01/24/20 12:01 Last Admin: 01/24/20 11:13 Dose: 60 mg Documented by: Heparin Sodium (Porcine) (Heparin Sodium) 5,000 units SUBCUT Q12H [facility] Last Admin: 01/23/20 13:25 Dose: Not Given Documented by: Sodium Chloride (Normal Saline) 1,000 mls @ 125 mls/hr IV ASDIRECTED [facility] Last Admin: 01/14/20 12:00 Dose: 999 mls/hr Documented by: Lactated Ringer's (Ringers, Lactated) 1,000 mls @ 1,000 mls/hr IV .BOLUS ONE Stop: 01/14/20 12:47 Last Admin: 01/14/20 13:37 Dose: 1,000 mls/hr Documented by: Ceftriaxone Sodium 2 gm/ (Sodium Chloride) 100 mls @ 200 mls/hr IV Q24H [facility] Last Admin: 01/14/20 13:05 Dose: 200 mls/hr Documented by: Lactated Ringer's (Ringers, Lactated) Confirm Administered Dose 1,000 mls @ as directed .ROUTE .STK-MED ONE Stop: 01/14/20 14:55 Last Admin: 01/14/20 17:59 Dose: Not Given Documented by: Ceftriaxone Sodium 2 gm/ (Sodium Chloride) 100 mls @ 200 mls/hr IV Q24H [facility] Last Admin: 01/16/20 15:14 Dose: 200 mls/hr Documented by: Magnesium Sulfate (Magnesium Sulfate In Water Premix) 2 gm in 50 mls @ 25 mls/hr IV ONETIME ONE Stop: 01/14/20 17:55 Last Admin: 01/14/20 18:39 Dose: 25 mls/hr Documented by: Lactated Ringer's (Ringers, Lactated) 430 mls @ 999 mls/hr IV .BOLUS ONE Stop: 01/14/20 15:02 Last Admin: 01/14/20 14:37 Dose: 999 mls/hr Documented by: Magnesium Sulfate (Magnesium Sulfate In Water Premix) 2 gm in 50 mls @ 25 mls/hr IV ONETIME ONE Stop: 01/16/20 15:59 Last Admin: 01/16/20 13:11 Dose: 25 mls/hr Documented by: Levofloxacin/Dextrose 750 mg/ (Premix) 150 mls @ 100 mls/hr IV Q48H [facility] Last Admin: 01/21/20 09:27 Dose: 100 mls/hr Documented by: Sodium Chloride (Normal Saline) 1,000 mls @ 250 mls/hr IV ONETIME ONE Stop: 01/17/20 12:14 Last Admin: 01/17/20 09:30 Dose: 250 mls/hr Documented by: Sodium Chloride (Normal Saline) 394 mls @ 250 mls/hr IV .BOLUS ONE Stop: 01/17/20 17:49 Last Admin: 01/17/20 17:58 Dose: 250 mls/hr Documented by: Sodium Chloride (Normal Saline) 1,000 mls @ 250 mls/hr IV ONETIME ONE Stop: 01/17/20 12:29 Last Admin: 01/17/20 13:35 Dose: 250 mls/hr Documented by: Magnesium Sulfate (Magnesium Sulfate In Water Premix) 2 gm in 50 mls @ 25 mls/hr IV ONETIME ONE Stop: 01/18/20 09:28 Last Admin: 01/18/20 08:56 Dose: 25 mls/hr Documented by: Sodium Chloride (Normal Saline) 1,000 mls @ 75 mls/hr IV ASDIRECTED [facility] Stop: 01/18/20 22:00 Last Admin: 01/18/20 10:34 Dose: 75 mls/hr Documented by: Sodium Chloride (Normal Saline) 1,000 mls @ 75 mls/hr IV ASDIRECTED [facility] Stop: 01/19/20 15:31 Last Infusion: 01/19/20 19:48 Dose: 50 mls/hr Documented by: Sodium Chloride (Normal Saline) 1,000 mls @ 50 mls/hr IV ASDIRECTED [facility] Zoledronic Acid 4 mg/ Sodium (Chloride) 105 mls @ 420 mls/hr IV ONETIME ONE Stop: 01/19/20 12:14 Last Admin: 01/19/20 12:11 Dose: 420 mls/hr Documented by: Magnesium Sulfate 4 gm/ Premix 50 mls @ 12.5 mls/hr IV ONETIME ONE Stop: 01/20/20 18:56 Last Admin: 01/20/20 18:36 Dose: Not Given Documented by: Magnesium Sulfate (Magnesium Sulfate In Water Premix) 2 gm in 50 mls @ 25 mls/hr IV Q2H [facility] Stop: 01/20/20 19:14 Last Admin: 01/20/20 17:03 Dose: 25 mls/hr Documented by: Sodium Chloride (Normal Saline) 1,000 mls @ 75 mls/hr IV ASDIRECTED [facility] Last Admin: 01/22/20 03:42 Dose: 75 mls/hr Documented by: Levofloxacin/Dextrose 500 mg/ (Premix) 100 mls @ 66.667 mls/hr IV Q48H [facility] Last Admin: 01/23/20 09:00 Dose: 66.667 mls/hr Documented by: Lorazepam (Ativan) 0.5 mg IVPUSH ONETIME ONE Stop: 01/21/20 14:38 Last Admin: 01/21/20 15:33 Dose: 0.5 mg Documented by: Magnesium Hydroxide (Milk Of Magnesia) 30 ml PO ONETIME ONE Stop: 01/21/20 07:01 Last Admin: 01/21/20 06:28 Dose: 30 ml Documented by: Multivitamins (Thera) 1 each PO DAILY [facility] Last Admin: 01/25/20 09:52 Dose: 1 each Documented by: Potassium Chloride (Klor-Con M20) 20 meq PO ONETIME ONE Stop: 01/16/20 14:01 Last Admin: 01/16/20 13:11 Dose: 20 meq Documented by: Potassium Chloride (Klor-Con M20) 40 meq PO ONETIME ONE Stop: 01/21/20 13:01 Last Admin: 01/21/20 13:07 Dose: 40 meq Documented by: - Exam Quality Assessment: Supplemental Oxygen General: Lethargic Lungs: Crackles (Throughout). No: Normal Respiratory Effort (Increased respiratory rate and effort) Cardiovascular: Regular Rate, Regular Rhythm GI/Abdominal Exam: Normal Bowel Sounds, Soft, No Distention Sepsis Event Note - Evaluation Sepsis Screening Result: No Definite Risk - Focused Exam Vital Signs: Vital Signs Temp Pulse Resp BP Pulse Ox 01/26/20 10:26 114 H 110/73 01/26/20 07:24 98.2 F 114 H 29 H 110/73 90 L 01/25/20 23:32 97.5 F 114 H 18 113/69 92 L - Problem List & Annotations (1) Generalized weakness SNOMED Code(s): 88583734 Code(s): R53.1 - WEAKNESS Status: Acute Priority: High Current Visit: Yes (2) Hypercalcemia SNOMED Code(s): 94515164 Code(s): E83.52 - HYPERCALCEMIA Status: Acute Priority: High Current Visit: Yes (3) Pneumonia SNOMED Code(s): 244609098 Code(s): J18.9 - PNEUMONIA, UNSPECIFIED ORGANISM Status: Acute Priority: High Current Visit: Yes Qualifiers: Pneumonia type: due to unspecified organism Laterality: bilateral Lung location: lower lobe of lung Qualified Code(s): J18.9 - Pneumonia, unspecified organism - Problem List Review Problem List Initiated/Reviewed/Updated: Yes - My Orders Last 24 Hours: My Active Orders 01/26/20 11:26 Morphine [Morphine 10 MG/0.5 ML Oral Syringe] 10 mg PO Q4H PRN - Assessment Assessment:: 01/15/20 * Remains on room air. * Day 2 of Rocephin IV. * Waiting for blood culture report. * PT OT to eval and treat. * Vital signs remained stable. And patient has been afebrile. * Lab work reveals: BUN 14, creatinine 1.3, GFR 53, lactic acid 2.0, magnesium 1.7, calcium 12.5 down from 13.6. * Lovenox for DVT prophylaxis. * Echocardiogram from 10/05/2016: #1 left ventricular ejection fraction, by visual estimation, is 55 to 60%. #2 normal right ventricular systolic function. #3 mitral valve regurgitation. #4 mild tricuspid valve regurgitation. #5 abnormal septal motion consistent with postoperative status. #6 no regional wall motion abnormalities. 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 MG 16 mmHg, no AI. #8 findings similar to 318 of 16. 01/16/20 * He is on room air * Day 3 of Rocephin IV * Blood cultures are showing no growth. * Vital signs have been stable and patient has been afebrile. * Discharge recommendations are for home health care/physical therapy/Occupational Therapy * WBC 8.44, BUN 17, creatinine 1.3, GFR 53, calcium 12.1, magnesium 1.5 * Calcium level is slowly coming down. The patient's reports that he does consume a significant amount of extra strength Tums at home. I am still awaiting the results of the PTH and ionized calcium levels to return however I do believe the reason for his elevated calcium is due to the Tums. * Lovenox for DVT prophylaxis. 01/17/20 * Patient remains on room air * He is on day 4 of Rocephin * Blood cultures continue to show no growth. * Potassium 4.7, BUN 24, creatinine 1.4, GFR 48, lactic acid 2.3, calcium level 13.3. * The patient has been afebrile however he has been tachycardic in the low 100s despite receiving metoprolol 50 mg twice daily. Nursing staff also reports that the patient is tachypneic. Which makes him qualify for adults severe sepsis protocol. * PT/OT working with the patient. 01/19/20 Impression/Plan: Hypercalcemia with low iPTH Sepsis d/t PNA Bilateral PNA FERNANDA * Patient remains confused oriented to name only. * He is on room air * Sepsis criteria. * Hemodynamics have improved. * IVF as needed * Labs re: iCa, iPTH--ordered; (If PTHrP elevated-check for malignancy cf elevated PTHrP with elevated 1, 25 dihydroxyvitamin D usually lymphoma or granulomatous disease). * DC planning 01/21/20 * O2 saturations dropped to 87% on room air today. Patient was placed on oxygen at 1 L per nasal cannula * Chest x-ray completed this morning shows unchanged small bilateral pleural effusions. Mildly decreased atelectasis. No acute pulmonary edema. * Lab work reveals: WBC 11.44 up from 9.18, platelet count 554 up from 542, BUN 36, creatinine 2.7, calcium 12.4 down from 14.4, vitamin D level 43.9, awaiting repeat PTH level. * Suspect renal function decreased due to Zometa that was given yesterday as the patient is not on any other medications that would cause him renal injury. * PT OT to eval and treat. 01/22/20 * Chest x-ray from 01/22/2020: There is mild perihilar interstitial prominence consistent with volume overload or early congestive heart failure. These findings have worsened since previous study. * Patient remains on 1.5 L of oxygen per nasal cannula. * Patient is still confused, but he appears more groggy today. He does arouse to verbal command. * Lab work reveals WBC 12.32 which is up from 11.44, sodium 146, magnesium 2.6, BUN 43 up from 36, creatinine 3.1 up from 2.7, calcium 12.3 down from 12.4, blood cultures continue to show no growth. * Nursing staff reports that patient has a mass to his right groin. Ultrasound of right groin reveals: In the area of swelling there is a mass. This is heterogeneous with a small amount of area of increased flow within it. This could be a large heterogeneous inflamed or infected or neoplastic lymph node versus a complicated abscess or hematoma. Consider CT scan for further visualization versus pathologic sampling as clinically indicated. * Levaquin decreased to 500 mg IV every 48 hours per pharmacy for renal dosing. * MRI of head without contrast obtained 01/21/2020: 1. No evidence of acute ischemia, mass or hydrocephalus. Note that unenhanced imaging is less sensitive than enhanced imaging for detection of malignancy. 2. Typical senescent changes with diffuse atrophy of the brain. 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 01/23/20 * Patient is much more lethargic today however he does respond to verbal command and will converse. Remains confused. * Remains on 1.5 L of oxygen per nasal cannula. * Chest x-ray from 01/23/2020: 1. There is mild perihilar interstitial prominence consistent with volume overload or early congestive heart failure. 2. Retrocardiac increased opacity most likely represents a combination of consolidation, atelectasis, and or pleural effusion. These findings have worsened since previous study. * Patient has been mildly tachycardic 104-111, blood pressures remain in the 120s to 130s/70s and patient has been afebrile the past 24 hours. * WBC 11.07 which is down from 12.32, platelet count 567 which is up from 540, sodium 148, potassium 3.7, BUN 51, creatinine 3.2, GFR 19, calcium 12.0, magnesium 2.6, procalcitonin from yesterday 0.22 01/24/20 * Patient is much more alert today. He is sitting up in the chair visiting with family. Still remains confused. * Continues on 1-1/2 L of oxygen per nasal cannula. * I had ordered 60 mg of IV Lasix to be given yesterday however the patient's blood pressures were in the 90s systolic so nursing staff held the dose at that time. * Labs reveal WBC 10.31, sodium 150, BUN 59, creatinine 3.6, GFR 16, calcium 11.8. * Vital signs have been stable otherwise and patient remains afebrile. * After a visit with the family yesterday they requested that he be made comfort measures. 01/25/20 * Nursing staff reports that patient was found on the floor sitting on his butt beside the bed this morning by the patient's family member. Assessment reveals no outward injuries. * Continues on 2 L of oxygen per nasal cannula * Lung sounds are clear this morning. * Patient did have a coughing fit when given his pills this morning by nursing staff. They report that they had crush them and put them in pudding. * Continues on comfort measures 01/26/2020 * Patient is lying in bed, trying to communicate but difficult to understand him. * He is on comfort measures. * Patient appears in discomfort per nursing. - Plan Plan:: Patient will be continued on the current regimen. Will need close follow up by PCP as mentioned above. Likely DC, Mon or Tu pending response to therapy. 01/21/20 * Continue Levaquin IV * Repeat labs in the a.m. * Renally dose all medications * Normal saline at 75 mL's per hour * Nursing and respiratory care to titrate oxygen * Continue incentive spirometer * Follow speech therapy recommendations for swallowing * vice president of consulting services are working with family regarding care home placement * Continue Lovenox for DVT prophylaxis as pharmacist states this is still recommended * Continue to monitor vital signs * Continue to monitor intake and output. 01/22/20 * Continue Levaquin IV. * Repeat labs in the a.m. * Renally dose all medications. * Suspect patient's elevation in BUN/creatinine are due to zoledronic acid. Suspect that these values may continue to rise before they decrease again as seen with acute on chronic renal failure. * IV fluids discontinued at this point due to the patient developing some fluid overload. * Lasix 20 mg x 1 dose today. * Awaiting results of CT scan of abdomen and pelvis without contrast. Unable to use contrast with scanning due to patient's renal failure. * Suspect that patient does have some form of cancerous process due to elevated calcium levels, elevated absolute monocyte count, and swelling to lymph nodes in groin. Of note, nursing staff now reports that patient has swelling in left groin as well. There is a small mass noted that is approximately 2 cm x 2 cm. Mass is spongy. Mass is slightly mobile and it is not tender to palpation. * Lovenox discontinued. Heparin 5000 units subcu every 12 hours started. * Patient continues to work with physical therapy. * CT of the abdomen and pelvis without contrast from 01/22/2020 impression: 1. Diffuse adenopathy in the upper abdomen as well as within the groins and possibly the right iliac chain. 2. Fluid collection noted in the upper left quadrant possibly involving the spleen. This could be adenopathy versus a pseudocyst or other pancreas lesion. 3. Cholelithiasis. 4. Possible gastric mass. 5. Bilateral pleural effusions. 6. Artifact from motion of the patient's arms. 7. Consider contrast scanning for further and better evaluation. 8. Multiple fractures within the spine. Stomach and bowel: There may be a mass arising from the stomach measuring 56 x 49 mm on image 2 of 12. There is a large mass noted in the left upper quadrant measuring 106 x 104 mm. This has a house in field units of the 3 and could represent a pancreatic pseudocyst or phlegmon. * Shortly after receiving the radiologist report for CT of the abdomen, the patient's and his son came to visit the patient. I discussed the results of the CT scan and the grim prognosis related to this. Marta social sciences professor was also in the conference room with me discussing the patient's status. At this time we will continue current treatments. Family is going to go home and discuss options with the rest of the patient's children and they will give us an answer in the next day or 2 as to the next step in the patient's plan of care. Comfort measures and hospice were discussed with the patient's family. Patient remains a DNR DNI. 01/23/20 * At this point we are waiting back to hear from the family in which direction they would like his care to go. Waiting for them to turn in care home paperwork and to give us the word on whether or not they want patient to be comfort measures or hospice. * Continue current treatment regimen until we hear from them. * Will repeat labs in the a.m. * Heparin 5000 units subcu every 12 hours for DVT prophylaxis. * Will give 60 mg of IV Lasix x1 dose today. 01/24/20 * Patient is on comfort measures, at this point we are waiting for family to get in applications for care home placement. * Will reorder 60 mg of IV Lasix x1 dose today. * Vital signs once per shift. * vice president of consulting services for discharge planning and care home placement. * Heparin for DVT prophylaxis. 01/25/20 * Comfort measures * vice president of consulting services for discharge planning and care home placement * It has been brought to our attention that the patient's had a stroke yesterday, so there may be a delay in getting the patient transferred to a care home. * Heparin for DVT prophylaxis 01/26/2020 * Comfort measures * DC heparin * Plan discharge on Tuesday
[2020-01-26] MEDS: QUEtiapine 25 MG Tab PO SCH (18:30)
[2020-01-26] MEDS: Morphine 10 MG/0.5 ML Oral Syringe PO PRN (22:20)
[2020-01-26] MEDS: Simvastatin 10 MG Tab PO SCH (22:22)
[2020-01-27] MEDS: Morphine 10 MG/0.5 ML Oral Syringe PO PRN (03:54)
[2020-01-27] MEDS: Pantoprazole 40 MG Tab.CR PO SCH (06:42)
[2020-01-27] MEDS: Aspirin 81 MG Tab.EC PO SCH (13:11)
[2020-01-27] MEDS: Metoprolol Tartrate 50 MG Tab PO SCH (13:11)
[2020-01-27] MEDS: Potassium Chloride 20 MEQ Tab.ER PO SCH (13:11)
[2020-01-27] MEDS: Furosemide 20 MG Tab PO SCH (13:11)
[2020-01-27] MEDS: Levofloxacin 500 MG Tab PO SCH (13:11)
--- NOTE | 2020-01-27 15:22 | PCM.PN ---
- General Info Date of Service: 01/27/20 Admission Dx/Problem (Free Text): Admission Diagnosis/Problem Admission Diagnosis/Problem Sepsis due to pneumonia Subjective Update: Ruel was unable to communicate today. He is sleeping comfortably but did not wake up when I spoke to him. I did not try to arouse him using pain. - Patient Data Vitals - Most Recent: Last Vital Signs Temp 97.3 F 01/27/20 07:54 Pulse 115 H 01/27/20 07:54 Resp 28 H 01/27/20 07:54 BP 98/57 L 01/27/20 07:54 Pulse Ox 89 L 01/27/20 07:54 Weight - Most Recent: 162 lb I&O - Last 24 Hours: Intake & Output 01/27/20 01/27/20 01/27/20 06:59 14:59 22:59 Intake Total 60 Balance 60 Lab Results Last 24 Hours: Laboratory Results - last 24 hr 01/20/20 Range/Units 18:10 PTH Related Protein <2.0 pmol/L Med Orders - Current: Current Medications Acetaminophen (Tylenol) 650 mg PO Q4H PRN PRN Reason: Pain (Mild 1-3)/fever Last Admin: 01/23/20 17:42 Dose: 650 mg Documented by: Aspirin (Halfprin) 81 mg PO DAILY [facility] Last Admin: 01/27/20 13:11 Dose: Not Given Documented by: Bisacodyl (Dulcolax) 5 mg PO DAILY PRN PRN Reason: Constipation Last Admin: 01/25/20 17:05 Dose: 5 mg Documented by: Bisacodyl (Dulcolax) 10 mg RECTAL DAILY PRN PRN Reason: Constipation Last Admin: 01/16/20 16:13 Dose: 10 mg Documented by: Docusate Sodium (Colace) 100 mg PO BID PRN PRN Reason: Constipation Last Admin: 01/20/20 09:15 Dose: 100 mg Documented by: Furosemide (Lasix) 20 mg PO DAILY [facility] Last Admin: 01/27/20 13:11 Dose: Not Given Documented by: Levofloxacin (Levaquin) 500 mg PO Q48H [facility] Last Admin: 01/27/20 13:11 Dose: Not Given Documented by: Metoprolol Tartrate (Lopressor) 50 mg PO BID [facility] Last Admin: 01/27/20 13:11 Dose: Not Given Documented by: Morphine Sulfate (Morphine 10 Mg/0.5 Ml Oral Syringe) 10 mg PO Q4H PRN PRN Reason: Pain Last Admin: 01/27/20 03:54 Dose: 10 mg Documented by: Ondansetron HCl (Zofran) 4 mg IV Q4H PRN PRN Reason: Nausea/Vomiting Pantoprazole Sodium (Protonix) 40 mg PO DAILY@0700 [facility] Last Admin: 01/27/20 06:42 Dose: Not Given Documented by: Potassium Chloride (Klor-Con M20) 20 meq PO DAILY [facility] Last Admin: 01/27/20 13:11 Dose: Not Given Documented by: Quetiapine Fumarate (Seroquel) 12.5 mg PO 1700 [facility] Last Admin: 01/26/20 18:30 Dose: Not Given Documented by: Senna/Docusate Sodium (Senna Plus) 1 tab PO BID PRN PRN Reason: Constipation Last Admin: 01/16/20 06:14 Dose: 1 tab Documented by: Simvastatin (Zocor) 10 mg PO BEDTIME [facility] Last Admin: 01/26/20 22:22 Dose: 10 mg Documented by: Sodium Chloride (Saline Flush) 10 ml FLUSH ASDIRECTED PRN PRN Reason: Keep Vein Open Last Admin: 01/20/20 19:14 Dose: 10 ml Documented by: Sodium Chloride (Saline Flush) 10 ml FLUSH ASDIRECTED PRN PRN Reason: Keep Vein Open Last Admin: 01/20/20 08:21 Dose: 10 ml Documented by: Discontinued Medications Bisacodyl (Dulcolax) 10 mg RECTAL ONETIME ONE Stop: 01/22/20 05:04 Last Admin: 01/22/20 05:53 Dose: 10 mg Documented by: Enoxaparin Sodium (Lovenox) 40 mg SUBCUT Q24H [facility] Last Admin: 01/20/20 15:35 Dose: 40 mg Documented by: Enoxaparin Sodium (Lovenox) 30 mg SUBCUT Q24H [facility] Last Admin: 01/21/20 14:44 Dose: 30 mg Documented by: Furosemide (Lasix) 20 mg IVPUSH NOW ONE Stop: 01/22/20 08:31 Last Admin: 01/22/20 09:23 Dose: 20 mg Documented by: Furosemide (Lasix) 60 mg IVPUSH NOW ONE Stop: 01/23/20 13:16 Last Admin: 01/23/20 15:17 Dose: Not Given Documented by: Furosemide (Lasix) 60 mg IVPUSH NOW ONE Stop: 01/24/20 12:01 Last Admin: 01/24/20 11:13 Dose: 60 mg Documented by: Heparin Sodium (Porcine) (Heparin Sodium) 5,000 units SUBCUT Q12H [facility] Last Admin: 01/23/20 13:25 Dose: Not Given Documented by: Heparin Sodium (Porcine) (Heparin Sodium) 5,000 units SUBCUT Q12H [facility] Last Admin: 01/26/20 10:25 Dose: 5,000 units Documented by: Sodium Chloride (Normal Saline) 1,000 mls @ 125 mls/hr IV ASDIRECTED [facility] Last Admin: 01/14/20 12:00 Dose: 999 mls/hr Documented by: Lactated Ringer's (Ringers, Lactated) 1,000 mls @ 1,000 mls/hr IV .BOLUS ONE Stop: 01/14/20 12:47 Last Admin: 01/14/20 13:37 Dose: 1,000 mls/hr Documented by: Ceftriaxone Sodium 2 gm/ (Sodium Chloride) 100 mls @ 200 mls/hr IV Q24H [facility] Last Admin: 01/14/20 13:05 Dose: 200 mls/hr Documented by: Lactated Ringer's (Ringers, Lactated) Confirm Administered Dose 1,000 mls @ as directed .ROUTE .STK-MED ONE Stop: 01/14/20 14:55 Last Admin: 01/14/20 17:59 Dose: Not Given Documented by: Ceftriaxone Sodium 2 gm/ (Sodium Chloride) 100 mls @ 200 mls/hr IV Q24H [facility] Last Admin: 01/16/20 15:14 Dose: 200 mls/hr Documented by: Magnesium Sulfate (Magnesium Sulfate In Water Premix) 2 gm in 50 mls @ 25 mls/hr IV ONETIME ONE Stop: 01/14/20 17:55 Last Admin: 01/14/20 18:39 Dose: 25 mls/hr Documented by: Lactated Ringer's (Ringers, Lactated) 430 mls @ 999 mls/hr IV .BOLUS ONE Stop: 01/14/20 15:02 Last Admin: 01/14/20 14:37 Dose: 999 mls/hr Documented by: Magnesium Sulfate (Magnesium Sulfate In Water Premix) 2 gm in 50 mls @ 25 mls/hr IV ONETIME ONE Stop: 01/16/20 15:59 Last Admin: 01/16/20 13:11 Dose: 25 mls/hr Documented by: Levofloxacin/Dextrose 750 mg/ (Premix) 150 mls @ 100 mls/hr IV Q48H [facility] Last Admin: 01/21/20 09:27 Dose: 100 mls/hr Documented by: Sodium Chloride (Normal Saline) 1,000 mls @ 250 mls/hr IV ONETIME ONE Stop: 01/17/20 12:14 Last Admin: 01/17/20 09:30 Dose: 250 mls/hr Documented by: Sodium Chloride (Normal Saline) 394 mls @ 250 mls/hr IV .BOLUS ONE Stop: 01/17/20 17:49 Last Admin: 01/17/20 17:58 Dose: 250 mls/hr Documented by: Sodium Chloride (Normal Saline) 1,000 mls @ 250 mls/hr IV ONETIME ONE Stop: 01/17/20 12:29 Last Admin: 01/17/20 13:35 Dose: 250 mls/hr Documented by: Magnesium Sulfate (Magnesium Sulfate In Water Premix) 2 gm in 50 mls @ 25 mls/hr IV ONETIME ONE Stop: 01/18/20 09:28 Last Admin: 01/18/20 08:56 Dose: 25 mls/hr Documented by: Sodium Chloride (Normal Saline) 1,000 mls @ 75 mls/hr IV ASDIRECTED [facility] Stop: 01/18/20 22:00 Last Admin: 01/18/20 10:34 Dose: 75 mls/hr Documented by: Sodium Chloride (Normal Saline) 1,000 mls @ 75 mls/hr IV ASDIRECTED [facility] Stop: 01/19/20 15:31 Last Infusion: 01/19/20 19:48 Dose: 50 mls/hr Documented by: Sodium Chloride (Normal Saline) 1,000 mls @ 50 mls/hr IV ASDIRECTED [facility] Zoledronic Acid 4 mg/ Sodium (Chloride) 105 mls @ 420 mls/hr IV ONETIME ONE Stop: 01/19/20 12:14 Last Admin: 01/19/20 12:11 Dose: 420 mls/hr Documented by: Magnesium Sulfate 4 gm/ Premix 50 mls @ 12.5 mls/hr IV ONETIME ONE Stop: 01/20/20 18:56 Last Admin: 01/20/20 18:36 Dose: Not Given Documented by: Magnesium Sulfate (Magnesium Sulfate In Water Premix) 2 gm in 50 mls @ 25 mls/hr IV Q2H [facility] Stop: 01/20/20 19:14 Last Admin: 01/20/20 17:03 Dose: 25 mls/hr Documented by: Sodium Chloride (Normal Saline) 1,000 mls @ 75 mls/hr IV ASDIRECTED [facility] Last Admin: 01/22/20 03:42 Dose: 75 mls/hr Documented by: Levofloxacin/Dextrose 500 mg/ (Premix) 100 mls @ 66.667 mls/hr IV Q48H [facility] Last Admin: 01/23/20 09:00 Dose: 66.667 mls/hr Documented by: Lorazepam (Ativan) 0.5 mg IVPUSH ONETIME ONE Stop: 01/21/20 14:38 Last Admin: 01/21/20 15:33 Dose: 0.5 mg Documented by: Magnesium Hydroxide (Milk Of Magnesia) 30 ml PO ONETIME ONE Stop: 01/21/20 07:01 Last Admin: 01/21/20 06:28 Dose: 30 ml Documented by: Multivitamins (Thera) 1 each PO DAILY [facility] Last Admin: 01/25/20 09:52 Dose: 1 each Documented by: Potassium Chloride (Klor-Con M20) 20 meq PO ONETIME ONE Stop: 01/16/20 14:01 Last Admin: 01/16/20 13:11 Dose: 20 meq Documented by: Potassium Chloride (Klor-Con M20) 40 meq PO ONETIME ONE Stop: 01/21/20 13:01 Last Admin: 01/21/20 13:07 Dose: 40 meq Documented by: - Exam Quality Assessment: Supplemental Oxygen General: Obtunded Lungs: Normal Respiratory Effort, Decreased Breath Sounds Cardiovascular: Regular Rhythm, Tachycardia GI/Abdominal Exam: Soft, Non-Tender, Abnormal Bowel Sounds (Decreased) Sepsis Event Note - Evaluation Sepsis Screening Result: Sepsis Risk - Focused Exam Vital Signs: Vital Signs Temp Pulse Resp BP Pulse Ox 01/27/20 07:54 97.3 F 115 H 28 H 98/57 L 89 L - Problem List & Annotations (1) Generalized weakness SNOMED Code(s): 29917070 Code(s): R53.1 - WEAKNESS Status: Acute Priority: High Current Visit: Yes (2) Hypercalcemia SNOMED Code(s): 78611264 Code(s): E83.52 - HYPERCALCEMIA Status: Acute Priority: High Current Visit: Yes (3) Pneumonia SNOMED Code(s): 175110583 Code(s): J18.9 - PNEUMONIA, UNSPECIFIED ORGANISM Status: Acute Priority: High Current Visit: Yes Qualifiers: Pneumonia type: due to unspecified organism Laterality: bilateral Lung location: lower lobe of lung Qualified Code(s): J18.9 - Pneumonia, unspecified organism - Problem List Review Problem List Initiated/Reviewed/Updated: Yes - My Orders Last 24 Hours: My Active Orders 01/27/20 Breakfast Pureed Diet [DIET] - Assessment Assessment:: 01/15/20 * Remains on room air. * Day 2 of Rocephin IV. * Waiting for blood culture report. * PT OT to eval and treat. * Vital signs remained stable. And patient has been afebrile. * Lab work reveals: BUN 14, creatinine 1.3, GFR 53, lactic acid 2.0, magnesium 1.7, calcium 12.5 down from 13.6. * Lovenox for DVT prophylaxis. * Echocardiogram from 10/05/2016: #1 left ventricular ejection fraction, by visual estimation, is 55 to 60%. #2 normal right ventricular systolic function. #3 mitral valve regurgitation. #4 mild tricuspid valve regurgitation. #5 abnormal septal motion consistent with postoperative status. #6 no regional wall motion abnormalities. 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 MG 16 mmHg, no AI. #8 findings similar to 318 of 16. 01/16/20 * He is on room air * Day 3 of Rocephin IV * Blood cultures are showing no growth. * Vital signs have been stable and patient has been afebrile. * Discharge recommendations are for home health care/physical therapy/Occupational Therapy * WBC 8.44, BUN 17, creatinine 1.3, GFR 53, calcium 12.1, magnesium 1.5 * Calcium level is slowly coming down. The patient's reports that he does consume a significant amount of extra strength Tums at home. I am still awaiting the results of the PTH and ionized calcium levels to return however I do believe the reason for his elevated calcium is due to the Tums. * Lovenox for DVT prophylaxis. 01/17/20 * Patient remains on room air * He is on day 4 of Rocephin * Blood cultures continue to show no growth. * Potassium 4.7, BUN 24, creatinine 1.4, GFR 48, lactic acid 2.3, calcium level 13.3. * The patient has been afebrile however he has been tachycardic in the low 100s despite receiving metoprolol 50 mg twice daily. Nursing staff also reports that the patient is tachypneic. Which makes him qualify for adults severe sepsis protocol. * PT/OT working with the patient. 01/19/20 Impression/Plan: Hypercalcemia with low iPTH Sepsis d/t PNA Bilateral PNA FERNANDA * Patient remains confused oriented to name only. * He is on room air * Sepsis criteria. * Hemodynamics have improved. * IVF as needed * Labs re: iCa, iPTH--ordered; (If PTHrP elevated-check for malignancy cf elevated PTHrP with elevated 1, 25 dihydroxyvitamin D usually lymphoma or granulomatous disease). * DC planning 01/21/20 * O2 saturations dropped to 87% on room air today. Patient was placed on oxygen at 1 L per nasal cannula * Chest x-ray completed this morning shows unchanged small bilateral pleural effusions. Mildly decreased atelectasis. No acute pulmonary edema. * Lab work reveals: WBC 11.44 up from 9.18, platelet count 554 up from 542, BUN 36, creatinine 2.7, calcium 12.4 down from 14.4, vitamin D level 43.9, awaiting repeat PTH level. * Suspect renal function decreased due to Zometa that was given yesterday as the patient is not on any other medications that would cause him renal injury. * PT OT to eval and treat. 01/22/20 * Chest x-ray from 01/22/2020: There is mild perihilar interstitial prominence consistent with volume overload or early congestive heart failure. These findings have worsened since previous study. * Patient remains on 1.5 L of oxygen per nasal cannula. * Patient is still confused, but he appears more groggy today. He does arouse to verbal command. * Lab work reveals WBC 12.32 which is up from 11.44, sodium 146, magnesium 2.6, BUN 43 up from 36, creatinine 3.1 up from 2.7, calcium 12.3 down from 12.4, blood cultures continue to show no growth. * Nursing staff reports that patient has a mass to his right groin. Ultrasound of right groin reveals: In the area of swelling there is a mass. This is heterogeneous with a small amount of area of increased flow within it. This could be a large heterogeneous inflamed or infected or neoplastic lymph node versus a complicated abscess or hematoma. Consider CT scan for further visualization versus pathologic sampling as clinically indicated. * Levaquin decreased to 500 mg IV every 48 hours per pharmacy for renal dosing. * MRI of head without contrast obtained 01/21/2020: 1. No evidence of acute ischemia, mass or hydrocephalus. Note that unenhanced imaging is less sensitive than enhanced imaging for detection of malignancy. 2. Typical senescent changes with diffuse atrophy of the brain. 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 01/23/20 * Patient is much more lethargic today however he does respond to verbal command and will converse. Remains confused. * Remains on 1.5 L of oxygen per nasal cannula. * Chest x-ray from 01/23/2020: 1. There is mild perihilar interstitial prominence consistent with volume overload or early congestive heart failure. 2. Retrocardiac increased opacity most likely represents a combination of consolidation, atelectasis, and or pleural effusion. These findings have worsened since previous study. * Patient has been mildly tachycardic 104-111, blood pressures remain in the 120s to 130s/70s and patient has been afebrile the past 24 hours. * WBC 11.07 which is down from 12.32, platelet count 567 which is up from 540, s odium 148, potassium 3.7, BUN 51, creatinine 3.2, GFR 19, calcium 12.0, magnesium 2.6, procalcitonin from yesterday 0.22 01/24/20 * Patient is much more alert today. He is sitting up in the chair visiting with family. Still remains confused. * Continues on 1-1/2 L of oxygen per nasal cannula. * I had ordered 60 mg of IV Lasix to be given yesterday however the patient's blood pressures were in the 90s systolic so nursing staff held the dose at that time. * Labs reveal WBC 10.31, sodium 150, BUN 59, creatinine 3.6, GFR 16, calcium 11.8. * Vital signs have been stable otherwise and patient remains afebrile. * After a visit with the family yesterday they requested that he be made comfort measures. 01/25/20 * Nursing staff reports that patient was found on the floor sitting on his butt beside the bed this morning by the patient's family member. Assessment reveals no outward injuries. * Continues on 2 L of oxygen per nasal cannula * Lung sounds are clear this morning. * Patient did have a coughing fit when given his pills this morning by nursing staff. They report that they had crush them and put them in pudding. * Continues on comfort measures 01/26/2020 * Patient is lying in bed, trying to communicate but difficult to understand him. * He is on comfort measures. * Patient appears in discomfort per nursing. 01/27/2020 * Patient is on comfort measures. He does appear to be actively dying at this time. * We will continue to offer him food and drink. Continue to offer medications. * Son was in to see him today. - Plan Plan:: Patient will be continued on the current regimen. Will need close follow up by PCP as mentioned above. Likely DC, Mon or pending response to therapy. 01/21/20 * Continue Levaquin IV * Repeat labs in the a.m. * Renally dose all medications * Normal saline at 75 mL's per hour * Nursing and respiratory care to titrate oxygen * Continue incentive spirometer * Follow speech therapy recommendations for swallowing * director career services are working with family regarding detention placement * Continue Lovenox for DVT prophylaxis as pharmacist states this is still recommended * Continue to monitor vital signs * Continue to monitor intake and output. 01/22/20 * Continue Levaquin IV. * Repeat labs in the a.m. * Renally dose all medications. * Suspect patient's elevation in BUN/creatinine are due to zoledronic acid. Suspect that these values may continue to rise before they decrease again as seen with acute on chronic renal failure. * IV fluids discontinued at this point due to the patient developing some fluid overload. * Lasix 20 mg x 1 dose today. * Awaiting results of CT scan of abdomen and pelvis without contrast. Unable to use contrast with scanning due to patient's renal failure. * Suspect that patient does have some form of cancerous process due to elevated calcium levels, elevated absolute monocyte count, and swelling to lymph nodes in groin. Of note, nursing staff now reports that patient has swelling in left groin as well. There is a small mass noted that is approximately 2 cm x 2 cm. Mass is spongy. Mass is slightly mobile and it is not tender to palpation. * Lovenox discontinued. Heparin 5000 units subcu every 12 hours started. * Patient continues to work with physical therapy. * CT of the abdomen and pelvis without contrast from 01/22/2020 impression: 1. Diffuse adenopathy in the upper abdomen as well as within the groins and possibly the right iliac chain. 2. Fluid collection noted in the upper left quadrant possibly involving the spleen. This could be adenopathy versus a pseudocyst or other pancreas lesion. 3. Cholelithiasis. 4. Possible gastric mass. 5. Bilateral pleural effusions. 6. Artifact from motion of the patient's arms. 7. Consider contrast scanning for further and better evaluation. 8. Multiple fractures within the spine. Stomach and bowel: There may be a mass arising from the stomach measuring 56 x 49 mm on image 2 of 12. There is a large mass noted in the left upper quadrant measuring 106 x 104 mm. This has a house in field units of the 3 and could represent a pancreatic pseudocyst or phlegmon. * Shortly after receiving the radiologist report for CT of the abdomen, the patient's and his son came to visit the patient. I discussed the results of the CT scan and the grim prognosis related to this. Marta licensed master social worker was also in the conference room with me discussing the patient's status. At this time we will continue current treatments. Family is going to go home and discuss options with the rest of the patient's children and they will give us an answer in the next day or 2 as to the next step in the patient's plan of care. Comfort measures and hospice were discussed with the patient's family. Patient remains a DNR DNI. 01/23/20 * At this point we are waiting back to hear from the family in which direction they would like his care to go. Waiting for them to turn in detention paperwork and to give us the word on whether or not they want patient to be comfort measures or hospice. * Continue current treatment regimen until we hear from them. * Will repeat labs in the a.m. * Heparin 5000 units subcu every 12 hours for DVT prophylaxis. * Will give 60 mg of IV Lasix x1 dose today. 01/24/20 * Patient is on comfort measures, at this point we are waiting for family to get in applications for detention placement. * Will reorder 60 mg of IV Lasix x1 dose today. * Vital signs once per shift. * director career services for discharge planning and detention placement. * Heparin for DVT prophylaxis. 01/25/20 * Comfort measures * director career services for discharge planning and detention placement * It has been brought to our attention that the patient's had a stroke yesterday, so there may be a delay in getting the patient transferred to a detention. * Heparin for DVT prophylaxis 01/26/2020 * Comfort measures * DC heparin * Plan discharge on Tuesday01/27/2020 * Continue comfort measures * Morphine for pain * Offer food and water
[2020-01-27] MEDS: QUEtiapine 25 MG Tab PO SCH (18:15)
--- NOTE | 2020-01-27 22:09 | PCM.DCSUM1 ---
Discharge Summary - Hospital Course HPI Initial Comments: The patient presets by [facility] for generalized weakness. He said this all started last Tuesday. He normally can walk without assistance but on Tuesday his legs would not work. He can walk with a walker. He has no headache, fever, chills, cough, congestion, runny nose, chest pain, shortness of breath, abdominal pain, nausea, vomiting or diarrhea. He said he did have some lower and upper back pain but that was mild and nothing now. He did fall today because of the weakness but he has no injuries. He has no medical problems other then a heart valve replaced years ago. Assessment/Plan Comment:: * 84-year-old male with a 5-day history of increased weakness and fatigue. * With symptoms gradually worsening. * Chest x-ray obtained in the ER reports basilar pulmonary opacities and probable small pleural effusions. * CT of the head obtained in the ER reports no evidence of acute intracranial abnormality. No evidence of acute infarction, hemorrhage or mass. Atrophy and microvascular disease. * Lab work reveals WBC 9.28, hemoglobin 15.7, hematocrit 47.5, platelet count 488, neutrophil count 7.13 without bands, D-dimer 3.01, BUN 19, creatinine 1.7, GFR 39, calcium 13.6, magnesium 1.7, LDH 1422, troponin less than 0.017, C-reactive protein 6.3, lactic acid 4.4 repeat lactic acid was 2.8, urinalysis was negative for infection * Sepsis protocol was implemented in the emergency department. * Patient was started on 2 g of Rocephin IV. * Patient was given 2400 mL of IV fluids per sepsis protocol. * Initial vital signs in the emergency department are temp 96.9, heart rate 96, respiratory rate 18, blood pressure 116/81, and pulse oximeter is 96% on room air. * CT angiogram was not performed in the ER due to the patient being in renal failure. PLAN: * Await blood culture report * Rocephin 2 g IV daily * We will not give further IV fluids at this point due to patient having a history of congestive heart failure and we do not want to overload him. * Obtain most recent echocardiogram. * Vital signs every 4 hours. * Intake and output every 8 hours with weights daily. * Will recheck labs in the morning and correct any electrolyte abnormalities. * Give magnesium 2 g IV * PT/OT to eval and treat * shared services and outsourcing manager for discharge planning * Lovenox for DVT prophylaxis * Renally dose all medications. * Dietitian to consult * Spiritual care * Patient is a DNR/DNI Patient will likely be here 3 to 4 days due to the treatment of septic pneumonia. shared services and outsourcing manager and case management to assist with discharge planning. - Discharge Data Discharge Date: 01/27/20 Discharge Disposition: 20 Condition: - Referral to Home Health Primary Care Physician: Amelie Garay MD - Discharge Diagnosis/Problem(s) (1) Generalized weakness SNOMED Code(s): 74503148 ICD Code: R53.1 - WEAKNESS Status: Acute Priority: High Current Visit: Yes (2) Hypercalcemia SNOMED Code(s): 55194733 ICD Code: E83.52 - HYPERCALCEMIA Status: Acute Priority: High Current Visit: Yes (3) Pneumonia SNOMED Code(s): 275465433 ICD Code: J18.9 - PNEUMONIA, UNSPECIFIED ORGANISM Status: Acute Priority: High Current Visit: Yes Qualifiers: Pneumonia type: due to unspecified organism Laterality: bilateral Lung location: lower lobe of lung Qualified Code(s): J18.9 - Pneumonia, unspecified organism - Patient Summary/Data Consults: Consultations 01/14/20 15:08 Consult to Case Management/Contact Lens Technician [CONS] Routine Consult to Kitchen Worker [CONS] Routine Consult to Spiritual Care [CONS] Routine 01/22/20 11:12 Consult to Physician [CONS] Routine Hospital Course: Patient was admitted for sepsis secondary to pneumonia. Patient was found to have significant hypercalcemia with a low PTH. He was also found to have multiple masses in his groin and CT of the abdomen pelvis showed diffuse adenopathy in the upper abdomen as well as within the groins and possibly the right iliac chain. Fluid collection noted in the left upper quadrant possibly involving the spleen this could be adenopathy versus a pseudocyst or other pancreas lesion. Possible gastric mass. Hypercalcemia with low PTH and masses found on CT all 0.2 of malignancy. Patient continued to decline while hospitalized and he has family expressed wanting to move to comfort care. Over the last few days patient was kept comfortable and he tonight at 1913. - Discharge Plan Home Medications: Home Meds Furosemide [Lasix] 20 mg PO DAILY 05/10/18 [History] Metoprolol Tartrate 50 mg PO BID 05/10/18 [History] Multivitamin [Poly-Vitamin] 1 tab PO DAILY 05/10/18 [History] Omeprazole 20 mg PO DAILY 05/10/18 [History] Potassium Chloride 20 meq PO DAILY 05/10/18 [History] atorvaSTATin [Lipitor] 10 mg PO BEDTIME 05/10/18 [History] Aspirin [Halfprin] 81 mg PO DAILY 01/14/20 [History] Patient Handouts: Heart Failure Action Plan, Sepsis, Diagnosis, Adult, Heart Failure, Diagnosis, Community-Acquired Pneumonia, Adult Referrals: Glenn Silva MD [Ordering Only Provider] - - Discharge Summary/Plan Comment DC Time >30 min.: Yes - Patient Data Vitals - Most Recent: Last Vital Signs Temp 97.3 F 01/27/20 07:54 Pulse 115 H 01/27/20 07:54 Resp 28 H 01/27/20 07:54 BP 98/57 L 01/27/20 07:54 Pulse Ox 89 L 01/27/20 07:54 Weight - Most Recent: 162 lb I&O - Last 24 hours: Intake & Output 01/27/20 01/27/20 01/27/20 06:59 14:59 22:59 Intake Total 60 0 Balance 60 0 Lab Results - Last 24 hrs: Laboratory Results - last 24 hr 01/20/20 Range/Units 18:10 PTH Related Protein <2.0 pmol/L Med Orders - Current: Current Medications Acetaminophen (Tylenol) 650 mg PO Q4H PRN PRN Reason: Pain (Mild 1-3)/fever Last Admin: 01/23/20 17:42 Dose: 650 mg Documented by: Aspirin (Halfprin) 81 mg PO DAILY [facility] Last Admin: 01/27/20 13:11 Dose: Not Given Documented by: Bisacodyl (Dulcolax) 5 mg PO DAILY PRN PRN Reason: Constipation Last Admin: 01/25/20 17:05 Dose: 5 mg Documented by: Bisacodyl (Dulcolax) 10 mg RECTAL DAILY PRN PRN Reason: Constipation Last Admin: 01/16/20 16:13 Dose: 10 mg Documented by: Docusate Sodium (Colace) 100 mg PO BID PRN PRN Reason: Constipation Last Admin: 01/20/20 09:15 Dose: 100 mg Documented by: Furosemide (Lasix) 20 mg PO DAILY [facility] Last Admin: 01/27/20 13:11 Dose: Not Given Documented by: Levofloxacin (Levaquin) 500 mg PO Q48H [facility] Last Admin: 01/27/20 13:11 Dose: Not Given Documented by: Metoprolol Tartrate (Lopressor) 50 mg PO BID [facility] Last Admin: 01/27/20 13:11 Dose: Not Given Documented by: Morphine Sulfate (Morphine 10 Mg/0.5 Ml Oral Syringe) 10 mg PO Q4H PRN PRN Reason: Pain Last Admin: 01/27/20 03:54 Dose: 10 mg Documented by: Ondansetron HCl (Zofran) 4 mg IV Q4H PRN PRN Reason: Nausea/Vomiting Pantoprazole Sodium (Protonix) 40 mg PO DAILY@0700 [facility] Last Admin: 01/27/20 06:42 Dose: Not Given Documented by: Potassium Chloride (Klor-Con M20) 20 meq PO DAILY [facility] Last Admin: 01/27/20 13:11 Dose: Not Given Documented by: Quetiapine Fumarate (Seroquel) 12.5 mg PO 1700 [facility] Last Admin: 01/27/20 18:15 Dose: Not Given Documented by: Senna/Docusate Sodium (Senna Plus) 1 tab PO BID PRN PRN Reason: Constipation Last Admin: 01/16/20 06:14 Dose: 1 tab Documented by: Simvastatin (Zocor) 10 mg PO BEDTIME [facility] Last Admin: 01/26/20 22:22 Dose: 10 mg Documented by: Sodium Chloride (Saline Flush) 10 ml FLUSH ASDIRECTED PRN PRN Reason: Keep Vein Open Last Admin: 01/20/20 19:14 Dose: 10 ml Documented by: Sodium Chloride (Saline Flush) 10 ml FLUSH ASDIRECTED PRN PRN Reason: Keep Vein Open Last Admin: 01/20/20 08:21 Dose: 10 ml Documented by: Discontinued Medications Bisacodyl (Dulcolax) 10 mg RECTAL ONETIME ONE Stop: 01/22/20 05:04 Last Admin: 01/22/20 05:53 Dose: 10 mg Documented by: Enoxaparin Sodium (Lovenox) 40 mg SUBCUT Q24H [facility] Last Admin: 01/20/20 15:35 Dose: 40 mg Documented by: Enoxaparin Sodium (Lovenox) 30 mg SUBCUT Q24H [facility] Last Admin: 01/21/20 14:44 Dose: 30 mg Documented by: Furosemide (Lasix) 20 mg IVPUSH NOW ONE Stop: 01/22/20 08:31 Last Admin: 01/22/20 09:23 Dose: 20 mg Documented by: Furosemide (Lasix) 60 mg IVPUSH NOW ONE Stop: 01/23/20 13:16 Last Admin: 01/23/20 15:17 Dose: Not Given Documented by: Furosemide (Lasix) 60 mg IVPUSH NOW ONE Stop: 01/24/20 12:01 Last Admin: 01/24/20 11:13 Dose: 60 mg Documented by: Heparin Sodium (Porcine) (Heparin Sodium) 5,000 units SUBCUT Q12H [facility] Last Admin: 01/23/20 13:25 Dose: Not Given Documented by: Heparin Sodium (Porcine) (Heparin Sodium) 5,000 units SUBCUT Q12H [facility] Last Admin: 01/26/20 10:25 Dose: 5,000 units Documented by: Sodium Chloride (Normal Saline) 1,000 mls @ 125 mls/hr IV ASDIRECTED [facility] Last Admin: 01/14/20 12:00 Dose: 999 mls/hr Documented by: Lactated Ringer's (Ringers, Lactated) 1,000 mls @ 1,000 mls/hr IV .BOLUS ONE Stop: 01/14/20 12:47 Last Admin: 01/14/20 13:37 Dose: 1,000 mls/hr Documented by: Ceftriaxone Sodium 2 gm/ (Sodium Chloride) 100 mls @ 200 mls/hr IV Q24H [facility] Last Admin: 01/14/20 13:05 Dose: 200 mls/hr Documented by: Lactated Ringer's (Ringers, Lactated) Confirm Administered Dose 1,000 mls @ as directed .ROUTE .STK-MED ONE Stop: 01/14/20 14:55 Last Admin: 01/14/20 17:59 Dose: Not Given Documented by: Ceftriaxone Sodium 2 gm/ (Sodium Chloride) 100 mls @ 200 mls/hr IV Q24H [facility] Last Admin: 01/16/20 15:14 Dose: 200 mls/hr Documented by: Magnesium Sulfate (Magnesium Sulfate In Water Premix) 2 gm in 50 mls @ 25 mls/hr IV ONETIME ONE Stop: 01/14/20 17:55 Last Admin: 01/14/20 18:39 Dose: 25 mls/hr Documented by: Lactated Ringer's (Ringers, Lactated) 430 mls @ 999 mls/hr IV .BOLUS ONE Stop: 01/14/20 15:02 Last Admin: 01/14/20 14:37 Dose: 999 mls/hr Documented by: Magnesium Sulfate (Magnesium Sulfate In Water Premix) 2 gm in 50 mls @ 25 mls/hr IV ONETIME ONE Stop: 01/16/20 15:59 Last Admin: 01/16/20 13:11 Dose: 25 mls/hr Documented by: Levofloxacin/Dextrose 750 mg/ (Premix) 150 mls @ 100 mls/hr IV Q48H [facility] Last Admin: 01/21/20 09:27 Dose: 100 mls/hr Documented by: Sodium Chloride (Normal Saline) 1,000 mls @ 250 mls/hr IV ONETIME ONE Stop: 01/17/20 12:14 Last Admin: 01/17/20 09:30 Dose: 250 mls/hr Documented by: Sodium Chloride (Normal Saline) 394 mls @ 250 mls/hr IV .BOLUS ONE Stop: 01/17/20 17:49 Last Admin: 01/17/20 17:58 Dose: 250 mls/hr Documented by: Sodium Chloride (Normal Saline) 1,000 mls @ 250 mls/hr IV ONETIME ONE Stop: 01/17/20 12:29 Last Admin: 01/17/20 13:35 Dose: 250 mls/hr Documented by: Magnesium Sulfate (Magnesium Sulfate In Water Premix) 2 gm in 50 mls @ 25 mls/hr IV ONETIME ONE Stop: 01/18/20 09:28 Last Admin: 01/18/20 08:56 Dose: 25 mls/hr Documented by: Sodium Chloride (Normal Saline) 1,000 mls @ 75 mls/hr IV ASDIRECTED [facility] Stop: 01/18/20 22:00 Last Admin: 01/18/20 10:34 Dose: 75 mls/hr Documented by: Sodium Chloride (Normal Saline) 1,000 mls @ 75 mls/hr IV ASDIRECTED [facility] Stop: 01/19/20 15:31 Last Infusion: 01/19/20 19:48 Dose: 50 mls/hr Documented by: Sodium Chloride (Normal Saline) 1,000 mls @ 50 mls/hr IV ASDIRECTED [facility] Zoledronic Acid 4 mg/ Sodium (Chloride) 105 mls @ 420 mls/hr IV ONETIME ONE Stop: 01/19/20 12:14 Last Admin: 01/19/20 12:11 Dose: 420 mls/hr Documented by: Magnesium Sulfate 4 gm/ Premix 50 mls @ 12.5 mls/hr IV ONETIME ONE Stop: 01/20/20 18:56 Last Admin: 01/20/20 18:36 Dose: Not Given Documented by: Magnesium Sulfate (Magnesium Sulfate In Water Premix) 2 gm in 50 mls @ 25 mls/hr IV Q2H [facility] Stop: 01/20/20 19:14 Last Admin: 01/20/20 17:03 Dose: 25 mls/hr Documented by: Sodium Chloride (Normal Saline) 1,000 mls @ 75 mls/hr IV ASDIRECTED [facility] Last Admin: 01/22/20 03:42 Dose: 75 mls/hr Documented by: Levofloxacin/Dextrose 500 mg/ (Premix) 100 mls @ 66.667 mls/hr IV Q48H [facility] Last Admin: 01/23/20 09:00 Dose: 66.667 mls/hr Documented by: Lorazepam (Ativan) 0.5 mg IVPUSH ONETIME ONE Stop: 01/21/20 14:38 Last Admin: 01/21/20 15:33 Dose: 0.5 mg Documented by: Magnesium Hydroxide (Milk Of Magnesia) 30 ml PO ONETIME ONE Stop: 01/21/20 07:01 Last Admin: 01/21/20 06:28 Dose: 30 ml Documented by: Multivitamins (Thera) 1 each PO DAILY [facility] Last Admin: 01/25/20 09:52 Dose: 1 each Documented by: Potassium Chloride (Klor-Con M20) 20 meq PO ONETIME ONE Stop: 01/16/20 14:01 Last Admin: 01/16/20 13:11 Dose: 20 meq Documented by: Potassium Chloride (Klor-Con M20) 40 meq PO ONETIME ONE Stop: 01/21/20 13:01 Last Admin: 01/21/20 13:07 Dose: 40 meq Documented by:
== END 2020-01-27 21:13 | disposition expired | DRG 871 ==
LOC: JD.ED 10:18 → JD.MS 15:08
PROVIDERS: ADMIT Family Medicine; ATTEND Family Medicine
DX: A41.9 Sepsis, unspecified organism (principal); J18.9 Pneumonia, unspecified organism; N17.9 Acute kidney failure, unspecified; H91.90 Unspecified hearing loss, unspecified ear; E83.52 Hypercalcemia; H54.7 Unspecified visual loss; H61.20 Impacted cerumen, unspecified ear; Z51.5 Encounter for palliative care; Z66 Do not resuscitate; E78.00 Pure hypercholesterolemia, unspecified; I25.10 Atherosclerotic heart disease of native coronary artery without angina pectoris; M54.9 Dorsalgia, unspecified; Z95.2 Presence of prosthetic heart valve; K31.9 Disease of stomach and duodenum, unspecified; I11.0 Hypertensive heart disease with heart failure; I50.9 Heart failure, unspecified; R59.0 Localized enlarged lymph nodes; Z91.81 History of falling; K86.89 Other specified diseases of pancreas; R01.1 Cardiac murmur, unspecified; R32 Unspecified urinary incontinence; I34.0 Nonrheumatic mitral (valve) insufficiency; H40.9 Unspecified glaucoma; Z20.828 Contact with and (suspected) exposure to other viral communicable diseases; J45.909 Unspecified asthma, uncomplicated; K21.9 Gastro-esophageal reflux disease without esophagitis; K90.0 Celiac disease; Z95.1 Presence of aortocoronary bypass graft; Z95.4 Presence of other heart-valve replacement; Z98.49 Cataract extraction status, unspecified eye; Z99.81 Dependence on supplemental oxygen; Z79.82 Long term (current) use of aspirin; Z79.899 Other long term (current) drug therapy; Z79.01 Long term (current) use of anticoagulants; Z97.3 Presence of spectacles and contact lenses
CPT/HCPCS: 36415; 70450; 71045; 80053; 81001; 82728; 83605 ×2; 83615; 83735; 84484; 85025; 85379; 85652; 86140; 93005; 96365; 99285; J0696; J7030; J7050; J7120 ×2; U0002; 51701; 70551; 70551-26; 74176; 74176-26; 76881-26-RT; 76881-RT; 80048; 82306; 82330; 82397; 83970; 84100; 84145; 87040; 92610-GN; 93010; 94760; 97110-GP; 97116-GP; 97162-GP; 97165-GO; 97530-GO; 97530-GP; 97535-GO; 99222; 99231; 99232; 99233; 99239; 99284; A9270-GY; J1644; J1650; J1940; J1956; J2060; J3475; J3489; J7040; Q3014